=== PATIENT | female | born 1950 | race Caucasian/White ===

== ENCOUNTER 2023-12-13 14:58 | Emergency (ER) | payer OTHER, SELFPAY ==
[2023-12-13 15:18] VITALS: BP 184/83
--- NOTE | 2023-12-13 16:45 | ED.GENMED ---
History of Present Illness
General
Chief Complaint: Vascular Access Problem
Source: patient
Exam Limitations: none
Time Seen by Provider: 12/13/23 16:15
Nursing documentation reviewed up to this point in time: agreed with
Travel History
Have you had any contact with someone who has COVID-19?: No
Do you have any symptoms of coronavirus? Fever > 100 degrees, chills, cough, shortness of breath, sore throat, loss of taste or smell, muscle aches, or headache?: No
History of Present Illness
History of Present Illness:
Patient to ED with complaint of pain, pins and needles to right upper arm dialysis graft. Symptoms started this AM. Receives dialysis , , sat. States she had a headache and pins and needles in her head yesterday so she did not go to
dialysis. States head feels better today, now with pain to graft. Brought to ED by spouse for eval.
Past History
Past History
ED Past Medical History: Arrthythmia (Atrial fib), Asthma, COPD, GERD, HTN, Hypercholesterolemia, IDDM, [place], Renal failure (Dialysis - Saturday), Psychiatric (Depression) and Other (Neuropathy, sleep apnea, rheumatoid arthritis, gout, restless
leg, Diverticulitis, UTI, Cellulitis, )
ED Past Surgical History: Gynecological (Hysterectomy) and Urological (Bladder lift X3)
Social History
Tobacco: Non-smoker
Alcohol: None
Drug: None
Personal:
Living: with family
Employment: Retired
Family History
Family History: CAD
Review of Systems
Review of Systems
All Other Systems: ROS reviewed and negative except as documented in HPI and ROS
Constitutional: Reports no symptoms
EENT: Reports no symptoms
Respiratory: Reports no symptoms
Cardiac: Reports other (Pain, pins and needles at dialysis kristin site)
Musculoskeletal: Reports no symptoms
Skin: Reports other (Old bruising at dialysis graft)
Neurological: Reports no symptoms
Psychiatric: Reports no symptoms
Phy Exam
General Physical Exam
General Presentation: well appearing and no apparent distress
General age: appears stated age
General Skin: warm and dry
General Habitus: normal
Musculoskeletal Exam
Musculoskeletal Exam: full ROM and neuro vasc intact
Skin Exam
Skin Exam: normal color, warm/dry and other (Right upper arm dialysis fistula. +thrill, no redness or swelling. No tenderness to touch)
Psychiatric Exam
Psychiatric Exam: normal mood/affect
Course
Orders/Labs/Results
Orders:
Orders
12/13/23 19:59
Complete Blood Count/With Diff Urgent
Comprehensive Metabolic Panel Urgent
Abnormal Lab Results
12/13/23
19:59
MCH 31.5 H pg
(27.0-31.0)
Absolute Monos (auto) 0.8 H 10^3/uL
(0.1-0.6)
Lymphocytes % 19.8 L %
(20.5-51.1)
BUN 54 H mg/dl
(7-17)
Creatinine 2.6 H mg/dL
(0.6-1.0)
Calcium 10.3 H mg/dl
(8.4-10.2)
12/13/23 19:59
12/13/23 19:59
Vital Signs
Initial and Last Documented VS:
Initial Vital Signs
Temp Pulse Resp BP Pulse Ox
98.3 F 61 20 184/83 98
12/13/23 15:18 12/13/23 15:18 12/13/23 15:18 12/13/23 15:18 12/13/23 15:18
Last Documented Vital Signs
Temp Pulse Resp BP Pulse Ox
98.3 F 61 20 162/85 98
12/13/23 15:18 12/13/23 15:18 12/13/23 15:18 12/13/23 21:08 12/13/23 15:18
*Critical Care Note
Total Time (30-74mins, 75-104mins- exclusive of procedures): Not Applicable
Update Note
Update Note:
Discussed patient complaint with Dr. Gupta. Okay to discharge home, She will attempt dialysis as scheduled tomorrow and then will follow upw ith Alonso Stubbs. Patient is agreeable to plan.
ED Attending Note
-
Portions of this chart may have been created with voice recognition software.� Occasional wrong word or��sound alike� substitutions may have occurred due to the inherent limitations of voice recognition software.
Discharge Plan
Departure
Patient Disposition: Home (Routine Discharge)
Date of Disposition: 12/13/23
Time of Disposition: 20:46
Patient with high blood pressure during this ER visit?: No
Condition: Good
Covid-19: Not Applicable
Discharge Problem:
dialysis graft pain
Instructions: Arteriovenous Fistula for Dialysis (DC)
Prescriptions:
No Action
atorvastatin 40 MG tablet
40 mg PO DAILY
cilostazol 100 MG tablet
100 mg PO BID
gabapentin 100 MG capsule
100 mg PO TID
fluoxetine 20 MG capsule
20 mg PO DAILY
Eliquis 2.5 MG tablet
2.5 mg PO BID Qty: 60 0RF
Hold Instructions: Resume on 06/05/22. Restart blood thinner 06/05/22
cholecalciferol (vitamin D3) [Vitamin D3] 50 mcg (2,000 unit) Capsule
50 mcg PO DAILY
pantoprazole 40 mg Tablet,Delayed Release (Dr/Ec)
40 mg PO DAILY
amiodarone 200 mg tablet
200 mg PO DAILY
potassium chloride 20 mEq tablet extended release
20 meq PO DAILY
amlodipine 2.5 mg Tablet
2.5 mg PO DAILY
prednisolone acetate 1 % Drops,Suspension
1 drp LEFT EYE QID
diclofenac sodium 0.1 % Drops
1 drp LEFT EYE QID
moxifloxacin 0.5 % Drops
1 drp LEFT EYE QID
Mounjaro 2.5 mg/0.5 mL Pen Injector
2.5 mg SC TH
Referrals:
Marielle Sheppard MD [Family Provider] -
Tye Gupta MD [Active] - 12/16/23 (Call office on Saturday morning for your appointment time.)
Activity Restrictions/Additional Instructions:
Please follow up tomorrow for your dialysis appointment as scheduled.
Interventions
Interventions:
*General Assessment Last Done: 12/13/23 16:21
*Neglect/Abuse Screening Last Done: 12/13/23 16:21
ED- Fall Risk Assessment Last Done: 12/13/23 16:21
*ED COVID-19 Vaccine History Last Done: 12/13/23 16:21
*Nursing Disposition Last Done: 12/13/23 21:08
Discharge Date and Time
Discharge Date/Time: 12/13/23 21:09
[2023-12-13 20:08] LABS: % Basophils 0.4 % (0-2); % Eosinophils 3.1 % (0-6); % Immature Granulocytes 0.4 % (0-0.5); % Lymphocytes 19.8 % (20.5-51.1); % Monocytes 8.4 % (1.7-9.3); % Neutrophils 67.9 % (42.2-75.2); Absolute Eosinophils 0.3 10^3/uL (0-0.7); Absolute Lymphocytes 1.8 10^3/uL (1.2-3.4); Absolute Monocytes 0.8 10^3/uL (0.1-0.6); Absolute Neutrophils 6.1 10^3/uL (1.4-6.5); Mean Corp Hgb Conc. 35.9 g/dL (33.0-37.0); Mean Corpuscular Hgb 31.5 pg (27.0-31.0); Mean Corpuscular Volume 87.8 fL (81.0-99.0); Mean Platelet Volume 9.9 fL (7.4-10.4); Nucleated Red Blood Cells % 0 %; Platelet Count 251 10^3/uL (130-400); Red Blood Cell Count 4.44 10^6/uL (4.20-5.40); Red Cell Dist. Width 12.7 % (11.5-14.5)
[2023-12-13 20:23] LABS: ALT (SGPT) 29 U/L (0-35); AST (SGOT) 27 U/L (14-36); Albumin 4.2 g/dl (3.5-5.0); Alkaline Phosphatase 57 U/L (38-126); Blood Urea Nitrogen 54 mg/dl (7-17); Calcium 10.3 mg/dl (8.4-10.2); Carbon Dioxide 24 mmol/L (22-30); Chloride 99 mmol/L (98-107); Glucose 90 mg/dl (70-99); Potassium 3.6 mmol/L (3.5-5.1); Sodium 136 mmol/L (135-145); Total Bilirubin 0.6 mg/dl (0.2-1.3); Total Protein 7.1 g/dl (6.3-8.2); eGFR 19.26
[2023-12-13 21:08] VITALS: BP 162/85
== END 2023-12-13 21:09 | disposition home or self-care (01) ==
LOC: EMR 14:58
PROVIDERS: Nurse Practitioner; EMERGENCY PHYSICIAN Student in an Organized Health Care Education/Training Program; FAMILY PHYSICIAN Family Medicine
DX: T82.848A Pain due to vascular prosthetic devices, implants and grafts, initial encounter (principal)
CPT/HCPCS: 99283; 80053; 85025

== ENCOUNTER 2023-12-18 23:02 | Observation (INO) | payer OTHER, SELFPAY ==
[2023-12-18 15:58] VITALS: BP 171/97
[2023-12-18 16:18] LABS: % Basophils 0.5 % (0-2); % Immature Granulocytes 0.2 % (0-0.5); % Lymphocytes 17.5 % (20.5-51.1); % Monocytes 8.2 % (1.7-9.3); % Neutrophils 71.6 % (42.2-75.2); Absolute Eosinophils 0.2 10^3/uL (0-0.7); Absolute Lymphocytes 1.5 10^3/uL (1.2-3.4); Absolute Monocytes 0.7 10^3/uL (0.1-0.6); Absolute Neutrophils 6.3 10^3/uL (1.4-6.5); Mean Corp Hgb Conc. 35.1 g/dL (33.0-37.0); Mean Corpuscular Hgb 31.3 pg (27.0-31.0); Mean Corpuscular Volume 89.2 fL (81.0-99.0); Nucleated Red Blood Cells % 0 %; Platelet Count 247 10^3/uL (130-400); Red Blood Cell Count 4.15 10^6/uL (4.20-5.40); Red Cell Dist. Width 12.6 % (11.5-14.5); White Blood Cell Count 8.8 10^3/uL (4.8-10.8)
[2023-12-18 16:31] LABS: ALT (SGPT) 28 U/L (0-35); AST (SGOT) 30 U/L (14-36); Albumin 4.2 g/dl (3.5-5.0); Alkaline Phosphatase 62 U/L (38-126); Blood Urea Nitrogen 43 mg/dl (7-17); Calcium 9.6 mg/dl (8.4-10.2); Carbon Dioxide 21 mmol/L (22-30); Chloride 108 mmol/L (98-107); Glucose 100 mg/dl (70-99); INR 1.28; Lipase 236 U/L (23-300); PT 16.1 Sec (11.4-14.6); Potassium 3.3 mmol/L (3.5-5.1); Sodium 137 mmol/L (135-145); Total Bilirubin 0.7 mg/dl (0.2-1.3); Total Protein 6.8 g/dl (6.3-8.2); eGFR 20.06
[2023-12-18 16:42] LABS: Troponin I < 0.012 ng/ml
--- NOTE | 2023-12-18 18:54 | ED.GENMED ---
History of Present Illness
General
Chief Complaint: Abdominal Symptoms
Source: patient
Time Seen by Provider: 12/18/23 18:43
Travel History
Have you had any contact with someone who has COVID-19?: No
Do you have any symptoms of coronavirus? Fever > 100 degrees, chills, cough, shortness of breath, sore throat, loss of taste or smell, muscle aches, or headache?: No
History of Present Illness
History of Present Illness:
73-year-old female presents to the emergency room complaining of abdominal pain. Pain began last evening. It has been essentially constant since then. Nothing seems to make it better or worse. Pain has remained the same intensity since
yesterday. She has had diarrhea. Patient has not taken any [id number] medication for pain. Poor oral intake due to decreased appetite and nausea.
Past History
Past History
ED Past Medical History: Arrthythmia (Atrial fib), Asthma, COPD, GERD, HTN, Hypercholesterolemia, IDDM, [place], Renal failure (Dialysis T-- Saturday), Psychiatric (Depression) and Other (Neuropathy, sleep apnea, rheumatoid arthritis, gout, restless
leg, Diverticulitis, UTI, Cellulitis, )
ED Past Surgical History: Gynecological (Hysterectomy) and Urological (Bladder lift X3)
Social History
Tobacco: Non-smoker
Alcohol: None
Drug: None
Personal:
Living: with family
Employment: Retired
Family History
Family History: CAD
Phy Exam
Physical Exam
Physical Exam:
General: Awake, Alert, Oriented X3. No acute distress.
Vitals: unremarkable
Head: Atraumatic
Eyes: Pupils equal, EOMI
Throat: Airway intact, no exudates, dry mucosa
Neck: Trachea midline
Lungs: Clear and equal b/l
Heart: Regular rate, no murmurs
Abd: Soft, Nontender, No pulsatile mass
Neuro: Nonfocal
Skin: Warm, dry, no rash
Extremities: pulses equal b/l, no edema
Course
Orders/Labs/Results
Orders:
Orders
12/18/23 15:59
EKG [Electrocardiogram (*1)] Urgent
Reason for Study: Abdominal Pain
EKG- Treatment ONCE
12/18/23 16:03
Complete Blood Count/With Diff Urgent
Comprehensive Metabolic Panel Urgent
Lipase Urgent
Prothrombin Time Urgent
Troponin I Urgent
12/18/23 18:56
CT Abd/pelvis W Iv Cont Urgent
Comment:
Reason For Exam: left sided abd pain, she will get dialysis tomorro
12/18/23 22:21
HYDROmorphone [Dilaudid] 0.5 mg IV NOW STA
12/18/23 23:02
Admit/Transfer Patient As Directed
Co-Sign Provider:
Level of Care: Observation services
Assign to:: Medical/Surgical
Physician / Group: bjorn
Diagnosis: acute gastroenteritis
Code Status As Directed
Resuscitation Status: Do not resuscitate
Reached after discussion with pt or family/Healthcare POA: Yes
DNR Bracelet Application ONCE
12/18/23 23:06
CDIFF [C difficile Antigen & Toxins] Urgent
HARLAN Source: Feces/Stool
Specimen Description:
Norovirus by PCR Urgent
HARLAN Source: Feces/Stool
Specimen Description:
Stool Culture Urgent
HARLAN Source: Feces/Stool
Specimen Description:
Potassium Chloride [KCl] 40 meq 0.9% Sodium Chloride 250 ml [Nss] 250 ml IV NOW
Abnormal Lab Results
12/18/23
16:03
RBC 4.15 L 10^6/uL
(4.20-5.40)
MCH 31.3 H pg
(27.0-31.0)
Absolute Monos (auto) 0.7 H 10^3/uL
(0.1-0.6)
Lymphocytes % 17.5 L %
(20.5-51.1)
PT 16.1 H Sec
(11.4-14.6)
Potassium 3.3 L mmol/L
(3.5-5.1)
Chloride 108 H mmol/L
(98-107)
Carbon Dioxide 21 L mmol/L
(22-30)
BUN 43 H mg/dl
(7-17)
Creatinine 2.5 H mg/dL
(0.6-1.0)
Glucose 100 H mg/dl
(70-99)
12/18/23 16:03
12/18/23 16:03
Vital Signs
Initial and Last Documented VS:
Initial Vital Signs
Temp Pulse Resp BP Pulse Ox
98.5 F 66 17 171/97 99
12/18/23 15:58 12/18/23 15:58 12/18/23 15:58 12/18/23 15:58 12/18/23 15:58
Last Documented Vital Signs
Temp Pulse Resp BP Pulse Ox
98.5 F 63 18 164/83 98
12/18/23 15:58 12/18/23 22:45 12/18/23 22:45 12/18/23 22:45 12/18/23 22:45
MDM/Problems Addressed
Differential Diagnosis Includes:
Diverticulitis, gastritis, small bowel obstruction, ischemic bowel
MDM/Problems Addressed:
Patient has reassuring labs including a normal white blood cell count. Potassium mildly low but given her end-stage renal disease supplemental potassium will not be given. Renal functions abnormal but this is expected given her end-stage renal
disease. CT abdomen pelvis shows a renal mass. This was noted in June. I did notify the patient of this mass. She did not seem to recall any information about it stressed that she should follow-up with urology for this. Patient does not feel
enough to go home. She does have abdominal pain. She does not think she can make it to dialysis tomorrow. She missed dialysis on Saturday. Patient will be admitted for serial abdominal exams, further evaluation and dialysis
Chronic conditions affecting care: HTN and Kidney disease
*Radiology
Radiology exam reviewed: radiology read reviewed
*Pulse Oximetry
Patient hypoxic: no
*EKG
Interpreted by ED Provider?: Yes
Interpretation: normal
Heart Rate: 61
Rate: normal
Rhythm: sinus
[place]: normal axis
Interval: normal interval
QRS Pattern: normal QRS
Ischemia: no ischemia
*Storage Consultant Interpretation
Rate: normal
Interpretation: normal
Heart Rate: 61
Rhythm: sinus
*Critical Care Note
Total Time (30-74mins, 75-104mins- exclusive of procedures): Not Applicable
Data Reviewed
Review of Other/Old Records Reveals: Radiology Studies (CT report from June)
Patient Management
Discussion with other providers: Hospitalist
ED Attending Note
-
Portions of this chart may have been created with voice recognition software.� Occasional wrong word or��sound alike� substitutions may have occurred due to the inherent limitations of voice recognition software.
Discharge Plan
Departure
Patient Disposition: Admit
Date of Disposition: 12/18/23
Time of Disposition: 22:47
Admit to: Telemetry
Presentation/result/management discussed w/ accepting MD/DO: Hospitalist
Patient with high blood pressure during this ER visit?: Yes
Condition: Fair
Discharge Problem:
Abdominal pain, Diarrhea, ESRD (end stage renal disease) on dialysis
Prescriptions:
No Action
atorvastatin 40 MG tablet
40 mg PO DAILY
cilostazol 100 MG tablet
100 mg PO BID
gabapentin 100 MG capsule
100 mg PO TID
fluoxetine 20 MG capsule
20 mg PO DAILY
Eliquis 2.5 MG tablet
2.5 mg PO BID Qty: 60 0RF
Hold Instructions: Resume on 06/05/22. Restart blood thinner 06/05/22
cholecalciferol (vitamin D3) [Vitamin D3] 50 mcg (2,000 unit) Capsule
50 mcg PO DAILY
pantoprazole 40 mg Tablet,Delayed Release (Dr/Ec)
40 mg PO DAILY
amiodarone 200 mg tablet
200 mg PO DAILY
potassium chloride 20 mEq tablet extended release
20 meq PO DAILY
amlodipine 2.5 mg Tablet
2.5 mg PO DAILY
prednisolone acetate 1 % Drops,Suspension
1 drp LEFT EYE QID
diclofenac sodium 0.1 % Drops
1 drp LEFT EYE QID
moxifloxacin 0.5 % Drops
1 drp LEFT EYE QID
Mounjaro 2.5 mg/0.5 mL Pen Injector
2.5 mg SC TH
Referrals:
Marielle Sheppard MD [Family Provider] -
Interventions
Interventions:
*Risk Screen - Suicide Last Done: 12/18/23 22:56
*General Assessment Last Done: 12/18/23 22:56
*Neglect/Abuse Screening Last Done: 12/18/23 22:56
ED- Fall Risk Assessment Last Done: 12/18/23 20:16
*ED COVID-19 Vaccine History Last Done: 12/18/23 22:56
EM-[id number] Assessment Last Done: 12/18/23 22:56
[2023-12-18] MEDS: DILAUDID 0.5 MG IV (22:27)
[2023-12-18 22:45] VITALS: BP 164/83
--- NOTE | 2023-12-18 23:09 | HPS.HSE ---
Addendum entered and electronically signed by Temo White MD 12/18/23 23:38:
Reduced Lantus from 40 units to 20 units.
Original Note:
Family Physician
-
Family Physician: Marielle Sheppard
Chief Complaint
-
abdominal pain
History of Present Illness
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
obstructive sleep apnea, obesity, hyperlipidemia, peripheral arterial disease presenting with abdominal pain starting last evening and severe diarrhea. Abdominal pain is described as pain across her belly. Denies any abdominal distention. She
denies any nausea or vomiting. She did have some sweats and chills. She denies eating any new foods recently or restaurant food or travel. She denies any chest pain or shortness of breath.
Patient was admitted for gastroparesis suspected due to Ozempic in August. She underwent endoscopy at that time which showed findings consistent with gastroparesis. Ozempic was discontinued. Afterwards patient was started on Mounjaro because she
gained significant amount of weight off of Ozempic. She is trying to lose weight for kidney transplant.
Patient missed her dialysis session yesterday due to her symptoms. She is complaining of some pain in her right upper extremity fistula but not currently.
She denies smoking or alcohol use.
Medical History
Past Medical History
Past Medical History: Reports Other (astroparesis secondary to Ozempic, ESRD, orthostatic hypotension, diabetes, paroxysmal atrial fibrillation on Eliquis, CAD, hypertension, COPD, pulmonary hypertension, gout, rheumatoid arthritis, obstructive
sleep apnea, obesity, hyperlipidemia, peripheral arterial disease)
Past Surgical History: Reports Other (Gynecological (Hysterectomy) and Urological (Bladder lift X3))
Social History
Tobacco: Non-smoker
Alcohol: None
Drug: None
Family History
Family History: Not pertinent
Allergies / Home Medications
Allergies reflects when Allergies were last updated in [employer].
Home Medications with original date entered in [employer]
Allergy/Medication List:
Allergies
Allergy/AdvReac Type Severity Reaction Status Date / Time
adhesive Allergy Rash, Verified 12/18/23 15:59
itching
Sulfa (Sulfonamide Allergy nausea and Verified 12/18/23 15:59
Antibiotics) vomiting
Home Medications
atorvastatin 40 mg tablet 40 mg PO DAILY High cholesterol 04/25/21
cilostazol 100 mg tablet 100 mg PO BID Blood clot prevention/tx 04/25/21
fluoxetine 20 mg capsule 20 mg PO DAILY anxiety/depression 04/05/22
gabapentin 100 mg capsule 100 mg PO TID Diabetic Neuropathy 04/05/22
apixaban 2.5 mg tablet (Eliquis) 2.5 mg PO BID Blood clot prevention/tx #60 tabs 04/16/22
cholecalciferol (vitamin D3) 50 mcg (2,000 unit) capsule (Vitamin D3) 50 mcg PO DAILY Supplement 07/19/22
pantoprazole 40 mg tablet,delayed release 40 mg PO DAILY GERD 05/09/23
amiodarone 200 mg tablet 200 mg PO DAILY Arrhythmia 08/31/23
potassium chloride 20 mEq tablet,extended release 20 meq PO DAILY Electrolyte Repletion 08/31/23
amlodipine 2.5 mg tablet 2.5 mg PO DAILY 12/13/23
diclofenac sodium 0.1 % eye drops 1 drp LEFT EYE QID 12/13/23
moxifloxacin 0.5 % eye drops 1 drp LEFT EYE QID 12/13/23
prednisolone acetate 1 % eye drops,suspension 1 drp LEFT EYE QID 12/13/23
tirzepatide 2.5 mg/0.5 mL subcutaneous pen injector (Mounjaro) 2.5 mg SC TH 12/13/23
Review of Systems
-
History Source: Patient
A 12 point ROS was completed and negative except as noted: Yes
Constitutional: Reports No Symptoms
EENT: Reports No Symptoms
Respiratory: Reports No Symptoms
Cardiac: Reports No Symptoms
Abdomen/GI: Reports See HPI
: Reports No Symptoms
Musculoskeletal: Reports No Symptoms
Skin: Reports No Symptoms
Neurological: Reports No Symptoms
Endocrine: Reports No Symptoms
Hematologic/Lymphatic: Reports No Symptoms
Psych: Reports No Symptoms
Physical Exam
Vital Signs
Vital Signs
Temp Pulse Resp BP Pulse Ox
98.5 F 63 18 164/83 98
12/18/23 15:58 12/18/23 22:45 12/18/23 22:45 12/18/23 22:45 12/18/23 22:45
Physical Exam
General: Well Developed, Well Nourished and No Apparent Distress
HEENT: NormoCephalic, Moist mucous membranes and Atraumatic
Respiratory: Clear
Cardiac: S1/S2 and Regular Rhythm; No Murmur or Rub
GI: Soft, Non Distended, Normal Bowel Sounds and Tender; No Organomegaly
Rectal: Deferred by Provider
Musculoskeletal: No Clubbing, No Cyanosis and No Edema
Skin: No Rash
Neuro: Nonfocal/grossly intact
Laboratory Results
-
12/18/23 16:03
12/18/23 16:03
Laboratory Results
PT 16.1 Sec (11.4-14.6) H 12/18/23 16:03
INR 1.28 12/18/23 16:03
Total Bilirubin 0.7 mg/dl (0.2-1.3) 12/18/23 16:03
AST 30 U/L (14-36) 12/18/23 16:03
ALT 28 U/L (0-35) 12/18/23 16:03
Alkaline Phosphatase 62 U/L (38-126) 12/18/23 16:03
Troponin I < 0.012 ng/ml 12/18/23 16:03
Lipase 236 U/L (23-300) 12/18/23 16:03
Data Reviewed
-
Lab Data: Labs Reviewed by me
Old Records: Reviewed
Impression/Plan
-
IMPRESSION:
PLAN:
# Acute gastroenteritis
# History of Ozempic induced gastroparesis
-N.p.o.
-Check stool studies, C. difficile, norovirus
-Dilaudid for pain
# Hypokalemia secondary to GI losses
-Hold off on potassium repletion since dialysis patient
ESRD on hemodialysis Saturday, , Saturday
-Nephrology consulted for dialysis tomorrow since she missed dialysis yesterday
Orthostatic hypotension
Essential hypertension
-Continue amlodipine
Type 2 diabetes
-Not on diabetic medication
Diabetic neuropathy
-Continue gabapentin
Paroxysmal atrial fibrillation
-Continue amiodarone
-Continue Eliquis
Coronary artery disease
Peripheral arterial disease
-Continue cilostazol
COPD
Obstructive sleep apnea
Pulmonary hypertension
Gout
Rheumatoid arthritis
Obesity
Hyperlipidemia
-Continue statin
Anxiety/depression
-Continue fluoxetine
DNR/DNI
DVT prophylaxis�Eliquis
N.p.o.
[2023-12-19 00:20] VITALS: BMI 36.8
[2023-12-19 00:20] LABS: Glucose - Point of Care 93 mg/dl (70-99)
[2023-12-19 00:32] VITALS: BMI 36.8
--- NOTE | 2023-12-19 00:52 | W.PN.UPDATE ---
Update Note
Progress Note Update
Pharmacist recommended to change Pletal 100mg BID to 50mg BID. The patient currently on Prozac which is leading to significant reaction of increased Pletal concentrations and increases the risk of ADEs.
[2023-12-19 01:10] VITALS: BP 128/86
[2023-12-19 05:30] LABS: Glucose - Point of Care 92 mg/dl (70-99)
[2023-12-19 05:32] VITALS: BMI 36.4
--- NOTE | 2023-12-19 07:07 | CON.GI ---
Consultation
-
Date/Time Consultation Performed: 12/19/23
Performing Provider: Dev Chapman MD
Reason for Consultation: nausea, diarrhea, abdominal pain
Medical History
Chief Complaint / HPI
Chief Complaint: nausea, diarrhea, abdominal pain
History of Present Illness:
The patient is a 73-year-old female with past medical history as noted presents with abdominal pain, early satiety, nausea and diarrhea. The symptoms started over the past several days, though has been doing well after her hospitalization in
August for very similar symptoms which were secondary to Ozempic. At that point workup was negative except for endoscopy did show retained gastric contents, and her symptoms resolved after stopping Ozempic. She recently started Mounjaro about 2
weeks ago, and feels that the symptoms are very similar, though more severe. She had watery, nonbloody diarrhea, denies any fever, chills, recent antibiotics or sick contacts. She has early satiety and abdominal pain again which feels identical to
before. She denies any melena or hematochezia, chest pain or shortness of breath.
Past Medical History
Past Medical History: Other (atrial fibrillation, diabetes, asthma, COPD, ESRD on dialysis, pulmonary htn, PAD)
Past Surgical History: Other (Hysterectomy) and Urological (Bladder lift X3)
Social History
Tobacco: Non-Smoker
Alcohol: None
Family History
Family History: Reviewed & Not Pertinent
Allergies / Home Medications
Allergy/AdvReac Type Severity Reaction Status Date / Time
adhesive Allergy Rash, Verified 12/18/23 15:59
itching
Sulfa (Sulfonamide Allergy nausea and Verified 12/18/23 15:59
Antibiotics) vomiting
Medication Instructions Recorded
atorvastatin 40 mg tablet 40 mg PO DAILY High cholesterol 04/25/21
cilostazol 100 mg tablet 100 mg PO BID Blood clot 04/25/21
prevention/tx
fluoxetine 20 mg capsule 20 mg PO DAILY anxiety/depression 04/05/22
gabapentin 100 mg capsule 100 mg PO TID Diabetic Neuropathy 04/05/22
apixaban 2.5 mg tablet (Eliquis) 2.5 mg PO BID Blood clot 04/16/22
prevention/tx #60 tabs
cholecalciferol (vitamin D3) 50 50 mcg PO DAILY Supplement 07/19/22
mcg (2,000 unit) capsule (Vitamin
D3)
pantoprazole 40 mg tablet,delayed 40 mg PO DAILY GERD 05/09/23
release
amiodarone 200 mg tablet 200 mg PO DAILY Arrhythmia 08/31/23
potassium chloride 20 mEq 20 meq PO DAILY Electrolyte 08/31/23
tablet,extended release Repletion
amlodipine 2.5 mg tablet 2.5 mg PO DAILY 12/13/23
prednisolone acetate 1 % eye 1 drp LEFT EYE QID 12/13/23
drops,suspension
tirzepatide 2.5 mg/0.5 mL 2.5 mg SC TH 12/13/23
subcutaneous pen injector
(Mounjaro)
insulin glargine 100 unit/mL (3 40 unit SC HS 12/18/23
mL) subcutaneous pen (Basaglar
KwikPen U-100 Insulin)
Review of Systems
-
All other systems: A 12 pt ROS was Negative except as stated above in HPI
Vital Signs
Temp Pulse Resp BP Pulse Ox
97.6 F 67 16 128/86 97
12/19/23 05:41 12/19/23 01:10 12/19/23 01:10 12/19/23 01:10 12/19/23 01:10
Physical Exam
Exam
General: NAD
HEENT: MMM, anicteric, no lymphadenopathy
Heart: Regular, no murmurs
Lungs: CTA bilaterally
Abdomen: normal bowel sounds, soft, no tenderness, no rebound or guarding, no masses, bruits or ascites
Extremeties: no edema
Skin: no rashes
Results
WBC 8.8 10^3/uL (4.8-10.8) 12/18/23 16:03
Hgb 13.0 g/dL (12.0-16.0) 12/18/23 16:03
Hct 37.0 % (37.0-47.0) 12/18/23 16:03
MCV 89.2 fL (81.0-99.0) 12/18/23 16:03
Plt Count 247 10^3/uL (130-400) 12/18/23 16:03
Absolute Neuts (auto) 6.3 10^3/uL (1.4-6.5) 12/18/23 16:03
PT 16.1 Sec (11.4-14.6) H 12/18/23 16:03
INR 1.28 12/18/23 16:03
Sodium 137 mmol/L (135-145) 12/18/23 16:03
Potassium 3.3 mmol/L (3.5-5.1) L 12/18/23 16:03
Chloride 108 mmol/L (98-107) H 12/18/23 16:03
Carbon Dioxide 21 mmol/L (22-30) L 12/18/23 16:03
BUN 43 mg/dl (7-17) H 12/18/23 16:03
Creatinine 2.5 mg/dL (0.6-1.0) H 12/18/23 16:03
Calcium 9.6 mg/dl (8.4-10.2) 12/18/23 16:03
Total Bilirubin 0.7 mg/dl (0.2-1.3) 12/18/23 16:03
AST 30 U/L (14-36) 12/18/23 16:03
ALT 28 U/L (0-35) 12/18/23 16:03
Alkaline Phosphatase 62 U/L (38-126) 12/18/23 16:03
Lipase 236 U/L (23-300) 12/18/23 16:03
Diagnostic Image Results:
CT:
IMPRESSION: No acute pathology of the abdomen or pelvis identified.
Mildly enlarged solid left renal mass consistent with malignancy until proven otherwise.
Bilateral renal cysts. Stable.
Moderate fecal material throughout the colon. Progressed.
Mild diverticulosis. Stable.
Tiny fat-containing umbilical hernia. No evidence of incarceration or strangulation. Stable.
Small hiatal hernia. Stable
Prior GI Procedures:
EGD:
2022:
Impression:� � � � � � - Normal esophagus. Small hiatal hernia
�� � � � � � � � � � � - Normal stomach and duodenum
�� � � � � � � � � � � - A small amount of food (residue) in the stomach and
�� � � � � � � � � � � duodenum..
Colonoscopy:
Assessment / Plan
-
1. Abdominal pain/diarrhea/early satiety: With symptoms very similar to her previous symptoms with Ozempic, after starting Mounjaro about 2 weeks ago, likely secondary to GLP-[address] scan and labs otherwise unremarkable now, exam is
benign, no other new symptoms. She has no recent antibiotics or sick contacts and doubt other infectious gastroenteritis. At this point we discussed continued supportive care, will check stool studies as ordered, will restart diet and continue
observation for now. We discussed that she is intolerant of GLP-1 medications and would hold on further trials in the future. Assuming she continues to improve would hold on further workup for now.
-
-
Thank you for consultation and allowing me to participate in the patient's care. Please call the hospital monitor GI physician during the after hours with any questions or concerns.
[2023-12-19 07:16] LABS: % Basophils 0.4 % (0-2); % Eosinophils 3.2 % (0-6); % Immature Granulocytes 0.2 % (0-0.5); % Lymphocytes 18.7 % (20.5-51.1); % Monocytes 11.7 % (1.7-9.3); % Neutrophils 65.8 % (42.2-75.2); Absolute Eosinophils 0.2 10^3/uL (0-0.7); Absolute Lymphocytes 1.1 10^3/uL (1.2-3.4); Absolute Monocytes 0.7 10^3/uL (0.1-0.6); Absolute Neutrophils 3.7 10^3/uL (1.4-6.5); Hematocrit 34.2 % (37.0-47.0); Hemoglobin 11.8 g/dL (12.0-16.0); Mean Corp Hgb Conc. 34.5 g/dL (33.0-37.0); Mean Corpuscular Hgb 30.9 pg (27.0-31.0); Mean Corpuscular Volume 89.5 fL (81.0-99.0); Nucleated Red Blood Cells % 0 %; Platelet Count 220 10^3/uL (130-400); Red Blood Cell Count 3.82 10^6/uL (4.20-5.40); Red Cell Dist. Width 12.8 % (11.5-14.5); White Blood Cell Count 5.6 10^3/uL (4.8-10.8)
[2023-12-19 07:48] LABS: ALT (SGPT) 22 U/L (0-35); AST (SGOT) 25 U/L (14-36); Albumin 3.2 g/dl (3.5-5.0); Alkaline Phosphatase 50 U/L (38-126); Blood Urea Nitrogen 41 mg/dl (7-17); Calcium 9.4 mg/dl (8.4-10.2); Carbon Dioxide 24 mmol/L (22-30); Chloride 106 mmol/L (98-107); Estimated Creatinine Clearance 22 ml/min; Glucose 94 mg/dl (70-99); Potassium 3.3 mmol/L (3.5-5.1); Sodium 138 mmol/L (135-145); Total Bilirubin 0.8 mg/dl (0.2-1.3); Total Protein 5.6 g/dl (6.3-8.2); eGFR 20.06
[2023-12-19 07:59] VITALS: BP 169/79
[2023-12-19 08:38] LABS: Glucose - Point of Care 79 mg/dl (70-99)
--- NOTE | 2023-12-19 08:58 | W.PN.HOSP.TC ---
Today's Communication/Plan
-
.
Assessment / Plan
Assessment / Plan
Physical Exam
-
General: No Apparent Distress. Getting HD
HEENT: Normocephalic, Atraumatic, Moist Mucous Membranes.
Respiratory: Clear to Auscultation
Cardiac: S1 S2
GI: Soft, Nontender, Nondistended and Normal Bowel Sounds.
Rectal: No rectal bleeding noted.
Musculoskeletal: No Clubbing, No Cyanosis and No Edema. Right arm fistula.
Skin: Negative Rash
Neuro: Awake, Alert, Oriented, AO x 3 , followed commands
Psych: Calm
# Acute gastroenteritis
# History of Ozempic induced gastroparesis
No pain
No diarrhea over night
CT A/P showed no acute pathology of the abdomen or pelvis identified. Mild diverticulosis. Tiny fat-containing umbilical hernia. No evidence of incarceration or strangulation.
Can start oral diet
Likely due to intolerant of GLP-1.
Stool studies if possible
Appreciate GI input
# Hypokalemia secondary to GI losses
Order oral KCl
# ESRD on hemodialysis Saturday, , Saturday
monitor for hypotension
Appreciate nephrology input
#Essential hypertension
Uncontrolled
will add PRN hydralazine
Hx of Orthostatic hypotension
-Continue amlodipine
Type 2 diabetes
-Not on diabetic medication
# Diabetic neuropathy
-Continue gabapentin
# Coronary artery disease
No chest pain
$ Peripheral arterial disease
-Continue cilostazol
#History of depression, continue fluoxetine and gabapentin
#History of paroxysmal atrial fibrillation.� Currently in sinus rhythm.� Rate is well controlled.� Holding Eliquis for the procedure.� Continue with amiodarone.
#History of gout
#Primary hypertension.� No headache.� No chest pain.� A.m. blood pressure 136/68
#History of diabetic neuropathy.
#History of COPD, no wheezes on exam
#History of rheumatoid arthritis.
#History of hyperlipidemia.� No changes intended.
DNR/DNI
DVT prophylaxis�Eliquis
Total time spent to see the patient, examine the patient on the floor, review data and lab results, discuss treatment plan with patient and nursing staff around 55 minutes
Anticipated Discharge: 24 - 48 hours
Subjective/Interval History
-
Date of Service: December 19, 2023
No abd pain
No diarrhea over night
No nausea
Objective Data
-
Labs:
Laboratory Results
12/19/23
06:34
WBC 5.6
Hgb 11.8 L
Hct 34.2 L
Plt Count 220
Sodium 138
Potassium 3.3 L
Chloride 106
Carbon Dioxide 24
BUN 41 H
Creatinine 2.5 H
Glucose 94
Calcium 9.4
Total Bilirubin 0.8
AST 25
ALT 22
Alkaline Phosphatase 50
Vital Signs:
Vital Signs
Temp Pulse Resp BP Pulse Ox
98.7 F 62 18 169/79 99
12/19/23 07:59 12/19/23 07:59 12/19/23 07:59 12/19/23 07:59 12/19/23 07:59
I&O
12/18/23 12/19/23 12/20/23
06:59 06:59 06:59
Intake Total 100 / 100
Balance 100 / 100
[2023-12-19] MEDS: NEURONTIN PO (10:33)
[2023-12-19] MEDS: PRED FORTE 1% EYE DROPS 1 DROP LEFT EYE ×4 (10:34→21:02)
[2023-12-19 11:46] VITALS: BP 159/88
[2023-12-19 12:06] LABS: Glucose - Point of Care 84 mg/dl (70-99)
--- NOTE | 2023-12-19 12:34 | CON.MD ---
Consultation - Medical
-
Assessment:
nausea and vomitting (started with ozempic and now on Mounjaro)
ESRD on HD TThS
Missed HD treatments
HTN
DM
AFib (on Eliquis)
RUE AVF
Asthma
pHTN
RA
Sleep apnea
GERD
Anxiety/depression
DLD
Plan:
- HD today per her usual schedule
- likely needs to increase her EDW from 88.5 to 89 or more in the setting of true weight loss from nausea/vomitting, decreased appetite and lightheadedness/dizziness after HD
- intolerant of GLP1 medications per GI, holding off on further trials
--- NOTE | 2023-12-19 12:40 | W.PN.NEPH.HD ---
Assessment
-
continues to complain of abdominal pain
prolonged bleeding from fistula --> instructed to pursue fistulogram as outpatient
Progress Note - Hemodialysis
-
Date of Service: December 19, 2023
Duration: 30 minutes and 3 hours
Potassium Bath: 3
Calcium Bath: 2.5
Opti-Dialyzer: 160
Ultrafiltration: Other
Blood Flow: 400
Dialysate Flow: 600
Heparin: n/a
EPO: none
[2023-12-19] MEDS: PLETAL 50 MG PO ×2 (13:18→21:00)
[2023-12-19] MEDS: ELIQUIS 2.5 MG PO ×2 (13:19→21:01)
[2023-12-19] MEDS: PROTONIX 40 MG PO (13:20)
[2023-12-19] MEDS: LIPITOR 40 MG PO (13:20)
[2023-12-19] MEDS: VITAMIN D3 (cholecalciferol) 50 MCG PO (13:20)
[2023-12-19] MEDS: PROZAC 20 MG PO (13:21)
[2023-12-19] MEDS: PACERONE 200 MG PO (13:21)
[2023-12-19] MEDS: NORVASC 2.5 MG PO (13:29)
[2023-12-19 15:19] VITALS: BP 143/75
[2023-12-19] MEDS: NEURONTIN 100 MG PO ×2 (15:19→21:01)
--- NOTE | 2023-12-19 15:51 | CM ---
Patient see bedside.
IA completed.
Patient lives with spouse in a 2 story home with 3 steps to enter.
Patient ambulates independently without assistive devices.
Patient receives HD T-Th- Sat at [facility].
Patient has had VN in the past through [facility].
Patient denies Home care needs at this time.
PCP: Dr Sheppard
Pharmacy: [facility]
Plan: Home with return to outpatient HD at [facility].
[2023-12-19 17:12] LABS: Glucose - Point of Care 128 mg/dl (70-99)
[2023-12-19 21:34] LABS: Glucose - Point of Care 92 mg/dl (70-99)
[2023-12-19] MEDS: LANTUS 0.100000000000000006 UNITS SC (22:34)
[2023-12-19 23:41] VITALS: BP 142/62
--- NOTE | 2023-12-20 04:49 | PTCARENOTE ---
discussed with SHAKIRA Owens that patients BS was 92, did we want to give her 20 U of Lantus or should be reduce it or hold it . SHAKIRA Owens placed a new order for 10 Units of Lantus to be given. Will continue to monitor patient
[2023-12-20 05:59] VITALS: BMI 35.6
[2023-12-20 08:07] LABS: Glucose - Point of Care 91 mg/dl (70-99)
[2023-12-20 08:09] VITALS: BP 164/78
--- NOTE | 2023-12-20 09:00 | W.PN.HOSP.TC ---
Today's Communication/Plan
-
advance diet
Assessment / Plan
Assessment / Plan
Physical Exam
-
General: No Apparent Distress. Getting HD
HEENT: Normocephalic, Atraumatic, Moist Mucous Membranes.
Respiratory: Clear to Auscultation
Cardiac: S1 S2
GI: Soft, Nontender, Nondistended and Normal Bowel Sounds.
Rectal: No rectal bleeding noted.
Musculoskeletal: No Clubbing, No Cyanosis and No Edema. Right arm fistula.
Skin: Negative Rash
Neuro: Awake, Alert, Oriented, AO x 3 , followed commands
Psych: Calm
#medication induced diarrhea. Intolerant of GLP-1.
# History of Ozempic induced gastroparesis
No evidence of infectious process.
No pain this morning. No abd tenderness on exam
No diarrhea
CT A/P showed no acute pathology of the abdomen or pelvis identified. Mild diverticulosis. Tiny fat-containing umbilical hernia. No evidence of incarceration or strangulation.
She is tolerating oral diet
Stool studies if possible
Appreciate GI input
# Hypokalemia secondary to GI losses
Order oral KCl
# ESRD on hemodialysis Saturday, , Saturday
monitor for hypotension
Appreciate nephrology input
#Essential hypertension
Uncontrolled
will add PRN hydralazine
Hx of Orthostatic hypotension
-Continue amlodipine
Type 2 diabetes
-Not on diabetic medication
# Diabetic neuropathy
-Continue gabapentin
# Coronary artery disease
No chest pain
# Peripheral arterial disease
-Continue cilostazol
#History of depression, continue fluoxetine and gabapentin
#History of paroxysmal atrial fibrillation.� Currently in sinus rhythm.� Rate is well controlled.� Holding Eliquis for the procedure.� Continue with amiodarone.
#History of gout
#Primary hypertension.� No headache.� No chest pain.� A.m. blood pressure 136/68
#History of diabetic neuropathy.
#History of COPD, no wheezes on exam
#History of rheumatoid arthritis.
#History of hyperlipidemia.� No changes intended.
DNR/DNI
DVT prophylaxis�Eliquis
Total time spent to see the patient, examine the patient on the floor, review data and lab results, discuss treatment plan with patient and nursing staff around 55 minutes
Anticipated Discharge: Within 24 hours
Subjective/Interval History
-
Date of Service: December 20, 2023
No chest pain
No sob
No diarrhea, now constipated
mild abd discomfort over night but not this morning
Objective Data
-
Vital Signs:
Vital Signs
Temp Pulse Resp BP Pulse Ox
98.2 F 61 18 164/78 99
12/20/23 08:09 12/20/23 08:09 12/20/23 08:09 12/20/23 08:09 12/20/23 08:09
I&O
12/19/23 12/20/23 12/21/23
06:59 06:59 06:59
Intake Total 100 / 100 180 / 180
Output Total 250 / 250
Balance 100 / 100 -70 / -70
--- NOTE | 2023-12-20 09:42 | W.PN.GI.CBS2 ---
Addendum entered and electronically signed by Monet Mitchell MD 12/20/23 10:50:
I saw and examined the patient.
The [employer] or PA's note was reviewed and I agree with the note.
Comment: No significant nausea or vomiting today, tolerating low residue diet
-Nausea and vomiting episodes which seems to be chronic and intermittent
Thought to be related to GLP-1 inhibitors
Continue PPI
Low residue and low-fat diet recommended
Outpatient upper endoscopy/gastric emptying study as well
-Reports positive Cologuard as an outpatient
Needs colonoscopy both for positive Cologuard and chronic diarrhea as outpatient, currently on anticoagulation
Has appointment 01/06 with GI
-Reports diarrhea as well
Monitor bowel movements in the hospital and will order stool studies
Addendum entered and electronically signed by Penny Penn NP 12/20/23 10:06:
She will also need OP GES as well. OV for 01/06 @ 8:00am with our [employer] Willa Nunez.
Original Note:
Today's Communication / Plan
-
Low residue, low lactose gastroparesis diet. Continue daily PPI. Eventual OP colonoscopy. Hold further Mounjaro.
Assessment / Plan
-
The pt is a 73 yo female with a PMH significant for ESRD on HD, DM2 on Mounjaro, HLD, HTN, Afib on Eliquis, depression, CAD, peripheral neuropathy, COPD, RA, PAD, who presented to the hospital with complaints of abdominal pain and early satiety with
severe diarrhea. She had a previous hospitalization with similar symptoms thought to be secondary to Ozempic. She was subsequently switched to Mounjaro 3 weeks ago and has had recurrent symptoms. CT A/P showed a solid left renal mass (previously
seen) otherwise no acute pathology in the abdomen or pelvis to explain her symptoms. She had recent EGD in August which showed food residue in the stomach and duodenum otherwise normal. She notes about 70lbs of weight loss over the last year
intentional and unintentional. She is trying to lose weight to get a kidney transplant. She has never had a colonoscopy. Currently her symptoms are improved and she is tolerating her diet.
Problem list:
-abdominal pain, improved
-early satiety, nausea, diarrhea
-ESRD on HD
-weight loss
-hypokalemia
Other pertinent medical hx:
-COPD
-RA
-HTN
-DM2
-Afib on Eliquis
-CAD
-PAD
-peripheral neuropathy
-CAD
Recommendations:
-Etiology of current symptoms possibly medication induced with GLP-1 use with Mounjaro v gastroenteritis v gastroparesis v other.
---No acute pathology seen on CT imaging. Previously seen left kidney mass present again.
-At this time can continue diet with low residue, low lactose renal diet with smaller more frequent meals. Advised on dietary restrictions to assist with her symptoms
-Add celiac panel
-Send stool studies if recurrent diarrhea
-Continue daily PPI
-Would ideally hold further Mounjaro as she seems to have an intolerance to this and other GLP-1 drugs. She should discuss with her PCP/labor relations supervisor regarding further management for her DM2
-She will need an eventual OP colonoscopy with +cologuard and chronic intermittent diarrhea (can bx for microscopic colitis). Will get her a sooner appt.
-Potassium repletion as per hospitalisit
-Nephrology following for HD
-Monitor weight
-Will follow
Subjective
Subjective
Date of Service: December 20, 2023
The pt was seen and examined at the bedside. Currently she reports she feels well. She denies any nausea or vomiting this morning. She admits to chronic n/v/d for the last 2 years occurring 2-3 times weekly, especially on her dialysis days. She
notes a + cologuard last year but was not able to get in to see a GI doctor but has an appointment in February. She has never had a colonoscopy. She denies any abdominal pain. She does admit to 70lbs of weight loss over the last year which has been
mixed intentional/unintentional.
Objective
Data Reviewed
Laboratory Data:
Laboratory Results
12/19/23 06:34
12/19/23 06:34
Laboratory Results
PT 16.1 Sec (11.4-14.6) H 12/18/23 16:03
INR 1.28 12/18/23 16:03
Total Bilirubin 0.8 mg/dl (0.2-1.3) 12/19/23 06:34
AST 25 U/L (14-36) 12/19/23 06:34
ALT 22 U/L (0-35) 12/19/23 06:34
Alkaline Phosphatase 50 U/L (38-126) 12/19/23 06:34
Lipase 236 U/L (23-300) 12/18/23 16:03
Vital Signs and I&O:
Vital Signs
Temp Pulse Resp BP Pulse Ox
98.2 F 61 18 164/78 99
12/20/23 08:09 12/20/23 08:09 12/20/23 08:09 12/20/23 08:09 12/20/23 08:09
I&O
12/19/23 12/20/23 12/21/23
06:59 06:59 06:59
Intake Total 100 / 100 180 / 180
Output Total 250 / 250
Balance 100 / 100 -70 / -70
Physical Exam
Physical Exam
HEENT: Anicteric
Cardiology: S1 and S2 (regular rate/rhythm)
Pulmonary: Clear
GI: Soft, Non Distended, Non Tender and Normal Bowel Sounds
Extremities: No Edema
Neuro: Non Focal
[2023-12-20] MEDS: PRED FORTE 1% EYE DROPS 1 DROP LEFT EYE ×4 (10:11→21:33)
[2023-12-20] MEDS: LIPITOR 40 MG PO (10:20)
[2023-12-20] MEDS: PROTONIX 40 MG PO (10:20)
[2023-12-20] MEDS: NEURONTIN 100 MG PO ×3 (10:21→21:33)
[2023-12-20] MEDS: PLETAL 50 MG PO ×2 (10:21→19:37)
[2023-12-20] MEDS: PROZAC 20 MG PO (10:22)
[2023-12-20] MEDS: VITAMIN D3 (cholecalciferol) 50 MCG PO (10:22)
[2023-12-20] MEDS: PACERONE 200 MG PO (10:22)
[2023-12-20] MEDS: ELIQUIS 2.5 MG PO ×2 (10:22→19:37)
[2023-12-20] MEDS: NORVASC 2.5 MG PO (10:25)
[2023-12-20 11:31] LABS: Glucose - Point of Care 135 mg/dl (70-99)
--- NOTE | 2023-12-20 14:16 | W.PN.NEPH.PH ---
Today's Communication / Plan
-
Hd tomorrow
Assessment/Plan
-
Impression:
nausea and vomitting (started with ozempic and now on Mounjaro)
ESRD on HD TThS
Missed HD treatments
HTN
DM
AFib (on Eliquis)
RUE AVF
Asthma
pHTN
RA
Sleep apnea
GERD
Anxiety/depression
DLD
Plan:
- HD tomorrow
- likely needs to increase her EDW from 88.5 to 89 or more in the setting of true weight loss from nausea/vomitting, decreased appetite and lightheadedness/dizziness after HD
- intolerant of GLP1 medications per GI, holding off on further trials�
-
-
Date of Service: December 20, 2023
CC / HPI / ROS
-
Chief Complaint:
ESRD
History of Present Illness:
ESRD TTS
hemodynamically stable
Review of Systems:
no fevers
less nausea, no vomiting
eating
Labs
-
Labs:
WBC 5.6 10^3/uL (4.8-10.8) 12/19/23 06:34
RBC 3.82 10^6/uL (4.20-5.40) L 12/19/23 06:34
Hgb 11.8 g/dL (12.0-16.0) L 12/19/23 06:34
Hct 34.2 % (37.0-47.0) L 12/19/23 06:34
Plt Count 220 10^3/uL (130-400) 12/19/23 06:34
Sodium 138 mmol/L (135-145) 12/19/23 06:34
Potassium 3.3 mmol/L (3.5-5.1) L 12/19/23 06:34
Chloride 106 mmol/L (98-107) 12/19/23 06:34
Carbon Dioxide 24 mmol/L (22-30) 12/19/23 06:34
BUN 41 mg/dl (7-17) H 12/19/23 06:34
Creatinine 2.5 mg/dL (0.6-1.0) H 12/19/23 06:34
eGFR 20.06 12/19/23 06:34
Glucose 94 mg/dl (70-99) 12/19/23 06:34
Calcium 9.4 mg/dl (8.4-10.2) 12/19/23 06:34
Albumin 3.2 g/dl (3.5-5.0) L 12/19/23 06:34
Physical Exam
-
Vital Signs:
Vital Signs
Temp Pulse Resp BP Pulse Ox
98.2 F 61 18 164/78 99
12/20/23 08:09 12/20/23 08:09 12/20/23 08:09 12/20/23 08:09 12/20/23 08:09
Cardiovascular:: Regular rate and rhythm
Respiratory:: Bilateral: CTA
Lung Excursion:: Normal
Abdomen:: Nontender
Bowel Sounds:: Normal
Extremity Edema:: None: Bilateral:
[place] Catheter: No
--- NOTE | 2023-12-20 15:01 | CM ---
met with patient and her at bedside.she is tolerating a low residue diet,cont ppi,esrd on hd raf tomy sat.she will prob dc home tomorrow with no needs.patient signed medicare letter.
Plan : discharge home with no needs.
[2023-12-20 16:39] VITALS: BP 145/76
[2023-12-20 17:01] LABS: Glucose - Point of Care 111 mg/dl (70-99)
[2023-12-20 21:34] LABS: Glucose - Point of Care 130 mg/dl (70-99)
[2023-12-20] MEDS: LANTUS 0.200000000000000011 UNITS SC (22:23)
[2023-12-20 23:19] VITALS: BP 134/66
[2023-12-21 06:00] VITALS: BMI 35.7
[2023-12-21 08:32] LABS: Glucose - Point of Care 101 mg/dl (70-99)
[2023-12-21 08:57] LABS: Carbon Dioxide 28 mmol/L (22-30); Chloride 102 mmol/L (98-107); Potassium 3.1 mmol/L (3.5-5.1); Sodium 135 mmol/L (135-145)
--- NOTE | 2023-12-21 10:01 | W.PN.HOSP.TC ---
Today's Communication/Plan
-
possible dc after HD, will follow
Assessment / Plan
Assessment / Plan
Physical Exam
-
General: No Apparent Distress. Getting HD
HEENT: Normocephalic, Atraumatic, Moist Mucous Membranes.
Respiratory: Clear to Auscultation
Cardiac: S1 S2
GI: Soft, Nontender, Nondistended and Normal Bowel Sounds.
Rectal: No rectal bleeding noted.
Musculoskeletal: No Clubbing, No Cyanosis and No Edema. Right arm fistula.
Skin: Negative Rash
Neuro: Awake, Alert, Oriented, AO x 3 , followed commands
Psych: Calm
#medication induced diarrhea. Intolerant of GLP-1.
# History of Ozempic induced gastroparesis
No evidence of infectious process.
No pain this morning. No abd tenderness on exam
No diarrhea
CT A/P showed no acute pathology of the abdomen or pelvis identified. Mild diverticulosis. Tiny fat-containing umbilical hernia. No evidence of incarceration or strangulation.
She is tolerating oral diet
Stool studies if possible
Appreciate GI input
# constipation
Will give MiraLAX
# Hypokalemia secondary to GI losses
Given K through HD
# ESRD on hemodialysis Saturday, , Saturday
monitor for hypotension
Appreciate nephrology input
#Essential hypertension
Better controlled
will add PRN hydralazine
Hx of Orthostatic hypotension
-Continue amlodipine
Type 2 diabetes
-Not on diabetic medication
# Diabetic neuropathy
-Continue gabapentin
# Coronary artery disease
No chest pain
# Peripheral arterial disease
-Continue cilostazol
#History of depression, continue fluoxetine and gabapentin
#History of paroxysmal atrial fibrillation.� Currently in sinus rhythm.� Rate is well controlled.� Holding Eliquis for the procedure.� Continue with amiodarone.
#History of gout
#Primary hypertension.� No headache.� No chest pain.� A.m. blood pressure 136/68
#History of diabetic neuropathy.
#History of COPD, no wheezes on exam
#History of rheumatoid arthritis.
#History of hyperlipidemia.� No changes intended.
DNR/DNI
DVT prophylaxis�Eliquis
Total time spent to see the patient, examine the patient on the floor, review data and lab results, discuss treatment plan with patient and nursing staff around 55 minutes
Anticipated Discharge: Today
Subjective/Interval History
-
Date of Service: December 21, 2023
She has constipation, mild nausea
no chest pain
Objective Data
-
Labs:
Laboratory Results
12/21/23
08:27
Sodium 135
Potassium 3.1 L
Chloride 102
Carbon Dioxide 28
Vital Signs:
Vital Signs
Temp Pulse Resp BP Pulse Ox
97.5 F 54 18 134/66 96
12/20/23 23:19 12/20/23 23:19 12/20/23 23:19 12/20/23 23:19 12/20/23 23:19
I&O
12/20/23 12/21/23 12/22/23
06:59 06:59 06:59
Intake Total 180 / 180 700 / 700
Output Total 250 / 250
Balance -70 / -70 700 / 700
[2023-12-21 10:08] VITALS: BP 158/81
--- NOTE | 2023-12-21 10:30 | W.PN.NEPH.HD ---
Assessment
-
Patient seen on HD
sbp stagble at 170 at current u/f
discharge after Hd
Progress Note - Hemodialysis
-
Date of Service: December 21, 2023
Duration: 30 minutes and 3 hours
Potassium Bath: 4
Calcium Bath: 2.5
Opti-Dialyzer: 160
Ultrafiltration: Other (1kg)
Blood Flow: 400
Dialysate Flow: 600
Heparin: none
EPO: none
[2023-12-21 12:09] LABS: Glucose - Point of Care 89 mg/dl (70-99)
[2023-12-21] MEDS: PRED FORTE 1% EYE DROPS LEFT EYE (12:13)
[2023-12-21] MEDS: NEURONTIN 100 MG PO ×3 (12:20→21:16)
[2023-12-21] MEDS: ELIQUIS 2.5 MG PO ×2 (12:20→21:15)
[2023-12-21] MEDS: LIPITOR 40 MG PO (12:20)
[2023-12-21] MEDS: PLETAL 50 MG PO ×2 (12:21→21:16)
[2023-12-21] MEDS: PACERONE 200 MG PO (12:21)
[2023-12-21] MEDS: PROTONIX 40 MG PO (12:22)
[2023-12-21] MEDS: PROZAC 20 MG PO (12:22)
[2023-12-21] MEDS: NORVASC 2.5 MG PO (12:22)
[2023-12-21] MEDS: MIRALAX 17 GRAMS PO ×2 (12:22→21:17)
[2023-12-21] MEDS: VITAMIN D3 (cholecalciferol) 50 MCG PO (12:22)
[2023-12-21] MEDS: PRED FORTE 1% EYE DROPS 1 DROP LEFT EYE ×3 (12:23→21:16)
--- NOTE | 2023-12-21 13:09 | W.PN.GI.CBS2 ---
Today's Communication / Plan
-
Recommendations:
-Nausea and vomiting episodes which seems to be chronic and intermittent
Thought to be related to GLP-1 inhibitors
Continue PPI
Low residue and low-fat diet recommended
Outpatient upper endoscopy/gastric emptying study as well
-Reports positive Cologuard as an outpatient
Needs colonoscopy both for positive Cologuard and chronic diarrhea as outpatient, currently on anticoagulation
Has appointment 01/06 with GI
-Reports diarrhea as well
No diarrhea noted during the hospital stay
Will sign off, she already has an appointment with GI 01/06. Please call back if needed
Assessment / Plan
-
The pt is a 73 yo female with a PMH significant for ESRD on HD, DM2 on Mounjaro, HLD, HTN, Afib on Eliquis, depression, CAD, peripheral neuropathy, COPD, RA, PAD, who presented to the hospital with complaints of abdominal pain and early satiety with
severe diarrhea. She had a previous hospitalization with similar symptoms thought to be secondary to Ozempic. She was subsequently switched to Mounjaro 3 weeks ago and has had recurrent symptoms. CT A/P showed a solid left renal mass (previously
seen) otherwise no acute pathology in the abdomen or pelvis to explain her symptoms. She had recent EGD in August which showed food residue in the stomach and duodenum otherwise normal. She notes about 70lbs of weight loss over the last year
intentional and unintentional. She is trying to lose weight to get a kidney transplant. She has never had a colonoscopy. Currently her symptoms are improved and she is tolerating her diet.
Problem list:
-abdominal pain, improved
-early satiety, nausea, diarrhea
-ESRD on HD
-weight loss
-hypokalemia
Other pertinent medical hx:
-COPD
-RA
-HTN
-DM2
-Afib on Eliquis
-CAD
-PAD
-peripheral neuropathy
-CAD
Recommendations:
-Nausea and vomiting episodes which seems to be chronic and intermittent
Thought to be related to GLP-1 inhibitors
Continue PPI
Low residue and low-fat diet recommended
Outpatient upper endoscopy/gastric emptying study as well
-Reports positive Cologuard as an outpatient
Needs colonoscopy both for positive Cologuard and chronic diarrhea as outpatient, currently on anticoagulation
Has appointment 01/06 with GI
-Reports diarrhea as well
No diarrhea noted during the hospital stay
Will sign off, she already has an appointment with GI 01/06. Please call back if needed
Subjective
Subjective
Date of Service: December 21, 2023
Patient still with nausea but no vomiting on low residue diet
Objective
Data Reviewed
Laboratory Data:
Laboratory Results
12/19/23 06:34
12/21/23 08:27
Laboratory Results
PT 16.1 Sec (11.4-14.6) H 12/18/23 16:03
INR 1.28 12/18/23 16:03
Total Bilirubin 0.8 mg/dl (0.2-1.3) 12/19/23 06:34
AST 25 U/L (14-36) 12/19/23 06:34
ALT 22 U/L (0-35) 12/19/23 06:34
Alkaline Phosphatase 50 U/L (38-126) 12/19/23 06:34
Lipase 236 U/L (23-300) 12/18/23 16:03
Vital Signs and I&O:
Vital Signs
Temp Pulse Resp BP Pulse Ox
97.9 F 66 18 139/78 99
12/21/23 10:08 12/21/23 12:21 12/21/23 10:08 12/21/23 12:21 12/21/23 10:08
I&O
12/20/23 12/21/23 12/22/23
06:59 06:59 06:59
Intake Total 180 / 180 700 / 700
Output Total 250 / 250
Balance -70 / -70 /
Physical Exam
Physical Exam
GI: Soft, Non Distended, Non Tender and Normal Bowel Sounds
[2023-12-21 15:00] VITALS: BP 118/68
--- NOTE | 2023-12-21 16:09 | W.DCSUMMARY ---
Discharge Summary
Discharge Data
Date of Admission: 12/18/23
Date of Discharge: 12/22/23
-
Pending Results: No
Hospital Course
73 years old female presented to the emergency room with abdominal pain, early satiety, nausea and diarrhea. Her symptoms lasted over several days. She had similar symptoms back in August 2023 which were secondary to Ozempic. She had endoscopy
that showed retained gastric contents and her symptoms resolved after stopping Ozempic. The she was recently started on Tirzepatide (Mounjaro). She felt that her symptoms were similar to her reaction to Ozempic though more severe. Diarrhea was
watery, nonbloody with no fever or chills. She reported intermittent nausea. Patient did not have leukocytosis. She was evaluated by animal pathologist. Etiology was suspected to be intolerance to glucagon-like peptide-1 class of medications.
Scan of the abdomen and pelvis was unremarkable. Patient had no recent antibiotics use or sick contact. Patient did not have recurrent diarrhea in the hospital. She complained of constipation and was given MiraLAX. She started to improve and
tolerated diet. Patient was evaluated by land appraiser. She underwent hemodialysis with no complications. Patient remained hemodynamically stable. Patient was discharged in a stable condition.
Physical Exam
-
General: No Apparent Distress. Getting HD
HEENT: Normocephalic, Atraumatic, Moist Mucous Membranes.
Respiratory: Clear to Auscultation
Cardiac: S1 S2
GI: Soft, Nontender, Nondistended and Normal Bowel Sounds.
Rectal: No rectal bleeding noted.
Musculoskeletal: No Clubbing, No Cyanosis and No Edema. Right arm fistula.
Skin: Negative Rash
Neuro: Awake, Alert, Oriented, AO x 3 , followed commands
Psych: Calm
Total discharge time spent to see the patient, examine the patient on the floor, review data and lab results, discuss discharge plan with patient and nursing staff around 65 minutes
Discharge Plan
-
Patient Disposition: Home (Routine Discharge)
Discharge Diagnosis/Procedures: Gastrointestinal symptoms secondary to intolerance to glucagon-like peptide-1 class of medications
Diet: Low Fat and Low Residue
Referrals:
Marielle Sheppard MD [Family Provider] - in one to two weeks
Willa Nunez PA-C [Specified Professional Personl] - 01/06/24 8:00 am
Prescriptions:
Continued
atorvastatin 40 MG tablet
40 mg PO DAILY
cilostazol 100 MG tablet
100 mg PO BID
gabapentin 100 MG capsule
100 mg PO TID
fluoxetine 20 MG capsule
20 mg PO DAILY
Eliquis 2.5 MG tablet
2.5 mg PO BID Qty: 60 0RF
Hold Instructions: Resume on 06/05/22. Restart blood thinner 06/05/22
cholecalciferol (vitamin D3) [Vitamin D3] 50 mcg (2,000 unit) Capsule
50 mcg PO DAILY
pantoprazole 40 mg Tablet,Delayed Release (Dr/Ec)
40 mg PO DAILY
amiodarone 200 mg tablet
200 mg PO DAILY
potassium chloride 20 mEq tablet extended release
20 meq PO DAILY
amlodipine 2.5 mg Tablet
2.5 mg PO DAILY
prednisolone acetate 1 % Drops,Suspension
1 drp LEFT EYE QID
insulin glargine [Basaglar KwikPen U-100 Insulin] 100 unit/mL (3 mL) Insulin Pen
40 unit SC HS
Discontinued
Mounjaro 2.5 mg/0.5 mL Pen Injector
2.5 mg SC TH
Discharge Orders:
Discharge Patient (As Directed); Ordered 12/22/23
Ordered By: Jen Bryant
[2023-12-21 16:18] LABS: Glucose - Point of Care 77 mg/dl (70-99)
[2023-12-21 21:30] LABS: Glucose - Point of Care 98 mg/dl (70-99)
[2023-12-21] MEDS: LANTUS 0.200000000000000011 UNITS SC (22:32)
[2023-12-21 23:25] VITALS: BP 111/55
[2023-12-22 06:00] VITALS: BMI 35.2
[2023-12-22 07:54] LABS: Glucose - Point of Care 111 mg/dl (70-99)
[2023-12-22 09:09] VITALS: BP 143/81
[2023-12-22] MEDS: MIRALAX 17 GRAMS PO (09:13)
[2023-12-22] MEDS: VITAMIN D3 (cholecalciferol) 50 MCG PO (09:13)
[2023-12-22] MEDS: PACERONE 200 MG PO (09:13)
[2023-12-22] MEDS: ELIQUIS 2.5 MG PO (09:14)
[2023-12-22] MEDS: LIPITOR 40 MG PO (09:14)
[2023-12-22] MEDS: PLETAL 50 MG PO (09:14)
[2023-12-22] MEDS: NEURONTIN 100 MG PO (09:15)
[2023-12-22] MEDS: PROTONIX 40 MG PO (09:15)
[2023-12-22] MEDS: PROZAC 20 MG PO (09:15)
[2023-12-22] MEDS: PRED FORTE 1% EYE DROPS 1 DROP LEFT EYE (09:15)
[2023-12-22] MEDS: NORVASC 2.5 MG PO (09:21)
--- NOTE | 2023-12-22 12:37 | W.PN.NEPH.PH ---
Today's Communication / Plan
-
Stable for discharge from renal standpoint
Next dialysis Saturday
Assessment/Plan
-
Impression:
nausea and vomitting (started with ozempic and now on Mounjaro)
ESRD on HD TThS
Missed HD treatments
HTN
DM
AFib (on Eliquis)
RUE AVF
Asthma
pHTN
RA
Sleep apnea
GERD
Anxiety/depression
DLD
Plan:
- HD saturday
- likely needs to increase her EDW from 88.5 to 89 or more in the setting of true weight loss from nausea/vomitting, decreased appetite and lightheadedness/dizziness after HD
- intolerant of GLP1 medications per GI, holding off on further trials�
-Stable for discharge from renal stand
-
-
Date of Service: December 22, 2023
CC / HPI / ROS
-
Chief Complaint:
ESRD
History of Present Illness:
ESRD TTS
hemodynamically stable
Review of Systems:
no fevers
less nausea, no vomiting
eating
Labs
-
Labs:
WBC 5.6 10^3/uL (4.8-10.8) 12/19/23 06:34
RBC 3.82 10^6/uL (4.20-5.40) L 12/19/23 06:34
Hgb 11.8 g/dL (12.0-16.0) L 12/19/23 06:34
Hct 34.2 % (37.0-47.0) L 12/19/23 06:34
Plt Count 220 10^3/uL (130-400) 12/19/23 06:34
Sodium 135 mmol/L (135-145) 12/21/23 08:27
Potassium 3.1 mmol/L (3.5-5.1) L 12/21/23 08:27
Chloride 102 mmol/L (98-107) 12/21/23 08:27
Carbon Dioxide 28 mmol/L (22-30) 12/21/23 08:27
BUN 41 mg/dl (7-17) H 12/19/23 06:34
Creatinine 2.5 mg/dL (0.6-1.0) H 12/19/23 06:34
eGFR 20.06 12/19/23 06:34
Glucose 94 mg/dl (70-99) 12/19/23 06:34
Calcium 9.4 mg/dl (8.4-10.2) 12/19/23 06:34
Albumin 3.2 g/dl (3.5-5.0) L 12/19/23 06:34
Physical Exam
-
Vital Signs:
Vital Signs
Temp Pulse Resp BP Pulse Ox
98.2 F 63 16 143/81 98
12/22/23 09:09 12/22/23 09:09 12/22/23 09:09 12/22/23 09:09 12/22/23 09:09
Cardiovascular:: Regular rate and rhythm
Respiratory:: Bilateral: CTA
Lung Excursion:: Normal
Abdomen:: Nontender
Bowel Sounds:: Normal
Extremity Edema:: +1: Bilateral:
Almonte Catheter: No
--- NOTE | 2023-12-22 13:54 | CM ---
CM following re: d/c planning.
CM confirmed with pt and spouse, no d/c needs are expected.
Spouse transporting pt home today.
[2023-12-22 16:23] LABS: Urine Albumin 1+ (Neg - Trace); Urine Bilirubin 1+ (Negative); Urine Character Slightly Cloudy (Clear); Urine Color Yellow; Urine Glucose Negative (Negative); Urine Ketone Trace (Negative); Urine Leukocyte Trace (Negative); Urine Nitrite Negative (Negative); Urine Occult Blood Negative (Negative); Urine Specific Gravity 1.025 (<1.030); Urine Urobilinogen 1+ (Neg - 1+)
[2023-12-22 16:31] LABS: Urine Bacteria Many (Negative); Urine Red Blood Cell None Seen /HPF (0-2); Urine Squamous Cell >30 /LPF (Few)
[2023-12-23 01:45] LABS: IgA 181 mg/dl (70-400)
[2023-12-23 14:58] LABS: Endomysial IgA Antibody Titer <1:10 (<1:10)
[2023-12-24 13:41] LABS: tTG IgG Antibody 10.4 EU/ml (0-19)
== END 2023-12-22 16:24 | disposition home or self-care (01) ==
LOC: 4 WEST ACU 23:02
PROVIDERS: Specialist; ADMITTING PHYSICIAN Hospitalist; ATTENDING PHYSICIAN Internal Medicine; CONSULT PHYSICIAN Internal Medicine Gastroenterology; EMERGENCY PHYSICIAN Emergency Medicine; FAMILY PHYSICIAN Family Medicine; OTHER PHYSICIAN Student in an Organized Health Care Education/Training Program
DX: R11.2 Nausea with vomiting, unspecified (principal); R10.9 Unspecified abdominal pain; R19.7 Diarrhea, unspecified; K21.9 Gastro-esophageal reflux disease without esophagitis; E78.00 Pure hypercholesterolemia, unspecified; I12.0 Hypertensive chronic kidney disease with stage 5 chronic kidney disease or end stage renal disease; I25.2 Old myocardial infarction; F32.A Depression, unspecified; G25.81 Restless legs syndrome; M06.9 Rheumatoid arthritis, unspecified; G47.33 Obstructive sleep apnea (adult) (pediatric); E11.22 Type 2 diabetes mellitus with diabetic chronic kidney disease; E11.43 Type 2 diabetes mellitus with diabetic autonomic (poly)neuropathy; M10.9 Gout, unspecified; J44.9 Chronic obstructive pulmonary disease, unspecified; K31.84 Gastroparesis; N18.6 End stage renal disease; E11.51 Type 2 diabetes mellitus with diabetic peripheral angiopathy without gangrene; I95.1 Orthostatic hypotension; I27.20 Pulmonary hypertension, unspecified; E66.9 Obesity, unspecified; I48.0 Paroxysmal atrial fibrillation; I25.10 Atherosclerotic heart disease of native coronary artery without angina pectoris; E87.6 Hypokalemia; F41.9 Anxiety disorder, unspecified; K42.9 Umbilical hernia without obstruction or gangrene; K44.9 Diaphragmatic hernia without obstruction or gangrene; N28.89 Other specified disorders of kidney and ureter; K59.00 Constipation, unspecified; N28.1 Cyst of kidney, acquired; Z87.440 Personal history of urinary (tract) infections; Z82.49 Family history of ischemic heart disease and other diseases of the circulatory system; Z88.2 Allergy status to sulfonamides; Z99.2 Dependence on renal dialysis; Z66 Do not resuscitate; Z79.01 Long term (current) use of anticoagulants; Z91.158 Patient's noncompliance with renal dialysis for other reason; Z91.048 Other nonmedicinal substance allergy status
CPT/HCPCS: 90935 ×2; 74177; 80051; 80053; 81003; 81015; 82784; 82962; 83036; 83516; 83690; 84484; 85025; 85610; 86231; 87077; 87086; 87186; 93005; 96374; 99285; G0257; G0378; P9047; Q9967

== ENCOUNTER → 2024-01-30 13:06 | Outpatient (REF) | payer OTHER, SELFPAY | LOC: RADI 13:06 | PROVIDERS: ATTENDING PHYSICIAN Specialist; FAMILY PHYSICIAN Family Medicine | DX: N28.89 Other specified disorders of kidney and ureter (principal) ==

== ENCOUNTER 2024-02-24 11:12 | Emergency (ER) | payer OTHER, SELFPAY ==
[2024-02-24 11:15] VITALS: BP 170/78
[2024-02-24 13:07] LABS: Urine Albumin Trace (Neg - Trace); Urine Bilirubin Negative (Negative); Urine Character Clear (Clear); Urine Color Yellow; Urine Glucose Negative (Negative); Urine Ketone Negative (Negative); Urine Leukocyte 2+ (Negative); Urine Nitrite Negative (Negative); Urine Occult Blood Negative (Negative); Urine Specific Gravity 1.015 (<1.030); Urine Urobilinogen Negative (Neg - 1+)
[2024-02-24 13:16] VITALS: BP 162/75
[2024-02-24 13:29] LABS: % Basophils 0.5 % (0-2); % Eosinophils 1.9 % (0-6); % Immature Granulocytes 0.5 % (0-0.5); % Lymphocytes 19.2 % (20.5-51.1); % Monocytes 10.1 % (1.7-9.3); % Neutrophils 67.8 % (42.2-75.2); Absolute Eosinophils 0.2 10^3/uL (0-0.7); Absolute Lymphocytes 1.6 10^3/uL (1.2-3.4); Absolute Monocytes 0.8 10^3/uL (0.1-0.6); Absolute Neutrophils 5.6 10^3/uL (1.4-6.5); Hematocrit 36.8 % (37.0-47.0); Hemoglobin 13.2 g/dL (12.0-16.0); Mean Corp Hgb Conc. 35.9 g/dL (33.0-37.0); Mean Corpuscular Hgb 31.6 pg (27.0-31.0); Mean Platelet Volume 9.8 fL (7.4-10.4); Nucleated Red Blood Cells % 0 %; Platelet Count 224 10^3/uL (130-400); Red Blood Cell Count 4.18 10^6/uL (4.20-5.40); Red Cell Dist. Width 13.2 % (11.5-14.5); White Blood Cell Count 8.3 10^3/uL (4.8-10.8)
[2024-02-24 13:32] LABS: INR 1.17; PT 14.7 Sec (11.4-14.6)
[2024-02-24 13:33] LABS: APTT 31.7 Sec (23.4-35.0)
[2024-02-24] MEDS: PEPCID 40 MG PO (13:40)
[2024-02-24] MEDS: SINGULAIR 10 MG PO (13:40)
[2024-02-24 13:46] LABS: ALT (SGPT) 53 U/L (0-35); AST (SGOT) 37 U/L (14-36); Albumin 4.3 g/dl (3.5-5.0); Alkaline Phosphatase 51 U/L (38-126); Blood Urea Nitrogen 56 mg/dl (7-17); Carbon Dioxide 28 mmol/L (22-30); Chloride 98 mmol/L (98-107); Glucose 116 mg/dl (70-99); Potassium 3.9 mmol/L (3.5-5.1); Sodium 136 mmol/L (135-145); Total Bilirubin 0.5 mg/dl (0.2-1.3); eGFR 16.12
[2024-02-24 14:00] VITALS: BP 143/76
[2024-02-24 14:10] LABS: Urine Mucus Few; Urine Squamous Cell 26-30 /LPF (Few)
[2024-02-24 14:13] LABS: Urine Bacteria Many (Negative); Urine White Cell 70-80 /HPF (0-5)
--- NOTE | 2024-02-24 15:18 | ED.GENMED ---
Addendum entered and electronically signed by Elio Berkowitz PA-C 02/27/24 08:02:
On nitrofurantoin, appropriate per C&S
Original Note:
History of Present Illness
General
Chief Complaint: Catheter/Tube Problem
Source: patient, records and spouse
Exam Limitations: none
Time Seen by Provider: 02/24/24 12:58
Nursing documentation reviewed up to this point in time: agreed with
Travel History
Have you had any contact with someone who has COVID-19?: No
Do you have any symptoms of coronavirus? Fever > 100 degrees, chills, cough, shortness of breath, sore throat, loss of taste or smell, muscle aches, or headache?: No
History of Present Illness
History of Present Illness:
Patient is 73-year-old hemodialysis patient with a AV fistula in her right inner upper arm who presents to the emergency department complaining of bruising about the fistula after having dialysis 2 days ago as well as 2 months of having red spots on
her extremities and now on her face that are pruritic and swollen. These come and go but are always present. Patient denies any new soaps or any other medications. Patient denies fever or chills. Patient denies any shortness of breath or
difficulty swallowing. Patient denies any GI symptoms. Patient still is making urine. Patient is dialyzed on Saturday, and Saturdays.
Past History
Past History
ED Past Medical History: Arrthythmia (Atrial fib), Asthma, COPD, GERD, HTN, Hypercholesterolemia, IDDM, MD, Renal failure (Dialysis - Saturday), Psychiatric (Depression) and Other (Neuropathy, sleep apnea, rheumatoid arthritis, gout, restless
leg, Diverticulitis, UTI, Cellulitis, )
ED Past Surgical History: Gynecological (Hysterectomy) and Urological (Bladder lift X3)
Social History
Tobacco: Non-smoker
Alcohol: None
Drug: None
Personal:
Living: with family
Employment: Retired
Family History
Family History: CAD
Review of Systems
Review of Systems
All Other Systems: ROS reviewed and negative except as documented in HPI and ROS
Constitutional: Reports no symptoms
EENT: Reports no symptoms
Respiratory: Reports no symptoms
Cardiac: Reports no symptoms
ABD/GI: Reports no symptoms
: Reports no symptoms
Musculoskeletal: Reports no symptoms
Skin: Reports itching and rash
Neurological: Reports no symptoms
Hematologic/Lymphatic: Reports bruising; Denies bleeding
Phy Exam
Physical Exam
Physical Exam:
Physical Exam
General: No apparent distress, alert and appropriate, well nourished, well hydrated
HENT: Normocephalic, supple with no lymphadenopathy, no thyromegaly
Eyes: Clear sclera, conjuctiva without injection
Heart: Regular rhythm and rate. No S3, S4. No murmur.
Lungs: No respiratory distress, no stridor, lung sounds clear and equal bilaterally
Abdomen: Soft, nontender
Neuro: Alert and oriented x 3, CN II - XII intact, no motor focality, no cerebellar dysfunction
Skin: no rash. Rash as well as raised and erythematous consistent with urticaria on as well as dry and scaly consistent with eczema.
Psychiatric: well kept. interactive and cooperative
Extremities: No edema, cyanosis, tenderness. Right upper arm fistula has good bruit and ecchymosis about it.
Scores
Heart Failure Risk
Heart Failure Risk Score: Not Applicable
Heart Score for Chest Pain Patients
STEMI patient?: Not applicable
Withdrawal Assessment of Alcohol
Withdrawal Assessment Completed?: Not applicable
Course
Orders/Labs/Results
Orders:
Orders
02/24/24 12:59
Urinalysis Reflex To Culture Urgent
Date Specimen was Collected: 02/24/24
Time Specimen was Collected: 12:58
Urine Microscopic Reflex Cult Urgent
Urine Culture Urgent
HARLAN Source: U
Specimen Description:
Date Specimen was Collected: 02/24/24
Time Specimen was Collected: 12:58
02/24/24 13:15
Complete Blood Count/With Diff Urgent
Comprehensive Metabolic Panel Urgent
PTT Urgent
Prothrombin Time Urgent
02/24/24 13:22
Famotidine [Pepcid] 40 mg PO NOW STA
Montelukast Sodium [Singulair] 10 mg PO NOW STA
Abnormal Lab Results
02/24/24 02/24/24
12:59 13:15
RBC 4.18 L 10^6/uL
(4.20-5.40)
Hct 36.8 L %
(37.0-47.0)
MCH 31.6 H pg
(27.0-31.0)
Absolute Monos (auto) 0.8 H 10^3/uL
(0.1-0.6)
Lymphocytes % 19.2 L %
(20.5-51.1)
Monocytes % 10.1 H %
(1.7-9.3)
PT 14.7 H Sec
(11.4-14.6)
BUN 56 H mg/dl
(7-17)
Creatinine 3.0 H mg/dL
(0.6-1.0)
Glucose 116 H mg/dl
(70-99)
AST 37 H U/L
(14-36)
ALT 53 H U/L
(0-35)
Leukocyte Esterase Rfl 2+ A
(Negative)
Urine RBC 3-6 A /HPF
(0-2)
Urine WBC (Reflex) 70-80 A /HPF
(0-5)
Urine Bacteria (Reflex) Many A
(Negative)
02/24/24 13:15
02/24/24 13:15
Vital Signs
Initial and Last Documented VS:
Initial Vital Signs
Temp Pulse Resp BP Pulse Ox
98.0 F 72 16 170/78 98
02/24/24 11:15 02/24/24 11:15 02/24/24 11:15 02/24/24 11:15 02/24/24 11:15
Last Documented Vital Signs
Temp Pulse Resp BP Pulse Ox
98.0 F 64 18 156/90 98
02/24/24 11:15 02/24/24 13:16 02/24/24 13:16 02/24/24 16:00 02/24/24 16:31
*Pulse Oximetry
Patient hypoxic: no
*EKG
Interpreted by ED Provider?: NA
*Aircraft Motor Mechanic Interpretation
Rate: Aircraft Motor Mechanic- N/A
*Critical Care Note
Total Time (30-74mins, 75-104mins- exclusive of procedures): Not Applicable
Update Note
Update Note:
Patient's urine is questionable for infection versus contamination. However given the fact the patient is due for surgery in 1 week we will start her on antibiotics. In addition we will start the patient on Pepcid and Singulair as well as a
hydrocortisone cream. Given the fact that the patient is diabetic and also headed to surgery do not want to start oral steroids.
ED Attending Note
-
Portions of this chart may have been created with voice recognition software.� Occasional wrong word or��sound alike� substitutions may have occurred due to the inherent limitations of voice recognition software.
Discharge Plan
Departure
Patient Disposition: Home (Routine Discharge)
Date of Disposition: 02/24/24
Time of Disposition: 17:16
Patient with high blood pressure during this ER visit?: Yes
Condition: Good
Covid-19: Not Applicable
Discharge Problem:
Allergic dermatitis, UTI (urinary tract infection)
Instructions: Urinary Tract Infection, Adult (DC), Skin Rash (DC), BLOOD PRESSURE
Prescriptions:
New
nitrofurantoin monohyd/m-cryst [Macrobid] 100 mg capsule
100 mg PO BID 5 Days Qty: 10 0RF
famotidine [Pepcid] 40 mg tablet
40 mg PO BID Qty: 14 0RF
montelukast [Singulair] 10 mg tablet
10 mg PO DAILY Qty: 7 0RF
betamethasone valerate 0.1 % cream
1 applic topical BID Qty: 45 0RF
No Action
atorvastatin 40 MG tablet
40 mg PO DAILY
cilostazol 100 MG tablet
100 mg PO BID
gabapentin 100 MG capsule
100 mg PO TID
fluoxetine 20 MG capsule
20 mg PO DAILY
Eliquis 2.5 MG tablet
2.5 mg PO BID Qty: 60 0RF
Hold Instructions: Resume on 06/05/22. Restart blood thinner 06/05/22
cholecalciferol (vitamin D3) [Vitamin D3] 50 mcg (2,000 unit) Capsule
50 mcg PO DAILY
pantoprazole 40 mg Tablet,Delayed Release (Dr/Ec)
40 mg PO DAILY
amiodarone 200 mg tablet
200 mg PO DAILY
potassium chloride 20 mEq tablet extended release
20 meq PO DAILY
amlodipine 2.5 mg Tablet
2.5 mg PO DAILY
prednisolone acetate 1 % Drops,Suspension
1 drp LEFT EYE QID
insulin glargine [Basaglar KwikPen U-100 Insulin] 100 unit/mL (3 mL) Insulin Pen
40 unit SC HS
Referrals:
Marielle Sheppard MD [Family Provider] - Follow up in 2-3 days
Interventions
Interventions:
*Risk Screen - Suicide Last Done: 02/24/24 15:23
*General Assessment Last Done: 02/24/24 13:03
*Neglect/Abuse Screening Last Done: 02/24/24 13:03
ED- Fall Risk Assessment Last Done: 02/24/24 13:04
*ED COVID-19 Vaccine History Last Done: 02/24/24 11:15
VA-Zclipw-Ealgczcpzl Assessment Last Done: 02/24/24 13:03
ED-Female Genitourinary Assessment Last Done: 02/24/24 13:03
Discharge Date and Time
Print Language: MONGOLIAN
[2024-02-24 15:21] VITALS: BMI 38.3
[2024-02-24 15:23] VITALS: BP 157/88
[2024-02-24 16:00] VITALS: BP 156/90
[2024-02-24 17:00] VITALS: BP 160/88
== END 2024-02-24 17:29 | disposition home or self-care (01) ==
LOC: EMR 11:12
PROVIDERS: Emergency Medicine; EMERGENCY PHYSICIAN Emergency Medicine; FAMILY PHYSICIAN Family Medicine
DX: L23.9 Allergic contact dermatitis, unspecified cause (principal); N39.0 Urinary tract infection, site not specified; E11.9 Type 2 diabetes mellitus without complications; I10 Essential (primary) hypertension
CPT/HCPCS: 99283; 80053; 81003; 81015; 85025; 85610; 85730; 87077; 87086; 87186

== ENCOUNTER 2024-03-02 11:54 | Day surgery (SDC) | payer OTHER, SELFPAY ==
[2024-02-28 13:58] VITALS: BMI 36.5
[2024-03-02] VITALS (19 sets, daily range): BP systolic 64–148; BP diastolic 49–75; BMI 36.5
[2024-03-02 07:10] LABS: % Basophils 0.3 % (0-2); % Eosinophils 1.7 % (0-6); % Immature Granulocytes 0.4 % (0-0.5); % Lymphocytes 14.5 % (20.5-51.1); % Monocytes 6.9 % (1.7-9.3); % Neutrophils 76.2 % (42.2-75.2); Absolute Eosinophils 0.2 10^3/uL (0-0.7); Absolute Lymphocytes 1.3 10^3/uL (1.2-3.4); Absolute Monocytes 0.6 10^3/uL (0.1-0.6); Absolute Neutrophils 6.8 10^3/uL (1.4-6.5); Hematocrit 38.2 % (37.0-47.0); Hemoglobin 13.4 g/dL (12.0-16.0); Mean Corp Hgb Conc. 35.1 g/dL (33.0-37.0); Mean Corpuscular Hgb 31.5 pg (27.0-31.0); Mean Corpuscular Volume 89.9 fL (81.0-99.0); Mean Platelet Volume 9.9 fL (7.4-10.4); Nucleated Red Blood Cells % 0 %; Platelet Count 236 10^3/uL (130-400); Red Blood Cell Count 4.25 10^6/uL (4.20-5.40); Red Cell Dist. Width 13.2 % (11.5-14.5)
[2024-03-02 07:18] LABS: INR 1.12; PT 14.3 Sec (11.4-14.6)
[2024-03-02 07:19] LABS: ALT (SGPT) 55 U/L (0-35); APTT 31.1 Sec (23.4-35.0); AST (SGOT) 45 U/L (14-36); Albumin 4.5 g/dl (3.5-5.0); Alkaline Phosphatase 65 U/L (38-126); Blood Urea Nitrogen 58 mg/dl (7-17); Carbon Dioxide 30 mmol/L (22-30); Chloride 99 mmol/L (98-107); Direct Bilirubin 0.4 mg/dl (0.0-0.4); Estimated Creatinine Clearance 14 ml/min; Glucose 138 mg/dl (70-99); Phosphorus 4.1 mg/dl (2.5-4.5); Potassium 3.4 mmol/L (3.5-5.1); Sodium 137 mmol/L (135-145); Total Bilirubin 0.7 mg/dl (0.2-1.3); Total Protein 7.2 g/dl (6.3-8.2); eGFR 11.76
[2024-03-02] MEDS: NSS 1000 IV ×2 (07:44→12:32)
[2024-03-02 09:08] LABS: Glucose - Point of Care 103 mg/dl (70-99)
[2024-03-02 11:00] LABS: Glucose - Point of Care 92 mg/dl (70-99)
[2024-03-02 11:32] LABS: Glucose - Point of Care 100 mg/dl (70-99)
[2024-03-02] MEDS: DILAUDID 0.25 MG IV (12:31)
--- NOTE | 2024-03-02 13:53 | PTCARENOTE ---
Pt arrived to [facility] from PACU s/p renal microwave ablation. Pt AAOx3, AV with +thrill and bruit, IVF infusing, left lower back dressing with scant amount of drainage, Almonte catheter in place draining yellow urine. Pt to remain bedrest until 1500.
Pt states no pain at this time. Pt oriented to call myles and room, bed locked and in lowest position, call myles within reach.
[2024-03-02] MEDS: ROXICODONE 5 MG PO ×2 (14:51→20:05)
--- NOTE | 2024-03-02 15:11 | CM ---
Reviewed the chart notes and spoke with the patient and her spouse at the bedside. The patient is being admitted under observational status. The [facility] letter was provided and explained. The patient had no questions with regards to the letter.
The patient resides with her spouse in a two story home with three steps to enter. The patient has a cane and rolling walker if needed. The patient receives HD at [facility]. The patient has had DH VN in the past, but no
SNF. The patient confirmed her pharmacy of choice is the [facility] [address] [place]. CM continues to be available to patient/family and is monitoring medical plan for needs at discharge.
Plan: Discharge to home when medically stable. No anticipated needs.
[2024-03-02] MEDS: NEURONTIN 100 MG PO ×2 (15:43→22:15)
[2024-03-02 16:06] LABS: Glucose - Point of Care 161 mg/dl (70-99)
--- NOTE | 2024-03-02 17:51 | W.PN.UPDATE ---
Update Note
Progress Note Update
Pt doing well post percutaneous CT guided microwave ablation L renal mass. Mild pain, controlled with rx. Taking PO. Almonte w/ clear urine. Expect d/c 03/03/24.
[2024-03-02 21:33] LABS: Glucose - Point of Care 216 mg/dl (70-99)
[2024-03-02] MEDS: LANTUS 0.400000000000000022 UNITS SC (22:16)
[2024-03-02] MEDS: DILAUDID 0.5 MG IV (22:24)
[2024-03-02] MEDS: NSS IV (23:46)
[2024-03-03 03:15] VITALS: BP 133/58
[2024-03-03] MEDS: ROXICODONE 5 MG PO (03:40)
[2024-03-03] MEDS: NSS IV (05:19)
[2024-03-03 06:27] LABS: Hematocrit 31.9 % (37.0-47.0); Hemoglobin 11.2 g/dL (12.0-16.0); Mean Corp Hgb Conc. 35.1 g/dL (33.0-37.0); Mean Corpuscular Hgb 31.8 pg (27.0-31.0); Mean Corpuscular Volume 90.6 fL (81.0-99.0); Mean Platelet Volume 10.3 fL (7.4-10.4); Platelet Count 200 10^3/uL (130-400); Red Blood Cell Count 3.52 10^6/uL (4.20-5.40); White Blood Cell Count 9.4 10^3/uL (4.8-10.8)
[2024-03-03 06:59] LABS: ALT (SGPT) 37 U/L (0-35); AST (SGOT) 67 U/L (14-36); Albumin 3.8 g/dl (3.5-5.0); Alkaline Phosphatase 54 U/L (38-126); Blood Urea Nitrogen 62 mg/dl (7-17); Calcium 9.8 mg/dl (8.4-10.2); Carbon Dioxide 25 mmol/L (22-30); Chloride 98 mmol/L (98-107); Estimated Creatinine Clearance 15 ml/min; Glucose 105 mg/dl (70-99); Sodium 133 mmol/L (135-145); Total Bilirubin 0.6 mg/dl (0.2-1.3); Total Protein 6.1 g/dl (6.3-8.2); eGFR 12.53
[2024-03-03 07:06] VITALS: BP 112/60
--- NOTE | 2024-03-03 07:43 | W.PN.GENERIC ---
Assessment / Plan
-
73 yo female with known left renal mass underwent renal ablation in IR yesterday. She is tolerating POs. She has recovered well
Plan to discharge this morning after she voids.
She will arrange for dialysis later today at her D[facility].
Physician Progress Note
Subjective
73 year old female with history significant for hypertension, type 2 diabetes, ESRD, A. fib, COPD, and sleep apnea. She was found to have a suspicious left renal mass that was first
seen on CT scan on July 07, 2023. She had repeat imaging December 18, 2023 which showed that the lesion had grown from 1.7 cm to 2 cm. The patient reports that she occasionally gets left-sided flank pain. She denies hematuria, unexplained weight
loss, nausea, vomiting or change in appetite. She underwent left renal ablation in IR yesterday. She is feeling well this morning. She is tolerating POs.
Objective
Vital Signs
Temp Pulse Resp BP Pulse Ox
97.8 F 68 16 133/58 97
03/03/24 03:15 03/03/24 03:15 03/03/24 03:15 03/03/24 03:15 03/03/24 03:15
Lab Results
03/03/24 05:10
03/03/24 05:10
WN WD 73 yo female in NAD lying in bed. Color is good. Heart regular. Lungs CTA. Abdomen soft round nontender with bowel sounds. Left flank nontender. No hematoma. Dsg CDI.
[2024-03-03 07:48] LABS: Glucose - Point of Care 183 mg/dl (70-99)
[2024-03-03] MEDS: LIPITOR 40 MG PO (08:15)
[2024-03-03] MEDS: KCL 20 MEQ PO (08:15)
[2024-03-03] MEDS: LASIX 80 MG PO (08:15)
[2024-03-03] MEDS: PROZAC 20 MG PO (08:15)
[2024-03-03] MEDS: PACERONE 200 MG PO (08:15)
[2024-03-03] MEDS: NORVASC 2.5 MG PO (08:16)
[2024-03-03] MEDS: NEURONTIN 100 MG PO (08:16)
[2024-03-03] MEDS: VITAMIN D3 (cholecalciferol) 50 MCG PO (08:16)
[2024-03-03] MEDS: TYLENOL 650 MG PO (08:19)
--- NOTE | 2024-03-03 10:08 | CM ---
CM reviewed chart and noted dc order
Bedside meeting with pt and spouse
No dc needs noted
No HD during admission- no clinicals to [facility]
Pt has contacted [facility] for resumption of outpt HD
Discharge Disposition- home no needs
== END 2024-03-03 10:28 | disposition home or self-care (01) ==
LOC: SDS 11:54
PROVIDERS: ATTENDING PHYSICIAN Radiology Vascular & Interventional Radiology; FAMILY PHYSICIAN Family Medicine; REFERRING PHYSICIAN Specialist
DX: D41.02 Neoplasm of uncertain behavior of left kidney (principal); D68.8 Other specified coagulation defects; D68.9 Coagulation defect, unspecified
CPT/HCPCS: 50592; 88305; 36415; 77013; 80053; 82248; 82962; 84100; 85025; 85027; 85610; 85730; 87070

== ENCOUNTER 2024-03-23 10:45 | Emergency (ER) | payer OTHER, SELFPAY ==
[2024-03-23 11:05] VITALS: BP 174/84
[2024-03-23 11:30] LABS: % Basophils 0.5 % (0-2); % Immature Granulocytes 0.5 % (0-0.5); % Lymphocytes 16.3 % (20.5-51.1); % Monocytes 8.2 % (1.7-9.3); % Neutrophils 72.5 % (42.2-75.2); Absolute Eosinophils 0.1 10^3/uL (0-0.7); Absolute Monocytes 0.5 10^3/uL (0.1-0.6); Absolute Neutrophils 4.4 10^3/uL (1.4-6.5); Hematocrit 33.8 % (37.0-47.0); Hemoglobin 11.8 g/dL (12.0-16.0); Mean Corp Hgb Conc. 34.9 g/dL (33.0-37.0); Mean Corpuscular Hgb 31.9 pg (27.0-31.0); Mean Corpuscular Volume 91.4 fL (81.0-99.0); Mean Platelet Volume 9.8 fL (7.4-10.4); Nucleated Red Blood Cells % 0 %; Platelet Count 237 10^3/uL (130-400); Red Cell Dist. Width 13.5 % (11.5-14.5); White Blood Cell Count 6.1 10^3/uL (4.8-10.8)
[2024-03-23 12:01] LABS: ALT (SGPT) 33 U/L (0-35); AST (SGOT) 36 U/L (14-36); Albumin 4.1 g/dl (3.5-5.0); Alkaline Phosphatase 56 U/L (38-126); Blood Urea Nitrogen 37 mg/dl (7-17); Calcium 9.6 mg/dl (8.4-10.2); Carbon Dioxide 27 mmol/L (22-30); Chloride 104 mmol/L (98-107); Glucose 132 mg/dl (70-99); Potassium 3.2 mmol/L (3.5-5.1); Sodium 140 mmol/L (135-145); Total Bilirubin 0.5 mg/dl (0.2-1.3); Total Protein 6.5 g/dl (6.3-8.2); eGFR 22.17
--- NOTE | 2024-03-23 12:15 | ED.GENMED ---
History of Present Illness
General
Chief Complaint: Abnormal Lab Value
Time Seen by Provider: 03/23/24 12:02
Travel History
Have you had any contact with someone who has COVID-19?: No
Do you have any symptoms of coronavirus? Fever > 100 degrees, chills, cough, shortness of breath, sore throat, loss of taste or smell, muscle aches, or headache?: No
History of Present Illness
History of Present Illness:
73-year-old female presents to the emergency department for 'lab work'. She states due to diarrhea she missed all of her dialysis appointments last week, plans to go for routine appointment tomorrow but was told she needs lab work to determine if
she can truly wait till tomorrow. She denies any acute complaints that her diarrhea has resolved
Past History
Past History
ED Past Medical History: Arrthythmia (Atrial fib), Asthma, COPD, GERD, HTN, Hypercholesterolemia, IDDM, [place], Renal failure (Dialysis -- Saturday), Psychiatric (Depression) and Other (Neuropathy, sleep apnea, rheumatoid arthritis, gout, restless
leg, Diverticulitis, UTI, Cellulitis, )
ED Past Surgical History: Gynecological (Hysterectomy) and Urological (Bladder lift X3)
Social History
Tobacco: Non-smoker
Alcohol: None
Drug: None
Personal:
Living: with family
Employment: Retired
Family History
Family History: CAD
Review of Systems
Review of Systems
Allergies reviewed?: Yes
All Other Systems: ROS reviewed and negative except as documented in HPI and ROS
Phy Exam
Physical Exam
Physical Exam:
GEN: Well appearing, NAD, WDWN
HEENT: Oral mucosa moist, no scleral icterus
Cardiac: Regular rate
Lung: No respiratory distress, no tachypnea
MSK: No gross deformity or injuries
Skin: Good color, no pallor or jaundice, no rashes
Neuro: AO x3, moves all extremities freely
Psych: Calm, cooperative
Course
Orders/Labs/Results
Orders:
Orders
03/23/24 11:12
Complete Blood Count/With Diff Urgent
Comprehensive Metabolic Panel Urgent
Abnormal Lab Results
03/23/24
11:12
RBC 3.70 L 10^6/uL
(4.20-5.40)
Hgb 11.8 L g/dL
(12.0-16.0)
Hct 33.8 L %
(37.0-47.0)
MCH 31.9 H pg
(27.0-31.0)
Absolute Lymphs (auto) 1.0 L 10^3/uL
(1.2-3.4)
Lymphocytes % 16.3 L %
(20.5-51.1)
Potassium 3.2 L mmol/L
(3.5-5.1)
BUN 37 H mg/dl
(7-17)
Creatinine 2.3 H mg/dL
(0.6-1.0)
Glucose 132 H mg/dl
(70-99)
03/23/24 11:12
03/23/24 11:12
Vital Signs
Initial and Last Documented VS:
Initial Vital Signs
Temp Pulse Resp BP Pulse Ox
98.3 F 65 16 174/84 98
03/23/24 11:05 03/23/24 11:05 03/23/24 11:05 03/23/24 11:05 03/23/24 11:05
Last Documented Vital Signs
Temp Pulse Resp BP Pulse Ox
98.3 F 61 18 171/76 98
03/23/24 11:05 03/23/24 12:42 03/23/24 12:42 03/23/24 12:42 03/23/24 12:42
MDM/Problems Addressed
MDM/Problems Addressed:
Patient is not uremic nor hyperkalemic, she does have chronic hypokalemia for which she takes potassium supplements. She is suitable for outpatient dialysis tomorrow
*Critical Care Note
Total Time (30-74mins, 75-104mins- exclusive of procedures): Not Applicable
ED Attending Note
-
Portions of this chart may have been created with voice recognition software.� Occasional wrong word or��sound alike� substitutions may have occurred due to the inherent limitations of voice recognition software.
Discharge Plan
Departure
Patient Disposition: Home (Routine Discharge)
Date of Disposition: 03/23/24
Time of Disposition: 12:15
Patient with high blood pressure during this ER visit?: No
Discharge Problem:
Acute hypokalemia, Hypokalemia
Prescriptions:
No Action
atorvastatin 40 MG tablet
40 mg PO DAILY
cilostazol 100 MG tablet
100 mg PO BID
gabapentin 100 MG capsule
100 mg PO TID
fluoxetine 20 MG capsule
20 mg PO DAILY
Eliquis 2.5 MG tablet
2.5 mg PO BID Qty: 60 0RF
Hold Instructions: Resume on 06/05/22. Restart blood thinner 06/05/22
cholecalciferol (vitamin D3) [Vitamin D3] 50 mcg (2,000 unit) Capsule
50 mcg PO DAILY
amiodarone 200 mg tablet
200 mg PO DAILY
potassium chloride 20 mEq tablet extended release
20 meq PO DAILY
amlodipine 2.5 mg Tablet
2.5 mg PO DAILY
insulin glargine [Basaglar KwikPen U-100 Insulin] 100 unit/mL (3 mL) Insulin Pen
40 unit SC HS
furosemide 80 mg Tablet
80 mg PO DAILY
Activity Restrictions/Additional Instructions:
Your labs are not concerning, and you can receive your normal dialysis treatment tomorrow
Interventions
Interventions:
*Risk Screen - Suicide Last Done: 03/23/24 12:01
*General Assessment Last Done: 03/23/24 12:01
*Neglect/Abuse Screening Last Done: 03/23/24 12:01
ED- Fall Risk Assessment Last Done: 03/23/24 12:01
*ED COVID-19 Vaccine History Last Done: 03/23/24 11:05
*Nursing Disposition Last Done: 03/23/24 12:43
Discharge Date and Time
Discharge Date/Time: 03/23/24 13:03
Print Language: TURKISH
[2024-03-23 12:42] VITALS: BP 171/76
== END 2024-03-23 13:03 | disposition home or self-care (01) ==
LOC: EMR 10:45
PROVIDERS: EMERGENCY PHYSICIAN Emergency Medicine; FAMILY PHYSICIAN Family Medicine
DX: E87.6 Hypokalemia (principal); I10 Essential (primary) hypertension; Z99.2 Dependence on renal dialysis
CPT/HCPCS: 99283; 80053; 85025

== ENCOUNTER 2024-05-06 00:31 | Inpatient (IN) | payer OTHER, SELFPAY ==
[2024-05-05 20:12] VITALS: BMI 36.8
[2024-05-05 20:14] VITALS: BP 142/92
[2024-05-05 20:29] LABS: % Basophils 0.3 % (0-2); % Eosinophils 1.9 % (0-6); % Immature Granulocytes 0.3 % (0-0.5); % Lymphocytes 20.4 % (20.5-51.1); % Monocytes 9.6 % (1.7-9.3); % Neutrophils 67.5 % (42.2-75.2); Absolute Eosinophils 0.1 10^3/uL (0-0.7); Absolute Lymphocytes 1.3 10^3/uL (1.2-3.4); Absolute Monocytes 0.6 10^3/uL (0.1-0.6); Absolute Neutrophils 4.2 10^3/uL (1.4-6.5); Hemoglobin 14.1 g/dL (12.0-16.0); Mean Corp Hgb Conc. 36.2 g/dL (33.0-37.0); Mean Corpuscular Hgb 31.6 pg (27.0-31.0); Mean Corpuscular Volume 87.4 fL (81.0-99.0); Mean Platelet Volume 9.9 fL (7.4-10.4); Nucleated Red Blood Cells % 0 %; Platelet Count 218 10^3/uL (130-400); Red Blood Cell Count 4.46 10^6/uL (4.20-5.40); Red Cell Dist. Width 11.9 % (11.5-14.5); White Blood Cell Count 6.2 10^3/uL (4.8-10.8)
[2024-05-05 20:54] LABS: ALT (SGPT) 517 U/L (0-35); AST (SGOT) 406 U/L (14-36); Albumin 4.6 g/dl (3.5-5.0); Alkaline Phosphatase 65 U/L (38-126); Blood Urea Nitrogen 27 mg/dl (7-17); Calcium 10.3 mg/dl (8.4-10.2); Carbon Dioxide 29 mmol/L (22-30); Chloride 100 mmol/L (98-107); Glucose 117 mg/dl (70-99); Potassium 3.5 mmol/L (3.5-5.1); Sodium 139 mmol/L (135-145); Total Bilirubin 0.9 mg/dl (0.2-1.3); Total Protein 7.3 g/dl (6.3-8.2); eGFR 19.14
[2024-05-05 21:30] VITALS: BP 133/88
[2024-05-05 21:42] LABS: Urine Albumin 2+ (Neg - Trace); Urine Bilirubin 2+ (Negative); Urine Character Slightly Cloudy (Clear); Urine Color Yellow; Urine Glucose Negative (Negative); Urine Ketone Trace (Negative); Urine Leukocyte Trace (Negative); Urine Nitrite Negative (Negative); Urine Occult Blood Trace (Negative); Urine Urobilinogen 1+ (Neg - 1+)
[2024-05-05 21:51] LABS: Urine Squamous Cell >30 /LPF (Few)
[2024-05-05 21:52] LABS: Urine Red Blood Cell 0-2 /HPF (0-2)
[2024-05-05 21:53] LABS: Urine Bacteria Moderate (Negative)
[2024-05-05 22:00] VITALS: BP 134/75
--- NOTE | 2024-05-05 22:14 | ED.GENMED ---
History of Present Illness
General
Chief Complaint: Urinary Symptoms
Source: patient
Exam Limitations: none
Time Seen by Provider: 05/05/24 21:14
History of Present Illness
History of Present Illness:
This is a 73 year old female that comes in with c/o abd pain. States that 2 weeks ago she started with a UTI. States that she was given Ampicillin and has been taking this for the past 1.5 weeks. States that she feels she is not getting any better.
States that she has abd pain and nausea. States that she was vomiting on Saturday. States that she had diarrhea on . States that that she also had a fever on Saturday and has been SOB. Denies any chills, chest pain, headache, dizziness,
urinary burning. States that she urinates 4 times daily.
Past History
Past History
ED Past Medical History: Arrthythmia (Atrial fib), Asthma, CHF, COPD, GERD, HTN, Hypercholesterolemia, IDDM, [place], Renal failure (Dialysis - Saturday), Psychiatric (Depression) and Other (Neuropathy, sleep apnea, rheumatoid arthritis, gout,
restless leg, Diverticulitis, UTI, Cellulitis, Hernia, Eczema, )
ED Past Surgical History: Gynecological (Hysterectomy), Orthopedic (Carpal tunnel, Left shoulder, Left wrist, ), Urological (Bladder lift X3, Cyst removed left kidney) and Other (Deviated septum)
Social History
Tobacco: Non-smoker
Alcohol: None
Drug: None
Personal:
Living: with family
Employment: Retired
Family History
Family History: CAD
Review of Systems
Review of Systems
All Other Systems: ROS reviewed and negative except as documented in HPI and ROS
Constitutional: Reports fever (On saturday)
EENT: Reports no symptoms
Respiratory: Reports trouble breathing; Denies cough
Cardiac: Reports no symptoms; Denies chest pain
ABD/GI: Reports abdominal pain, nausea, vomiting (Saturday) and diarrhea (On )
: Reports no symptoms; Denies dysuria, frequency or urgency
Musculoskeletal: Reports no symptoms
Skin: Reports no symptoms
Neurological: Reports no symptoms; Denies dizzy or headache
Psychiatric: Reports no symptoms
Phy Exam
General Physical Exam
General Presentation: no apparent distress
General age: appears stated age
General Skin: warm and dry
General Habitus: elderly
General Mental: alert
General Hydration: appears well hydrated
ENT Exam
ENT Exam: TM's normal, pharynx normal and neck supple
Eye Exam
Eye Exam: EOMI
Cardiovascular Exam
Cardiovascular Exam: regular rate/rhythm, no edema and normal peripheral pulses
Pulmonary Exam
Pulmonary Exam: lungs clear, no respiratory distress, no rales, chest non tender, no crackles, no rhonchi, no wheezing and no cough
Gastrointestinal Exam
Gastrointestinal Exam: normal bowel sounds, non tender, soft, no organomegaly, no pulsatile mass and non distended
Musculoskeletal Exam
Musculoskeletal Exam: full ROM and no edema
Skin Exam
Skin Exam: normal color, warm/dry, no rash, no petechia and other (right upper arm fistula with good bruits and thrill)
Psychiatric Exam
Psychiatric Exam: normal mood/affect
Course
Orders/Labs/Results
Orders:
Orders
05/05/24 20:22
CMP [Comprehensive Metabolic Panel] Urgent
Complete Blood Count/With Diff Urgent
Lipase Urgent
Comment: ADD ON
Urinalysis Reflex To Culture Urgent
Date Specimen was Collected: 05/05/24
Time Specimen was Collected: 20:17
Urine Microscopic Reflex Cult Urgent
Urine Culture Urgent
HARLAN Source: U
Specimen Description:
Date Specimen was Collected: 05/05/24
Time Specimen was Collected: 20:17
05/05/24 22:13
US Abdomen Complete/Upper Urgent
Comment:
Reason For Exam: elevated liver enzymes
05/05/24 22:15
Add On- LAB Urgent
Tests Added?: Lipase
Abnormal Lab Results
05/05/24
20:22
MCH 31.6 H pg
(27.0-31.0)
Lymphocytes % 20.4 L %
(20.5-51.1)
Monocytes % 9.6 H %
(1.7-9.3)
BUN 27 H mg/dl
(7-17)
Creatinine 2.6 H mg/dL
(0.6-1.0)
Glucose 117 H mg/dl
(70-99)
Calcium 10.3 H mg/dl
(8.4-10.2)
AST 406 H U/L
(14-36)
ALT 517 H* U/L
(0-35)
Lipase 320 H U/L
(23-300)
Urine Ketones Trace A
(Negative)
Ur Occult Blood Reflex Trace A
(Negative)
Urine Bilirubin 2+ A
(Negative)
Leukocyte Esterase Rfl Trace A
(Negative)
Urine Bacteria (Reflex) Moderate A
(Negative)
Urine Albumin (Reflex) 2+ A
(Neg - Trace)
05/05/24 20:22
05/05/24 20:22
Chronic renal failure, AST/RUDY elevation. Urine negative for infection. Lipase slightly elevated at 320
Vital Signs
Initial and Last Documented VS:
Initial Vital Signs
Temp Pulse Resp BP Pulse Ox
98.4 F 68 22 142/92 97
05/05/24 20:14 05/05/24 20:14 05/05/24 20:14 05/05/24 20:14 05/05/24 20:14
Last Documented Vital Signs
Temp Pulse Resp BP Pulse Ox
98.4 F 56 21 134/75 96
05/05/24 21:32 05/05/24 22:30 05/05/24 22:30 05/05/24 22:00 05/05/24 22:30
MDM/Problems Addressed
Differential Diagnosis Includes:
UTi, Gallbladder disease
MDM/Problems Addressed:
This is a 73 year old female that comes in with c/o abd pain. States that she has been on Ampicillin for the pat 1.5 weeks for a UTI and feels that she is not getting any better. States that she had vomiting and diarrhea.
Will get labs and US
Back into see patient. Explained that her blood work shows that her Liver enzymes are extremely elevated. Patient US shows a possible fatty liver. Discussed with Dr. Jerome. Will admit patient. Hospitalist notified.
Chronic conditions affecting care: Kidney disease
Acute Exacerbation and/or Progression of Chronic Illness: Kidney disease
*Radiology
Radiology exam reviewed: radiology read reviewed (US-Increased echogenicity in the liver, compatible with underlying hepatocellular disease, which most commonly related to fatty infiltration of the liver. )
*Pulse Oximetry
Patient hypoxic: no
*EKG
Interpreted by ED Provider?: NA
Rate: EKG- N/A
*Driver Salesman Interpretation
Rate: bradycardiac
Heart Rate: 54
Rhythm: sinus
*Critical Care Note
Total Time (30-74mins, 75-104mins- exclusive of procedures): Not Applicable
ED Attending Note
-
Portions of this chart may have been created with voice recognition software.� Occasional wrong word or��sound alike� substitutions may have occurred due to the inherent limitations of voice recognition software.
Discharge Plan
Departure
Patient Disposition: Admit
Date of Disposition: 05/05/24
Time of Disposition: 23:28
Admit to: Med/Surg
Presentation/result/management discussed w/ accepting MD/DO: Hospitalist
Patient with high blood pressure during this ER visit?: Yes
Condition: Good
Covid-19: Not Applicable
Discharge Problem:
Abdominal pain, Elevated liver enzymes
Prescriptions:
No Action
atorvastatin 40 MG tablet
40 mg PO DAILY
cilostazol 100 MG tablet
100 mg PO BID
gabapentin 100 MG capsule
100 mg PO TID
fluoxetine 20 MG capsule
20 mg PO DAILY
Eliquis 2.5 MG tablet
2.5 mg PO BID Qty: 60 0RF
Hold Instructions: Resume on 06/05/22. Restart blood thinner 06/05/22
cholecalciferol (vitamin D3) [Vitamin D3] 50 mcg (2,000 unit) Capsule
50 mcg PO DAILY
amiodarone 200 mg tablet
200 mg PO DAILY
potassium chloride 20 mEq tablet extended release
20 meq PO DAILY
amlodipine 2.5 mg Tablet
2.5 mg PO DAILY
insulin glargine [Basaglar KwikPen U-100 Insulin] 100 unit/mL (3 mL) Insulin Pen
40 unit SC HS
furosemide 80 mg Tablet
80 mg PO DAILY
Referrals:
NONE,* [Active] -
Interventions
Interventions:
*Risk Screen - Suicide Last Done: 05/05/24 20:14
*General Assessment Last Done: 05/05/24 21:32
*Neglect/Abuse Screening Last Done: 05/05/24 20:14
*ED COVID-19 Vaccine History Last Done: 05/05/24 21:32
[facility] Assessment Last Done: 05/05/24 21:50
ED-Female Genitourinary Assessment Last Done: 05/05/24 21:50
Discharge Date and Time
Print Language: MAORI
[2024-05-05 22:49] LABS: Lipase 320 U/L (23-300)
[2024-05-05 23:13] VITALS: BP 130/61
[2024-05-06] VITALS (7 sets, daily range): BP systolic 116–158; BP diastolic 53–86; BMI 36.8
--- NOTE | 2024-05-06 00:17 | HPS.HSE ---
Family Physician
-
Family Physician: Marielle Sheppard
Chief Complaint
-
abdominal pain. N/V/D
History of Present Illness
73F HX ESRD on HD ( TTS) , HD yesterday , on Amiodarone for Prx AF, HLD on Atorvastatin, IDDM seen at ER for evalaution of abdominal pain with N/V.
Current onset of abdominal pain with N/V stared since last 04/30/24
- Nausea and start vomiting plus watery non bloody diarrhea
- recently treated UTI with Ampicillin since 04/25/24
- Denies any fever and chills and denied urinary burning
- Sent to ER by PCP ? persistent UTI
At ER noted significant abn LFTs
Medical History
Past Medical History
Past Medical History: Reports Other (astroparesis secondary to Ozempic, ESRD, orthostatic hypotension, diabetes, paroxysmal atrial fibrillation on Eliquis, CAD, hypertension, COPD, pulmonary hypertension, gout, rheumatoid arthritis, obstructive
sleep apnea, obesity, hyperlipidemia, peripheral arterial disease)
Past Surgical History: Reports Other (Gynecological (Hysterectomy) and Urological (Bladder lift X3))
Social History
Tobacco: Non-smoker
Alcohol: None
Drug: None
Family History
Family History: Not pertinent
Allergies / Home Medications
Allergies reflects when Allergies were last updated in [facility].
Home Medications with original date entered in [facility]
Allergy/Medication List:
Allergies
Allergy/AdvReac Type Severity Reaction Status Date / Time
adhesive Allergy Rash, Verified 12/18/23 15:59
itching
Sulfa (Sulfonamide Allergy nausea and Verified 12/18/23 15:59
Antibiotics) vomiting
Home Medications
atorvastatin 40 mg tablet 40 mg PO DAILY High cholesterol 04/25/21
cilostazol 100 mg tablet 100 mg PO BID Blood clot prevention/tx 04/25/21
fluoxetine 20 mg capsule 20 mg PO DAILY anxiety/depression 04/05/22
gabapentin 100 mg capsule 100 mg PO TID Diabetic Neuropathy 04/05/22
apixaban 2.5 mg tablet (Eliquis) 2.5 mg PO BID Blood clot prevention/tx #60 tabs 04/16/22
cholecalciferol (vitamin D3) 50 mcg (2,000 unit) capsule (Vitamin D3) 50 mcg PO DAILY Supplement 07/19/22
pantoprazole 40 mg tablet,delayed release 40 mg PO DAILY GERD 05/09/23
amiodarone 200 mg tablet 200 mg PO DAILY Arrhythmia 08/31/23
potassium chloride 20 mEq tablet,extended release 20 meq PO DAILY Electrolyte Repletion 08/31/23
amlodipine 2.5 mg tablet 2.5 mg PO DAILY 12/13/23
diclofenac sodium 0.1 % eye drops 1 drp LEFT EYE QID 12/13/23
moxifloxacin 0.5 % eye drops 1 drp LEFT EYE QID 12/13/23
prednisolone acetate 1 % eye drops,suspension 1 drp LEFT EYE QID 12/13/23
tirzepatide 2.5 mg/0.5 mL subcutaneous pen injector (Mounjaro) 2.5 mg SC TH 12/13/23
Review of Systems
-
History Source: Patient
A 12 point ROS was completed and negative except as noted: Yes
Constitutional: Reports No Symptoms
EENT: Reports No Symptoms
Respiratory: Reports No Symptoms
Cardiac: Reports No Symptoms
Abdomen/GI: Reports See HPI, Abdominal Pain, Nausea, Vomiting and Diarrhea
: Denies Dysuria
Musculoskeletal: Reports No Symptoms
Skin: Reports No Symptoms
Neurological: Reports No Symptoms
Endocrine: Reports No Symptoms
Hematologic/Lymphatic: Reports No Symptoms
Psych: Reports No Symptoms
Physical Exam
Vital Signs
Vital Signs
Temp Pulse Resp BP Pulse Ox
98.4 F 56 21 134/75 96
05/05/24 21:32 05/05/24 22:30 05/05/24 22:30 05/05/24 22:00 05/05/24 22:30
Physical Exam
General: Well Developed, Well Nourished and No Apparent Distress
HEENT: NormoCephalic, Moist mucous membranes and Atraumatic
Respiratory: Clear
Cardiac: S1/S2 and Regular Rhythm; No Murmur or Rub
GI: Soft, Non Distended, Normal Bowel Sounds and Tender; No Organomegaly
Rectal: Deferred by Provider
Musculoskeletal: No Clubbing, No Cyanosis and No Edema
Skin: No Rash
Neuro: Nonfocal/grossly intact
Laboratory Results
-
05/05/24 20:22
05/05/24 20:22
Laboratory Results
Total Bilirubin 0.9 mg/dl (0.2-1.3) 05/05/24 20:22
AST 406 U/L (14-36) H 05/05/24 20:22
ALT 517 U/L (0-35) H* 05/05/24 20:22
Alkaline Phosphatase 65 U/L (38-126) 05/05/24 20:22
Lipase 320 U/L (23-300) H 05/05/24 20:22
Data Reviewed
-
Ultrasound: Report Reviewed by me
Lab Data: Labs Reviewed by me
Old Records: Reviewed
Impression/Plan
-
Reviewed VS: Afebrile HR 55 BP 135/75
Data
Unremarkable CBC
K 3.5
BUN 27
Cr 2.6
eGFR 19
Normal TB 0.9
AST 406 - was 36 on 03/23/24
ALT 517 - was 33 on 03/23/24
nl AKP
Lipase 320
Abn UA but NOT suggestive of UTI
US Abdomen Complete/Upper
- Increased echogenicity in the liver, compatible with underlying hepatocellular disease, which most commonly relates to fatty infiltration of the liver.
Last hospitalist admission: 12/18/23 - 12/22/23
DX; Gastrointestinal symptoms secondary to intolerance to glucagon-like peptide-1 class of medications
ASSESSMENT & PLAN
Acute GE like picture DDx: Antibiotic associated diarrhea, C Diff colitis, viral , gastroparesis
Acute abdominal pain with N/V/D
At risk for CDAD due to recent Ampicillin
Hemodynamically stable
- Stool for C Diff
- stool Cx
- Hold off further ABx
Acute hepatocellular pattern abd LFTs - DDX: infective vs acute ischemic liver injury, Drug induced liver injury
- Viral hep sero
- Held Amiodarone, Atorvastatin
- Trend LFTs
- GI consult
ESRD on hemodialysis Saturday, , Saturday
had HD on Saturday
- Nephrology consult
Essential hypertension
-Continue amlodipine
Type 2 diabetes
-Not on diabetic medication
Diabetic neuropathy
-Continue gabapentin
Paroxysmal atrial fibrillation
Held amiodarone
-Continue Eliquis
Coronary artery disease
Peripheral arterial disease
-Continue cilostazol
Hyperlipidemia
- Held statin due o abn LFTs
Anxiety/depression
-Continue fluoxetine
Know HX : stable
COPD
Obstructive sleep apnea
Pulmonary hypertension
Gout
Rheumatoid arthritis
Obesity
DVT Px: Eliquis
Code: Full
IP MS
[2024-05-06 05:47] LABS: Hematocrit 35.4 % (37.0-47.0); Hemoglobin 12.7 g/dL (12.0-16.0); Mean Corp Hgb Conc. 35.9 g/dL (33.0-37.0); Mean Corpuscular Hgb 31.8 pg (27.0-31.0); Mean Corpuscular Volume 88.7 fL (81.0-99.0); Platelet Count 198 10^3/uL (130-400); Red Blood Cell Count 3.99 10^6/uL (4.20-5.40); White Blood Cell Count 4.8 10^3/uL (4.8-10.8)
[2024-05-06 06:08] LABS: ALT (SGPT) 394 U/L (0-35); AST (SGOT) 260 U/L (14-36); Albumin 3.9 g/dl (3.5-5.0); Alkaline Phosphatase 54 U/L (38-126); Blood Urea Nitrogen 34 mg/dl (7-17); Calcium 9.5 mg/dl (8.4-10.2); Carbon Dioxide 31 mmol/L (22-30); Chloride 99 mmol/L (98-107); Estimated Creatinine Clearance 19 ml/min; Glucose 106 mg/dl (70-99); Sodium 136 mmol/L (135-145); Total Bilirubin 0.7 mg/dl (0.2-1.3); Total Protein 6.3 g/dl (6.3-8.2); eGFR 16.79
--- NOTE | 2024-05-06 07:10 | CON.GI ---
Addendum entered and electronically signed by Jagdeep Chapman MD 05/06/24 09:38:
Patient seen and examined, agree with nurse practitioner note. The patient is a 73-year-old female who presents with nausea and diarrhea. She has chronic abdominal pain which she describes as more diffuse, and in the past had had problems with
nausea related to Ozempic and Mounjaro. Upon presentation this time she is found to have significantly elevated LFTs, with ALT 517 on admission and ALT 406, improved today with normal bilirubin and minimally elevated lipase. Ultrasound showed
underlying hepatocellular disease though no duct dilation, gallstones or gallbladder wall thickening. She has been on antibiotics recently for UTI though denies any other new medications or Tylenol containing compounds. She denies any fevers or
chills, chest pain or shortness of breath. On exam she has no abdominal tenderness. At this point given her elevated LFTs and lipase we will check MRI of the abdomen with MRCP, though elevated LFTs could be from drug-induced liver injury given
recent antibiotics as well. Hepatitis panel currently pending, will continue to trend LFTs.
Addendum entered and electronically signed by VICKI Bradley 05/06/24 08:37:
I verified with pharmacy pt took Augmentin January of 2024, cefuroxime 04/25 then recent Ampicillin 05/03 .
can be delayed from Augmentin in January but would see some bili and alk phos elevation
ampicillin - rare liver injury
Addendum entered and electronically signed by VICKI Bradley 05/06/24 08:24:
t/c MRI if any worsening abdominal pain. Currently pain free and abdominal pain has been a chronic issue. Fatty liver noted on US without duct dilation
Original Note:
Consultation
-
Date/Time Consultation Requested: 05/06/24 0100
Date/Time Consultation Performed: 05/06/24 0700
Requesting Provider: Luther Powell MD
Performing Provider: VICKI Cardenas, Brendna Chapman MD
Reason for Consultation: nausea/vomiting/abd pain
Medical History
Chief Complaint / HPI
Chief Complaint: nausea, diarrhea, abdominal pain
History of Present Illness:
The patient is a 73-year-old female with past medical history with hx afib on Eliquis, COPD, asthma ESRD on HD, IDDM, PAD with onset of presents with ongoing , nausea and diarrhea. She has similar symptoms within last year due to Ozempic and
Mounjaro and feels likely some improvement but never went away. She states she started with some side pain 2 weeks ago. She was seen by PCP with concern for UTI symptoms and pt was given Ampicillin. On Saturday she has small amount of nausea and
vomiting and also diarrhea. She was sent to ER with concern for dehydration and possible untreated UTI. On admission noted with bili 0.9, AST 406, ALT 517 alk phos 65 and lipase of 320. US with fatty liver, no duct dilation, CBD 4.4 mm. No stones,
GBWT, pericholecystitic fluid or wagner sign.
In reviewing with patient she admit to ongoing abdominal pain that is not worse. It has wrap about pain sometime daily but chronic. She had small amount of vomiting but no hematemesis. Occasional constipation but now worsening diarrhea. Pt
has had some weight loss since 2021 but weight has gone up since prior trials of Ozempic and Mounjaro a few months ago. She denies odynophagia, dysphagia, GERD or rectal bleeding. She has hx anemia and + colonguard. She is overdue for EGD/colon.
She was schedule in March but did not proceed.
Past Medical History
Past Medical History: Arrhythmias (afib ), Asthma, COPD, HTN, Hypercholesterolemia, IDDM, Renal Failure (ESRD on HD) and Other ( pulmonary htn, PAD, gastroparesis from Ozempic and Mounjaro, neuropathy, sleep apnea, RA, gout, restless legs,
diverticulitis, UTI, hernia, Eczema)
Past Surgical History: Gynecological (hysterectomy), Orthopedic (carpel tunnel surgery, shoulder surgery, left wrist), Urological (bladder lift, renal cyst removal) and Other (deviated septum)
Social History
Tobacco: Non-Smoker
Alcohol: None
Drug: None
Living: With Family
Employment: Retired
Family History
Family History: Other (no family hx colon CA or polyps )
Allergies / Home Medications
Allergy/AdvReac Type Severity Reaction Status Date / Time
adhesive Allergy Rash, Verified 05/05/24 20:16
itching
Sulfa (Sulfonamide Allergy nausea and Verified 05/05/24 20:16
Antibiotics) vomiting
�Medication �Instructions �Recorded
atorvastatin 40 mg tablet 40 mg PO DAILY High cholesterol 04/25/21
cilostazol 100 mg tablet 100 mg PO BID Blood clot 04/25/21
prevention/tx
fluoxetine 20 mg capsule 20 mg PO DAILY anxiety/depression 04/05/22
gabapentin 100 mg capsule 100 mg PO TID Diabetic Neuropathy 04/05/22
apixaban 2.5 mg tablet (Eliquis) 2.5 mg PO BID Blood clot 04/16/22
prevention/tx #60 tabs
cholecalciferol (vitamin D3) 50 50 mcg PO DAILY Supplement 07/19/22
mcg (2,000 unit) capsule (Vitamin
D3)
amiodarone 200 mg tablet 200 mg PO DAILY Arrhythmia 08/31/23
potassium chloride 20 mEq 20 meq PO DAILY Electrolyte 08/31/23
tablet,extended release Repletion
amlodipine 2.5 mg tablet 2.5 mg PO DAILY Blood Pressure 12/13/23
insulin glargine 100 unit/mL (3 40 unit SC HS Diabetes 12/18/23
mL) subcutaneous pen (Basaglar
KwikPen U-100 Insulin)
furosemide 80 mg tablet 80 mg PO DAILY Fluid 02/27/24
Retention/Swelling
Multi For Her 1 tab PO 05/05/24
Review of Systems
-
History Source: Patient
Constitutional: Reports Weight Gain (wt loss with ozempic and mounjaro then slight gain)
EENT: Reports No Symptoms
Respiratory: Reports Trouble Breathing (at time chronic )
Cardiac: Reports No Symptoms
Abdomen/GI: Reports Abdominal Pain, Nausea, Vomiting, Diarrhea (currently worse ) and Constipated (occasional )
: Reports Flank Pain
Musculoskeletal: Reports No Symptoms
Skin: Reports No Symptoms
Neurological: Reports Weakness
Endocrine: Reports No Symptoms
Hematologic/Lymphatic: Reports No Symptoms
Vital Signs
Temp Pulse Resp BP Pulse Ox
98.4 F 51 15 116/53 92
05/05/24 21:32 05/06/24 04:00 05/06/24 04:00 05/06/24 04:00 05/06/24 04:00
Physical Exam
Exam
General: Well Developed, Well Nourished and No Apparent Distress
HEENT: Normocephalic and Anicteric
Respiratory: Clear
Cardiac: Regular Rhythm
GI: Soft, Non Tender and Non Distended
Musculoskeletal: No Clubbing and No Cyanosis
Skin: Warm and Dry
Neuro: Awake, Alert and AO x 3
Psych: Calm
Results
WBC 4.8 10^3/uL (4.8-10.8) 05/06/24 05:39
Hgb 12.7 g/dL (12.0-16.0) 05/06/24 05:39
Hct 35.4 % (37.0-47.0) L 05/06/24 05:39
MCV 88.7 fL (81.0-99.0) 05/06/24 05:39
Plt Count 198 10^3/uL (130-400) 05/06/24 05:39
Absolute Neuts (auto) 4.2 10^3/uL (1.4-6.5) 05/05/24 20:22
Sodium 136 mmol/L (135-145) 05/06/24 05:39
Potassium 3.0 mmol/L (3.5-5.1) L 05/06/24 05:39
Chloride 99 mmol/L (98-107) 05/06/24 05:39
Carbon Dioxide 31 mmol/L (22-30) H 05/06/24 05:39
BUN 34 mg/dl (7-17) H 05/06/24 05:39
Creatinine 2.9 mg/dL (0.6-1.0) H 05/06/24 05:39
Calcium 9.5 mg/dl (8.4-10.2) 05/06/24 05:39
Total Bilirubin 0.7 mg/dl (0.2-1.3) 05/06/24 05:39
AST 260 U/L (14-36) H 05/06/24 05:39
ALT 394 U/L (0-35) H 05/06/24 05:39
Alkaline Phosphatase 54 U/L (38-126) 05/06/24 05:39
Lipase 320 U/L (23-300) H 05/05/24 20:22
Diagnostic Image Results:
05/05/24 US Abdomen Complete/Upper
1. Increased echogenicity in the liver, compatible with underlying hepatocellular disease, which most commonly relates to fatty infiltration of the liver.
07/07/2023 CT Abd/pel (oral only)-[facility] Only
Mild biliary sludge.
No renal or ureteral calculus. No hydronephrosis or obstructive uropathy.
Small right renal cysts.
On the left, in the posterior mid to lower pole of the left kidney, there is a slightly exophytic 1.7 cm mass of increased attenuation. This has increased in size compared to prior examination. Possible complex cyst. Cannot exclude small solid mass.
Consider follow-up nonemergent pre- and post-IV contrast MRI for additional characterization.
Mild diverticulosis without acute diverticulitis. No evidence of bowel obstruction.
There is a tiny amount of gas within the lateral lumen. Nonspecific. Possible considerations include iatrogenic cause, infection, or enterovesical fistula.
Small iliac sclerotic foci, as described. Probable bone islands. Osteoblastic metastatic lesions are felt to be less likely, though not entirely excluded. Consider follow-up nonemergent bone scan.
Prior GI Procedures:
EGD: 08/2023 [facility] - Normal esophagus. Small hiatal hernia
- Normal stomach and duodenum
- A small amount of food (residue) in the stomach and
duodenum..
Colonoscopy: none
Assessment / Plan
-
The patient is a 73-year-old female with past medical history with hx afib on Eliquis, COPD, asthma ESRD on HD, IDDM, PAD with onset of presents with ongoing , nausea and diarrhea. She has similar symptoms within last year due to Ozempic and
Mounjaro and feels likely some improvement but never went away. She states she started with some side pain 2 weeks ago. She was seen by PCP with concern for UTI symptoms and pt was given Ampicillin. On Saturday she has small amount of nausea and
vomiting and also diarrhea. She was sent to ER with concern for dehydration and possible untreated UTI. On admission noted with bili 0.9, AST 406, ALT 517 alk phos 65 and lipase of 320. US with fatty liver, no duct dilation, CBD 4.4 mm. No stones,
GBWT, pericholecystitis fluid or wagner sign.
Problem list:
-nausea/vomiting worse with UTI treatment
-diarrhea
-elevated LFT's
-recent treatment with Amoxicillin for UTI
-abdominal pain- chronic
-+ Cologuard overdue for colonoscopy
-hx gastroparesis with Ozempic and Mounjaro use
-hypokalemia
Other pertinent medical hx:
-ESRD on HD
-COPD
-RA
-HTN
-DM2
-Afib on Eliquis
-CAD
-PAD
-peripheral neuropathy
-CAD
PLAN:
Etiology of symptoms related to persistent UTI, side effects of recent Amoxicillin therapy with DILI, vs other
check stool studies with complaints of diarrhea
pt unsure if she has Amoxicillin vs Augmentin
cont to hold Antibiotic therapy
per liver tox -- Augmentin one of most common causes of DILI
hepatitis pending
repeat LFT's with improvement cont to trend with Eliquis use INR not accurate to follow
await repeat Urine cx
some improved nausea today -- cont cholesterol lowering diet
Pt aware she is overdue for repeat EGD and colonoscopy will need to reschedule outpatient-- per office notes some insurance issues with inability to proceed may need new provider in Network
replete K per hospitalist
-
-
Thank you for consultation and allowing me to participate in the patient's care. Please call the cotton weigher operator GI physician during the after hours with any questions or concerns.
[2024-05-06 09:24] LABS: Glucose - Point of Care 119 mg/dl (70-99)
[2024-05-06] MEDS: NEURONTIN 100 MG PO ×3 (09:24→23:32)
[2024-05-06] MEDS: LASIX 80 MG PO (09:24)
[2024-05-06] MEDS: KCL 20 MEQ PO (09:24)
[2024-05-06] MEDS: NORVASC 2.5 MG PO (09:24)
[2024-05-06] MEDS: ELIQUIS 2.5 MG PO ×2 (09:24→20:07)
[2024-05-06] MEDS: NOVOLOG FLEXPEN-LOW RESISTANCE SC ×3 (09:24→16:43)
[2024-05-06] MEDS: PLETAL 100 MG PO ×2 (09:25→20:07)
[2024-05-06 09:57] LABS: Glycohemoglobin (HgbA1c) 6.1 % (4.0-5.6)
--- NOTE | 2024-05-06 10:59 | W.PN.HOSP.TC ---
Today's Communication/Plan
-
See plan
Assessment / Plan
Assessment / Plan
Impression:
Presentation with nausea, vomiting, diffuse abdominal pain and diarrhea
Abnormal LFTs with elevated transaminases.
Mild elevated lipase in the settings of emesis
Recently treated for UTI as outpatient.
Conditions prior to admission:
End-stage renal disease on hemodialysis T//.
Left renal mass with nondiagnostic biopsy following iRad ablation on 03/04.
Essential hypertension baseline IDDM.
Paroxysmal atrial fibrillation
Anticoagulation with Eliquis.
Right upper extremity AV fistula.
Asthma without exacerbation
Pulmonary hypertension
RAD.
Sleep apnea.
GERD.
Anxiety/depression
Plan:
Presentation with nausea, vomiting, diarrhea.
She has intermittent mild abdominal pain, she is not nauseous with no episodes of emesis since admission.
She reports diarrhea improved.
Abdominal examination benign.
Clinically no evidence of intestinal obstruction
Abnormal LFTs with normal bilirubin and elevated transaminases
Ultrasound findings consistent with increased echogenicity of the liver, compatible with underlying hepatocellular disease, which most commonly relates to fatty infiltration of the liver.
Lipase only mildly elevated and not consistent with pancreatitis level.
She is currently not on GLP-1 inhibitor, last injection over 6 months ago
GI consultation appreciated.
Agree with MRI of the abdomen for further evaluation.
Viral hepatitis serology pending
Observe off antibiotics pending urine cultures. To avoid additional and possible liver injury.
Monitor LFT trend.
Reported recent UTI with multiple courses of antibiotics as outpatient.
No dysuria.
Afebrile.
Normal white count
Urinalysis not consistent with UTI.
Urine cultures pending
Observe off antibiotics
End-stage renal disease
Nephrology consultation
HD as per schedule
Continue preadmission dose of furosemide. Patient reports significant urinary output off dialysis days.
Paroxysmal atrial fibrillation based on presentation ECG with normal sinus rhythm
Echocardiogram 06/02 with preserved biventricular function LVEF 60-65%, mild pulmonary hypertension with PA pressure 36-41 mmHg
Continue amiodarone
Continue Eliquis
Essential hypertension
Continue amlodipine
Monitor BP trend with HD management
IDDM.
Hemoglobin A1c 6.1
Continue Lantus
Continue basal bolus protocol with serial Accu-Cheks
Carbohydrate diet
DVT prophylaxis Eliquis
Full code
Anticipated Discharge: 24 - 48 hours
Subjective/Interval History
-
Date of Service: May 06, 2024
Objective Data
-
Labs:
Laboratory Results
05/06/24
05:39
WBC 4.8
Hgb 12.7
Hct 35.4 L
Plt Count 198
Sodium 136
Potassium 3.0 L
Chloride 99
Carbon Dioxide 31 H
BUN 34 H
Creatinine 2.9 H
Glucose 106 H
Calcium 9.5
Total Bilirubin 0.7
AST 260 H
ALT 394 H
Alkaline Phosphatase 54
Vital Signs:
Vital Signs
Temp Pulse Resp BP Pulse Ox
98.3 F 52 16 132/71 96
05/06/24 07:30 05/06/24 07:30 05/06/24 07:30 05/06/24 07:30 05/06/24 07:30
Physical Exam
-
General: Well Developed and No Apparent Distress
HEENT: Normocephalic, Atraumatic and Moist Mucous Membranes
Respiratory: Clear to Auscultation
Cardiac: Regular Rhythm and S1/S2; Negative Murmur, Rub or Gallop
GI: Soft, Nontender, Nondistended and Normal Bowel Sounds; Negative Organomegaly
Rectal: Deferred by Provider
Musculoskeletal: No Clubbing, No Cyanosis and No Edema
Skin: Negative Rash
Neuro: Nonfocal/Grossly Intact
--- NOTE | 2024-05-06 11:23 | W.CON.NEPH ---
Consultation
-
Date/Time Consultation Requested: 05/06/24 Luther Powell 1:04AM
Date/Time Consultation Performed: 05/06/24 Avelina Palomo 12;14PM
Reason for Consultation: ESRD on HD
Medical History
-
Chief Complaint: ESRD on HD
History of Present Illness:
Ms. Syed is a 73YOF with PMH of ESRD on HD TThS, paroxismal Afib (on eliquis), CAD, DLD (on atorvastatin), DM, HTN, COPD, pHTN, gout, RA, JOS, obesity, PAD who presents to the hospital with abdominal pain, nausea and vomiting. She had had similar
presentations in the past, thought to be 2/2 to GLP1 medications, sh has been off of these. States that her most recent episode started on 04/30. Endorses non bloody diarrhea as well. Recently did take ampicillin for UTI. Labs notable for elevated
LFTs, whcih are downtrending today. Planning for MRI of abdomen with MRCP per GI.
Regarding dialysis, states that things are going well. Recieved her complete treatment yesterday without issue.
Past Medical History
Past Medical History: Other (gastroparesis secondary to Ozempic, ESRD on HD TTHS, orthostatic hypotension, diabetes, paroxysmal atrial fibrillation on Eliquis, CAD, hypertension, COPD, pulmonary hypertension, gout, rheumatoid arthritis, obstructive
sleep apnea, obesity, hyperlipidemia, peripheral arterial disease)
Past Surgical History: Gynecological (hysterectomy) and Urological (bladder lift)
Social History
Tobacco: Non-Smoker
Alcohol: None
Drug: None
Family History
Family History: Not Pertinent
Allergies / Home Medications
Allergy/AdvReac Type Severity Reaction Status Date / Time
adhesive Allergy Rash, Verified 05/05/24 20:16
itching
Sulfa (Sulfonamide Allergy nausea and Verified 05/05/24 20:16
Antibiotics) vomiting
�Medication �Instructions �Recorded �Confirmed �Type
atorvastatin 40 mg tablet 40 mg PO DAILY High cholesterol 04/25/21 05/06/24 History
cilostazol 100 mg tablet 100 mg PO BID Blood clot 04/25/21 05/06/24 History
prevention/tx
fluoxetine 20 mg capsule 20 mg PO DAILY anxiety/depression 04/05/22 05/06/24 History
gabapentin 100 mg capsule 100 mg PO TID Diabetic Neuropathy 04/05/22 05/06/24 History
apixaban 2.5 mg tablet (Eliquis) 2.5 mg PO BID Blood clot 04/16/22 05/06/24 Rx
prevention/tx #60 tabs
cholecalciferol (vitamin D3) 50 50 mcg PO DAILY Supplement 07/19/22 05/06/24 History
mcg (2,000 unit) capsule (Vitamin
D3)
amiodarone 200 mg tablet 200 mg PO DAILY Arrhythmia 08/31/23 05/05/24 History
amlodipine 2.5 mg tablet 2.5 mg PO DAILY Blood Pressure 12/13/23 05/06/24 History
insulin glargine 100 unit/mL (3 40 unit SC HS Diabetes 12/18/23 05/06/24 History
mL) subcutaneous pen (Basaglar
KwikPen U-100 Insulin)
furosemide 80 mg tablet 80 mg PO DAILY Fluid 02/27/24 05/06/24 History
Retention/Swelling
therapeutic multivitamin 1 tab PO DAILY 05/05/24 05/06/24 History
ampicillin 500 mg capsule 500 mg PO BID 05/06/24 05/06/24 History
potassium chloride 10 mEq 10 meq PO DAILY 05/06/24 05/06/24 History
tablet,extended release
Review of Systems
-
History Source: Patient
All other systems: Negative unless noted
Constitutional: Fatigue
Abdomen/GI: Abdominal Pain, Nausea, Vomiting and Diarrhea
Physical Exam
Vital Signs
Vital Signs
Temp Pulse Resp BP Pulse Ox
98.3 F 52 16 132/71 96
05/06/24 07:30 05/06/24 07:30 05/06/24 07:30 05/06/24 07:30 05/06/24 07:30
Lab Results
WBC 4.8 10^3/uL (4.8-10.8) 05/06/24 05:39
RBC 3.99 10^6/uL (4.20-5.40) L 05/06/24 05:39
Hgb 12.7 g/dL (12.0-16.0) 05/06/24 05:39
Hct 35.4 % (37.0-47.0) L 05/06/24 05:39
Plt Count 198 10^3/uL (130-400) 05/06/24 05:39
Sodium 136 mmol/L (135-145) 05/06/24 05:39
Potassium 3.0 mmol/L (3.5-5.1) L 05/06/24 05:39
Chloride 99 mmol/L (98-107) 05/06/24 05:39
Carbon Dioxide 31 mmol/L (22-30) H 05/06/24 05:39
BUN 34 mg/dl (7-17) H 05/06/24 05:39
Creatinine 2.9 mg/dL (0.6-1.0) H 05/06/24 05:39
eGFR 16.79 05/06/24 05:39
Glucose 106 mg/dl (70-99) H 05/06/24 05:39
Calcium 9.5 mg/dl (8.4-10.2) 05/06/24 05:39
Albumin 3.9 g/dl (3.5-5.0) 05/06/24 05:39
Physical Exam
General: AOx3, No Distress and Nontoxic
HEENT: PERRL, EOMI, Anicteric, Conjunctivae Clear, Ear/Nose Intact, Hearing Normal, Oropharynx Clear/Moist, Dentition Intact, Facial Symmetry and Neck Supple
Respiratory: Clear
Cardiac: S1/S2 and Regular Rate/Rhythm
Breast: Deferred by me
Abdomen: Soft, Nontender, Nondistended and Normal Bowel Sounds
Rectal: Deferred by Provider
Genito-urinary: No Costovertebral Tender
Musculoskeletal: No Clubbing, No Cyanosis and No Edema
Skin: No Rash, Warm, Dry, No Clubbing, No Cyanosis, Normal Turgor and No Bruising
Neuro: Nonfocal/Grossly Intact
Hematologic/Lymphatic: No Cervical Lymphadenopathy
Psych: Mood/afflect pleasant, Insight/judgement good and Appropriate
Data Reviewed
-
Ultrasound: Report Reviewed by me (increased echogenicity of the liver)
Labs: Labs Reviewed by me, Discussed with Physician, Discussed with Nurse and Discussed with Patient
Old Records: Reviewed
Assessment/Plan
-
Assessment:
nausea and vomitting and abdominal pain
ESRD on HD TThS
HTN
DM
AFib (on Eliquis)
RUE AVF
Asthma
pHTN
RA
Sleep apnea
GERD
Anxiety/depression
DLD
Plan:
- plan for HD tomorrow per her usualy schedule
- minimal UF in the setting of diarrhea
- continue lasix as patient still makes urine
- c/f UTI --> ESRD patient's UA often unreliable as UOP drops. patient no longer having sxs
[2024-05-06 13:04] LABS: Glucose - Point of Care 136 mg/dl (70-99)
[2024-05-06 16:42] LABS: Glucose - Point of Care 145 mg/dl (70-99)
[2024-05-06 21:08] LABS: Glucose - Point of Care 128 mg/dl (70-99)
[2024-05-06] MEDS: LANTUS 0.400000000000000022 UNITS SC (23:31)
[2024-05-07 06:00] VITALS: BMI 36.0
[2024-05-07 06:53] LABS: ALT (SGPT) 304 U/L (0-35); AST (SGOT) 160 U/L (14-36); Albumin 3.9 g/dl (3.5-5.0); Alkaline Phosphatase 51 U/L (38-126); Blood Urea Nitrogen 43 mg/dl (7-17); Calcium 9.9 mg/dl (8.4-10.2); Carbon Dioxide 24 mmol/L (22-30); Chloride 101 mmol/L (98-107); Direct Bilirubin 0.3 mg/dl (0.0-0.4); Estimated Creatinine Clearance 19 ml/min; Glucose 100 mg/dl (70-99); Potassium 3.1 mmol/L (3.5-5.1); Sodium 136 mmol/L (135-145); Total Bilirubin 0.8 mg/dl (0.2-1.3); Total Protein 6.4 g/dl (6.3-8.2); eGFR 16.79
[2024-05-07 07:00] VITALS: BP 157/71
--- NOTE | 2024-05-07 07:47 | W.PN.GI.CBS2 ---
Today's Communication / Plan
-
Please see assessment and plan for details.
Assessment / Plan
-
1. Abdominal pain/nausea/diarrhea: With chronic symptoms, though worse recently, with significantly elevated LFTs, though symptoms and labs all much improved. Possibly related to recent UTI or other viral syndrome, possibly some medication effect.
At this point we will continue supportive care, if has further diarrhea then check stool studies.
2. Elevated LFTs: In a significant necroinflammatory pattern, now improving, with MRI negative, possibly drug-induced liver injury from recent antibiotics, less likely viral hepatitis, passed CBD stone etc. At this point we will continue to trend,
await final hepatitis panel.
Subjective
Subjective
Date of Service: May 07, 2024
Patient feeling better overall, tolerating diet without difficulty, no new abdominal pain or vomiting. No fevers or chills overnight.
Objective
Data Reviewed
Laboratory Data:
Laboratory Results
05/06/24 05:39
05/07/24 05:59
Laboratory Results
Total Bilirubin 0.8 mg/dl (0.2-1.3) 05/07/24 05:59
AST 160 U/L (14-36) H 05/07/24 05:59
ALT 304 U/L (0-35) H 05/07/24 05:59
Alkaline Phosphatase 51 U/L (38-126) 05/07/24 05:59
Lipase 320 U/L (23-300) H 05/05/24 20:22
Vital Signs and I&O:
Vital Signs
Temp Pulse Resp BP Pulse Ox
97.6 F 53 20 146/73 98
05/06/24 23:41 05/06/24 23:41 05/06/24 23:41 05/06/24 23:41 05/06/24 23:41
I&O
05/06/24 05/07/24 05/08/24
06:59 06:59 06:59
Intake Total 1320 / 1320
Balance 1320 / 1320
Physical Exam
Physical Exam
General: NAD
Abdomen: normal bowel sounds, soft, no tenderness, no masses or bruits, no ascites
[2024-05-07 07:54] LABS: Glucose - Point of Care 114 mg/dl (70-99)
[2024-05-07] MEDS: NOVOLOG FLEXPEN-LOW RESISTANCE SC ×2 (08:37→16:58)
[2024-05-07] MEDS: NEURONTIN 100 MG PO ×3 (08:38→22:51)
[2024-05-07] MEDS: ELIQUIS 2.5 MG PO ×2 (08:38→19:48)
[2024-05-07] MEDS: NORVASC 2.5 MG PO (08:38)
[2024-05-07] MEDS: LASIX 80 MG PO (08:38)
[2024-05-07] MEDS: KCL 20 MEQ PO (08:38)
[2024-05-07] MEDS: PLETAL 100 MG PO ×2 (08:38→19:48)
[2024-05-07 12:05] LABS: Glucose - Point of Care 182 mg/dl (70-99)
[2024-05-07] MEDS: NOVOLOG FLEXPEN-LOW RESISTANCE 1 UNITS SC (12:16)
--- NOTE | 2024-05-07 14:39 | W.PN.HOSP.TC ---
Today's Communication/Plan
-
Trend LFTs.
Start ceftriaxone pending final urine cultures
HD.
Assessment / Plan
Assessment / Plan
Impression:
Presentation with nausea, vomiting, diffuse abdominal pain and diarrhea
Abnormal LFTs with elevated transaminases.
Mild elevated lipase in the settings of emesis
Recently treated for UTI as outpatient.
Conditions prior to admission:
End-stage renal disease on hemodialysis T//S.
Left renal mass with nondiagnostic biopsy following iRad ablation on 03/04.
Essential hypertension baseline IDDM.
Paroxysmal atrial fibrillation
Anticoagulation with Eliquis.
Right upper extremity AV fistula.
Asthma without exacerbation
Pulmonary hypertension
RAD.
Sleep apnea.
GERD.
Anxiety/depression
Plan:
Presentation with nausea, vomiting, diarrhea.
She has intermittent mild abdominal pain, she is not nauseous with no episodes of emesis since admission.
She reports diarrhea improved.
Abdominal examination benign.
Clinically no evidence of intestinal obstruction
Abnormal LFTs with normal bilirubin and elevated transaminases
Ultrasound findings consistent with increased echogenicity of the liver, compatible with underlying hepatocellular disease, which most commonly relates to fatty infiltration of the liver.
Lipase only mildly elevated and not consistent with pancreatitis level.
She is currently not on GLP-1 inhibitor, last injection over 6 months ago
GI consultation appreciated.
MRI of the abdomen with no acute findings including no focal biliary system abnormalities.
Viral hepatitis serology pending
Observe off antibiotics pending urine cultures. To avoid additional and possible liver injury.
LFTs trending down
Reported recent UTI with multiple courses of antibiotics as outpatient.
No dysuria.
Afebrile.
Normal white count
Urinalysis not consistent with UTI.
Urine cultures with E. coli pending sensitivities
Start ceftriaxone. Follow final sensitivities
End-stage renal disease
Nephrology consultation
HD as per schedule
Continue preadmission dose of furosemide. Patient reports significant urinary output off dialysis days.
Paroxysmal atrial fibrillation based on presentation ECG with normal sinus rhythm
Echocardiogram 06/02 with preserved biventricular function LVEF 60-65%, mild pulmonary hypertension with PA pressure 36-41 mmHg
Continue amiodarone
Continue Eliquis
Essential hypertension
Continue amlodipine
Monitor BP trend with HD management
IDDM.
Hemoglobin A1c 6.1
Continue Lantus
Continue basal bolus protocol with serial Accu-Cheks
Carbohydrate diet
DVT prophylaxis Eliquis
Full code
Anticipated Discharge: 24 - 48 hours
Subjective/Interval History
-
Date of Service: May 07, 2024
Objective Data
-
Labs:
Laboratory Results
05/07/24
05:59
Sodium 136
Potassium 3.1 L
Chloride 101
Carbon Dioxide 24
BUN 43 H
Creatinine 2.9 H
Glucose 100 H
Calcium 9.9
Total Bilirubin 0.8
AST 160 H
ALT 304 H
Alkaline Phosphatase 51
Vital Signs:
Vital Signs
Temp Pulse Resp BP Pulse Ox
98.0 F 56 16 157/71 98
05/07/24 07:00 05/07/24 08:38 05/07/24 07:00 05/07/24 08:38 05/07/24 10:10
I&O
05/06/24 05/07/24 05/08/24
06:59 06:59 06:59
Intake Total 1320 / 1320
Balance 1320 / 1320
Physical Exam
-
General: Well Developed and No Apparent Distress
HEENT: Normocephalic, Atraumatic and Moist Mucous Membranes
Respiratory: Clear to Auscultation
Cardiac: Regular Rhythm and S1/S2; Negative Murmur, Rub or Gallop
GI: Soft, Nontender, Nondistended and Normal Bowel Sounds; Negative Organomegaly
Rectal: Deferred by Provider
Musculoskeletal: No Clubbing, No Cyanosis and No Edema
Skin: Negative Rash
Neuro: Nonfocal/Grossly Intact
[2024-05-07 15:00] VITALS: BP 156/89
--- NOTE | 2024-05-07 16:00 | CM ---
Met with pt at bedside
Pt lives with her and 2 grandchildren - 12yo and 24yo in a 2 story home
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
DME - rolling walker, wheel chair, cane, commode
SNF - denies past hx
HH - [facility] in past
Has ride at d/c
PCP - Dr Marielle Sheppard
Pharm - [facility]
Pt has HD at [facility] - /Sat schedule
CM will follow for d/c needs
Plan - Anticipate home no needs
[2024-05-07] MEDS: STERILE WATER FOR INJECTION 10 ML IV (16:25)
[2024-05-07] MEDS: ROCEPHIN 1000 MG IV (16:26)
--- NOTE | 2024-05-07 16:37 | W.PN.NEPH.HD ---
Assessment
-
- patient feeling well
- for discharge after HD
Progress Note - Hemodialysis
-
Date of Service: May 07, 2024
Duration: 30 minutes and 3 hours
Potassium Bath: 4
Calcium Bath: 2.5
Opti-Dialyzer: 160
Ultrafiltration: Other
Blood Flow: 400
Dialysate Flow: 600
[2024-05-07 16:50] LABS: Glucose - Point of Care 70 mg/dl (70-99)
[2024-05-07 19:00] LABS: Hepatitis A IgM Antibody Negative (Negative); Hepatitis B Core Ab, IgM Negative (Negative)
[2024-05-07 19:17] LABS: Hepatitis B Core Ab, Total Negative (Negative); Hepatitis B Surface Antibody Positive; Hepatitis C Antibody Negative (Negative)
[2024-05-07 19:21] LABS: Hepatitis A Antibody, Total Negative (Negative)
[2024-05-07 19:22] LABS: Glucose - Point of Care 278 mg/dl (70-99)
[2024-05-07] MEDS: DESENEX/MITRAZOL/ZEASORB 1 APPLIC TOPICAL (19:50)
[2024-05-07 20:12] LABS: Hepatitis B Surface Antigen Negative (Negative)
[2024-05-07] MEDS: LANTUS 0.400000000000000022 UNITS SC (22:51)
[2024-05-07 23:08] VITALS: BP 133/73
[2024-05-08 06:08] VITALS: BMI 35.5
[2024-05-08 06:35] LABS: % Basophils 0.3 % (0-2); % Eosinophils 1.4 % (0-6); % Immature Granulocytes 0.6 % (0-0.5); % Lymphocytes 21.3 % (20.5-51.1); % Monocytes 10.3 % (1.7-9.3); % Neutrophils 66.1 % (42.2-75.2); Absolute Eosinophils 0.1 10^3/uL (0-0.7); Absolute Lymphocytes 1.4 10^3/uL (1.2-3.4); Absolute Monocytes 0.7 10^3/uL (0.1-0.6); Absolute Neutrophils 4.2 10^3/uL (1.4-6.5); Hematocrit 39.1 % (37.0-47.0); Hemoglobin 14.1 g/dL (12.0-16.0); Mean Corp Hgb Conc. 36.1 g/dL (33.0-37.0); Mean Corpuscular Hgb 31.6 pg (27.0-31.0); Mean Corpuscular Volume 87.7 fL (81.0-99.0); Mean Platelet Volume 10.1 fL (7.4-10.4); Nucleated Red Blood Cells % 0 %; Platelet Count 226 10^3/uL (130-400); Red Blood Cell Count 4.46 10^6/uL (4.20-5.40); Red Cell Dist. Width 11.9 % (11.5-14.5); White Blood Cell Count 6.4 10^3/uL (4.8-10.8)
[2024-05-08 06:51] LABS: ALT (SGPT) 251 U/L (0-35); AST (SGOT) 115 U/L (14-36); Albumin 4.2 g/dl (3.5-5.0); Alkaline Phosphatase 61 U/L (38-126); Blood Urea Nitrogen 27 mg/dl (7-17); Carbon Dioxide 27 mmol/L (22-30); Chloride 98 mmol/L (98-107); Direct Bilirubin 0.2 mg/dl (0.0-0.4); Estimated Creatinine Clearance 20 ml/min; Glucose 73 mg/dl (70-99); Potassium 3.2 mmol/L (3.5-5.1); Sodium 137 mmol/L (135-145); Total Bilirubin 0.5 mg/dl (0.2-1.3); Total Protein 6.9 g/dl (6.3-8.2); eGFR 18.29
[2024-05-08 07:00] VITALS: BP 129/79
[2024-05-08 08:01] LABS: Glucose - Point of Care 90 mg/dl (70-99)
[2024-05-08] MEDS: NOVOLOG FLEXPEN-LOW RESISTANCE SC ×2 (09:28→12:09)
[2024-05-08] MEDS: KCL 20 MEQ PO (09:28)
[2024-05-08] MEDS: LASIX 80 MG PO (09:28)
[2024-05-08] MEDS: NEURONTIN 100 MG PO (09:29)
[2024-05-08] MEDS: NORVASC 2.5 MG PO (09:29)
[2024-05-08] MEDS: ELIQUIS 2.5 MG PO (09:29)
[2024-05-08] MEDS: PLETAL 100 MG PO (09:29)
[2024-05-08] MEDS: DESENEX/MITRAZOL/ZEASORB 1 APPLIC TOPICAL (09:30)
--- NOTE | 2024-05-08 10:55 | W.PN.NEPH.PH ---
Today's Communication / Plan
-
HD tomorrow
Assessment/Plan
-
Assessment:
nausea and vomitting and abdominal pain
ESRD on HD TThS
HTN
DM
AFib (on Eliquis)
RUE AVF
Asthma
pHTN
RA
Sleep apnea
GERD
Anxiety/depression
DLD
Plan:
HD tomorrow
follow LFTs
-
-
Date of Service: May 08, 2024
CC / HPI / ROS
-
Chief Complaint:
ESRD
History of Present Illness:
tolerated HD yesterday
BP stable
LFTs improving
Review of Systems:
No CP/SOB
Labs
-
Labs:
WBC 6.4 10^3/uL (4.8-10.8) 05/08/24 06:05
RBC 4.46 10^6/uL (4.20-5.40) 05/08/24 06:05
Hgb 14.1 g/dL (12.0-16.0) 05/08/24 06:05
Hct 39.1 % (37.0-47.0) 05/08/24 06:05
Plt Count 226 10^3/uL (130-400) 05/08/24 06:05
Sodium 137 mmol/L (135-145) 05/08/24 06:05
Potassium 3.2 mmol/L (3.5-5.1) L 05/08/24 06:05
Chloride 98 mmol/L (98-107) 05/08/24 06:05
Carbon Dioxide 27 mmol/L (22-30) 05/08/24 06:05
BUN 27 mg/dl (7-17) H 05/08/24 06:05
Creatinine 2.7 mg/dL (0.6-1.0) H 05/08/24 06:05
eGFR 18.29 05/08/24 06:05
Glucose 73 mg/dl (70-99) 05/08/24 06:05
Calcium 10.0 mg/dl (8.4-10.2) 05/08/24 06:05
Albumin 4.2 g/dl (3.5-5.0) 05/08/24 06:05
Physical Exam
-
Vital Signs:
Vital Signs
Temp Pulse Resp BP Pulse Ox
97.9 F 73 16 129/79 97
05/08/24 07:00 05/08/24 07:00 05/08/24 07:00 05/08/24 07:00 05/08/24 07:00
Cardiovascular:: Regular rate and rhythm
Respiratory:: Bilateral: CTA
Lung Excursion:: Normal
Abdomen:: Nontender and Soft
Bowel Sounds:: Normal
Extremity Edema:: None: Bilateral:
[2024-05-08 11:41] LABS: Glucose - Point of Care 72 mg/dl (70-99)
--- NOTE | 2024-05-08 11:50 | W.PN.GI.CBS2 ---
Today's Communication / Plan
-
Patient recommended to follow up with GI who participates with her insurance as an outpatient.
Had hx positive cologuard
Assessment / Plan
-
1. Abdominal pain/nausea/diarrhea: With chronic symptoms, though worse recently, with significantly elevated LFTs, though symptoms and labs all much improved. Possibly related to recent UTI or other viral syndrome, possibly some medication effect.
-Tolerating solid diet
-No BM since Saturday
2. Elevated LFTs: In a significant necroinflammatory pattern, now improving, with MRI negative, possibly drug-induced liver injury from recent antibiotics, less likely viral hepatitis, passed CBD stone etc.
-Continue to trend down
-Hepatitis panel negative
Plan:
-Overall patient improving from GI perspective, tolerating diet.
-LFT's improving
-Patient is overdue for repeat EGD/Colonoscopy, has hx of positive cologuard, I saw her as an outpatient in February for this and scheduled her for EGD/COLO. Her insurance is out of network with and on 03/12/2024 the patient was notified to call her
insurance and find a GI who is in network with her insurance. We also contacted her PCP. She states that she already notified her PCP. Patient counselled that she needs to follow up with GI as outpatient that participated with her insurance to
proceed with recommended procedures.
Subjective
Subjective
Date of Service: May 08, 2024
Patient tolerating solid diet. Had scrambled eggs, bel[place]ian toast and tea this am. No further BM since Saturday. No nausea/vomiting. Had some back pain last evening. LFTs improvng.
Objective
Data Reviewed
Laboratory Data:
Laboratory Results
05/08/24 06:05
05/08/24 06:05
Laboratory Results
Total Bilirubin 0.5 mg/dl (0.2-1.3) 05/08/24 06:05
AST 115 U/L (14-36) H 05/08/24 06:05
ALT 251 U/L (0-35) H 05/08/24 06:05
Alkaline Phosphatase 61 U/L (38-126) 05/08/24 06:05
Lipase 320 U/L (23-300) H 05/05/24 20:22
Vital Signs and I&O:
Vital Signs
Temp Pulse Resp BP Pulse Ox
97.9 F 73 16 129/79 97
05/08/24 07:00 05/08/24 07:00 05/08/24 07:00 05/08/24 07:00 05/08/24 07:00
I&O
05/07/24 05/08/24 05/09/24
06:59 06:59 06:59
Intake Total 1320 / 1320 480 / 480
Balance 1320 / 1320 480 / 480
Physical Exam
Physical Exam
HEENT: Anicteric
Cardiology: Normal Sinus Rhythm
Pulmonary: Clear
GI: Soft, Non Distended, Non Tender and Normal Bowel Sounds
Neuro: Non Focal
--- NOTE | 2024-05-08 13:20 | PTCARENOTE ---
Took this patient from covering nurse at 11:35. Patient written for discharge. Removed IV. Went over discharge instructions with patient. Patient being discharged to home.
--- NOTE | 2024-05-08 13:20 | W.DS.TRANS ---
DC Summary - Division Human Resources Manager
-
Discharge Instructions:
Discharge Diagnosis/Procedures Drug-induced liver injury
Diet Diabetic, Carb Controlled
Instructions:
Stand-Alone Forms:
Changes to Home Medications: No
Discharge Medications:
DC Medications w/original date entered in [facility]
atorvastatin 40 mg tablet 40 mg PO DAILY High cholesterol 04/25/21
cilostazol 100 mg tablet 100 mg PO BID Blood clot prevention/tx 04/25/21
fluoxetine 20 mg capsule 20 mg PO DAILY anxiety/depression 04/05/22
gabapentin 100 mg capsule 100 mg PO TID Diabetic Neuropathy 04/05/22
apixaban 2.5 mg tablet (Eliquis) 2.5 mg PO BID Blood clot prevention/tx #60 tabs 04/16/22
cholecalciferol (vitamin D3) 50 mcg (2,000 unit) capsule (Vitamin D3) 50 mcg PO DAILY Supplement 07/19/22
amiodarone 200 mg tablet 200 mg PO DAILY Arrhythmia 08/31/23
amlodipine 2.5 mg tablet 2.5 mg PO DAILY Blood Pressure 12/13/23
insulin glargine 100 unit/mL (3 mL) subcutaneous pen (Basaglar KwikPen U-100 Insulin) 40 unit SC HS Diabetes 12/18/23
furosemide 80 mg tablet 80 mg PO DAILY Fluid Retention/Swelling 02/27/24
therapeutic multivitamin 1 tab PO DAILY Supplement 05/05/24
potassium chloride 10 mEq tablet,extended release 10 meq PO DAILY Electrolyte Repletion 05/06/24
Home Medication Changes
Pending Results: No
[2024-05-08 13:38] VITALS: BP 139/70
== END 2024-05-08 13:50 | disposition home or self-care (01) | DRG 441 ==
LOC: 3 WEST ACU 00:31
PROVIDERS: Student in an Organized Health Care Education/Training Program; ADMITTING PHYSICIAN Internal Medicine; ATTENDING PHYSICIAN Internal Medicine; CONSULT PHYSICIAN Internal Medicine Gastroenterology; EMERGENCY PHYSICIAN Emergency Medicine; FAMILY PHYSICIAN Family Medicine; OTHER PHYSICIAN Student in an Organized Health Care Education/Training Program
DX: K71.9 Toxic liver disease, unspecified (principal); N18.6 End stage renal disease; I12.0 Hypertensive chronic kidney disease with stage 5 chronic kidney disease or end stage renal disease; N39.0 Urinary tract infection, site not specified; Z99.2 Dependence on renal dialysis; I48.0 Paroxysmal atrial fibrillation; Z79.01 Long term (current) use of anticoagulants; E87.6 Hypokalemia
CPT/HCPCS: 74183; 76700; 80053; 81003; 81015; 82248; 82962; 83036; 83690; 85025; 85027; 86704; 86705; 86706; 86708; 86709; 86803; 87077; 87086; 87186; 87340; A9575; G0257; P9047

== ENCOUNTER 2024-05-19 13:47 | Emergency (ER) | payer OTHER, SELFPAY ==
[2024-05-19 13:48] VITALS: BP 153/79
[2024-05-19 14:11] VITALS: BMI 37.2
[2024-05-19 14:23] VITALS: BP 128/61
--- NOTE | 2024-05-19 14:35 | ED.GENMED ---
History of Present Illness
General
Chief Complaint: Fatigue
Time Seen by Provider: 05/19/24 14:14
History of Present Illness
History of Present Illness:
73-year-old female history of CHF, atrial fibrillation, hypertension, end-stage renal disease on dialysis Saturday presenting with shortness of breath and cough worsening over the past few days. Patient states that she had dialysis
session today was down to her dry weight, 93 kg. Patient states that afterwards she followed up with her PCP because she was in the hospital 2 weeks ago as routine follow-up, and was sent patient to the ER for concern for 'fluid on my lungs.'
Patient denies fever, chills, chest pain, abdominal pain, or lower extremity swelling.
Past History
Past History
ED Past Medical History: Arrthythmia (Atrial fib), Asthma, CHF, COPD, GERD, HTN, Hypercholesterolemia, IDDM, ID, Renal failure (Dialysis Saturday), Psychiatric (Depression) and Other (Neuropathy, sleep apnea, rheumatoid arthritis, gout,
restless leg, Diverticulitis, UTI, Cellulitis, Hernia, Eczema, )
ED Past Surgical History: Gynecological (Hysterectomy), Orthopedic (Carpal tunnel, Left shoulder, Left wrist, ), Urological (Bladder lift X3, Cyst removed left kidney) and Other (Deviated septum)
Social History
Tobacco: Non-smoker
Alcohol: None
Drug: None
Personal:
Living: with family
Employment: Retired
Family History
Family History: CAD
Phy Exam
Physical Exam
Physical Exam:
General: Alert, no acute distress
Head: NCAT
Eyes: clear conjunctiva
Neck: supple
Cardiac: regular rate and rhythm, no murmur
Lungs: clear to auscultation bilaterally. No wheezes, rales, or rhonchi. Speaking full unlabored sentences. No respiratory distress.
Abdomen: soft, nondistended nontender. No rebound or guarding.
MSK: no lower extremity edema bilaterally. No deformity. Fistula right upper extremity with palpable
Skin: warm, dry
Neuro: Alert and oriented x3. no focal deficits
Course
Orders/Labs/Results
Orders:
Orders
05/19/24 14:23
CXR2 [CR Chest - 2 Views ] Urgent
Comment:
Reason For Exam: sob, cough
05/19/24 14:24
EKG [Electrocardiogram (*1)] Urgent
Reason for Study: Shortness of Breath
EKG- Treatment ONCE
05/19/24 14:27
CBC/With Diff [Complete Blood Count/With Diff] Urgent
CMP [Comprehensive Metabolic Panel] Urgent
NT-proBNP Urgent
Troponin I Urgent
Abnormal Lab Results
05/19/24
14:27
RBC 3.95 L 10^6/uL
(4.20-5.40)
Hct 34.8 L %
(37.0-47.0)
MCH 31.6 H pg
(27.0-31.0)
Absolute Lymphs (auto) 0.9 L 10^3/uL
(1.2-3.4)
Absolute Monos (auto) 0.8 H 10^3/uL
(0.1-0.6)
Lymphocytes % 12.9 L %
(20.5-51.1)
Monocytes % 11.1 H %
(1.7-9.3)
BUN 21 H mg/dl
(7-17)
Creatinine 2.2 H mg/dL
(0.6-1.0)
Glucose 169 H mg/dl
(70-99)
AST 56 H U/L
(14-36)
ALT 57 H U/L
(0-35)
05/19/24 14:27
05/19/24 14:27
Vital Signs
Initial and Last Documented VS:
Initial Vital Signs
Temp Pulse Resp BP Pulse Ox
98.2 F 80 18 153/79 95
05/19/24 13:48 05/19/24 13:48 05/19/24 13:48 05/19/24 13:48 05/19/24 13:48
Last Documented Vital Signs
Temp Pulse Resp BP Pulse Ox
98.2 F 62 16 110/96 95
05/19/24 13:48 05/19/24 16:15 05/19/24 16:15 05/19/24 16:00 05/19/24 16:15
MDM/Problems Addressed
Differential Diagnosis Includes:
Patient presents to the Emergency Department with shortness of breath and cough
Number and Complexity of Problems Addressed at the Encounter
� Chronic conditions affecting care:
� Acute Exacerbation and/or Progression of Chronic Illness:
� Differential Diagnosis includes: Pneumonia, viral syndrome, CHF, fluid overload, NSTEMI, anemia
Amount and/or Complexity of Data to be Reviewed and Analyzed
� I performed an independent evaluation of and my interpretation is:
EKG: Sinus rhythm 74 bpm with QRS 106 QTc 447 no acute ischemic changes
CT:
Xrays: Chest x-ray clear with no focal infiltrate or consolidation, no CHF
Laboratory Studies: Hemoglobin 12.5, white count 7.1 with no left shift or bandemia. Troponin within normal limits. pro BNP slightly elevated at 1290
Other:
� Review of other/old records reveals:
� Clinical information was obtained by an independent historian:
� Prescriptions/Medications Considered but not given:
� Further testing considered but not performed:
Risk of Complications and/or Morbidity or Mortality of Patient Management
� Social Determinants of health affecting care:
� Discussion with other providers (PCP, Hospitalists, Consultants, etc):
� Escalation of care including admission/observation vs risk of discharge considered: 73-year-old female history of ESRD on dialysis Saturday, COPD, hypertension, CHF, atrial fibrillation on Eliquis presenting with cough and
shortness of breath worse over the past few days. Patient states that she was seen by her PCP who was concerned for 'fluid on my lungs' and was sent to the ER for further evaluation. On my exam, lungs clear with no crackles or wheezing. No lower
extremity swelling bilaterally. Heart regular rate rhythm. Results reviewed, chest x-ray clear, hemoglobin 12.5. White count within normal limits. Troponin within normal limits. Low suspicion for PE given patient is on Eliquis and has not
missed any doses recently. Ambulated patient around the room, SpO2 greater than 96% on room air in no respiratory distress. Discussed results with patient at bedside, stable for discharge home with PCP follow-up
*Critical Care Note
Total Time (30-74mins, 75-104mins- exclusive of procedures): Not Applicable
ED Attending Note
-
Portions of this chart may have been created with voice recognition software.� Occasional wrong word or��sound alike� substitutions may have occurred due to the inherent limitations of voice recognition software.
Discharge Plan
Departure
Patient Disposition: Home (Routine Discharge)
Date of Disposition: 05/19/24
Time of Disposition: 16:25
Patient with high blood pressure during this ER visit?: Yes
Discharge Problem:
Shortness of breath
Instructions: Shortness of Breath, Adult ED, BLOOD PRESSURE
Prescriptions:
No Action
atorvastatin 40 MG tablet
40 mg PO HS
cilostazol 100 MG tablet
100 mg PO BID
gabapentin 100 MG capsule
100 mg PO TID
fluoxetine 20 MG capsule
20 mg PO DAILY
Eliquis 2.5 MG tablet
2.5 mg PO BID Qty: 60 0RF
Hold Instructions: Resume on 06/05/22. Restart blood thinner 06/05/22
cholecalciferol (vitamin D3) [Vitamin D3] 50 mcg (2,000 unit) Capsule
50 mcg PO DAILY
amiodarone 200 mg tablet
200 mg PO DAILY
amlodipine 2.5 mg Tablet
2.5 mg PO DAILY
furosemide 80 mg Tablet
80 mg PO SUMOWEFR
Nephro Vitamins 0.8 mg Tablet
1 tab PO DAILY
potassium chloride 20 mEq Tablet Extended Release
20 meq PO DAILY
insulin glargine [Lantus Solostar U-100 Insulin] 100 unit/mL (3 mL) Insulin Pen
40 unit SC HS
Referrals:
Marielle Sheppard MD [Family Provider] -
Activity Restrictions/Additional Instructions:
Follow-up with primary care doctor in 1 to 2 days
Return to the emergency department for fever, lower extremity swelling, chest pain or new/worsening symptoms
Interventions
Interventions:
*Risk Screen - Suicide Last Done: 05/19/24 14:11
*General Assessment Last Done: 05/19/24 14:11
*Neglect/Abuse Screening Last Done: 05/19/24 14:11
ED- Fall Risk Assessment Last Done: 05/19/24 14:21
*ED COVID-19 Vaccine History Last Done: 05/19/24 14:11
*Nursing Disposition Last Done: 05/19/24 16:33
Discharge Date and Time
Discharge Date/Time: 05/19/24 16:34
Print Language: MALTESE
[2024-05-19 14:36] LABS: % Basophils 0.4 % (0-2); % Eosinophils 0.7 % (0-6); % Immature Granulocytes 0.3 % (0-0.5); % Lymphocytes 12.9 % (20.5-51.1); % Monocytes 11.1 % (1.7-9.3); % Neutrophils 74.6 % (42.2-75.2); Absolute Eosinophils 0.1 10^3/uL (0-0.7); Absolute Lymphocytes 0.9 10^3/uL (1.2-3.4); Absolute Monocytes 0.8 10^3/uL (0.1-0.6); Absolute Neutrophils 5.3 10^3/uL (1.4-6.5); Hematocrit 34.8 % (37.0-47.0); Hemoglobin 12.5 g/dL (12.0-16.0); Mean Corp Hgb Conc. 35.9 g/dL (33.0-37.0); Mean Corpuscular Hgb 31.6 pg (27.0-31.0); Mean Corpuscular Volume 88.1 fL (81.0-99.0); Mean Platelet Volume 10.2 fL (7.4-10.4); Nucleated Red Blood Cells % 0 %; Platelet Count 210 10^3/uL (130-400); Red Blood Cell Count 3.95 10^6/uL (4.20-5.40); Red Cell Dist. Width 12.1 % (11.5-14.5); White Blood Cell Count 7.1 10^3/uL (4.8-10.8)
[2024-05-19 14:54] LABS: ALT (SGPT) 57 U/L (0-35); AST (SGOT) 56 U/L (14-36); Albumin 4.4 g/dl (3.5-5.0); Alkaline Phosphatase 66 U/L (38-126); Blood Urea Nitrogen 21 mg/dl (7-17); Calcium 9.8 mg/dl (8.4-10.2); Carbon Dioxide 29 mmol/L (22-30); Chloride 100 mmol/L (98-107); Estimated Creatinine Clearance 26 ml/min; Glucose 169 mg/dl (70-99); Potassium 3.6 mmol/L (3.5-5.1); Sodium 140 mmol/L (135-145); Total Bilirubin 0.7 mg/dl (0.2-1.3); Total Protein 6.8 g/dl (6.3-8.2); eGFR 23.38
[2024-05-19 15:22] LABS: NT-proBNP 1290 pg/ml; Troponin I < 0.012 ng/ml
[2024-05-19 15:28] VITALS: BP 142/60
[2024-05-19 16:00] VITALS: BP 110/96
== END 2024-05-19 16:34 | disposition home or self-care (01) ==
LOC: EMR 13:47
PROVIDERS: EMERGENCY PHYSICIAN Emergency Medicine; FAMILY PHYSICIAN Family Medicine
DX: R06.02 Shortness of breath (principal); I13.2 Hypertensive heart and chronic kidney disease with heart failure and with stage 5 chronic kidney disease, or end stage renal disease; I50.9 Heart failure, unspecified; E11.22 Type 2 diabetes mellitus with diabetic chronic kidney disease; N18.6 End stage renal disease; I48.91 Unspecified atrial fibrillation; J45.909 Unspecified asthma, uncomplicated; E78.00 Pure hypercholesterolemia, unspecified; F32.A Depression, unspecified; G25.81 Restless legs syndrome; G47.30 Sleep apnea, unspecified; K21.9 Gastro-esophageal reflux disease without esophagitis; M06.9 Rheumatoid arthritis, unspecified; Z79.01 Long term (current) use of anticoagulants; Z82.49 Family history of ischemic heart disease and other diseases of the circulatory system; Z87.440 Personal history of urinary (tract) infections; Z90.710 Acquired absence of both cervix and uterus; Z99.2 Dependence on renal dialysis
CPT/HCPCS: 99283; 71046; 80053; 83880; 84484; 85025; 93005

== ENCOUNTER 2024-06-05 12:31 | Emergency (ER) | payer OTHER, SELFPAY ==
[2024-06-05 12:37] VITALS: BP 142/88; BMI 38.2
--- NOTE | 2024-06-05 13:28 | ED.GENMED ---
History of Present Illness
General
Chief Complaint: Cardiac Symptoms
Source: patient, records and spouse
Time Seen by Provider: 06/05/24 13:13
History of Present Illness
History of Present Illness:
73 yr old female who presents to the ED with c/o short lived ('about 5 min') episodes of palpitations, elevated hr, lighteadedness and occas also sob. These has been more frequent in last 4 days. Today,she contacted her toddler lead teacher and was told
that her loop recorder did NOT show afib, but did show an accelerated heart rate and she was referred to the ED. she is currently asymptomatic. She denies episodes of chest pain or pressure, back pain, neck pain, headache, dizziness, or other
complaints
Past History
Past History
ED Past Medical History: Arrthythmia (Atrial fib), Asthma, CHF, COPD, GERD, HTN, Hypercholesterolemia, IDDM, [place], Renal failure (Dialysis - Saturday), Psychiatric (Depression) and Other (Neuropathy, sleep apnea, rheumatoid arthritis, gout,
restless leg, Diverticulitis, UTI, Cellulitis, Hernia, Eczema, )
ED Past Surgical History: Gynecological (Hysterectomy), Orthopedic (Carpal tunnel, Left shoulder, Left wrist, ), Urological (Bladder lift X3, Cyst removed left kidney) and Other (Deviated septum)
Social History
Tobacco: Non-smoker
Alcohol: None
Drug: None
Personal:
Living: with family
Employment: Retired
Family History
Family History: CAD
Phy Exam
Physical Exam
Physical Exam:
GENERAL: Alert , in no apparent distress
EYE: pupils equal and reactive
NECK: Supple, no significant adenopathy.
ENT: o/p clr, mmm.
CARDIAC: Regular rate and rhythm , sl tachycardic.
LUNGS: Clear breath sounds bilaterally, no acute respiratory distress, no wheezes/rales/rhonchi
ABDOMEN: Soft, without focal tenderness, no r/g, no cvat
NEUROLOGICAL: Alert and oriented, no focal neuro deficits
SKIN: Warm and dry, skin intact.
MUSCULOSKELETAL: No edema, well perfused.
PSYCH: Normal and appropriate interaction.
Course
Orders/Labs/Results
Orders:
Orders
06/05/24 12:34
ECG [Electrocardiogram (*1)] Urgent
Reason for Study: Chest Pain
EKG- Treatment ONCE
06/05/24 13:32
Complete Blood Count/No Diff Urgent
Comprehensive Metabolic Panel Urgent
TSH Urgent
Troponin I Urgent
Vital Signs
Initial and Last Documented VS:
Initial Vital Signs
Temp Pulse Resp BP Pulse Ox
98.5 F 107 16 142/88 99
06/05/24 12:37 06/05/24 12:37 06/05/24 12:37 06/05/24 12:37 06/05/24 12:37
Last Documented Vital Signs
Temp Pulse Resp BP Pulse Ox
98.5 F 107 16 142/88 99
06/05/24 12:37 06/05/24 12:37 06/05/24 12:37 06/05/24 12:37 06/05/24 12:37
*Critical Care Note
Total Time (30-74mins, 75-104mins- exclusive of procedures): Not Applicable
Update Note
Update Note:
Patient presents to the Emergency Department with elevated hr, lighteaded, palpitations____
Number and Complexity of Problems Addressed at the Encounter
� Chronic conditions affecting care:
� Acute Exacerbation and/or Progression of Chronic Illness:
� Differential Diagnosis includes:but not limited to electryolyte abnl, intermittent afib, hyperthyroidism, etc.
Amount and/or Complexity of Data to be Reviewed and Analyzed
� I performed an independent evaluation of and my interpretation is:
EKG: Read by me, sinus rhythm, mild tachycardia, no acute ischemia
CT:
Xrays:
Laboratory Studies:
Other:
� Review of other/old records reveals: pt seen in past here (05/19) for eval of 'fluid on my lungs', w/u unremkarable.
� Clinical information was obtained by an independent historian: , Dr Ricardo Garcia
� Prescriptions/Medications Considered but not given:
� Further testing considered but not performed:
Risk of Complications and/or Morbidity or Mortality of Patient Management
� Social determinants of health affecting care:
� Discussion with other providers (PCP, Hospitalists, Consultants, etc):
� Escalation of care including admission/observation vs risk of discharge considered:case d/w dr Garcia in detail...she reviewed loop recorder, current meds, etc. Does not see episodes of afib, just atach or sinus tach.
Recommend we d/c amlodipine and add diltiazem xr 120 mg qhs, and office will reach out about f/u next week. Does not recommend further testing which I had originally ordered such as blood work. Case discussed with patient and and they are
agreeable to this plan and feel very comfortable. Patient remains asymptomatic.
ED Attending Note
-
Portions of this chart may have been created with voice recognition software.� Occasional wrong word or��sound alike� substitutions may have occurred due to the inherent limitations of voice recognition software.
Discharge Plan
Departure
Patient Disposition: Home (Routine Discharge)
Date of Disposition: 06/05/24
Time of Disposition: 13:45
Patient with high blood pressure during this ER visit?: Yes
Condition: Good
Discharge Problem:
Tachycardia
Instructions: Palpitations, BLOOD PRESSURE
Prescriptions:
New
diltiazem HCl 120 mg capsule,ext.rel 24h degradable
120 mg PO QHS Qty: 30 0RF
No Action
atorvastatin 40 MG tablet
40 mg PO HS
cilostazol 100 MG tablet
100 mg PO BID
gabapentin 100 MG capsule
100 mg PO TID
fluoxetine 20 MG capsule
20 mg PO DAILY
Eliquis 2.5 MG tablet
2.5 mg PO BID Qty: 60 0RF
cholecalciferol (vitamin D3) [Vitamin D3] 50 mcg (2,000 unit) Capsule
50 mcg PO DAILY
amiodarone 200 mg tablet
200 mg PO DAILY
amlodipine 2.5 mg Tablet
2.5 mg PO DAILY
furosemide 80 mg Tablet
80 mg PO SUMOWEFR
Nephro Vitamins 0.8 mg Tablet
1 tab PO DAILY
potassium chloride 20 mEq Tablet Extended Release
20 meq PO DAILY
insulin glargine [Lantus Solostar U-100 Insulin] 100 unit/mL (3 mL) Insulin Pen
40 unit SC HS
Activity Restrictions/Additional Instructions:
PLEASE SEE YOUR BEATER WORKER HELPER EARLY NEXT WEEK. IT IS ADVISED THAT YOU DISCONTINUE YOUR MEDICATION AMLODIPINE 2.5 MG. YOU WILL NOW START A NEW MEDICATION CALLED DILTIAZEM XR, 120 MG, ONCE EACH NIGHT. IF YOU DEVELOP PALPITATIONS, CHEST PAIN,
SHORTNESS OF BREATH, DIZZINESS, ABDOMINAL PAIN, OR OTHER WORRISOME SIGNS, PLEASE RETURN TO THE ER IMMEDIATELY.
Interventions
Interventions:
*Risk Screen - Suicide Last Done: 06/05/24 12:37
*General Assessment Last Done: 06/05/24 13:41
*Neglect/Abuse Screening Last Done: 06/05/24 12:37
ED- Fall Risk Assessment Last Done: 06/05/24 12:37
*ED COVID-19 Vaccine History Last Done: 06/05/24 13:41
ED- Cardiac Assessment Last Done: 06/05/24 13:42
Discharge Date and Time
Print Language: ITALIAN
[2024-06-05 13:45] VITALS: BP 133/76
[2024-06-05 14:06] VITALS: BP 133/76
== END 2024-06-05 14:08 | disposition home or self-care (01) ==
LOC: EMR 12:31
PROVIDERS: EMERGENCY PHYSICIAN Emergency Medicine; FAMILY PHYSICIAN Family Medicine
DX: R00.0 Tachycardia, unspecified (principal); I11.0 Hypertensive heart disease with heart failure; I50.9 Heart failure, unspecified
CPT/HCPCS: 99283; 93005

== ENCOUNTER 2024-06-10 18:08 | Emergency (ER) | payer OTHER, SELFPAY ==
[2024-06-10 18:13] VITALS: BP 153/92
[2024-06-10 18:37] LABS: % Basophils 0.6 % (0-2); % Eosinophils 1.7 % (0-6); % Immature Granulocytes 0.1 % (0-0.5); % Lymphocytes 18.5 % (20.5-51.1); % Monocytes 8.4 % (1.7-9.3); % Neutrophils 70.7 % (42.2-75.2); Absolute Eosinophils 0.1 10^3/uL (0-0.7); Absolute Lymphocytes 1.3 10^3/uL (1.2-3.4); Absolute Monocytes 0.6 10^3/uL (0.1-0.6); Absolute Neutrophils 5.1 10^3/uL (1.4-6.5); Hematocrit 38.3 % (37.0-47.0); Hemoglobin 13.5 g/dL (12.0-16.0); Mean Corp Hgb Conc. 35.2 g/dL (33.0-37.0); Mean Corpuscular Hgb 31.7 pg (27.0-31.0); Mean Corpuscular Volume 89.9 fL (81.0-99.0); Mean Platelet Volume 9.7 fL (7.4-10.4); Nucleated Red Blood Cells % 0 %; Platelet Count 232 10^3/uL (130-400); Red Blood Cell Count 4.26 10^6/uL (4.20-5.40); Red Cell Dist. Width 12.7 % (11.5-14.5); White Blood Cell Count 7.2 10^3/uL (4.8-10.8)
[2024-06-10 18:50] LABS: AST (SGOT) 46 U/L (14-36); Albumin 4.3 g/dl (3.5-5.0); Blood Urea Nitrogen 43 mg/dl (7-17); Calcium 10.3 mg/dl (8.4-10.2); Carbon Dioxide 24 mmol/L (22-30); Glucose 138 mg/dl (70-99); Potassium 3.2 mmol/L (3.5-5.1); Total Bilirubin 0.4 mg/dl (0.2-1.3); Total Protein 6.8 g/dl (6.3-8.2); eGFR 17.51
[2024-06-10 18:56] LABS: Troponin I < 0.012 ng/ml
[2024-06-10 19:12] LABS: ALT (SGPT) 45 U/L (0-35); Alkaline Phosphatase 63 U/L (38-126); Chloride 103 mmol/L (98-107); Sodium 137 mmol/L (135-145)
[2024-06-10 20:24] VITALS: BP 142/82
[2024-06-10 21:37] VITALS: BP 151/95
--- NOTE | 2024-06-10 21:42 | ED.GENMED ---
History of Present Illness
General
Chief Complaint: Breathing Problem
Source: patient
Exam Limitations: none
Time Seen by Provider: 06/10/24 21:08
Nursing documentation reviewed up to this point in time: agreed with
History of Present Illness
History of Present Illness:
Patient is a 73-year-old female with history of end-stage renal disease on dialysis Saturday CHF hypertension hyperlipidemia HI valve disorder presents to the ER for evaluation of chest pain. Patient reports she did miss dialysis
yesterday because she had an appointment with her mold car pusher Dr. Adwoa Luo, she had a stress test today because she has been having chest pain and this was ordered by her mold car pusher. Patient brought stress test results which show mildly
abnormal myocardial perfusion cannot exclude small area of mild ischemia at the apex normal LV wall motion normal EKG response to Persantine A-fib present throughout the study.
Patient is on Eliquis.
Patient presented to the ER today because she had noticed initial rib tightness around 4 PM and then pain to the left chest. That has since resolved. She denies any associated shortness of breath and is asymptomatic now.
Past History
Past History
ED Past Medical History: Arrthythmia (Atrial fib), Asthma, CHF, COPD, GERD, HTN, Hypercholesterolemia, IDDM, [place], Renal failure (Dialysis - Saturday), Psychiatric (Depression) and Other (Neuropathy, sleep apnea, rheumatoid arthritis, gout,
restless leg, Diverticulitis, UTI, Cellulitis, Hernia, Eczema, )
ED Past Surgical History: Gynecological (Hysterectomy), Orthopedic (Carpal tunnel, Left shoulder, Left wrist, ), Urological (Bladder lift X3, Cyst removed left kidney) and Other (Deviated septum)
Social History
Tobacco: Non-smoker
Alcohol: None
Drug: None
Personal:
Living: with family
Employment: Retired
Family History
Family History: CAD
Review of Systems
Review of Systems
Allergies reviewed?: Yes
All Other Systems: ROS reviewed and negative except as documented in HPI and ROS
Constitutional: Reports no symptoms; Denies fever, fatigue or chills
EENT: Reports no symptoms
Respiratory: Reports no symptoms; Denies trouble breathing
Cardiac: Reports chest pain and other (Chest pain around 4 PM resolved now)
ABD/GI: Reports no symptoms
: Reports no symptoms
Musculoskeletal: Reports no symptoms
Skin: Reports no symptoms
Psychiatric: Reports no symptoms
Phy Exam
General Physical Exam
General Presentation: no apparent distress
General age: appears stated age
General Skin: warm and dry
General Habitus: normal
General Mental: alert
General Hydration: appears well hydrated
Cardiovascular Exam
Cardiovascular Exam: regular rate/rhythm, no murmur and normal peripheral pulses
Pulmonary Exam
Pulmonary Exam: lungs clear and no respiratory distress
Neurological Exam
Neurological Exam: alert and oriented x3
Musculoskeletal Exam
Musculoskeletal Exam: full ROM
Skin Exam
Skin Exam: normal color and warm/dry
Psychiatric Exam
Psychiatric Exam: normal mood/affect
Scores
Heart Failure Risk
Heart Failure Risk Score: Not Applicable
Course
Orders/Labs/Results
Orders:
Orders
06/10/24 18:15
ECG [Electrocardiogram (*1)] Urgent
Reason for Study: Shortness of Breath
EKG- Treatment ONCE
06/10/24 18:21
Complete Blood Count/With Diff Urgent
Comprehensive Metabolic Panel Urgent
Troponin I Urgent
06/10/24 21:48
Chest [CR Chest - 2 Views ] Urgent
Comment:
Reason For Exam: sob
06/10/24 22:32
Urinalysis Reflex To Culture Urgent
Date Specimen was Collected: 06/10/24
Time Specimen was Collected: 22:16
Urine Microscopic Reflex Cult Urgent
06/10/24 22:47
Electrocardiogram (*1) Stat
Reason for Study: Other
Other Reason for Exam: chest pain
EKG- Treatment ONCE
06/10/24 23:01
Troponin I Urgent
Abnormal Lab Results
06/10/24 06/10/24
18:21 22:32
MCH 31.7 H pg
(27.0-31.0)
Lymphocytes % 18.5 L %
(20.5-51.1)
Potassium 3.2 L mmol/L
(3.5-5.1)
BUN 43 H mg/dl
(7-17)
Creatinine 2.8 H mg/dL
(0.6-1.0)
Glucose 138 H mg/dl
(70-99)
Calcium 10.3 H mg/dl
(8.4-10.2)
AST 46 H U/L
(14-36)
ALT 45 H U/L
(0-35)
Urine Bacteria (Reflex) Few A
(Negative)
Urine Albumin (Reflex) 1+ A
(Neg - Trace)
06/10/24 18:21
06/10/24 18:21
Vital Signs
Initial and Last Documented VS:
Initial Vital Signs
Temp Pulse Resp BP Pulse Ox
98.0 F 98 20 153/92 97
06/10/24 18:13 06/10/24 18:13 06/10/24 18:13 06/10/24 18:13 06/10/24 18:13
Last Documented Vital Signs
Temp Pulse Resp BP Pulse Ox
98.0 F 105 20 150/93 97
06/10/24 18:13 06/10/24 22:14 06/10/24 22:14 06/10/24 22:14 06/10/24 22:14
MDM/Problems Addressed
MDM/Problems Addressed:
Patient is a 73-year-old female with past medical history of A-fib on Eliquis hypertension hyperlipidemia HI renal failure on dialysis Saturday. She had an appointment with her mold car pusher, Dr. Adwoa Luo yesterday for
complaints of chest pain and had a stress test today. I did review stress test which as documented she has mildly abnormal myocardial perfusion cannot exclude small area of mild ischemia at the apex normal LV wall motion normal EKG response to
Persantine. Patient presented here today with complaints of chest pain at 4 PM. She has been chest pain-free here. Her first cardiac troponin from 620 is negative. No acute findings on EKG. She denies any shortness of breath to me despite the
triage note. Her lungs are clear her potassium is mildly low at 3.2 with a normal sodium of 137 BUN/creatinine mildly elevated she does make urine. She is no acute distress. Case with Dr. Wilson will repeat cardiac troponin and if negative DC
*Critical Care Note
Total Time (30-74mins, 75-104mins- exclusive of procedures): Not Applicable
ED Attending Note
-
Portions of this chart may have been created with voice recognition software.� Occasional wrong word or��sound alike� substitutions may have occurred due to the inherent limitations of voice recognition software.
Discharge Plan
Departure
Patient Disposition: Home (Routine Discharge)
Date of Disposition: 06/10/24
Time of Disposition: 23:39
Patient with high blood pressure during this ER visit?: Yes
Condition: Fair
Covid-19: Not Applicable
Discharge Problem:
Chest pain
Instructions: Chest Pain NON-DHP [employer] Follow Up
Prescriptions:
No Action
atorvastatin 40 MG tablet
40 mg PO HS
cilostazol 100 MG tablet
100 mg PO BID
gabapentin 100 MG capsule
100 mg PO TID
fluoxetine 20 MG capsule
20 mg PO DAILY
Eliquis 2.5 MG tablet
2.5 mg PO BID Qty: 60 0RF
cholecalciferol (vitamin D3) [Vitamin D3] 50 mcg (2,000 unit) Capsule
50 mcg PO DAILY
amiodarone 200 mg tablet
200 mg PO DAILY
amlodipine 2.5 mg Tablet
2.5 mg PO DAILY
furosemide 80 mg Tablet
80 mg PO SUMOWEFR
Nephro Vitamins 0.8 mg Tablet
1 tab PO DAILY
potassium chloride 20 mEq Tablet Extended Release
20 meq PO DAILY
insulin glargine [Lantus Solostar U-100 Insulin] 100 unit/mL (3 mL) Insulin Pen
40 unit SC HS
diltiazem HCl 120 mg capsule,ext.rel 24h degradable
120 mg PO QHS Qty: 30 0RF
Referrals:
Marielle Sheppard MD [Family Provider] -
Adwoa Luo MD [Non-Admitting Privileges] -
Activity Restrictions/Additional Instructions:
As discussed follow-up with your mold car pusher for further evaluation of your symptoms.
Go to dialysis as scheduled tomorrow return if any worsening of symptoms
Interventions
Interventions:
*General Assessment Last Done: 06/10/24 20:34
ED- Fall Risk Assessment Last Done: 06/10/24 20:24
*ED COVID-19 Vaccine History Last Done: 06/10/24 20:34
ED- Cardiac Assessment Last Done: 06/10/24 20:24
ED- Pulmonary Assessment Last Done: 06/10/24 20:24
Discharge Date and Time
Print Language: MALDIVIAN
[2024-06-10 22:14] VITALS: BP 150/93
[2024-06-10 22:40] LABS: Urine Albumin 1+ (Neg - Trace); Urine Bilirubin Negative (Negative); Urine Character Clear (Clear); Urine Color Yellow; Urine Glucose Negative (Negative); Urine Ketone Negative (Negative); Urine Leukocyte Negative (Negative); Urine Nitrite Negative (Negative); Urine Occult Blood Negative (Negative); Urine Specific Gravity 1.015 (<1.030); Urine Urobilinogen Negative (Neg - 1+)
[2024-06-10 22:43] LABS: Urine Bacteria Few (Negative); Urine Red Blood Cell 0-2 /HPF (0-2); Urine White Cell 0-2 /HPF (0-5)
[2024-06-10 23:36] LABS: Troponin I < 0.012 ng/ml
== END 2024-06-11 00:12 | disposition home or self-care (01) ==
LOC: EMR 18:08
PROVIDERS: Emergency Medicine; Nurse Practitioner; EMERGENCY PHYSICIAN Emergency Medicine; FAMILY PHYSICIAN Family Medicine
DX: R07.89 Other chest pain (principal); I13.2 Hypertensive heart and chronic kidney disease with heart failure and with stage 5 chronic kidney disease, or end stage renal disease; N18.6 End stage renal disease; E78.00 Pure hypercholesterolemia, unspecified
CPT/HCPCS: 99285; 71046; 80053; 81003; 81015; 84484; 85025; 93005

== ENCOUNTER 2024-07-01 13:42 | Inpatient (IN) | payer OTHER, SELFPAY ==
[2024-06-30] VITALS (32 sets, daily range): BP systolic 103–160; BP diastolic 44–124; BMI 37.9; BMI 37.2; BMI 36.9
[2024-06-30 11:24] LABS: % Basophils 0.6 % (0-2); % Eosinophils 1.4 % (0-6); % Immature Granulocytes 0.5 % (0-0.5); % Lymphocytes 17.2 % (20.5-51.1); % Monocytes 11.8 % (1.7-9.3); % Neutrophils 68.5 % (42.2-75.2); Absolute Eosinophils 0.1 10^3/uL (0-0.7); Absolute Lymphocytes 1.1 10^3/uL (1.2-3.4); Absolute Monocytes 0.8 10^3/uL (0.1-0.6); Absolute Neutrophils 4.5 10^3/uL (1.4-6.5); Hematocrit 38.6 % (37.0-47.0); Mean Corp Hgb Conc. 36.3 g/dL (33.0-37.0); Mean Corpuscular Hgb 32.2 pg (27.0-31.0); Mean Corpuscular Volume 88.7 fL (81.0-99.0); Mean Platelet Volume 9.9 fL (7.4-10.4); Nucleated Red Blood Cells % 0 %; Platelet Count 223 10^3/uL (130-400); Red Blood Cell Count 4.35 10^6/uL (4.20-5.40); Red Cell Dist. Width 12.9 % (11.5-14.5); White Blood Cell Count 6.6 10^3/uL (4.8-10.8)
[2024-06-30] MEDS: CARDIZEM 10 MG IV (11:43)
[2024-06-30 11:50] LABS: Troponin I < 0.012 ng/ml
[2024-06-30 12:01] LABS: Blood Urea Nitrogen 17 mg/dl (7-17); Calcium 9.7 mg/dl (8.4-10.2); Carbon Dioxide 28 mmol/L (22-30); Chloride 97 mmol/L (98-107); Estimated Creatinine Clearance 38 ml/min; Glucose 121 mg/dl (70-99); Sodium 134 mmol/L (135-145); eGFR 37.03
[2024-06-30] MEDS: NITRO-BID 0.5 INCH TOPICAL (12:23)
--- NOTE | 2024-06-30 12:27 | ED.GENMED ---
History of Present Illness
General
Chief Complaint: Chest Pain
Source: patient
Exam Limitations: none
Time Seen by Provider: 06/30/24 11:08
Nursing documentation reviewed up to this point in time: agreed with
History of Present Illness
History of Present Illness:
Patient with history of CAD and end-stage with disease on hemodialysis, presents to ED secondary to sudden onset of chest pain while receiving dialysis this morning. Patient received approximately 3 hours and 50 minutes of scheduled 4-hour session.
Chest pain described as tightness, nonradiating, associated with shortness of breath and diaphoresis, as well as nausea. Denies fever or chills. Denies chest palpitations. Denies shortness of breath. Of note, patient states that she has had
intermittent similar chest tightness for quite some time now. Patient has spoken with her primary starchmaker at [facility] regarding her chest pain. Prior to arrival, patient received aspirin as well as nitroglycerin sublingual, with
complete resolution of symptoms.
Past History
Past History
ED Past Medical History: Arrthythmia (Atrial fib), Asthma, CHF, COPD, GERD, HTN, Hypercholesterolemia, IDDM, LA, Renal failure (Dialysis - Saturday), Psychiatric (Depression) and Other (Neuropathy, sleep apnea, rheumatoid arthritis, gout,
restless leg, Diverticulitis, UTI, Cellulitis, Hernia, Eczema, )
ED Past Surgical History: Gynecological (Hysterectomy), Orthopedic (Carpal tunnel, Left shoulder, Left wrist, ), Urological (Bladder lift X3, Cyst removed left kidney) and Other (Deviated septum)
Social History
Tobacco: Non-smoker
Alcohol: None
Drug: None
Personal:
Living: with family
Employment: Retired
Family History
Family History: CAD
Review of Systems
Review of Systems
Allergies reviewed?: Yes
All Other Systems: ROS reviewed and negative except as documented in HPI and ROS
Constitutional: Reports no symptoms
EENT: Reports no symptoms
Respiratory: Reports no symptoms
Cardiac: Reports chest pain and diaphoresis
ABD/GI: Reports nausea; Denies abdominal pain or vomiting
Musculoskeletal: Reports no symptoms
Skin: Reports no symptoms
Neurological: Reports no symptoms
Phy Exam
Physical Exam
Physical Exam:
Physical Exam
General: no apparent distress, not acutely ill. afebrile
Head: nc/at. eomi
Neck: supple. no meningeal signs.
Heart: s1/s2 regular rate and rhythm, no murmur. equal radial pulses.
Lungs: no acute respiratory distress. clear bilaterally
Abdomen: normal bowel sounds. not tender.
Neuro: alert and oriented. no focal neurological deficits
Skin: no rash
Psychiatric: well kept. interactive and cooperative
Extremities: no edema. no calf tenderness.
Scores
Heart Score for Chest Pain Patients
STEMI patient?: No
History: Moderately Suspicious
ECG: Normal
Age: >/= 65 years
Risk Factors: >/= 3 Risk Factors or History of CAD
Troponin: </= Normal Limit
Heart Score for Chest Pain Patients: 5
Heart Score Risk: 20.3% MACE over next 6 weeks
Course
Orders/Labs/Results
Orders:
Orders
06/30/24 10:59
EKG [Electrocardiogram (*1)] Urgent
Reason for Study: Chest Pain
EKG- Treatment ONCE
06/30/24 11:11
Basic Metabolic Panel Urgent
Complete Blood Count/With Diff Urgent
TSH Reflex To Free T4 Urgent
Troponin I Urgent
06/30/24 11:18
Add On- LAB Urgent
Tests Added?: magnesium
Diltiazem HCl [Cardizem] 10 mg IV NOW STA
Nitroglycerin Ointment [Nitro-Bid] 0.5 inch TOPICAL NOW STA
06/30/24 12:11
Magnesium Urgent
Potassium Urgent
Comment: ADD ON
06/30/24 12:12
Add On- LAB Urgent
Tests Added?: potassium
06/30/24 12:13
Electrocardiogram (*1) Urgent
Reason for Study: QTc Monitoring
EKG- Treatment ONCE
06/30/24 12:17
EKG- Treatment ONCE
06/30/24 12:27
Nitroglycerin Sublingual [Nitrostat (Sublingual)] 0.4 mg SL NOW STA
06/30/24 12:59
CARDIOLOGY CONSULT Urgent
Consulting Provider: Grady Hernandez
Was physician already notified: Yes
Reason for consult: CP
06/30/24 13:24
Records Request [Obtain Records] As Directed
Dates of Information to be Released: Most recent
Type of Information Requested: ECG/Cardiology Results
Last Office Visit H&P
If Other, list type of info requested: Stress test and last office note
Obtain Records from: Dr. Keating
06/30/24 14:10
Troponin I Urgent
06/30/24 14:15
Echo 2D MMode Color/Doppler Urgent
Reason for Study: Chest pain
06/30/24 Dinner
1800 calorie (15 carb) Diabetic
At Your Request: Limited Participation
Diabetic Diet: Potassium, 2 Gram
06/30/24 16:28
Add On- LAB Stat
Tests Added?: TSH with reflex FT4, magnesium
06/30/24 16:51
Admit/Transfer Patient As Directed
Co-Sign Provider:
Level of Care: Observation services
Assign to:: Telemetry
Physician / Group: Hospitalist
Diagnosis: chest pain
Reason for Telemetry: Arrhythmia
Date to Stop Telemetry: 07/03/24
Time to Stop Telemetry: 11:00
06/30/24 16:52
PRN Pain Medication Management As Directed
May give lesser potent ordered pain med per pt: Yes
preference::
Protocol:: Medication orders for pain may be administered in a
manner that supports deferring to patient preference
when the pt is:
- Requesting an ordered lesser potent pain medication.
Least to most potent pain medications are defined
as: acetaminophen < NSAID < tramadol < opioids
(morphine, oxycodone, hydromorphone).
- Requesting a lesser dose of the same medication IF
ORDERED.
- Requesting a less intrusive route of administration
if both routes are prescribed by the provider (PO <
IV).
06/30/24 16:53
Code Status As Directed
Resuscitation Status: Full Code
06/30/24 19:31
Acetaminophen [Tylenol] 650 mg PO Q4HPRN PRN
Bisacodyl [Dulcolax] 10 mg RECTAL [id number] PRN
Dextrose 50%-Water [Dextrose 50% Syringe] 12.5 grams IV [id number] PRN
Docusate W/Senna [Senokot-S] 1 tablet PO BIDPRN PRN
Glucagon [GlucaGen] 1 mg IM PRN PRN
Ondansetron Injectable [Zofran] 4 mg IV Q8HPRN PRN
Polyethylene Glycol Powder [Miralax] 17 grams PO DAILYPRN PRN
06/30/24 19:31
CARDIOLOGY CONSULT Routine
Consulting Provider: Grady Hernandez
Was physician already notified: Yes
Reason for consult: chest pain
NEPHROLOGY CONSULT Routine
Consulting Provider: Avelina Palomo
Was physician already notified: Yes
Reason for consult: ESRD
Activity As Directed
Activity Level: Out of Bed-Early Mobility
Bedside Glucose Monitoring As Directed
Frequency: AC&HS
Additional Instructions:: Change to q6h if pt on TPN, tube feeding or not eating
Vital Signs As Directed
Frequency: Per unit guidelines
06/30/24 20:00
Cilostazol [Pletal] 100 mg PO BID
06/30/24 20:02
Troponin I Q8H
06/30/24 22:00
Gabapentin [Neurontin] 100 mg PO TID
insulin glargine [Lantus Solostar U-100 Insulin] 40 unit SC HS
07/01/24 04:09
Basic Metabolic Panel IN AM
Complete Blood Count/No Diff IN AM
Glycohemoglobin (HgbA1c) IN AM
Magnesium IN AM
Troponin I Q8H
07/01/24 07:30
Insulin Aspart Corrective Mod [Novolog Flexpen-Moderate Resistance] See Protocol SC AC
07/01/24 08:00
Amiodarone [Pacerone] 200 mg PO DAILY
Cholecalciferol (Vitamin D3) [VITAMIN D3 (cholecalciferol)] 50 mcg PO DAILY
Fluoxetine HCl [Prozac] 20 mg PO DAILY
Furosemide [Lasix] 80 mg PO SuMoWeFr@0800
Vitamin B Complex with C [B COMPLEX w/VITAMIN C] 1 caplet PO DAILY
07/03/24 11:00
DC Protocol for Telemetry ONCE
Abnormal Lab Results
06/30/24
11:11
MCH 32.2 H pg
(27.0-31.0)
Absolute Lymphs (auto) 1.1 L 10^3/uL
(1.2-3.4)
Absolute Monos (auto) 0.8 H 10^3/uL
(0.1-0.6)
Lymphocytes % 17.2 L %
(20.5-51.1)
Monocytes % 11.8 H %
(1.7-9.3)
Sodium 134 L mmol/L
(135-145)
Chloride 97 L mmol/L
(98-107)
Creatinine 1.5 H mg/dL
(0.6-1.0)
Glucose 121 H mg/dl
(70-99)
06/30/24 11:11
06/30/24 12:11
Vital Signs
Initial and Last Documented VS:
Initial Vital Signs
Pulse Resp BP Pulse Ox
117 25 130/118 95
06/30/24 11:00 06/30/24 11:00 06/30/24 11:00 06/30/24 11:00
Last Documented Vital Signs
Temp Pulse Resp BP Pulse Ox
97.9 F 114 18 123/90 96
07/01/24 07:31 07/01/24 07:31 07/01/24 07:31 07/01/24 07:31 07/01/24 07:31
MDM/Problems Addressed
MDM/Problems Addressed:
CP returned during observation in ED, once again relieved with administration of nitroglycerin sublingual. Subsequently, patient placed on Nitropaste. Initial workup negative, including troponin.
Patient awaiting evaluation by cardiology, .
After evaluation, decision made to admit patient for further evaluation and treatment.
*Critical Care Note
Total Time (30-74mins, 75-104mins- exclusive of procedures): Not Applicable
ED Attending Note
-
Portions of this chart may have been created with voice recognition software.� Occasional wrong word or��sound alike� substitutions may have occurred due to the inherent limitations of voice recognition software.
Discharge Plan
Departure
Patient Disposition: Admit
Date of Disposition: 06/30/24
Time of Disposition: 16:21
Admit to: IVU
Presentation/result/management discussed w/ accepting MD/DO: Hospitalist
Patient with high blood pressure during this ER visit?: Yes
Condition: Fair
Discharge Problem:
Atrial tachycardia
Interventions
Interventions:
*Risk Screen - Suicide Last Done: 06/30/24 11:17
*General Assessment Last Done: 06/30/24 11:03
*Neglect/Abuse Screening Last Done: 06/30/24 11:03
ED- Fall Risk Assessment Last Done: 06/30/24 19:32
*ED COVID-19 Vaccine History Last Done: 06/30/24 11:16
*Nursing Disposition Last Done: 06/30/24 19:32
ED- Cardiac Assessment Last Done: 06/30/24 13:26
Discharge Date and Time
Discharge Date/Time: 06/30/24 19:33
[2024-06-30] MEDS: NITROSTAT (SUBLINGUAL) 0.4 MG SL (12:30)
--- NOTE | 2024-06-30 13:55 | CON.CAR ---
Addendum entered and electronically signed by Grady Hernandez MD 06/30/24 18:08:
73 yo female with PMH of paroxysmal A fib, HTN, DM, ESRD on HD presented to ED with chest pain. Has been occurring intermittently for several weeks. She had a prolonged episode today, so presented to ED. Exam with RRR, no murmurs, no edema. Cath in
2020: normal coronary arteries. Echo today: EF 60-65%, no significant valve disease. EKG: no acute ischemic changes. TnI <0.012 x2.
#Chest pain
-doubt ACS
-she has h/o A fib, and rhythm currently looks like atrial tachycardia, with RVR at times, perhaps contributing to her symptoms
-will start by increasing her diltiazem to 240mg qHS
Original Note:
Consultation
Consultation Request
Date/Time Consultation Requested: 06/30/2024 13:00
Date/Time Consultation Performed: 06/30/2024 13:15
Requesting Provider: Dr. Willima
Performing Provider: VICKI Whiting for Dr. Hernandez
Reason for Consultation: Chest pain
Medical History
-
Chief Complaint: Chest pain
History of Present Illness:
Natalia Syed is a 73-year-old female (known to her primary sushi chef, Dr. Luo at [facility]), with paroxysmal atrial fibrillation, COPD, hypertension, dyslipidemia, type 2 diabetes mellitus requiring insulin, and ESRD on HD who presented to the
emergency department from hemodialysis with a chief complaint of chest pain. Her chest pain started several weeks ago. It is normally associated with dialysis. She will occasionally get this discomfort while sitting at the computer, watching TV,
and laying in bed. She describes this discomfort as a tightness in her midsternal anterior chest. She endorses associated shortness of breath, diaphoresis, and nausea. She reports this discomfort does not last long but happens frequently
throughout the day. Prior to arrival, she was given aspirin and sublingual nitroglycerin which improved her pain. Prior to my arrival for this consultation, she reports having chest tightness. Initial troponin <0.012. Cardiac catheterization in
[address] Browning and did not demonstrate any coronary artery disease. The patient reports having recent noninvasive ischemic evaluation. I called [facility] and they report she had a PET myocardial perfusion study 06/10/2024. This has been requested.
Past Medical History
Past Medical History: Arrhythmias (Paroxysmal atrial fibrillation [on apixaban]), COPD, HTN, Hypercholesterolemia, IDDM and Renal Failure (ESRD on HD)
Past Surgical History: Gynecological, Orthopedic and Urological
Social History
Tobacco: Non-Smoker
Alcohol: None
Drug: None
Personal:
Living: With Family
Employment: Retired
Family History
Family History: Reviewed & Not Pertinent
Allergies / Home Medications
Allergy/AdvReac Type Severity Reaction Status Date / Time
adhesive Allergy Rash, Verified 06/10/24 18:13
itching
Sulfa (Sulfonamide Allergy nausea and Verified 06/10/24 18:13
Antibiotics) vomiting
�Medication �Instructions �Recorded �Confirmed �Type
atorvastatin 40 mg tablet 40 mg PO HS High cholesterol 04/25/21 06/30/24 History
cilostazol 100 mg tablet 100 mg PO BID Blood clot 04/25/21 06/30/24 History
prevention/tx
fluoxetine 20 mg capsule 20 mg PO DAILY anxiety/depression 04/05/22 06/30/24 History
gabapentin 100 mg capsule 100 mg PO TID Diabetic Neuropathy 04/05/22 06/30/24 History
apixaban 2.5 mg tablet (Eliquis) 2.5 mg PO BID Blood clot 04/16/22 06/30/24 Rx
prevention/tx #60 tabs
cholecalciferol (vitamin D3) 50 50 mcg PO DAILY Supplement 07/19/22 06/30/24 History
mcg (2,000 unit) capsule (Vitamin
D3)
amiodarone 200 mg tablet 200 mg PO DAILY Arrhythmia 08/31/23 06/30/24 History
furosemide 80 mg tablet 80 mg PO SUMOWEFR Fluid 02/27/24 06/30/24 History
Retention/Swelling
insulin glargine 100 unit/mL (3 40 unit SC HS 05/19/24 06/30/24 History
mL) subcutaneous pen (Lantus
Solostar U-100 Insulin)
potassium chloride 20 mEq 20 meq PO DAILY 05/19/24 06/30/24 History
tablet,extended release
vitamin B complex-vitamin C-folic 1 tab PO DAILY 05/19/24 06/30/24 History
acid 0.8 mg tablet (Nephro
Vitamins)
diltiazem HCl 120 mg 120 mg PO QHS #30 caps 06/05/24 06/30/24 Rx
capsule,extended release 24 hr,
controlled
Review of Systems
-
All other systems: Negative unless noted
Constitutional: Fatigue
EENT: No Symptoms
Respiratory: Trouble Breathing
Cardiac: Chest Pain and Diaphoresis
Abdomen/GI: Nausea
: No Symptoms
Musculoskeletal: No Symptoms
Neurological: No Symptoms
Endocrine: No Symptoms
Hematologic/Lymphatic: No Symptoms
Physical Exam
Vital Signs
Pulse Resp BP Pulse Ox
82 8 106/74 94
06/30/24 13:00 06/30/24 13:00 06/30/24 13:00 06/30/24 13:00
Lab Results
06/30/24 11:11
Troponin I < 0.012 ng/ml 06/30/24 11:11
Physical Exam
General: Well Developed, Well Nourished, No Apparent Distress and Comfortable
HEENT: Normocephalic and Moist Mucous Membranes
Respiratory: Clear and Non Labored Respirations
Cardiac: S1/S2 and Irregular Rhythm
Breast: Deferred by me
GI: Soft, Non Tender, Non Distended and Normal Bowel Sounds
Rectal: Deferred by Provider
Genito-urinary: No Costovertebral Tender
Musculoskeletal: No Clubbing, No Cyanosis and No Edema
Skin: Warm
Neuro: AO x 3
Hematologic/Lymphatic: No Lymphadenopathy
Psych: Calm
Impression / Plan
-
Chest pain
-[facility] 2014 in 2020 without obstructive coronary artery disease
-PET myocardial perfusion requested by [facility] (awaiting fax)
-Had more chest tightness while wearing transdermal nitroglycerin, currently comfortable
-Initial troponin <0.012, repeat ordered
Atrial tachycardia
-Denies palpitations
-Increase diltiazem to 240mg daily
Paroxysmal atrial fibrillation, perhaps persistent
-On amiodarone & diltiazem
-Oral anticoagulation: Apixaban 2.5 mg twice daily, this is the inappropriate dose for her age, weight, and renal function it should be 5 mg twice daily
-[id number]: Score at least 4 (HTN, Diabetes Mellitus, age 65-74, female gender)
Hypertension, BP stable on transdermal nitroglycerin
Type 2 diabetes mellitus on insulin
ESRD, on HD, hemodialysis [facility], she still makes urine
Dyslipidemia, on atorvastatin
JOS
Data Reviewed
-
EKG: Report Reviewed by me (Atrial fibrillation)
Medical Tests (Nuc Med, Echo etc): Report Reviewed by me (Prior cardiac catheterization as above)
Labs: Labs Reviewed by me
Old Records: Requested (Cardiac PET from primary sushi chef) and Reviewed
[2024-06-30 13:56] LABS: Potassium 3.8 mmol/L (3.5-5.1)
[2024-06-30 14:48] LABS: Troponin I < 0.012 ng/ml
--- NOTE | 2024-06-30 16:58 | HPS.HSE ---
Family Physician
-
Family Physician: Marielle Sheppard
Chief Complaint
-
chest pain
History of Present Illness
73yo F with PMHx of RA, ESRD on HD, Afib on ELiquis, HTN, DM, HLD came with chest pain during her HD session. Had similar pain before. Found in poorly controlled Afib. As per cardiology - admission for medication adjustment and Echo
Serial trop WNL on admission, no ST elevation on EKG
Medical History
Past Medical History
Past Medical History: Reports Other
Additional Past Medical History:
see above
Past Surgical History: Reports None
Social History
Tobacco: Non-smoker
Alcohol: None
Family History
Family History: Not pertinent
Allergies / Home Medications
Allergies reflects when Allergies were last updated in [employer].
Home Medications with original date entered in [employer]
Allergy/Medication List:
Allergies
Allergy/AdvReac Type Severity Reaction Status Date / Time
adhesive Allergy Rash, Verified 06/10/24 18:13
itching
Sulfa (Sulfonamide Allergy nausea and Verified 06/10/24 18:13
Antibiotics) vomiting
Home Medications
atorvastatin 40 mg tablet 40 mg PO HS High cholesterol 04/25/21
cilostazol 100 mg tablet 100 mg PO BID Blood clot prevention/tx 04/25/21
fluoxetine 20 mg capsule 20 mg PO DAILY anxiety/depression 04/05/22
gabapentin 100 mg capsule 100 mg PO TID Diabetic Neuropathy 04/05/22
apixaban 2.5 mg tablet (Eliquis) 2.5 mg PO BID Blood clot prevention/tx #60 tabs 04/16/22
cholecalciferol (vitamin D3) 50 mcg (2,000 unit) capsule (Vitamin D3) 50 mcg PO DAILY Supplement 07/19/22
amiodarone 200 mg tablet 200 mg PO DAILY Arrhythmia 08/31/23
furosemide 80 mg tablet 80 mg PO SUMOWEFR Fluid Retention/Swelling 02/27/24
insulin glargine 100 unit/mL (3 mL) subcutaneous pen (Lantus Solostar U-100 Insulin) 40 unit SC HS 05/19/24
potassium chloride 20 mEq tablet,extended release 20 meq PO DAILY 05/19/24
vitamin B complex-vitamin C-folic acid 0.8 mg tablet (Nephro Vitamins) 1 tab PO DAILY 05/19/24
diltiazem HCl 120 mg capsule,extended release 24 hr, controlled 120 mg PO QHS #30 caps 06/05/24
Review of Systems
-
A 12 point ROS was completed and negative except as noted: Yes
Physical Exam
Vital Signs
Vital Signs
Pulse Resp BP Pulse Ox
104 12 118/87 93
06/30/24 14:45 06/30/24 14:15 06/30/24 14:45 06/30/24 14:45
Physical Exam
General: Well Developed, Well Nourished and No Apparent Distress
HEENT: NormoCephalic
Respiratory: Clear; No Wheezes, Rales or Rhonchi
Cardiac: S1/S2 and Irregular Rhythm
GI: Soft, Non Tender and Non Distended
Musculoskeletal: No Clubbing, No Cyanosis and No Edema
Skin: Warm
Neuro: Awake, Alert, Oriented and AO x 3
Psych: Calm
Laboratory Results
-
06/30/24 11:11
06/30/24 12:11
Laboratory Results
Total Bilirubin Cancelled 06/30/24 11:11
AST Cancelled 06/30/24 11:11
ALT Cancelled 06/30/24 11:11
Alkaline Phosphatase Cancelled 06/30/24 11:11
Troponin I < 0.012 ng/ml 06/30/24 14:10
Data Reviewed
-
Lab Data: Labs Reviewed by me
Impression/Plan
-
A/P:
#Chest pain
#Afib, unspecified with poor control
Telemetry
cont home meds
Cardio to follow
Echo
Check TSH, Mg
COnt eliquis
Hold potassium tabs (2/2 ESRD)
#ESRD on HD
NEphro for HD
#DM type 2 with nephropathy
cont home insulin, accuchecks, insulin SS, DM diet and check HgbA1c
#HLD
#Essential HTN
#Fluid overload
#Fatty liver
#Anxiety d/o
#RA
COnt home meds
#Hx of L kidney mass
seen on CT in 2022
#Obesity
with BMI 37.9
Advise to decrrease calorie intake
DVT ppx eliquis
Full code
I have spent at least 56min admitting the patient, reviewing chart, test results, communicating with consultants and direct patient care
[2024-06-30 18:10] LABS: TSH Reflex To Free T4 0.93 uIU/ml (0.47-4.68)
[2024-06-30 20:53] LABS: Troponin I 0.018 ng/ml
[2024-06-30] MEDS: PLETAL 100 MG PO (20:56)
[2024-06-30] MEDS: ELIQUIS 5 MG PO (20:56)
[2024-06-30 21:14] LABS: Glucose - Point of Care 194 mg/dl (70-99)
[2024-06-30] MEDS: LANTUS 0.4 UNITS SC (22:10)
[2024-06-30] MEDS: LIPITOR 40 MG PO (22:10)
[2024-06-30] MEDS: NEURONTIN 100 MG PO (22:10)
[2024-06-30] MEDS: CARDIZEM CD 240 MG PO (22:11)
--- NOTE | 2024-07-01 03:20 | DOWNTIME ---
There was a [employer] Client Board [employer]ner Downtime on 07/01/2024 from 0100 to 07/01/2024 at 0252. Downtime documentation of patient's care, including medication administrations, has been reconciled in the electronic record per guidelines. Refer to the
patient's paper chart under the miscellaneous tab to see printed paper medication records and downtime forms.
[2024-07-01 04:14] VITALS: BP 147/78
[2024-07-01 04:31] LABS: Hematocrit 40.6 % (37.0-47.0); Hemoglobin 14.4 g/dL (12.0-16.0); Mean Corp Hgb Conc. 35.5 g/dL (33.0-37.0); Mean Corpuscular Hgb 31.9 pg (27.0-31.0); Mean Platelet Volume 9.7 fL (7.4-10.4); Platelet Count 227 10^3/uL (130-400); Red Blood Cell Count 4.51 10^6/uL (4.20-5.40); Red Cell Dist. Width 12.8 % (11.5-14.5); White Blood Cell Count 8.1 10^3/uL (4.8-10.8)
[2024-07-01 04:55] LABS: Troponin I < 0.012 ng/ml
[2024-07-01 04:56] LABS: Blood Urea Nitrogen 33 mg/dl (7-17); Calcium 10.5 mg/dl (8.4-10.2); Carbon Dioxide 30 mmol/L (22-30); Chloride 99 mmol/L (98-107); Estimated Creatinine Clearance 21 ml/min; Glucose 61 mg/dl (70-99); Magnesium 2.2 mg/dl (1.6-2.3); Potassium 3.1 mmol/L (3.5-5.1); Sodium 137 mmol/L (135-145); eGFR 18.29
[2024-07-01 05:44] VITALS: BMI 36.9
[2024-07-01 07:31] VITALS: BP 123/90
[2024-07-01 07:41] LABS: Glucose - Point of Care 153 mg/dl (70-99)
[2024-07-01] MEDS: KCL 40 MEQ PO (09:06)
[2024-07-01] MEDS: PROZAC 20 MG PO (09:06)
[2024-07-01] MEDS: NEURONTIN 100 MG PO ×3 (09:06→21:30)
[2024-07-01] MEDS: PLETAL 100 MG PO ×2 (09:06→19:56)
[2024-07-01] MEDS: B COMPLEX w/VITAMIN C 1 CAPLET PO (09:06)
[2024-07-01] MEDS: PACERONE 200 MG PO (09:07)
[2024-07-01] MEDS: KCL 20 MEQ PO (09:07)
[2024-07-01] MEDS: ELIQUIS 5 MG PO ×2 (09:07→19:56)
[2024-07-01] MEDS: NOVOLOG FLEXPEN-MODERATE RESISTANCE 1 UNITS SC ×2 (09:08→17:56)
[2024-07-01] MEDS: VITAMIN D3 (cholecalciferol) 50 MCG PO (09:08)
[2024-07-01] MEDS: LASIX 80 MG PO (09:13)
[2024-07-01 10:07] LABS: Glycohemoglobin (HgbA1c) 6.3 % (4.0-5.6)
--- NOTE | 2024-07-01 10:27 | W.PN.CD ---
Today's Communication / Plan
-
stop amiodarone
increase diltiazem to 180mg bid
continue eliquis 5mg bid
Impression / Plan
-
Chest pain
-[facility] in 2020 with normal coronaries
-PET myocardial perfusion in May 2024 at [facility]: cannot r/o apical ischemia
-EKG: no acute ischemic changes; trop normal; echo with EF 65%, normal regional wall motion
-doubt ACS; perhaps she feels the atrial arrhythmia (see below) with RVR, as she does fell better with diltiazem titration
Atrial arrhythmias with RVR
-based on records, A fib seems persistent; also with periods of atrial tachycardia, and possible atypical flutter
-stop amiodarone
-increase diltiazem to 180mg bid
-continue eliquis 5mg bid
Hypertension, BP stable on above regimen
Type 2 diabetes mellitus on insulin
ESRD, on HD, hemodialysis [facility], she still makes urine
Dyslipidemia, on atorvastatin
JOS
Physical Exam
Vital Signs/Labs
Vital Signs
Temp Pulse Resp BP Pulse Ox
97.9 F 114 18 123/90 96
07/01/24 07:31 07/01/24 07:31 07/01/24 07:31 07/01/24 07:31 07/01/24 07:31
06/30/24 07/01/24 07/02/24
06:59 06:59 06:59
Actual Weight 94.546 kg
07/01/24 04:09
07/01/24 04:09
Magnesium 2.2 mg/dl (1.6-2.3) 07/01/24 04:09
LAB Results
06/30/24 06/30/24 06/30/24
11:11 14:10 20:02
Troponin I < 0.012 < 0.012 0.018 D
07/01/24 07/01/24
04:09 11:31
Troponin I < 0.012 Cancelled
Physical Exam
Constitutional: No acute distress and Comfortable
EENT: Moist mucous membranes
Cardiovascular: Pedal edema is absent, JVD pressure is normal, Systolic murmur absent and Rhythm/rate is irregular
Respiratory: Respiratory effort normal and Lungs clear to auscul.
GI: Soft and Distention absent
Neuro/Psych: AO x 3
Data Reviewed
-
Date of Service: July 01, 2024
EKG: Other (Tele: A fib 80s-->110s)
Echo: Report Reviewed by me
Labs: Labs Reviewed by me
[2024-07-01 11:06] VITALS: BP 135/79
[2024-07-01 11:28] LABS: Glucose - Point of Care 110 mg/dl (70-99)
--- NOTE | 2024-07-01 11:34 | W.CON.NEPH ---
Consultation
-
Date/Time Consultation Requested: 06/30/24 193
Date/Time Consultation Performed: 07/01/24 1000
Requesting Provider: Rufus Alberts
Performing Provider: Yocasta Ward
Reason for Consultation: ESRD
Medical History
-
Chief Complaint: CP
History of Present Illness:
Ms. Syed is a 73YOF with PMH of ESRD on HD TThS at [facility] through right UE AVF on lasix, paroxismal Afib (on eliquis, Amio), CAD, DLD (on atorvastatin), DM on Insulin, HTN on Diltiazem, COPD, pHTN, gout, RA, JOS, obesity, PAD who
presents to the hospital with Chest tightness and tachycardia during HD. She notes to have CP mainly during HDs. She is not compliant with FR hence gets large UFs with HD. Last HD was yesterday. Cards saw her and felt to have uncontrolled Afib. She
offers no active n/v. She has BOURGEOIS baseline.
Past Medical History
Gastroparesis secondary to Ozempic,
ESRD on HD TTHS,
orthostatic hypotension,
diabetes,
paroxysmal atrial fibrillation on Eliquis,
CAD,
hypertension,
COPD, pulmonary hypertension,
gout,
rheumatoid arthritis,
obstructive sleep apnea,
obesity,
hyperlipidemia,
peripheral arterial disease
Past Medical History: Other
Past Surgical History: Gynecological (hysterectomy), Urological (bladder lift) and Other (right UE AVF)
Social History
Tobacco: Non-Smoker
Alcohol: None
Drug: None
Family History
No kidney disease. Mother at 75, complications of hypertension and CAD with CABG. Father had hypertension.
Family History: Not Pertinent
Allergies / Home Medications
Allergy/AdvReac Type Severity Reaction Status Date / Time
adhesive Allergy Rash, Verified 06/10/24 18:13
itching
Sulfa (Sulfonamide Allergy nausea and Verified 06/10/24 18:13
Antibiotics) vomiting
�Medication �Instructions �Recorded �Confirmed �Type
atorvastatin 40 mg tablet 40 mg PO HS High cholesterol 04/25/21 06/30/24 History
cilostazol 100 mg tablet 100 mg PO BID Blood clot 04/25/21 06/30/24 History
prevention/tx
fluoxetine 20 mg capsule 20 mg PO DAILY anxiety/depression 04/05/22 06/30/24 History
gabapentin 100 mg capsule 100 mg PO TID Diabetic Neuropathy 04/05/22 06/30/24 History
apixaban 2.5 mg tablet (Eliquis) 2.5 mg PO BID Blood clot 04/16/22 06/30/24 Rx
prevention/tx #60 tabs
cholecalciferol (vitamin D3) 50 50 mcg PO DAILY Supplement 07/19/22 06/30/24 History
mcg (2,000 unit) capsule (Vitamin
D3)
amiodarone 200 mg tablet 200 mg PO DAILY Arrhythmia 08/31/23 06/30/24 History
furosemide 80 mg tablet 80 mg PO SUMOWEFR Fluid 02/27/24 06/30/24 History
Retention/Swelling
insulin glargine 100 unit/mL (3 40 unit SC HS Diabetes 05/19/24 06/30/24 History
mL) subcutaneous pen (Lantus
Solostar U-100 Insulin)
potassium chloride 20 mEq 20 meq PO DAILY Electrolyte 05/19/24 06/30/24 History
tablet,extended release Repletion
vitamin B complex-vitamin C-folic 1 tab PO DAILY Supplement 05/19/24 06/30/24 History
acid 0.8 mg tablet (Nephro
Vitamins)
diltiazem HCl 120 mg 120 mg PO QHS #30 caps 06/05/24 06/30/24 Rx
capsule,extended release 24 hr,
controlled
Review of Systems
-
All complete 12 point ROS have been inquired and found negative other than stated in HPI
Physical Exam
Vital Signs
Vital Signs
Temp Pulse Resp BP Pulse Ox
97.9 F 112 16 135/79 98
07/01/24 11:06 07/01/24 11:06 07/01/24 11:06 07/01/24 11:06 07/01/24 11:06
Lab Results
WBC 8.1 10^3/uL (4.8-10.8) 07/01/24 04:09
RBC 4.51 10^6/uL (4.20-5.40) 07/01/24 04:09
Hgb 14.4 g/dL (12.0-16.0) 07/01/24 04:09
Hct 40.6 % (37.0-47.0) 07/01/24 04:09
Plt Count 227 10^3/uL (130-400) 07/01/24 04:09
Sodium 137 mmol/L (135-145) 07/01/24 04:09
Potassium 3.1 mmol/L (3.5-5.1) L 07/01/24 04:09
Chloride 99 mmol/L (98-107) 07/01/24 04:09
Carbon Dioxide 30 mmol/L (22-30) 07/01/24 04:09
BUN 33 mg/dl (7-17) H 07/01/24 04:09
Creatinine 2.7 mg/dL (0.6-1.0) H 07/01/24 04:09
eGFR 18.29 07/01/24 04:09
Glucose 61 mg/dl (70-99) L 07/01/24 04:09
Calcium 10.5 mg/dl (8.4-10.2) H 07/01/24 04:09
Albumin Cancelled 06/30/24 11:11
Echo:
CONCLUSIONS
LV ejection fraction is 60-65%. No regional wall motion abnormalities are seen.
Normal right ventricular size and function.
No significant valvular disease.
No significant change since the prior study of 06/10/23.
Physical Exam
General: Awake, Alert, Oriented, AOx3, No Distress and Nontoxic
HEENT: EOMI, Anicteric, Conjunctivae Clear and Facial Symmetry
Respiratory: Clear, Normal Excursion and Nonlabored Respirations
Cardiac: S1/S2
Breast: Deferred by me
Abdomen: Soft, Nontender and Nondistended
Musculoskeletal: No Cyanosis and No Edema
Skin: No Rash
Neuro: Nonfocal/Grossly Intact
Psych: Mood/afflect pleasant, Insight/judgement good and Appropriate
Vascular Access: AVF (right UE AVF)
Data Reviewed
-
Radiology: Report Reviewed by me
Labs: Labs Reviewed by me and Discussed with Patient
Assessment/Plan
-
Assessment:
Chest pain
Afib,
ESRD on HD TTS
right UE AVF
IDDM type 2 with nephropathy, neuropathy
HLD
Essential HTN
Fatty liver
RA
Hx of L kidney mass seen on CT in 2022
Obesity
pHTN
RA
Sleep apnea
GERD
Anxiety/depression
DLD
Plan:
A/w CP, neg troponin
felt to have Atrial tachycardia , cards follows
HD tomorrow, reviewed imp of FR
renal diet
cont home kcl for chr hypokalemia
cont lasix
d/w pt
--- NOTE | 2024-07-01 11:48 | W.PN.HOSP.TC ---
Today's Communication/Plan
-
Increased Cardizem by cardio
cont monitoring HR
Assessment / Plan
Assessment / Plan
73yo F with PMHx of RA, ESRD on HD, Afib on ELiquis, HTN, DM, HLD came with chest pain during her HD session. Had similar pain before. Found in poorly controlled Afib. Serial trop WNL on admission, no ST elevation on EKG
A/P:
#Chest pain
#Afib, unspecified with poor control, symptomatic
Telemetry
cont home meds
Cardio to follow: adjusting rate
Echo: no wall motion abnormality, preserved EF
TSH, Mg WNL
COnt eliquis - as per cardio dose increased
#chronic hypokalemia
Potassium PRN
#ESRD on HD
Nephro for HD
#DM type 2 with nephropathy
cont home insulin, accuchecks, insulin SS, DM diet
#HLD
#Essential HTN
#Fluid overload
#Fatty liver
#Anxiety d/o
#RA
COnt home meds
#Hx of L kidney mass
seen on CT in 2022
#Obesity
with BMI 37.9
Advise to decrrease calorie intake
DVT ppx eliquis
Full code
I have spent at least 38min reviewing chart, test results, communication with consultants and direct patient care
Anticipated Discharge: 24 - 48 hours
Subjective/Interval History
-
Date of Service: July 01, 2024
Objective Data
-
Labs:
Laboratory Results
07/01/24
04:09
WBC 8.1
Hgb 14.4
Hct 40.6
Plt Count 227
Sodium 137
Potassium 3.1 L
Chloride 99
Carbon Dioxide 30
BUN 33 H
Creatinine 2.7 H
Glucose 61 L
Calcium 10.5 H
Vital Signs:
Vital Signs
Temp Pulse Resp BP Pulse Ox
97.9 F 112 16 135/79 98
07/01/24 11:06 07/01/24 11:06 07/01/24 11:06 07/01/24 11:06 07/01/24 11:06
I&O
06/30/24 07/01/24 07/02/24
06:59 06:59 06:59
Intake Total 720 / 720
Balance 720 / 720
Review of Systems
-
History Source: Patient
All other systems: Reviewed and negative
Cardiac: Reports Palpitations
Physical Exam
-
General: No Apparent Distress
HEENT: Normocephalic
Respiratory: Clear to Auscultation
Cardiac: Irregular Rhythm and Tachycardic
GI: Soft, Nontender and Nondistended
Psych: Calm
[2024-07-01] MEDS: NOVOLOG FLEXPEN-MODERATE RESISTANCE SC (13:03)
[2024-07-01] MEDS: CARDIZEM CD 180 MG PO ×2 (13:23→19:55)
--- NOTE | 2024-07-01 14:59 | CM ---
Addendum entered by Tanna Mendoza 07/01/24 15:16:
Resources on utilities given to patient from [email or web address]
Original Note:
Patient seen at bedside.
IA completed. SERGIO explained & signed.
DX: chest pain
PMH: ESRD, HD, afib, RA, DM2, neuropathy
Lives at home in a 2 story home with & 2 grandchildren.
3 steps to enter home and 12 steps to 2nd floor to bed/bath.
PLOF: Independent. Does not drive ( drives)
DME in home: walker, cane, wheelchair, commode, shower chair.
States HD tomorrow - she goes to [facility] in [place] for HD T-Thurs-Sat.
PCP: Marielle Sheppard
pharmacy: [facility]
PLAN: Discharge to home when stable. No needs anticipated
[2024-07-01 15:00] VITALS: BP 135/101
[2024-07-01 16:43] LABS: Glucose - Point of Care 156 mg/dl (70-99)
[2024-07-01 19:33] VITALS: BP 131/85
[2024-07-01 21:24] LABS: Glucose - Point of Care 129 mg/dl (70-99)
[2024-07-01] MEDS: LIPITOR 40 MG PO (21:31)
[2024-07-01] MEDS: LANTUS 0.4 UNITS SC (21:31)
[2024-07-01 23:31] VITALS: BP 135/82
[2024-07-02 03:10] VITALS: BP 130/69
[2024-07-02 06:00] VITALS: BMI 37.3
[2024-07-02 07:08] VITALS: BP 160/68
[2024-07-02] MEDS: NOVOLOG FLEXPEN-MODERATE RESISTANCE SC ×3 (08:28→18:14)
[2024-07-02 08:53] LABS: Glucose - Point of Care 114 mg/dl (70-99)
[2024-07-02 09:06] LABS: Blood Urea Nitrogen 42 mg/dl (7-17); Calcium 10.5 mg/dl (8.4-10.2); Carbon Dioxide 27 mmol/L (22-30); Chloride 99 mmol/L (98-107); Estimated Creatinine Clearance 18 ml/min; Glucose 123 mg/dl (70-99); Potassium 3.7 mmol/L (3.5-5.1); Sodium 139 mmol/L (135-145); eGFR 14.92
[2024-07-02] MEDS: MANNITOL 25% 12.5 GRAMS IV ×2 (09:11→10:29)
--- NOTE | 2024-07-02 09:20 | PTCARENOTE ---
Patient c/o 07/21 chest tightness, patient currently getting HD. ECG done-Afib, HR 77-99. Hospitalist and cardiology made aware. Patient states, 'This has been happening for weeks now when I am getting dialysis. Cardiology in to see patient.
--- NOTE | 2024-07-02 09:22 | W.PN.NEPH.HD ---
Assessment
-
pt seen during HD
vitals stable SBP 140
has chest tightness, EKG done-cards notified
UF as tolerates
meds adjustment per cards for Afib
AVF functions well
Progress Note - Hemodialysis
-
Date of Service: July 02, 2024
Duration: 30 minutes and 3 hours
Potassium Bath: 3
Calcium Bath: 2.5
Opti-Dialyzer: 160
Ultrafiltration: Other (2.5-3kg)
Blood Flow: 400
Dialysate Flow: 600
Heparin: no
EPO: no
--- NOTE | 2024-07-02 09:43 | W.PN.CD ---
Addendum entered and electronically signed by Grady Hernandez MD 07/02/24 11:25:
73 yo female with PMH of atrial arrhythmias (A fib, AT), on eliquis, HTN, DM is admitted with chest pain. She seems to constant chest pain, sometimes worse with HD, including today. There were no EKG changes on EKG done today during CP. TnI has
been within normal limits. Echo also normal. Normal coronaries on cath 2020. Exam with RRR, no murmurs, no edema. Tele: atrial tach with variable conduction, avg HR 80s, but still with RVR at times.
She seems to be symptomatic with higher HR. Continue diltiazem 180mg bid. Add Toprol XL 25mg daily.
Original Note:
Today's Communication / Plan
-
-Continue increased dose of diltiazem and follow telemetry
-chest discomfort with HD continues, but does not appear to be cardiac at this time
Impression / Plan
-
Chest pain:
-she has been noting chest tightness for weeks during her dialysis treatments. She is having it again today with dialysis. I asked what usually makes it better and she said sleeping or HD ending. EKG this AM with baseline artifact, but no acute
changes to my review. Trops have been unremarkable. BP (SBP 111) and HR (90's) stable overall. She is in no distress at the time of my assessment.
-LHC in 2020 with normal coronaries
-PET myocardial perfusion in May 2024 at [facility]: cannot r/o apical ischemia
-EKG: no acute ischemic changes; trop normal; echo with EF 65%, normal regional wall motion
-doubt ACS; perhaps she feels the atrial arrhythmia (see below) with RVR, as she does fell better with diltiazem titration
-echo 06/30/24: LV ejection fraction is 60-65%. No regional wall motion abnormalities are seen. Normal right ventricular size and function. No significant valvular disease.
Atrial arrhythmias with RVR
-based on records, A fib seems persistent; also with periods of atrial tachycardia, and possible atypical flutter
-amiodarone stopped, diltiazem dosing increased
-continue Eliquis 5mg bid
Hypertension, BP stable on above regimen
Type 2 diabetes mellitus on insulin
ESRD, on HD, hemodialysis TuThSa, she still makes urine
Dyslipidemia, on atorvastatin
JOS
Physical Exam
Vital Signs/Labs
Vital Signs
Temp Pulse Resp BP Pulse Ox
97.9 F 42 16 160/68 99
07/02/24 07:08 07/02/24 07:08 07/02/24 07:08 07/02/24 07:08 07/02/24 07:08
07/01/24 07/02/24 07/03/24
06:59 06:59 06:59
Actual Weight 94.546 kg 95.396 kg
07/01/24 04:09
07/02/24 07:06
Magnesium 2.2 mg/dl (1.6-2.3) 07/01/24 04:09
LAB Results
06/30/24 06/30/24 06/30/24
11:11 14:10 20:02
Troponin I < 0.012 < 0.012 0.018 D
07/01/24 07/01/24
04:09 11:31
Troponin I < 0.012 Cancelled
Physical Exam
Constitutional: No acute distress
EENT: Anicteric
Cardiovascular: Rhythm/rate is irregular
Respiratory: Respiratory effort normal and Lungs clear to auscul.
Neuro/Psych: AO x 3
Other: Skin (warm and dry)
Data Reviewed
-
Date of Service: July 02, 2024
EKG: Tracing Personally Visualized and interpreted (as noted AFIB, baseline artifact, non specific ST/T- no acute change)
Echo: Report Reviewed by me (as noted)
Labs: Labs Reviewed by me
--- NOTE | 2024-07-02 10:15 | PTCARENOTE ---
Patient sleeping at present, no s/s of discomfort, still receiving HD.
[2024-07-02 11:04] VITALS: BP 126/66
--- NOTE | 2024-07-02 11:38 | W.PN.HOSP.TC ---
Today's Communication/Plan
-
Monitor on BB
Assessment / Plan
Assessment / Plan
73yo F with PMHx of RA, ESRD on HD, Afib on ELiquis, HTN, DM, HLD came with chest pain during her HD session. Had similar pain before. Found in poorly controlled Afib. Serial trop WNL on admission, no ST elevation on EKG
Normal coronary cath in 2020
A/P:
#Chest pain
#Afib, unspecified with poor control, symptomatic
Telemetry
cont home meds
Cardio to follow: adjusting Cardizem dose and added BB as patient symptomatic with tachycardia
Echo: no wall motion abnormality, preserved EF
TSH, Mg WNL
COnt eliquis - as per cardio dose increased
#chronic hypokalemia
Potassium PRN
#ESRD on HD
Nephro for HD
#DM type 2 with nephropathy
cont home insulin, accuchecks, insulin SS, DM diet
#HLD
#Essential HTN
#Fluid overload
#Fatty liver
#Anxiety d/o
#RA
COnt home meds
#Hx of L kidney mass
seen on CT in 2022
#Obesity
with BMI 37.9
Advise to decrrease calorie intake
DVT ppx eliquis
Full code
I have spent at least 38min reviewing chart, test results, communication with consultants and direct patient care
Anticipated Discharge: Within 24 hours
Subjective/Interval History
-
Date of Service: July 02, 2024
Objective Data
-
Labs:
Laboratory Results
07/02/24
07:06
Sodium 139
Potassium 3.7
Chloride 99
Carbon Dioxide 27
BUN 42 H
Creatinine 3.2 H
Glucose 123 H
Calcium 10.5 H
Vital Signs:
Vital Signs
Temp Pulse Resp BP Pulse Ox
97.7 F 64 20 126/66 96
07/02/24 11:04 07/02/24 11:04 07/02/24 11:04 07/02/24 11:04 07/02/24 11:04
I&O
07/01/24 07/02/24 07/03/24
06:59 06:59 06:59
Intake Total 720 / 720 1140 / 1140
Balance 720 / 720 1140 / 1140
Review of Systems
-
History Source: Patient
All other systems: Reviewed and negative
Cardiac: Reports Palpitations
Physical Exam
-
General: Comfortable
HEENT: Normocephalic
Respiratory: Clear to Auscultation; Negative Wheezes
Cardiac: Irregular Rhythm and Tachycardic
GI: Soft, Nontender and Nondistended
Musculoskeletal: No Clubbing, No Cyanosis and No Edema
Neuro: Awake, Alert, Oriented and AO x 3
Psych: Calm
[2024-07-02] MEDS: CARDIZEM CD 180 MG PO ×2 (12:25→19:58)
[2024-07-02] MEDS: PLETAL 100 MG PO ×2 (12:25→19:58)
[2024-07-02] MEDS: NEURONTIN 100 MG PO ×3 (12:25→22:08)
[2024-07-02] MEDS: VITAMIN D3 (cholecalciferol) 50 MCG PO (12:25)
[2024-07-02] MEDS: ELIQUIS 5 MG PO ×2 (12:25→19:58)
[2024-07-02] MEDS: PROZAC 20 MG PO (12:26)
[2024-07-02] MEDS: KCL 20 MEQ PO (12:26)
[2024-07-02] MEDS: B COMPLEX w/VITAMIN C 1 CAPLET PO (12:26)
[2024-07-02] MEDS: TOPROL XL 25 MG PO (12:29)
[2024-07-02 12:56] LABS: Glucose - Point of Care 98 mg/dl (70-99)
[2024-07-02 16:45] VITALS: BP 112/79
[2024-07-02 16:47] LABS: Glucose - Point of Care 145 mg/dl (70-99)
--- NOTE | 2024-07-02 17:20 | CM ---
Patient seen at bedside with .
Patient now inpatient - IMM explained and signed.
ESRD - receives dialysis T-Thurs-Sat
PLAN: Discharge to home when stable. No current needs.
[2024-07-02 19:40] VITALS: BP 135/60
[2024-07-02 21:50] LABS: Glucose - Point of Care 135 mg/dl (70-99)
[2024-07-02] MEDS: LANTUS 0.4 UNITS SC (22:08)
[2024-07-02] MEDS: LIPITOR 40 MG PO (22:08)
[2024-07-02 23:32] VITALS: BP 101/56
[2024-07-03 03:15] VITALS: BP 122/61
[2024-07-03 06:00] VITALS: BMI 36.7
[2024-07-03 07:10] VITALS: BP 153/68
[2024-07-03 07:32] LABS: Glucose - Point of Care 125 mg/dl (70-99)
[2024-07-03] MEDS: NOVOLOG FLEXPEN-MODERATE RESISTANCE SC (08:27)
[2024-07-03] MEDS: PROZAC 20 MG PO (09:28)
[2024-07-03] MEDS: B COMPLEX w/VITAMIN C 1 CAPLET PO (09:28)
[2024-07-03] MEDS: NEURONTIN 100 MG PO (09:28)
[2024-07-03] MEDS: ELIQUIS 5 MG PO (09:29)
[2024-07-03] MEDS: KCL 20 MEQ PO (09:29)
[2024-07-03] MEDS: CARDIZEM CD 180 MG PO (09:29)
[2024-07-03] MEDS: TOPROL XL 25 MG PO (09:31)
[2024-07-03] MEDS: PLETAL 100 MG PO (09:31)
[2024-07-03] MEDS: VITAMIN D3 (cholecalciferol) 50 MCG PO (09:31)
[2024-07-03] MEDS: LASIX 80 MG PO (09:42)
--- NOTE | 2024-07-03 09:57 | W.PN.HOSP.TC ---
Today's Communication/Plan
-
dc
Assessment / Plan
Assessment / Plan
73yo F with PMHx of RA, ESRD on HD, Afib on ELiquis, HTN, DM, HLD came with chest pain during her HD session. Had similar pain before. Found in poorly controlled Afib. Serial trop WNL on admission, no ST elevation on EKG
Normal coronary cath in 2020. HR control improved on increased dose of Cardizem and new Toprol. Chest pain most likely musculoskeletal. Medically stable for d/c
A/P:
#Chest pain
#Afib, unspecified with poor control, symptomatic
Telemetry
cont home meds
Cardio to follow: adjusting Cardizem dose and added BB as patient symptomatic with tachycardia
Echo: no wall motion abnormality, preserved EF
TSH, Mg WNL
COnt eliquis - as per cardio dose increased
#chronic hypokalemia
Potassium PRN
#ESRD on HD
Nephro for HD
#DM type 2 with nephropathy
cont home insulin, accuchecks, insulin SS, DM diet
#HLD
#Essential HTN
#Fluid overload
#Fatty liver
#Anxiety d/o
#RA
COnt home meds
#Hx of L kidney mass
seen on CT in 2022
#Obesity
with BMI 37.9
Advise to decrease calorie intake
DVT ppx eliquis
Full code
I have spent at least 38min reviewing chart, test results, communication with consultants and direct patient care
Anticipated Discharge: Today
Subjective/Interval History
-
Date of Service: July 03, 2024
Objective Data
-
Vital Signs:
Vital Signs
Temp Pulse Resp BP Pulse Ox
98.3 F 55 18 153/68 98
07/03/24 07:10 07/03/24 07:10 07/03/24 07:10 07/03/24 07:10 07/03/24 07:10
I&O
07/02/24 07/03/24 07/04/24
06:59 06:59 06:59
Intake Total 1140 / 1140 1440 / 1440
Balance 1140 / 1140 1440 / 1440
Review of Systems
-
History Source: Patient
All other systems: Reviewed and negative
Physical Exam
-
General: No Apparent Distress
HEENT: Normocephalic
Respiratory: Clear to Auscultation
Cardiac: Irregular Rhythm
GI: Soft, Nontender and Nondistended
Musculoskeletal: No Clubbing, No Cyanosis and No Edema
Neuro: Awake, Alert, Oriented and AO x 3
Psych: Calm
--- NOTE | 2024-07-03 09:59 | W.PN.CD ---
Today's Communication / Plan
-
amiodarone stopped, diltiazem dosing increased to 180mg bid; added Toprol XL 25mg daily
continue Eliquis 5mg bid
seems stable on this regimen. please call us back with additional questions
Impression / Plan
-
Chest pain:
-she has been noting chest tightness for weeks during her dialysis treatments. She is having it again today with dialysis. I asked what usually makes it better and she said sleeping or HD ending. doubt this is angina.
-LHC in 2020 with normal coronaries
-PET myocardial perfusion in May 2024 at [facility]: cannot r/o apical ischemia
-EKG: no acute ischemic changes; trop normal; echo with EF 65%, normal regional wall motion
-doubt angina; perhaps she feels the atrial arrhythmia (see below) with RVR, as she does fell better with better HR control
-echo 06/30/24: LV ejection fraction is 60-65%. No regional wall motion abnormalities are seen. Normal right ventricular size and function. No significant valvular disease.
Atrial arrhythmias with RVR
-based on records, A fib seems persistent; also with periods of atrial tachycardia, and possible atypical flutter
-amiodarone stopped, diltiazem dosing increased to 180mg bid; added Toprol XL 25mg daily
-continue Eliquis 5mg bid
Hypertension, BP stable on above regimen
Type 2 diabetes mellitus on insulin
ESRD, on HD, hemodialysis TuThSa, she still makes urine
Dyslipidemia, on atorvastatin
JOS
Physical Exam
Vital Signs/Labs
Vital Signs
Temp Pulse Resp BP Pulse Ox
98.3 F 55 18 153/68 98
07/03/24 07:10 07/03/24 07:10 07/03/24 07:10 07/03/24 07:10 07/03/24 07:10
07/02/24 07/03/24 07/04/24
06:59 06:59 06:59
Actual Weight 95.396 kg 93.848 kg
07/01/24 04:09
07/02/24 07:06
Magnesium 2.2 mg/dl (1.6-2.3) 07/01/24 04:09
LAB Results
06/30/24 06/30/24 06/30/24
11:11 14:10 20:02
Troponin I < 0.012 < 0.012 0.018 D
07/01/24 07/01/24
04:09 11:31
Troponin I < 0.012 Cancelled
Physical Exam
Constitutional: No acute distress and Comfortable
EENT: Moist mucous membranes
Cardiovascular: Pedal edema is absent, JVD pressure is normal, Systolic murmur absent and Rhythm/rate is irregular
Respiratory: Respiratory effort normal and Lungs clear to auscul.
GI: Soft and Distention absent
Neuro/Psych: AO x 3
Data Reviewed
-
Date of Service: July 03, 2024
EKG: Other (Tele: AT vs atrial flutter, rate 50s-60s)
Echo: Report Reviewed by me
Labs: Labs Reviewed by me
--- NOTE | 2024-07-03 10:08 | W.DCSUMMARY ---
Discharge Summary
Discharge Data
Date of Admission: 07/01/24
Date of Discharge: 07/03/24
-
Pending Results: No
Hospital Course
73yo F with PMHx of RA, ESRD on HD, Afib on ELiquis, HTN, DM, HLD came with chest pain during her HD session. Had similar pain before. Found in poorly controlled Afib. Serial trop WNL on admission, no ST elevation on EKG
Normal coronary cath in 2020. HR control improved on increased dose of Cardizem and new Toprol. Eliquis dose was increased as per supervisor industrial garment as patient did not meet criteria for reduced dose. Chest pain most likely musculoskeletal. Medically
stable for d/c, has HD seat already established in the outpatient facility
I valentino spent at least 37min discharging the patient
A/P:
#Chest pain
#Afib, unspecified with poor control, symptomatic
#chronic hypokalemia
#ESRD on HD
#DM type 2 with nephropathy
#HLD
#Essential HTN
#Fluid overload
#Fatty liver
#Anxiety d/o
#RA
#Hx of L kidney mass s/p resection
#Obesity
Discharge Plan
-
Patient Disposition: Home (Routine Discharge)
Discharge Diagnosis/Procedures: Chest pain
Diet: 2 Gram Sodium
Activity: As tolerated
Driving Restrictions: As prior to admission
Referrals:
Grady Hernandez MD [Active] - in three to four weeks
Marielle Sheppard MD [Family Provider] -
Prescriptions:
New
diltiazem HCl 180 mg Capsule,Extended Release 24hr
180 mg PO BID Qty: 60 0RF
metoprolol succinate 25 mg Tablet Extended Release 24 Hr
25 mg PO DAILY Qty: 30 0RF
Eliquis 5 mg Tablet
5 mg PO BID Qty: 60 0RF
Continued
atorvastatin 40 MG tablet
40 mg PO HS
cilostazol 100 MG tablet
100 mg PO BID
gabapentin 100 MG capsule
100 mg PO TID
fluoxetine 20 MG capsule
20 mg PO DAILY
cholecalciferol (vitamin D3) [Vitamin D3] 50 mcg (2,000 unit) Capsule
50 mcg PO DAILY
amiodarone 200 mg tablet
200 mg PO DAILY
furosemide 80 mg Tablet
80 mg PO SUMOWEFR
Nephro Vitamins 0.8 mg Tablet
1 tab PO DAILY
potassium chloride 20 mEq Tablet Extended Release
20 meq PO DAILY
insulin glargine [Lantus Solostar U-100 Insulin] 100 unit/mL (3 mL) Insulin Pen
40 unit SC HS
Discontinued
Eliquis 2.5 MG tablet
2.5 mg PO BID Qty: 60 0RF
diltiazem HCl 120 mg capsule,ext.rel 24h degradable
120 mg PO QHS Qty: 30 0RF
Discharge Orders:
Discharge Patient (As Directed); Ordered 07/03/24
Ordered By: Rufus Hook
Discharge Date and Time
Print Language: [id number]
[2024-07-03 11:30] VITALS: BP 138/62
--- NOTE | 2024-07-03 12:56 | CM ---
Spoke with Kaitlyn at [facility] in [place] regarding fax #.
[facility] [place] [place]
FAX #: [phone]
--- NOTE | 2024-07-03 14:22 | W.PN.NEPH.PH ---
Today's Communication / Plan
-
- HD tomorrow
- for d/c
Assessment/Plan
-
Assessment:
Chest pain
Afib,
ESRD on HD TTS
right UE AVF
IDDM type 2 with nephropathy, neuropathy
HLD
Essential HTN
Fatty liver
RA
Hx of L kidney mass seen on CT in 2022
Obesity
pHTN
RA
Sleep apnea
GERD
Anxiety/depression
DLD
Plan:
A/w CP, neg troponin
felt to have Atrial tachycardia , cards follows
HD tomorrow at home HD unit, reviewed imp of FR
renal diet
cont home kcl for chr hypokalemia
cont lasix
d/w pt
-
-
Date of Service: July 03, 2024
CC / HPI / ROS
-
Chief Complaint:
ESRD on HD
History of Present Illness:
HD TThS
chest tightness with HD persists
Review of Systems:
for discharge today
Labs
-
Labs:
WBC 8.1 10^3/uL (4.8-10.8) 07/01/24 04:09
RBC 4.51 10^6/uL (4.20-5.40) 07/01/24 04:09
Hgb 14.4 g/dL (12.0-16.0) 07/01/24 04:09
Hct 40.6 % (37.0-47.0) 07/01/24 04:09
Plt Count 227 10^3/uL (130-400) 07/01/24 04:09
Sodium 139 mmol/L (135-145) 07/02/24 07:06
Potassium 3.7 mmol/L (3.5-5.1) 07/02/24 07:06
Chloride 99 mmol/L (98-107) 07/02/24 07:06
Carbon Dioxide 27 mmol/L (22-30) 07/02/24 07:06
BUN 42 mg/dl (7-17) H 07/02/24 07:06
Creatinine 3.2 mg/dL (0.6-1.0) H 07/02/24 07:06
eGFR 14.92 07/02/24 07:06
Glucose 123 mg/dl (70-99) H 07/02/24 07:06
Calcium 10.5 mg/dl (8.4-10.2) H 07/02/24 07:06
Albumin Cancelled 06/30/24 11:11
Physical Exam
-
Vital Signs:
Vital Signs
Temp Pulse Resp BP Pulse Ox
97.8 F 84 17 138/62 98
07/03/24 11:30 07/03/24 11:30 07/03/24 11:30 07/03/24 11:30 07/03/24 09:00
Cardiovascular:: Regular rate and rhythm
Respiratory:: Bilateral: CTA
Lung Excursion:: Normal
Abdomen:: Nontender and Soft
Bowel Sounds:: Normal
Extremity Edema:: None: Bilateral:
== END 2024-07-03 12:03 | disposition home or self-care (01) | DRG 308 ==
LOC: 4 WEST ACU 13:42
PROVIDERS: Nurse Practitioner Gerontology; ADMITTING PHYSICIAN Internal Medicine; CONSULT PHYSICIAN Internal Medicine; EMERGENCY PHYSICIAN Emergency Medicine; FAMILY PHYSICIAN Family Medicine; OTHER PHYSICIAN Internal Medicine
PROC: 5A1D70Z Performance of Urinary Filtration, Intermittent, Less than 6 Hours Per Day (ICD-10-PCS; 2024-07-02)
DX: I47.19 Other supraventricular tachycardia (principal); N18.6 End stage renal disease; I12.0 Hypertensive chronic kidney disease with stage 5 chronic kidney disease or end stage renal disease; E11.22 Type 2 diabetes mellitus with diabetic chronic kidney disease; E11.51 Type 2 diabetes mellitus with diabetic peripheral angiopathy without gangrene; E11.40 Type 2 diabetes mellitus with diabetic neuropathy, unspecified; E78.00 Pure hypercholesterolemia, unspecified; E87.6 Hypokalemia; I25.10 Atherosclerotic heart disease of native coronary artery without angina pectoris; K21.9 Gastro-esophageal reflux disease without esophagitis; K76.0 Fatty (change of) liver, not elsewhere classified; G47.33 Obstructive sleep apnea (adult) (pediatric); G25.81 Restless legs syndrome; J44.89 Other specified chronic obstructive pulmonary disease; I95.1 Orthostatic hypotension; I48.0 Paroxysmal atrial fibrillation; M06.9 Rheumatoid arthritis, unspecified; M10.9 Gout, unspecified; F32.A Depression, unspecified; F41.9 Anxiety disorder, unspecified; E87.70 Fluid overload, unspecified; E66.9 Obesity, unspecified; Z68.37 Body mass index [BMI] 37.0-37.9, adult; Z82.49 Family history of ischemic heart disease and other diseases of the circulatory system; Z79.899 Other long term (current) drug therapy; Z79.4 Long term (current) use of insulin; Z79.01 Long term (current) use of anticoagulants; Z99.2 Dependence on renal dialysis; Z88.2 Allergy status to sulfonamides
CPT/HCPCS: 80048; 82962; 83036; 83735; 84132; 84443; 84484; 85025; 85027; 87070; 93005; 93306; 96374; 99285; G0257

== ENCOUNTER 2025-03-01 16:31 | Emergency (ER) | payer SELFPAY ==
[2025-03-01 16:33] VITALS: BP 151/74
== END 2025-03-01 18:55 | disposition left against medical advice (07) ==
LOC: EMR 16:31
PROVIDERS: EMERGENCY PHYSICIAN Emergency Medicine
DX: S09.90XA Unspecified injury of head, initial encounter (principal); Z53.21 Procedure and treatment not carried out due to patient leaving prior to being seen by health care provider
CPT/HCPCS: 70450

== ENCOUNTER 2025-05-20 07:25 | Emergency (ER) | payer OTHER, SELFPAY ==
[2025-05-20] VITALS (7 sets, daily range): BP systolic 131–156; BP diastolic 73–81; BMI 37.3
--- NOTE | 2025-05-20 08:16 | ED.GENMED ---
History of Present Illness
General
Chief Complaint: Breathing Problem
Source: patient and spouse
Time Seen by Provider: 05/20/25 08:01
History of Present Illness
History of Present Illness:
74-year-old female presents emergency room complaining of shortness of breath chest pain. Patient has been feeling increasing shortness of breath over the past weeks but was worse today. Patient also has intermittent discomfort in the center of
her chest. This comes and goes without any regard to activity. She has been having chest pain like this for some time. Her states that it has been evaluated and they do not find anything. Patient states she does not make urine. She is
fluid restricted and maintains her fluid restriction parameters. No fever or chills. Patient was due for dialysis today but did not feel well enough to go.
Past History
Past History
ED Past Medical History: Arrthythmia (Atrial fib), Asthma, CHF, COPD, GERD, HTN, Hypercholesterolemia, IDDM, [place], Renal failure (Dialysis -- Saturday), Psychiatric (Depression) and Other (Neuropathy, sleep apnea, rheumatoid arthritis, gout,
restless leg, Diverticulitis, UTI, Cellulitis, Hernia, Eczema, )
ED Past Surgical History: Gynecological (Hysterectomy), Orthopedic (Carpal tunnel, Left shoulder, Left wrist, ), Urological (Bladder lift X3, Cyst removed left kidney) and Other (Deviated septum)
Social History
Tobacco: Non-smoker
Alcohol: None
Drug: None
Personal:
Living: with family
Employment: Retired
Family History
Family History: CAD
Phy Exam
Physical Exam
Physical Exam:
General: Awake, Alert, Oriented X3. No acute distress. Appears stated age
Vitals: unremarkable
Head: Atraumatic
Eyes: Pupils equal, EOMI
Throat: Airway intact, no exudates
Neck: Trachea midline
Lungs: Clear and equal b/l
Heart: Regular rate, no murmurs
Abd: Soft, Nontender, No pulsatile mass
Neuro: Nonfocal
Skin: Warm, dry, no rash
Extremities: pulses equal b/l, no edema. AV fistula right upper arm with thrill
Scores
Heart Failure Risk
Heart Failure Risk Score: Not Applicable
Course
Orders/Labs/Results
Orders:
Orders
05/20/25 07:26
EKG [Electrocardiogram (*1)] Urgent
Reason for Study: Shortness of Breath
EKG- Treatment ONCE
05/20/25 08:14
Cardiac Monitoring- Treatment ONCE
CR Chest - 2 Views Urgent
Comment:
Reason For Exam: sob
05/20/25 08:29
Basic Metabolic Panel Urgent
Complete Blood Count/With Diff Urgent
Magnesium Urgent
Troponin I Urgent
05/20/25 09:31
Potassium Urgent
05/20/25 10:58
Potassium Chloride Powder [Klor-Con] 40 meq PO NOW STA
05/20/25 11:09
Troponin I Urgent
Abnormal Lab Results
05/20/25 05/20/25
08:29 09:31
Lymphocytes % 17.8 L %
(20.5-51.1)
Monocytes % 9.7 H %
(1.7-9.3)
Sodium 134 L mmol/L
(135-145)
Potassium 3.0 L mmol/L
(3.5-5.1)
BUN 38 H mg/dl
(7-17)
Creatinine 2.8 H mg/dL
(0.6-1.0)
Glucose 180 H mg/dl
(70-99)
05/20/25 08:29
05/20/25 09:31
Vital Signs
Initial and Last Documented VS:
Initial Vital Signs
Temp Pulse Resp BP Pulse Ox
98.1 F 75 20 131/81 98
05/20/25 07:28 05/20/25 07:28 05/20/25 07:28 05/20/25 07:28 05/20/25 07:28
Last Documented Vital Signs
Temp Pulse Resp BP Pulse Ox
98.7 F 67 14 156/78 97
05/20/25 12:42 05/20/25 12:42 05/20/25 12:42 05/20/25 12:42 05/20/25 12:42
MDM/Problems Addressed
Differential Diagnosis Includes:
Anemia, pulmonary edema, pneumonia
MDM/Problems Addressed:
Patient presents with the sense of dyspnea. Not hypoxic. Vital signs acceptable given her end-stage renal disease. Labs are also as expected except for a low potassium of 3.0 which was repleted. Have instructed the patient to take double her
potassium dose for the next 3 days. She will try to schedule dialysis for later today or tomorrow at her normal facility.
*Radiology
Radiology exam reviewed: preliminary read by ED provider (No acute abnormality on my review of the patient's chest x-ray) and radiology read reviewed
*Pulse Oximetry
SaO2: 96
Oxygen Mode of Delivery: Room air
Patient hypoxic: no
*EKG
Interpreted by ED Provider?: Yes
Heart Rate: 71
Rate: normal
Rhythm: sinus
Park: normal axis
Interval: first degree heart block
QRS Pattern: normal QRS
Ischemia: non-specific ST changes
*Survey Party Chief Interpretation
Rate: normal
Interpretation: normal
Heart Rate: 71
Rhythm: sinus
*Critical Care Note
Total Time (30-74mins, 75-104mins- exclusive of procedures): Not Applicable
ED Attending Note
-
Portions of this chart may have been created with voice recognition software.� Occasional wrong word or��sound alike� substitutions may have occurred due to the inherent limitations of voice recognition software.
Discharge Plan
Departure
Patient Disposition: Home (Routine Discharge)
Date of Disposition: 05/20/25
Time of Disposition: 12:27
Patient with high blood pressure during this ER visit?: Yes
Condition: Good
Discharge Problem:
Chest pain, Hypokalemia
Instructions: Hypokalemia, Chest Pain CBC Follow Up
Prescriptions:
No Action
atorvastatin 40 MG tablet
40 mg PO HS
cilostazol 100 MG tablet
100 mg PO BID
gabapentin 100 MG capsule
100 mg PO TID
fluoxetine 20 MG capsule
20 mg PO DAILY
cholecalciferol (vitamin D3) [Vitamin D3] 50 mcg (2,000 unit) Capsule
50 mcg PO DAILY
amiodarone 200 mg tablet
200 mg PO DAILY
furosemide 80 mg Tablet
80 mg PO SUMOWEFR
Nephro Vitamins 0.8 mg Tablet
1 tab PO DAILY
potassium chloride 20 mEq Tablet Extended Release
20 meq PO DAILY
insulin glargine [Lantus Solostar U-100 Insulin] 100 unit/mL (3 mL) Insulin Pen
40 unit SC HS
diltiazem HCl 180 mg Capsule,Extended Release 24hr
180 mg PO BID Qty: 60 0RF
metoprolol succinate 25 mg Tablet Extended Release 24 Hr
25 mg PO DAILY Qty: 30 0RF
Eliquis 5 mg Tablet
5 mg PO BID Qty: 60 0RF
Referrals:
Marielle Sheppard MD [Family Provider, Family Practice]
Interventions
Interventions:
*Risk Screen - Suicide Last Done: 05/20/25 07:28
*General Assessment Last Done: 05/20/25 08:14
*Neglect/Abuse Screening Last Done: 05/20/25 08:16
*ED- Fall Risk Assessment Last Done: 05/20/25 08:14
*ED COVID-19 Vaccine History Last Done: 05/20/25 08:14
*Nursing Disposition Last Done: 05/20/25 12:42
ED- Cardiac Assessment Last Done: 05/20/25 08:33
ED- Pulmonary Assessment Last Done: 05/20/25 08:33
Discharge Date and Time
Discharge Date/Time: 05/20/25 12:45
Print Language: FRENCH
[2025-05-20 08:41] LABS: Hematocrit 37.0 % (37.0-47.0); Hemoglobin 13.2 g/dL (12.0-16.0); Mean Corp Hgb Conc. 35.7 g/dL (33.0-37.0); Mean Corpuscular Volume 86.4 fL (81.0-99.0); Nucleated Red Blood Cells % 0 %; Platelet Count 217 10^3/uL (130-400); Red Cell Dist. Width 12.8 % (11.5-14.5)
[2025-05-20 09:12] LABS: Blood Urea Nitrogen 38 mg/dl (7-17); Calcium 9.7 mg/dl (8.4-10.2); Carbon Dioxide 23 mmol/L (22-30); Chloride 103 mmol/L (98-107); Estimated Creatinine Clearance 20 ml/min; Glucose 180 mg/dl (70-99); Magnesium 1.8 mg/dl (1.6-2.3); Sodium 134 mmol/L (135-145); eGFR 17.40
[2025-05-20 09:25] LABS: Troponin I < 0.012 ng/ml
[2025-05-20 10:02] LABS: Potassium 3.0 mmol/L (3.5-5.1)
[2025-05-20] MEDS: KLOR-CON 40 MEQ PO (11:14)
[2025-05-20 11:49] LABS: Troponin I < 0.012 ng/ml
== END 2025-05-20 12:45 | disposition home or self-care (01) ==
LOC: EMR 07:25
PROVIDERS: EMERGENCY PHYSICIAN Emergency Medicine; FAMILY PHYSICIAN Family Medicine
DX: R07.89 Other chest pain (principal); E87.6 Hypokalemia; R06.02 Shortness of breath; I48.91 Unspecified atrial fibrillation; J45.909 Unspecified asthma, uncomplicated; I13.2 Hypertensive heart and chronic kidney disease with heart failure and with stage 5 chronic kidney disease, or end stage renal disease; I50.9 Heart failure, unspecified; N18.6 End stage renal disease; E78.00 Pure hypercholesterolemia, unspecified; F32.A Depression, unspecified; G25.81 Restless legs syndrome; G47.30 Sleep apnea, unspecified; M06.9 Rheumatoid arthritis, unspecified; Z82.49 Family history of ischemic heart disease and other diseases of the circulatory system; Z87.440 Personal history of urinary (tract) infections; Z90.710 Acquired absence of both cervix and uterus; Z99.2 Dependence on renal dialysis
CPT/HCPCS: 99283; 71046; 80048; 83735; 84132; 84484; 85025; 93005

== ENCOUNTER 2025-09-29 17:01 | Emergency (ER) | payer OTHER, SELFPAY ==
[2025-09-29] VITALS (8 sets, daily range): BP systolic 111–157; BP diastolic 62–83; PULSE 55–65; BMI 30.4
[2025-09-29 17:20] LABS: Hematocrit 41.0 % (37.0-47.0); Hemoglobin 14.5 g/dL (12.0-16.0); Mean Corp Hgb Conc. 35.4 g/dL (33.0-37.0); Mean Corpuscular Volume 88.9 fL (81.0-99.0); Nucleated Red Blood Cells % 0 %; Platelet Count 170 10^3/uL (130-400); Red Cell Dist. Width 13.2 % (11.5-14.5)
[2025-09-29 18:01] LABS: ALT (SGPT) 138 U/L (0-35); AST (SGOT) 132 U/L (14-36); Albumin 4.2 g/dl (3.5-5.0); Alkaline Phosphatase 60 U/L (38-126); Blood Urea Nitrogen 14 mg/dl (7-17); Calcium 10.1 mg/dl (8.4-10.2); Carbon Dioxide 29 mmol/L (22-30); Chloride 95 mmol/L (98-107); Glucose 94 mg/dl (70-99); Lipase 479 U/L (23-300); Potassium 3.1 mmol/L (3.5-5.1); Sodium 131 mmol/L (135-145); Total Protein 6.9 g/dl (6.3-8.2); eGFR 13.78
[2025-09-29] MEDS: OMNIPAQUE 50 ML PO (20:34)
--- NOTE | 2025-09-29 22:12 | ED.GENMED ---
History of Present Illness
General
Chief Complaint: Abdominal Pain
Source: patient, previous radiology exam and previous hospital records (Previous hospitalization April 2024. Presented with abdominal pain, nausea, diarrhea. Noted to have markedly elevated LFTs. Unremarkable imaging. Thought to be related to
viral versus medication related LFT elevation. MRI of the abdomen was unremarkable.)
Exam Limitations: none
Time Seen by Provider: 09/29/25 19:34
Nursing documentation reviewed up to this point in time: agreed with
History of Present Illness
History of Present Illness:
Patient is a 74-year-old woman who resides at home with her . She has history of asthma, COPD, insulin requiring diabetes, end-stage renal disease�dialysis dependent on Saturday//Saturday. History of diabetic neuropathy,
hyperlipidemia. History of A-fib chronically maintained on Eliquis as well as history of restless leg syndrome. She does have history of chronic ambulatory dysfunction uses either a walker or a cane.
She presents with complaints of at least 2-month history of upper abdominal pain associated with nausea that is worse with eating solids, she is able to tolerate clear liquids. She does admit to nausea, intermittent dry heaves but has had no
vomiting. No change in weight.
No fever, no chest pain no cough no shortness of breath.
She does still urinate sporadically perhaps 2 times a day. She notes her urine is somewhat cloudy but denies dysuria no urgency, no flank pain.
She was evaluated by her PCP last week for the symptoms and underwent unremarkable abdominal ultrasound on September 23. Last week her PCP started omeprazole 20 mg daily, ondansetron 4 mg for as needed use and started bupropion XL 150 mg daily.
She had been maintained on gabapentin. Patient states gabapentin was discontinued perhaps 3 months ago.
Patient also notes some ongoing bilateral leg weakness, bilateral leg shaking with standing that has been worsening over the past several weeks. She does admit to frequent falls, the last occurring perhaps 2 weeks ago.
She does admit to occasional lightheadedness but no dizziness nor sense of movement. She denies head injury nor loss of consciousness. No palpitations nor chest pain.
Upon review of records, patient admitted to this hospital in April 2024 with complaints of upper abdominal pain, nausea but at that time was also associated with diarrhea and had recently been treated for a UTI. Noted to have significantly elevated
LFTs in the 400s to 500s. Unremarkable abdominal imaging including MRI of the abdomen. Elevated LFTs thought to be viral versus medication related.
She was recommended to follow-up with GI for outpatient endoscopy and colonoscopy as she has a history of positive Cologuard. Patient admits to neglecting follow-up with GI and has been purposely avoiding colonoscopy. Has never undergone
colonoscopy previously.
She does admit that her lightheadedness and leg shaking/weakness is worse after dialysis. Most recent dialysis was yesterday, Saturday.
Due to ongoing symptoms patient states her primary care physician sent her to the ED to 'figure things out'
She arrives via private car�her who has since returned home as they continue to care for 2 teenage grandchildren.
Past History
Past History
ED Past Medical History: Arrthythmia (Atrial fib), Asthma, CHF, COPD, GERD, HTN, Hypercholesterolemia, IDDM, [place], Renal failure (Dialysis - Saturday), Psychiatric (Depression) and Other (Neuropathy, sleep apnea, rheumatoid arthritis, gout,
restless leg, Diverticulitis, UTI, Cellulitis, Hernia, Eczema, )
ED Past Surgical History: Gynecological (Hysterectomy), Orthopedic (Carpal tunnel, Left shoulder, Left wrist, ), Urological (Bladder lift X3, Cyst removed left kidney) and Other (Deviated septum)
Social History
Tobacco: Non-smoker
Alcohol: None
Drug: None
Personal:
Living: with family
Employment: Retired
Family History
Family History: CAD
Phy Exam
Physical Exam
Physical Exam:
GENERAL: 74-year-old woman appears her stated age, bright and alert, pleasant, easily communicative and in no acute distress.
EYE: pupils equal and reactive. anicteric
NECK: Supple, nontender, no meningismus, no significant adenopathy.
ENT: posterior pharynx is clear, oral mucosa is minimally dry. A dentulous. TM clear b/l, nares patent.
CARDIAC: Regular rate and rhythm. 2/6 holosystolic murmur left sternal border.
LUNGS: Clear breath sounds bilaterally, no acute respiratory distress, no wheezes/rales/rhonchi
ABDOMEN: Soft, nondistended, abdomen is soft without appreciable tenderness. No palpable masses. no cvat. normoactive BS.
NEUROLOGICAL: Alert and oriented x3, no focal neuro deficits. Motor strength is 5/5 bilaterally. Gross sensation is intact.
SKIN: Warm and dry, normal color, skin intact. No rash.
MUSCULOSKELETAL: No C/C/E. peripheral pulses are full and equal b/l. No palpable tenderness.
PSYCH: Normal and appropriate interaction.
Course
Orders/Labs/Results
Orders:
Orders
09/29/25 17:12
Complete Blood Count/With Diff Urgent
Comprehensive Metabolic Panel Urgent
Lipase Urgent
09/29/25 20:13
CT Head W/o Iv Contrast Urgent
Comment:
Reason For Exam: unsteady gait, falling, leg weakness
Ambulate Patient-Treatment ONCE
Orthostatic VS- Treatment ONCE
09/29/25 20:21
CT Abd/pel W Iv And Oral Contr Urgent
Comment:
Reason For Exam: 2 m hx upper abd pain, N, dry heaves, elevated LFT
Iohexol [Omnipaque] See Protocol PO NOW STA
09/29/25 22:29
Urinalysis Reflex To Culture Urgent
Date Specimen was Collected: 09/29/25
Time Specimen was Collected: 21:55
Urine Microscopic Reflex Cult Urgent
Urine Culture Urgent
HARLAN Source: U
Specimen Description:
Date Specimen was Collected: 09/29/25
Time Specimen was Collected: 21:55
09/30/25 01:10
Midodrine [ProAmatine] 2.5 mg PO NOW STA
09/30/25 02:00
Fosfomycin [Monurol] 3 gm PO ONCE ONE
Abnormal Lab Results
09/29/25 09/29/25
17:12 22:29
MCH 31.5 H pg
(27.0-31.0)
MPV 10.8 H fL
(7.4-10.4)
Monocytes % 10.7 H %
(1.7-9.3)
Sodium 131 L mmol/L
(135-145)
Potassium 3.1 L mmol/L
(3.5-5.1)
Chloride 95 L mmol/L
(98-107)
Creatinine 3.4 H mg/dL
(0.6-1.0)
AST 132 H U/L
(14-36)
ALT 138 H U/L
(0-35)
Lipase 479 H U/L
(23-300)
Ur Occult Blood Reflex 2+ A
(Negative)
Leukocyte Esterase Rfl 3+ A
(Negative)
Urine RBC 3-6 A /HPF
(0-2)
Urine WBC (Reflex) >100 A /HPF
(0-5)
Urine Bacteria (Reflex) Many A
(Negative)
Urine Albumin (Reflex) 2+ A
(Neg - Trace)
09/29/25 17:12
09/29/25 17:12
Vital Signs
Initial and Last Documented VS:
Initial Vital Signs
Temp Pulse Resp BP Pulse Ox
98.2 F 63 20 157/67 100
09/29/25 17:05 09/29/25 17:05 09/29/25 17:05 09/29/25 17:05 09/29/25 17:05
Last Documented Vital Signs
Temp Pulse Resp BP Pulse Ox
98.2 F 52 15 122/59 97
09/29/25 17:05 09/30/25 00:00 09/30/25 00:00 09/30/25 00:00 09/30/25 00:00
MDM/Problems Addressed
Differential Diagnosis Includes:
The Differential Diagnosis includes, in no particular order and is not limited to:
1. Gastritis or gastric ulcer
2. Cholecystitis
3. Pancreatitis
4. Electrolyte imbalance post-dialysis
5. Hepatitis
6. Neuropathy (possibly linked to restless leg syndrome)
7. Vestibular dysfunction
8. Gastroesophageal reflux disease (GERD)
9. Gallbladder disease
10. Viral gastroenteritis
MDM/Problems Addressed:
Acute Problems:
1. Abdominal pain with nausea and difficulty eating solid foods
2. Elevated liver enzymes
3. Dizziness post-dialysis
4. Leg weakness and shaking
Chronic Problems:
1. Restless Leg Syndrome
2. Chronic Kidney Disease (on dialysis)
Patient presents with several issues, all appear to be ongoing for at least the past 2 months.
Thus far labs reveal unremarkable CBC.
Chemistries reveal moderately elevated LFTs with AST of 132, ALT 138. Overall improved from April 2024 however up trended from May 2024 where LFTs had near normalized.
Lipase is mildly elevated 479.
Creatinine 3.4. At patient's baseline. Chronically maintained on dialysis.
Potassium is mildly low at 3.1. Dialysis was yesterday.
Patient reports chronic hypokalemia. Maintained on oral potassium tablets.
There is some concern for hypokalemia as cause for bilateral leg weakness, shakiness.
Other consideration is an element of dehydration after dialysis with resultant orthostasis.
LFTs and lipase mildly elevated. However, abdomen is soft without appreciable tenderness and thus acute pancreatitis, acute cholecystitis is unlikely. Also noted to have unremarkable abdominal ultrasound last week.
Upper abdominal pain worsened with oral intake especially when consuming solids. Concern for gastritis, peptic ulcer disease, gastroduodenitis.
Will check CT abdomen pelvis with oral and IV contrast.
Due to complaints of difficulty ambulating, frequent falls, multiple risk factors for cerebrovascular disease as well as chronically maintained on Eliquis, must consider intracranial injury, CVA thus will check CT of the head.
Will check orthostatic vital signs.
Somewhat similar episode April 2024 during which patient had been suffering with a UTI. Therefore we will check urinalysis.
If workup unremarkable will attempt to ambulate the patient with walker.
Chronic conditions affecting care: DM (Insulin requiring diabetes. Diabetic neuropathy), Arrhythmia (Atrial fibrillation, chronically maintained on Eliquis), COPD, Asthma and Neurological disorder (Diabetic neuropathy, restless leg syndrome)
*Radiology
Radiology exam reviewed: radiology read reviewed
*Pulse Oximetry
SaO2: 100
Oxygen Mode of Delivery: Room air
Patient hypoxic: no
*Mounter Smoking Pipe Interpretation
Rate: normal
Interpretation: normal
Rhythm: sinus
*Critical Care Note
Total Time (30-74mins, 75-104mins- exclusive of procedures): Not Applicable
Update Note
Update Note:
00:45
CT of the head is unremarkable.
CT abdomen pelvis shows gallbladder sludge versus small stones but no evidence of cholecystitis.
Abdomen remains soft without appreciable tenderness. Orthostatic vital signs
Are positive with systolic blood pressure dropping from 140-120 with standing.
She has however successfully ambulated to and from the bathroom with walker without difficulty.
Urinalysis shows many bacteria, greater than 100 WBCs but also appears to be a contaminated specimen with greater than 30 squamous epithelial cells. She remains afebrile. Normal white blood cell count.
I suspect contaminated specimen. Urine culture is pending but will treat for potential UTI with a one-time dose of Monurol.
With for orthostasis upon standing, will initiate low-dose midodrine at 2.5 mg daily and plan to continue this twice daily.
Patient does have history of atrial tachycardia, A-fib with previous hospitalization 2021, medications adjusted. She apparently has a loop recorder in place and states her loop recorder bedside monitor tends to 'alarm all the time' at nighttime.
She has had no phone calls from operations research analyst. Will attempt to interrogate her loop recorder.
Monitor continues to show normal sinus rhythm/sinus bradycardia without arrhythmia.
ED Attending Note
-
Portions of this chart may have been created with voice recognition software.� Occasional wrong word or��sound alike� substitutions may have occurred due to the inherent limitations of voice recognition software.
Discharge Plan
Departure
Patient Disposition: Home (Routine Discharge)
Date of Disposition: 09/30/25
Time of Disposition: 01:23
Patient with high blood pressure during this ER visit?: No
Condition: Good
Discharge Problem:
Gastritis, Orthostatic hypotension, Bacteriuria, Chronic upper abdominal pain, Elevated LFTs, Sludge in gallbladder
Instructions: Gastritis, Orthostatic hypotension, [place] diet
Prescriptions:
New
midodrine 2.5 mg tablet
2.5 mg PO BID Qty: 60 0RF
No Action
atorvastatin 40 MG tablet
40 mg PO HS
cilostazol 100 MG tablet
100 mg PO BID
gabapentin 100 MG capsule
100 mg PO TID
fluoxetine 20 MG capsule
20 mg PO DAILY
cholecalciferol (vitamin D3) [Vitamin D3] 50 mcg (2,000 unit) Capsule
50 mcg PO DAILY
amiodarone 200 mg tablet
200 mg PO DAILY
furosemide 80 mg Tablet
80 mg PO SUMOWEFR
Nephro Vitamins 0.8 mg Tablet
1 tab PO DAILY
potassium chloride 20 mEq Tablet Extended Release
20 meq PO DAILY
insulin glargine [Lantus Solostar U-100 Insulin] 100 unit/mL (3 mL) Insulin Pen
40 unit SC HS
diltiazem HCl 180 mg Capsule,Extended Release 24hr
180 mg PO BID Qty: 60 0RF
metoprolol succinate 25 mg Tablet Extended Release 24 Hr
25 mg PO DAILY Qty: 30 0RF
Eliquis 5 mg Tablet
5 mg PO BID Qty: 60 0RF
Referrals:
Marielle Sheppard MD [Family Provider, Family Practice] - Call in 1-3 days for appt
Activity Restrictions/Additional Instructions:
Maintain a bland diet. Continue medications
Prescribed by your PCP including omeprazole, bupropion and ondansetron for as needed nausea.
You have been started on midodrine to take twice daily to help support your blood pressure as your blood pressure tends to be drop when you stand up which I suspect is causing your weakness, feeling of shaking legs.
Your urinalysis shows bacteria and white blood cells but appears to be a contaminated specimen and not definitively consistent with a urinary tract infection. You have been given a one-time dose of Monurol which should cover a potential urinary
tract infection. Urine culture is pending.
CT of the head is unremarkable.
CT of the abdomen pelvis shows incidental sludge versus small stones in her gallbladder but no evidence of infected or blocked gallbladder.
Ultimately, I want you to follow-up with your primary care physician as well as follow-up with your operations research analyst and guest services attendant.
Interventions
Interventions:
*Risk Screen - Suicide Last Done: 09/29/25 17:05
*General Assessment Last Done: 09/29/25 19:17
*Neglect/Abuse Screening Last Done: 09/29/25 17:05
*ED- Fall Risk Assessment Last Done: 09/29/25 19:17
*ED COVID-19 Vaccine History Last Done: 09/29/25 19:17
*ED Influenza Vaccine History Last Done: 09/29/25 19:17
QT-Iesgth-Voechaoeez Assessment Last Done: 09/29/25 19:17
Discharge Date and Time
Print Language: PORTUGUESE
[2025-09-29 22:40] LABS: Urine Character Cloudy (Clear)
[2025-09-29 22:52] LABS: Urine Squamous Cell >30 /LPF (Few)
[2025-09-29 22:57] LABS: Urine White Cell >100 /HPF (0-5)
[2025-09-30] VITALS: BP 122/59
[2025-09-30 01:00] VITALS: BP 107/57
[2025-09-30] MEDS: MONUROL 3 GM PO (01:26)
== END 2025-09-30 01:44 | disposition home or self-care (01) ==
LOC: EMR 17:01
PROVIDERS: Student in an Organized Health Care Education/Training Program; EMERGENCY PHYSICIAN Emergency Medicine; FAMILY PHYSICIAN Family Medicine
DX: K29.70 Gastritis, unspecified, without bleeding (principal); I95.1 Orthostatic hypotension; R82.71 Bacteriuria; G89.29 Other chronic pain; R10.10 Upper abdominal pain, unspecified; R74.01 Elevation of levels of liver transaminase levels; K82.8 Other specified diseases of gallbladder; E10.22 Type 1 diabetes mellitus with diabetic chronic kidney disease; I13.2 Hypertensive heart and chronic kidney disease with heart failure and with stage 5 chronic kidney disease, or end stage renal disease; E10.40 Type 1 diabetes mellitus with diabetic neuropathy, unspecified; N18.6 End stage renal disease; I50.9 Heart failure, unspecified; Z99.2 Dependence on renal dialysis; I48.91 Unspecified atrial fibrillation; E78.00 Pure hypercholesterolemia, unspecified; I25.2 Old myocardial infarction; G47.30 Sleep apnea, unspecified; J44.89 Other specified chronic obstructive pulmonary disease; K21.9 Gastro-esophageal reflux disease without esophagitis; G25.81 Restless legs syndrome; R29.6 Repeated falls; Z91.81 History of falling; F32.A Depression, unspecified; M06.9 Rheumatoid arthritis, unspecified; M10.9 Gout, unspecified; Z79.01 Long term (current) use of anticoagulants; Z79.4 Long term (current) use of insulin; Z91.199 Patient's noncompliance with other medical treatment and regimen due to unspecified reason; Z87.440 Personal history of urinary (tract) infections; Z82.49 Family history of ischemic heart disease and other diseases of the circulatory system
CPT/HCPCS: 99284; 70450; 74177; 80053; 81003; 81015; 83690; 85025; 87086; Q9967

== ENCOUNTER 2025-10-04 11:00 | Inpatient (IN) | payer OTHER, SELFPAY ==
[2025-10-03 17:25] VITALS: BP 134/67
[2025-10-03 18:42] VITALS: BMI 28.8
[2025-10-03 18:50] LABS: Hematocrit 39.8 % (37.0-47.0); Hemoglobin 13.5 g/dL (12.0-16.0); Mean Corp Hgb Conc. 33.9 g/dL (33.0-37.0); Mean Corpuscular Volume 89.6 fL (81.0-99.0); Nucleated Red Blood Cells % 0 %; Platelet Count 161 10^3/uL (130-400); Red Cell Dist. Width 13.5 % (11.5-14.5)
[2025-10-03 19:07] LABS: ALT (SGPT) 131 U/L (0-35); AST (SGOT) 148 U/L (14-36); Albumin 3.7 g/dl (3.5-5.0); Alkaline Phosphatase 57 U/L (38-126); Blood Urea Nitrogen 19 mg/dl (7-17); Calcium 9.8 mg/dl (8.4-10.2); Carbon Dioxide 31 mmol/L (22-30); Chloride 96 mmol/L (98-107); Estimated Creatinine Clearance 13 ml/min; Glucose 110 mg/dl (70-99); Lipase 214 U/L (23-300); Potassium 3.3 mmol/L (3.5-5.1); Sodium 135 mmol/L (135-145); Total Protein 6.3 g/dl (6.3-8.2); eGFR 12.06
[2025-10-03 19:10] VITALS: BP 119/87
--- NOTE | 2025-10-03 19:14 | ED.GENMED ---
History of Present Illness
<Elio Berkowitz PA-C - Last Filed: 10/03/25 23:36>
General
Chief Complaint: Abdominal Symptoms
Time Seen by Provider: 10/03/25 18:13
History of Present Illness
History of Present Illness:
74-year-old female with history of paroxysmal A-fib on Eliquis, CHF, hypertension, hyperlipidemia, coronary artery disease, COPD, and end-stage renal disease on dialysis (Saturday, compliant) presents to the emergency department for
evaluation of intractable upper abdominal pain ongoing for the past 2 months or more. She was seen in the emergency department 3 days ago for similar symptoms at which time she had a CT scan that suggested biliary sludge/stones but otherwise was
unremarkable. She did have a urinalysis that was suggestive of UTI and was given a dose of fosfomycin. Subsequent urine culture grew out Klebsiella aerogenes. She states her symptoms have not been improved whatsoever. She is unable to eat due to
severe pain after eating and occasional vomiting. She denies any lower urinary tract voiding symptoms. Of note she did have an outpatient ultrasound on 1112 at [facility] that showed no biliary disease. She was referred to the ED today for
suggestion of further biliary workup according to her primary care physician
Past History
<Elio Berkowitz PA-C - Last Filed: 10/03/25 23:36>
Past History
ED Past Medical History: Arrthythmia (Atrial fib), Asthma, CHF, COPD, GERD, HTN, Hypercholesterolemia, IDDM, MT, Renal failure (Dialysis Saturday), Psychiatric (Depression) and Other (Neuropathy, sleep apnea, rheumatoid arthritis, gout,
restless leg, Diverticulitis, UTI, Cellulitis, Hernia, Eczema, )
ED Past Surgical History: Gynecological (Hysterectomy), Orthopedic (Carpal tunnel, Left shoulder, Left wrist, ), Urological (Bladder lift X3, Cyst removed left kidney) and Other (Deviated septum)
Social History
Tobacco: Non-smoker
Alcohol: None
Drug: None
Personal:
Living: with family
Employment: Retired
Family History
Family History: CAD
Review of Systems
<Elio Berkowitz PA-C - Last Filed: 10/03/25 23:36>
Review of Systems
Allergies reviewed?: Yes
All Other Systems: ROS reviewed and negative except as documented in HPI and ROS
Phy Exam
<Elio Berkowitz PA-C - Last Filed: 10/03/25 23:36>
Physical Exam
Physical Exam:
GEN: Well appearing, NAD, WDWN
HEENT: Oral mucosa moist, no scleral icterus
Cardiac: Regular rate
Lung: No respiratory distress, no tachypnea
Abdomen: Soft, diffuse tenderness to the upper abdomen, no rigidity or peritoneal signs
MSK: No gross deformity or injuries
Skin: Good color, no pallor or jaundice, no rashes
Neuro: AO x3, moves all extremities freely
Psych: Calm, cooperative
Course
<Elio Berkowitz PA-C - Last Filed: 10/03/25 23:36>
Orders/Labs/Results
Orders:
Orders
10/03/25 18:35
US Abdomen Limited Urgent
Comment:
Reason For Exam: RUQ/epigastric pain post prandial
10/03/25 18:42
Complete Blood Count/With Diff Urgent
Comprehensive Metabolic Panel Urgent
Lipase Urgent
10/03/25 20:06
Urine Culture Urgent
HARLAN Source: Urine
Specimen Description:
Obtained by: [facility]
Date Specimen was Collected: 10/03/25
Time Specimen was Collected: 20:49
CefTRIAXone [Rocephin] 1,000 mg IV NOW STA
10/03/25 22:53
Admit/Transfer Patient As Directed
Co-Sign Provider:
Level of Care: Observation services
Assign to:: Medical/Surgical
Physician / Group: htay
Diagnosis: Post prandial epigastric pain
PRN Pain Medication Management As Directed
May give lesser potent ordered pain med per pt: Yes
preference::
Protocol:: Medication orders for pain may be administered in a
manner that supports deferring to patient preference
when the pt is:
- Requesting an ordered lesser potent pain medication.
Least to most potent pain medications are defined
as: acetaminophen < NSAID < tramadol < opioids
(morphine, oxycodone, hydromorphone).
- Requesting a lesser dose of the same medication IF
ORDERED.
- Requesting a less intrusive route of administration
if both routes are prescribed by the provider (PO <
IV).
10/03/25 22:56
Code Status As Directed
Resuscitation Status: Full Code
Consult Surgery [SURGICAL CONSULT] Routine
Consulting Provider: Jewel Petersen
Was physician already notified: Yes
Reason for consult: post prandial pain - GB sludge
GASTROINTESTINAL CONSULT Routine
Consulting Provider: Lisa Carter
Was physician already notified: No
Reason for consult: Post prndial pain
NEPHROLOGY CONSULT Routine
Consulting Provider: Melchor Walker V.
Was physician already notified: Yes
Reason for consult: ESRD on HD ( TTS)
10/03/25 22:57
Consult Notification Routine
Specialty to Notify: Gastroenterology
Date consulting provider notified: 10/04/25
Time consulting provider notified: 08:41
Notified:: Other
Comment: tiger text Dr Carter
Activity As Directed
Activity Level: As Tolerated
Anti-embolism (FRAN) Hose As Directed
Type: Thigh high
Intake/ Output As Directed
Frequency: Per unit guidelines
Vital Signs As Directed
Frequency: Per unit guidelines
10/04/25
DIETARY IP CONSULT Routine
Reason for Consult: per protocol
10/04/25 00:25
Bisacodyl [Dulcolax] 10 mg RECTAL [id number] PRN
Dextrose 50%-Water [Dextrose 50% Syringe] 12.5 grams IV [id number] PRN
Docusate W/Senna [Senokot-S] 1 tablet PO BIDPRN PRN
Glucagon [GlucaGen] 1 mg IM PRN PRN
Polyethylene Glycol Powder [Miralax] 17 grams PO DAILYPRN PRN
10/04/25 00:25
Admit Patient As Directed
Co-Sign Provider:
Level of Care: Observation services
Assign to:: Medical/Surgical
Physician / Group: htay
Diagnosis: Post prandial pain
Activity As Directed
Activity Level: With Assistance
Bedside Glucose Monitoring As Directed
Frequency: AC&HS
Additional Instructions:: Change to q6h if pt on TPN, tube feeding or not eating
Intake/ Output As Directed
Frequency: Per unit guidelines
Vital Signs As Directed
Frequency: Per unit guidelines
Weight As Directed
Frequency: Daily
PRN Pain Medication Management As Directed
May give lesser potent ordered pain med per pt: Yes
preference::
Protocol:: Medication orders for pain may be administered in a
manner that supports deferring to patient preference
when the pt is:
- Requesting an ordered lesser potent pain medication.
Least to most potent pain medications are defined
as: acetaminophen < NSAID < tramadol < opioids
(morphine, oxycodone, hydromorphone).
- Requesting a lesser dose of the same medication IF
ORDERED.
- Requesting a less intrusive route of administration
if both routes are prescribed by the provider (PO <
IV).
10/04/25 01:14
Pt Screening Request from [facility] Routine
10/04/25 01:16
MRSA Screen Routine
HARLAN Source: Nose
Specimen Description:
10/04/25 05:25
Complete Blood Count/No Diff IN AM
Comprehensive Metabolic Panel IN AM
Ferritin Routine
Comment: ADD ON
Glycohemoglobin (HgbA1c) IN AM
Phosphorus Routine
10/04/25 Breakfast
Full Liquids
At Your Request: Non-Participating
NPO
Allow oral meds: Yes
Allow clear liquids: No
10/04/25 07:30
Insulin Aspart Corrective Low [Novolog Flexpen-Low Resistance] See Protocol SC AC
10/04/25 08:00
Apixaban [Eliquis] 5 mg PO BID
Cholecalciferol (Vitamin D3) [VITAMIN D3 (cholecalciferol)] 50 mcg PO DAILY
Gabapentin [Neurontin] 100 mg PO TID
Midodrine [ProAmatine] 2.5 mg PO BID
Pantoprazole [Protonix] 40 mg PO DAILY
Potassium Chloride [KCl] 20 meq PO DAILY
Renal Cap [Nephrocap] 1 capsule PO DAILY
10/04/25 08:53
Request for Physical Therapy [NOTICE] Routine
10/04/25 08:55
Add On- LAB Routine
Tests Added?: ferritin
10/04/25 09:02
CARDIOLOGY CONSULT Routine
Consulting Provider: Laron Mcdaniels
Was physician already notified: Yes
10/04/25 09:16
Type+Screen Routine
10/04/25 09:27
Add On- LAB Routine
Tests Added?: hbg A1C
10/04/25 09:48
EKG [Electrocardiogram (*1)] Routine
Reason for Study: PreOp
10/04/25 10:00
Diltiazem Extended Release [Cardizem Cd] 180 mg PO BID
Furosemide [Lasix] 80 mg PO SUMOWEFR
Metoprolol Xl [Toprol Xl] 25 mg PO DAILY
10/04/25 10:39
Transfer Patient As Directed
Transfer to: Telemetry
Reason for Telemetry: Arrhythmia
Date to Stop Telemetry: 10/07/25
Time to Stop Telemetry: 11:00
10/04/25 22:00
Insulin Glargine Lantus [Lantus] 20 units Subcutaneous Insulin Syringe [Syringe-Insulin] 0 unit SC HS
insulin glargine [Lantus Solostar U-100 Insulin] 20 unit SC HS
10/07/25 11:00
DC Protocol for Telemetry ONCE
Abnormal Lab Results
10/03/25 10/04/25 10/04/25
18:42 01:00 05:25
RBC 4.17 L 10^6/uL
(4.20-5.40)
MPV 11.0 H fL 11.4 H fL
(7.4-10.4) (7.4-10.4)
Absolute Lymphs (auto) 0.9 L 10^3/uL
(1.2-3.4)
Absolute Monos (auto) 0.7 H 10^3/uL
(0.1-0.6)
Lymphocytes % 13.7 L %
(20.5-51.1)
Monocytes % 10.1 H %
(1.7-9.3)
Potassium 3.3 L mmol/L 2.9 L mmol/L
(3.5-5.1) (3.5-5.1)
Chloride 96 L mmol/L 97 L mmol/L
(98-107) (98-107)
Carbon Dioxide 31 H mmol/L 33 H mmol/L
(22-30) (22-30)
BUN 19 H mg/dl 23 H mg/dl
(7-17) (7-17)
Creatinine 3.8 H mg/dL 4.5 H* mg/dL
(0.6-1.0) (0.6-1.0)
Glucose 110 H mg/dl
(70-99)
Ferritin 747.0 H ng/ml
(11.1-264.0)
AST 148 H U/L 126 H U/L
(14-36) (14-36)
ALT 131 H U/L 131 H U/L
(0-35) (0-35)
Total Protein 5.9 L g/dl
(6.3-8.2)
Albumin 3.4 L g/dl
(3.5-5.0)
POC Glucose 107 H mg/dl
(70-99)
10/04/25 05:25
10/04/25 05:25
Vital Signs
Initial and Last Documented VS:
Initial Vital Signs
Temp Pulse Resp BP Pulse Ox
98.3 F 61 16 134/67 99
10/03/25 17:25 10/03/25 17:25 10/03/25 17:25 10/03/25 17:25 10/03/25 17:25
Last Documented Vital Signs
Temp Pulse Resp BP Pulse Ox
98.6 F 50 18 127/57 99
10/04/25 11:18 10/04/25 11:18 10/04/25 11:18 10/04/25 11:18 10/04/25 11:18
<Yamileth Almonte MD - Last Filed: 10/04/25 12:23>
Orders/Labs/Results
Orders:
Orders
10/03/25 18:35
US Abdomen Limited Urgent
Comment:
Reason For Exam: RUQ/epigastric pain post prandial
10/03/25 18:42
Complete Blood Count/With Diff Urgent
Comprehensive Metabolic Panel Urgent
Lipase Urgent
10/03/25 20:06
Urine Culture Urgent
HARLAN Source: Urine
Specimen Description:
Obtained by: [facility]
Date Specimen was Collected: 10/03/25
Time Specimen was Collected: 20:49
CefTRIAXone [Rocephin] 1,000 mg IV NOW STA
10/03/25 22:53
Admit/Transfer Patient As Directed
Co-Sign Provider:
Level of Care: Observation services
Assign to:: Medical/Surgical
Physician / Group: [email or web address]
Diagnosis: Post prandial epigastric pain
PRN Pain Medication Management As Directed
May give lesser potent ordered pain med per pt: Yes
preference::
Protocol:: Medication orders for pain may be administered in a
manner that supports deferring to patient preference
when the pt is:
- Requesting an ordered lesser potent pain medication.
Least to most potent pain medications are defined
as: acetaminophen < NSAID < tramadol < opioids
(morphine, oxycodone, hydromorphone).
- Requesting a lesser dose of the same medication IF
ORDERED.
- Requesting a less intrusive route of administration
if both routes are prescribed by the provider (PO <
IV).
10/03/25 22:56
Code Status As Directed
Resuscitation Status: Full Code
Consult Surgery [SURGICAL CONSULT] Routine
Consulting Provider: Jewel Petersen
Was physician already notified: Yes
Reason for consult: post prandial pain - GB sludge
GASTROINTESTINAL CONSULT Routine
Consulting Provider: Lisa Carter
Was physician already notified: No
Reason for consult: Post prndial pain
NEPHROLOGY CONSULT Routine
Consulting Provider: Melchor Walker V.
Was physician already notified: Yes
Reason for consult: ESRD on HD ( TTS)
10/03/25 22:57
Consult Notification Routine
Specialty to Notify: Gastroenterology
Date consulting provider notified: 10/04/25
Time consulting provider notified: 08:41
Notified:: Other
Comment: tiger text Dr Carter
Activity As Directed
Activity Level: As Tolerated
Anti-embolism (FRAN) Hose As Directed
Type: Thigh high
Intake/ Output As Directed
Frequency: Per unit guidelines
Vital Signs As Directed
Frequency: Per unit guidelines
10/04/25
DIETARY IP CONSULT Routine
Reason for Consult: per protocol
10/04/25 00:25
Bisacodyl [Dulcolax] 10 mg RECTAL [id number] PRN
Dextrose 50%-Water [Dextrose 50% Syringe] 12.5 grams IV [id number] PRN
Docusate W/Senna [Senokot-S] 1 tablet PO BIDPRN PRN
Glucagon [GlucaGen] 1 mg IM PRN PRN
Polyethylene Glycol Powder [Miralax] 17 grams PO DAILYPRN PRN
10/04/25 00:25
Admit Patient As Directed
Co-Sign Provider:
Level of Care: Observation services
Assign to:: Medical/Surgical
Physician / Group: htay
Diagnosis: Post prandial pain
Activity As Directed
Activity Level: With Assistance
Bedside Glucose Monitoring As Directed
Frequency: AC&HS
Additional Instructions:: Change to q6h if pt on TPN, tube feeding or not eating
Intake/ Output As Directed
Frequency: Per unit guidelines
Vital Signs As Directed
Frequency: Per unit guidelines
Weight As Directed
Frequency: Daily
PRN Pain Medication Management As Directed
May give lesser potent ordered pain med per pt: Yes
preference::
Protocol:: Medication orders for pain may be administered in a
manner that supports deferring to patient preference
when the pt is:
- Requesting an ordered lesser potent pain medication.
Least to most potent pain medications are defined
as: acetaminophen < NSAID < tramadol < opioids
(morphine, oxycodone, hydromorphone).
- Requesting a lesser dose of the same medication IF
ORDERED.
- Requesting a less intrusive route of administration
if both routes are prescribed by the provider (PO <
IV).
10/04/25 01:14
Pt Screening Request from [facility] Routine
10/04/25 01:16
MRSA Screen Routine
HARLAN Source: Nose
Specimen Description:
10/04/25 05:25
Complete Blood Count/No Diff IN AM
Comprehensive Metabolic Panel IN AM
Ferritin Routine
Comment: ADD ON
Glycohemoglobin (HgbA1c) IN AM
Phosphorus Routine
10/04/25 Breakfast
Full Liquids
At Your Request: Non-Participating
NPO
Allow oral meds: Yes
Allow clear liquids: No
10/04/25 07:30
Insulin Aspart Corrective Low [Novolog Flexpen-Low Resistance] See Protocol SC AC
10/04/25 08:00
Apixaban [Eliquis] 5 mg PO BID
Cholecalciferol (Vitamin D3) [VITAMIN D3 (cholecalciferol)] 50 mcg PO DAILY
Gabapentin [Neurontin] 100 mg PO TID
Midodrine [ProAmatine] 2.5 mg PO BID
Pantoprazole [Protonix] 40 mg PO DAILY
Potassium Chloride [KCl] 20 meq PO DAILY
Renal Cap [Nephrocap] 1 capsule PO DAILY
10/04/25 08:53
Request for Physical Therapy [NOTICE] Routine
10/04/25 08:55
Add On- LAB Routine
Tests Added?: ferritin
10/04/25 09:02
CARDIOLOGY CONSULT Routine
Consulting Provider: Laron Mcdaniels
Was physician already notified: Yes
10/04/25 09:16
Type+Screen Routine
10/04/25 09:27
Add On- LAB Routine
Tests Added?: hbg A1C
10/04/25 09:48
EKG [Electrocardiogram (*1)] Routine
Reason for Study: PreOp
10/04/25 10:00
Diltiazem Extended Release [Cardizem Cd] 180 mg PO BID
Furosemide [Lasix] 80 mg PO SUMOWEFR
Metoprolol Xl [Toprol Xl] 25 mg PO DAILY
10/04/25 10:39
Transfer Patient As Directed
Transfer to: Telemetry
Reason for Telemetry: Arrhythmia
Date to Stop Telemetry: 10/07/25
Time to Stop Telemetry: 11:00
10/04/25 22:00
Insulin Glargine Lantus [Lantus] 20 units Subcutaneous Insulin Syringe [Syringe-Insulin] 0 unit SC HS
insulin glargine [Lantus Solostar U-100 Insulin] 20 unit SC HS
10/07/25 11:00
DC Protocol for Telemetry ONCE
Abnormal Lab Results
10/03/25 10/04/25 10/04/25
18:42 01:00 05:25
RBC 4.17 L 10^6/uL
(4.20-5.40)
MPV 11.0 H fL 11.4 H fL
(7.4-10.4) (7.4-10.4)
Absolute Lymphs (auto) 0.9 L 10^3/uL
(1.2-3.4)
Absolute Monos (auto) 0.7 H 10^3/uL
(0.1-0.6)
Lymphocytes % 13.7 L %
(20.5-51.1)
Monocytes % 10.1 H %
(1.7-9.3)
Potassium 3.3 L mmol/L 2.9 L mmol/L
(3.5-5.1) (3.5-5.1)
Chloride 96 L mmol/L 97 L mmol/L
(98-107) (98-107)
Carbon Dioxide 31 H mmol/L 33 H mmol/L
(22-30) (22-30)
BUN 19 H mg/dl 23 H mg/dl
(7-17) (7-17)
Creatinine 3.8 H mg/dL 4.5 H* mg/dL
(0.6-1.0) (0.6-1.0)
Glucose 110 H mg/dl
(70-99)
Ferritin 747.0 H ng/ml
(11.1-264.0)
AST 148 H U/L 126 H U/L
(14-36) (14-36)
ALT 131 H U/L 131 H U/L
(0-35) (0-35)
Total Protein 5.9 L g/dl
(6.3-8.2)
Albumin 3.4 L g/dl
(3.5-5.0)
POC Glucose 107 H mg/dl
(70-99)
10/04/25 05:25
10/04/25 05:25
Vital Signs
Initial and Last Documented VS:
Initial Vital Signs
Temp Pulse Resp BP Pulse Ox
98.3 F 61 16 134/67 99
10/03/25 17:25 10/03/25 17:25 10/03/25 17:25 10/03/25 17:25 10/03/25 17:25
Last Documented Vital Signs
Temp Pulse Resp BP Pulse Ox
98.6 F 50 18 127/57 99
10/04/25 11:18 10/04/25 11:18 10/04/25 11:18 10/04/25 11:18 10/04/25 11:18
<Elio Berkowitz PA-C - Last Filed: 10/03/25 23:36>
MDM/Problems Addressed
MDM/Problems Addressed:
Patient's persistent postprandial pain could certainly be reflective of biliary colic given the sludge on ultrasound however history is somewhat challenging obtained from the patient regarding the exact pattern of her pain. Considered SMA syndrome
however here she does not appear to be unwell enough to suggest this. Ultimately given the worsening symptoms and lack of discernible cause I feel it is appropriate to admit this patient for further inpatient workup. In regards to her positive
urine culture, she was treated with Monurol however this medication is dialyzable and she received dialysis several hours later that day during her routine session thus making it likely that she was not able to clear the infection adequately and as
such we will treat with IV antibiotics while hospitalized although I do not feel that the UTI adequately explains the majority of the patient's symptomology
<Elio Berkowitz PA-C - Last Filed: 10/03/25 23:36>
*Pulse Oximetry
SaO2: 97
Oxygen Mode of Delivery: Room air
Patient hypoxic: no
*Critical Care Note
Total Time (30-74mins, 75-104mins- exclusive of procedures): Not Applicable
ED Attending Note
<Elio Berkowitz PA-C - Last Filed: 10/03/25 23:36>
-
Portions of this chart may have been created with voice recognition software.� Occasional wrong word or��sound alike� substitutions may have occurred due to the inherent limitations of voice recognition software.
<Yamileth Almonte MD - Last Filed: 10/04/25 12:23>
ED Attending Note
Patient seen and examined by attending physician: Yes
I performed the substantive portion of visit, reviewed & personally made and approve the management plan that is documented in note by myself or MARIZA.: Yes
ED Attending Note:
74 yr old female with c/o difficulty eating/n/v and upper abd pain for weeks. No f/c/cp/sob. She has lost weight as a result of these sxs. Was recently seen in ED for same. On exam, abd soft, no r/g, mild upper abd ttp.
US with abnl gb findings, may need HIDA for further eval.
Discharge Plan
Departure
Patient Disposition: Admit
Date of Disposition: 10/03/25
Time of Disposition: 21:28
Admit to: Med/Surg
Presentation/result/management discussed w/ accepting MD/DO: Hospitalist
Discharge Problem:
Biliary colic
Interventions
Interventions:
*Risk Screen - Suicide Last Done: 10/03/25 17:25
*General Assessment Last Done: 10/03/25 18:43
*Neglect/Abuse Screening Last Done: 10/03/25 17:25
*ED COVID-19 Vaccine History Last Done: 10/03/25 18:43
*ED Influenza Vaccine History Last Done: 10/03/25 18:43
*Nursing Disposition Last Done: 10/04/25 00:15
XB-Vdmeos-Hcjaizxxvi Assessment Last Done: 10/03/25 19:11
Discharge Date and Time
Discharge Date/Time: 10/04/25 00:15
[2025-10-03] MEDS: ROCEPHIN 1000 MG IV (20:09)
[2025-10-03 20:26] VITALS: BP 126/82
[2025-10-03 22:01] VITALS: BP 110/45
--- NOTE | 2025-10-03 22:21 | HPS.HSE ---
Family Physician
-
Family Physician: Marielle Sheppard
Chief Complaint
-
persistent post prandial pain
History of Present Illness
HPI
73F PMHX RA, ESRD on HD( TTS) , Afib on Eliquis, HTN, DM, HLD, CAD, COPD seen at ER:
- for subacute intermittent epigastric for the past 2 months or more.
- unable to eat due to severe pain after eating and occasional vomiting.
- She was referred to the ED today for suggestion of further biliary workup by PCP
At ER 3 days ago for similar symptoms
- had CT scan that suggested biliary sludge/stones but otherwise was unremarkable.
- UA was suggestive of UTI -subsequent POS UCX Klebsiella aerogenes, and was given a dose of fosfomycin at that ER visit
-denies any lower urinary tract voiding symptoms.
Medical History
Past Medical History
Past Medical History: Reports Arrhythmia (A Fib on Eliquis ), COPD, GERD, HTN, Hypercholesterolemia, IDDM, Renal Failure (ESRD on HD ( TTS) ), Psychiatric (Anxiety/depression ) and Other
Additional Past Medical History:
Fatty liver
RA
Hx of L kidney mass seen on CT in 2022
Obesity
pHTN
RA
Sleep apnea
DLD
Past Surgical History: Reports None
Social History
Tobacco: Non-smoker
Alcohol: None
Family History
Family History: Not pertinent
Allergies / Home Medications
Allergies reflects when Allergies were last updated in [facility].
Home Medications with original date entered in [facility]
Allergy/Medication List:
Allergies
Allergy/AdvReac Type Severity Reaction Status Date / Time
adhesive Allergy Rash, Verified 06/10/24 18:13
itching
Sulfa (Sulfonamide Allergy nausea and Verified 06/10/24 18:13
Antibiotics) vomiting
Home Medications
atorvastatin 40 mg tablet 40 mg PO HS High cholesterol 04/25/21
cilostazol 100 mg tablet 100 mg PO BID Blood clot prevention/tx 04/25/21
fluoxetine 20 mg capsule 20 mg PO DAILY anxiety/depression 04/05/22
gabapentin 100 mg capsule 100 mg PO TID Diabetic Neuropathy 04/05/22
apixaban 2.5 mg tablet (Eliquis) 2.5 mg PO BID Blood clot prevention/tx #60 tabs 04/16/22
cholecalciferol (vitamin D3) 50 mcg (2,000 unit) capsule (Vitamin D3) 50 mcg PO DAILY Supplement 07/19/22
amiodarone 200 mg tablet 200 mg PO DAILY Arrhythmia 08/31/23
furosemide 80 mg tablet 80 mg PO SUMOWEFR Fluid Retention/Swelling 02/27/24
insulin glargine 100 unit/mL (3 mL) subcutaneous pen (Lantus Solostar U-100 Insulin) 40 unit SC HS 05/19/24
potassium chloride 20 mEq tablet,extended release 20 meq PO DAILY 05/19/24
vitamin B complex-vitamin C-folic acid 0.8 mg tablet (Nephro Vitamins) 1 tab PO DAILY 05/19/24
diltiazem HCl 120 mg capsule,extended release 24 hr, controlled 120 mg PO QHS #30 caps 06/05/24
Review of Systems
-
Constitutional: Reports No Symptoms
EENT: Reports No Symptoms
Respiratory: Reports No Symptoms
Cardiac: Reports No Symptoms
Abdomen/GI: Reports See HPI and Abdominal Pain (post prandial epigastric pain )
: Reports No Symptoms
Musculoskeletal: Reports No Symptoms
Skin: Reports No Symptoms
Neurological: Reports No Symptoms
Endocrine: Reports No Symptoms
Hematologic/Lymphatic: Reports No Symptoms
Psych: Reports No Symptoms
Physical Exam
Vital Signs
Vital Signs
Temp Pulse Resp BP Pulse Ox
98.3 F 61 16 110/45 94
10/03/25 17:25 10/03/25 17:25 10/03/25 17:25 10/03/25 22:01 10/03/25 22:15
Physical Exam
General: No Apparent Distress and Other (Frequently smacking lips )
HEENT: Anicteric and Moist mucous membranes
Respiratory: Clear; No Wheezes, Rales or Rhonchi
Cardiac: S1/S2 and Irregular Rhythm
GI: Soft, Non Tender and Non Distended
Musculoskeletal: No Edema and Other (R arm AVF )
Skin: Warm
Neuro: Awake, Alert, Oriented and AO x 3
Psych: Calm
Laboratory Results
-
10/03/25 18:42
10/03/25 18:42
Laboratory Results
Total Bilirubin 1.1 mg/dl (0.2-1.3) 10/03/25 18:42
AST 148 U/L (14-36) H 10/03/25 18:42
ALT 131 U/L (0-35) H 10/03/25 18:42
Alkaline Phosphatase 57 U/L (38-126) 10/03/25 18:42
Lipase 214 U/L (23-300) 10/03/25 18:42
Data Reviewed
-
CT Scan: Report Reviewed by me
Ultrasound: Report Reviewed by me
Lab Data: Labs Reviewed by me
Old Records: Reviewed
Impression/Plan
-
Vital Signs
Temp Pulse Resp BP Pulse Ox
98.3 F 61 16 110/45 94
10/03/25 17:25 10/03/25 17:25 10/03/25 17:25 10/03/25 22:01 10/03/25 22:15
09/29/25 10/03/25
17:12 18:42
WBC 6.6
Hgb 13.5
Plt Count 161
Sodium 135
Potassium 3.3 L
Chloride 96 L
Carbon Dioxide 29 31 H
BUN 14 19 H
Creatinine 3.4 H 3.8 H
AST 132 H 148 H
ALT 138 H 131 H
Lipase 214
10/03/25 US Abdomen Limited
Common bile duct measures 4 mm, within normal limits.
Unremarkable sonographic appearance of the visualized pancreas.
No right upper quadrant ascites.
No right renal hydronephrosis. 2 renal cysts are noted measuring 3.3 cm and 3.1 cm.
No gallstones or bile duct dilatation. Mild biliary sludge noted. Sonographic features suggesting mild fatty infiltration of liver.
Subtle coarse increased echotexture of the liver, in keeping with prior MRI findings of elevated liver iron concentration.
09/27/25 CT AP w IV and PO contrast
Mild air in the bladder. This can be seen with recent instrumentation. If there is no such history, infection should be considered. New
Mild gallbladder sludge versus numerous tiny gallstones. More pronounced on the current study.
Bilateral too small to characterize hypodense renal lesions likely benign cysts. Stable. Simple right renal cysts. Enlarged.
Diverticulosis. Stable
Small fat-containing umbilical hernia. No evidence of incarceration nor strangulation. Stable
Last hospitalist admission: 07/01/24 - 07/03/24
PDX: CP
ASSESSMENT & PLAN
Subacute post prandial epigastric pain: /PUD vs Esophagitis vs Biliary vs Gastroparesis due to autonomic neuroapthy
Sono evidence of mild biliary sludge but low suspicion for begin symptomatic
Current mild transaminitis likely due to fatty liver
- Empiric PO PPO daily
- GS consulted by ER
- GI consult
HX chest tightness with HD
- LHC in 2020 with normal coronaries
- PET myocardial perfusion in May 2024 at [facility]: cannot r/o apical ischemia
06/30/24 TTE : LVEF 60-65%. No regional WMAL. Normal RV size and function. No significant valvular disease.
HX Atrial arrhythmias / Persistent AF with periods of AT
- pending Rx reconciliation
- Prior list include amiodarone , diltiazem and Toprol XL
- on [employer] COORDINATOR Eliquis 5mg bid
Essential Hypertension
- acceptable BP on above regimen
HX ESRD on HD TuThSa
has Rt UE AVF
- Renal diet
- still makes urine
- Renal consult
Chronic hypokalemia
- Potassium PRN
IR T2DM nephropathy
- cont home insulin
- insulin SS, DM diet
Dyslipidemia
- on atorvastatin
- Trend LFts
Known HX
RA
HX L kidney mass seen on CT in 2022
Obesity
Sleep apnea
Anxiety/depression
DLD
DVT Px: chr Eliquis
Full code
OBS MS
[2025-10-03 23:00] VITALS: BP 109/52
[2025-10-04] VITALS (12 sets, daily range): BP systolic 94–133; BP diastolic 43–72; BMI 28.0
[2025-10-04 01:05] LABS: Glucose - Point of Care 107 mg/dl (70-99)
[2025-10-04 06:07] LABS: Hematocrit 37.2 % (37.0-47.0); Hemoglobin 12.9 g/dL (12.0-16.0); Mean Corp Hgb Conc. 34.7 g/dL (33.0-37.0); Mean Corpuscular Volume 89.2 fL (81.0-99.0); Platelet Count 150 10^3/uL (130-400); Red Cell Dist. Width 13.3 % (11.5-14.5)
[2025-10-04 06:40] LABS: ALT (SGPT) 131 U/L (0-35); AST (SGOT) 126 U/L (14-36); Albumin 3.4 g/dl (3.5-5.0); Alkaline Phosphatase 55 U/L (38-126); Blood Urea Nitrogen 23 mg/dl (7-17); Calcium 10.0 mg/dl (8.4-10.2); Carbon Dioxide 33 mmol/L (22-30); Chloride 97 mmol/L (98-107); Estimated Creatinine Clearance 11 ml/min; Glucose 83 mg/dl (70-99); Potassium 2.9 mmol/L (3.5-5.1); Sodium 135 mmol/L (135-145); Total Protein 5.9 g/dl (6.3-8.2); eGFR 9.85
--- NOTE | 2025-10-04 06:48 | CON.GI ---
Addendum entered and electronically signed by Lisa Carter MD 10/04/25 13:07:
Over 75 minutes was spent reviewing the chart extensively reviewing her imaging studies, labs and prior endoscopic procedures and discussion with the patient and coordinating care and discussion with consultants.
Addendum entered and electronically signed by Lisa Carter MD 10/04/25 13:05:
I saw and examined the patient.
The PRODUCT DESIGNER's note was reviewed and I agree with the note.
Comment: This is a 74-year-old female with past medical history as listed below including A-fib on Eliquis last dose 10/03 AM, PAD on Pletal, diabetes, hypertension, hyperlipidemia, CAD, COPD, ESRD on HD, anxiety, depression, RA, fatty liver, known
left renal mass, pulmonary hypertension, JOS who presented to the ER with persistent symptoms of right upper quadrant pain for the past 2 months. She was in the emergency room recently on 09/29 with similar pain and at that time was thought to have
UTI and was given a dose of antibiotics in the emergency room and CT then revealed gallbladder sludge versus numerous tiny gallstones/ kidney cysts, diverticulosis, fat-containing umbilical hernia but no strangulation, air in the bladder. She says
that her pain persisted and she presented again to the ER she then had an ultrasound 10/03 which showed mild biliary sludge and fatty infiltration of the liver, possible increased echotexture of the liver probably from elevated iron concentration.
She did have an MRI on 05/06/2024 for abnormal LFTs and was noted to have probable elevated liver iron concentration, no bile duct dilation. This admission her WBC count, hemoglobin and platelets are normal. Her ferritin is elevated at 747 and her
LFTs with elevated AST and ALT, normal bilirubin and alkaline phosphatase level. Her lipase on 09/29/2025 was 479. She also has symptoms of nausea with early satiety. She had weight loss last year when she was on Ozempic and Mounjaro but she is
been off of it for 1 year but has continued to lose weight despite that. She also was seen at our GI office for a positive Cologuard and was scheduled for an endoscopy and a colonoscopy but apparently we were out of network for her and she was
recommended to schedule an endoscopy and colonoscopy with a provider within network as soon as possible but unfortunately she has not followed up yet. She did have an endoscopy with Dr. Stewart in 2022 which showed a small hiatal hernia and small
amount of residual food in the stomach and duodenum and was otherwise unremarkable.
Assessment and plan 1. Persistent right upper quadrant pain post prandial could be related to possible biliary etiology with gallstones and sludge noted on recent imaging noted input from Dr. Ambrocio she is scheduled for cholecystectomy today.
Doubt that it is related to mesenteric angina. But if pain and weight loss persist after cholecystectomy will need a MRA or CTA if okay with renal
2. History of early satiety with nausea and she did have weight loss while she was on GLP-1 agonist last year but continued to have weight loss despite being off of them for past year, may need to rule out diabetic gastroparesis and will need a
gastric emptying scan as outpatient.
3. had a positive Cologuard she needs a colonoscopy as soon as possible after DC she was recommended to in the past and was actually scheduled with us but she canceled it and has not rescheduled.
4. She does have abnormal transaminases most likely related to fatty liver and also was noted to have increased iron concentrations on prior MRI, Dr. Sanford was going to also perform a liver biopsy at the time of cholecystectomy today and will also
need hemochromatosis genetic testing and further workup as outpatient.
Original Note:
Consultation
-
Date/Time Consultation Requested: 10/03/25 7416
Date/Time Consultation Performed: 10/04/25 0830
Requesting Provider: Luther Powell MD
Performing Provider: VICKI Cardenas, Lisa Carter MD
Reason for Consultation: abdominal pain
Medical History
Chief Complaint / HPI
Chief Complaint: abdominal pain
History of Present Illness:
Pt is a 74yo with multiple medical problems including Afib on Eliquis, PAD on Pletal, neuropathy, CAD, COPD, GERD, HTN, hyperlipidemia, NIDDM, ESRD on HD, anxiety/depression,RA, fatty liver, left renal mass, obesity, pulm HTN, sleep apnea presents
with upper abdominal pain x [address] with biliary sludge and US with no stone or duct dilation and noted with coursing echo texture with similar finding on prior MRI with elevated iron concentration and Urine with Klebsiella UTI with
Fosfomycin use. On admission noted with K 3.3, BUN 19 creat 3.8, bili 1.1, AST 148, ALT 131, Alk phos 57 lipase 214. hepatitis panel 2023 neg with hep B immunity. Pt also with hx anemia with prior Cologuard +. She was sent up for EGD/colon but
[facility] was out of network and Pt did not proceed to otherwise complete.
In review with patient She had RUQ pain. It is associated with dry heaves and nausea. She describes as dull. Pain in intermittent and worse during meal where she has difficulty taking solids. Pain in improved with fasting. She also admits
to wt loss. Her weight was 275 over 1 year ago. She took Mounjaro and Ozempic but has been off for over 1 year. She also started HD but continued to loose wt now down to 160 range. She otherwise denies odynophagia, dysphagia, GERD, diarrhea,
constipation, blood or black in stools.
recent imaging
10/03/25- US abdomen limited
No gallstones or bile duct dilatation. Mild biliary sludge noted. Sonographic features suggesting mild fatty infiltration of liver.
Subtle coarse increased echotexture of the liver, in keeping with prior MRI findings of elevated liver iron concentration.
09/29/25- CT a/p with IV and oral
IMPRESSION: Mild air in the bladder. This can be seen with recent instrumentation. If there is no such history, infection should be considered. New
Mild gallbladder sludge versus numerous tiny gallstones. More pronounced on the current study.
Bilateral too small to characterize hypodense renal lesions likely benign cysts. Stable. Simple right renal cysts. Enlarged.
Diverticulosis. Stable
Small fat-containing umbilical hernia. No evidence of incarceration nor strangulation. Stable
09/29/25 CT Head W/o Iv Contrast
No acute intracranial abnormality noted.
Mild periventricular small vessel ischemic disease.
04/16/24 MR Abdomen W/o & W Contrast
Paradoxical signal again of the hepatic parenchyma on opposed phase sequence, seen with elevated liver iron concentration.
No bile duct dilatation.
09/02/23- EGD [facility] - Normal esophagus. Small hiatal hernia
- Normal stomach and duodenum
- A small amount of food (residue) in the stomach and
duodenum.
Past Medical History
Past Medical History: Arrhythmias (Afib), CAD, COPD, GERD, HTN, Hypercholesterolemia, NIDDM, Renal Failure (ESRD on HD), Psychiatric (anxiety/depression) and Other (RA, fatty liver, left renal mass, obesity, pulm HTN, sleep apnea, neuropathy)
Past Surgical History: Gynecological (hysterectomy), Orthopedic (carpel tunnel, left shoulder, left wrist ), Urological (bladder lift, renal cyst removal) and Other (deviated septum surgery )
Social History
Tobacco: Non-Smoker
Alcohol: None
Drug: None
Personal:
Living: With Family
Employment: Retired
Family History
Family History: Other (mother with hx hep C, bypass, lupus, father throat CA, HTN)
Allergies / Home Medications
Allergy/AdvReac Type Severity Reaction Status Date / Time
adhesive Allergy Rash, Verified 09/29/25 17:07
itching
Sulfa (Sulfonamide Allergy nausea and Verified 09/29/25 17:07
Antibiotics) vomiting
�Medication �Instructions �Recorded
atorvastatin 40 mg tablet 40 mg PO HS High cholesterol 04/25/21
cilostazol 100 mg tablet 100 mg PO BID Blood clot 04/25/21
prevention/tx
fluoxetine 20 mg capsule 20 mg PO DAILY anxiety/depression 04/05/22
gabapentin 100 mg capsule 100 mg PO TID Diabetic Neuropathy 04/05/22
cholecalciferol (vitamin D3) 50 50 mcg PO DAILY Supplement 07/19/22
mcg (2,000 unit) capsule (Vitamin
D3)
amiodarone 200 mg tablet 200 mg PO DAILY Arrhythmia 08/31/23
furosemide 80 mg tablet 80 mg PO SUMOWEFR Fluid 02/27/24
Retention/Swelling
insulin glargine 100 unit/mL (3 40 unit SC HS Diabetes 05/19/24
mL) subcutaneous pen (Lantus
Solostar U-100 Insulin)
potassium chloride 20 mEq 20 meq PO DAILY Electrolyte 05/19/24
tablet,extended release Repletion
vitamin B complex-vitamin C-folic 1 tab PO DAILY Supplement 05/19/24
acid 0.8 mg tablet (Nephro
Vitamins)
apixaban 5 mg tablet (Eliquis) 5 mg PO BID #60 tabs 07/03/24
diltiazem HCl 180 mg 180 mg PO BID #60 caps 07/03/24
capsule,extended release 24 hr
metoprolol succinate 25 mg 25 mg PO DAILY #30 tabs 07/03/24
tablet,extended release 24 hr
midodrine 2.5 mg tablet 2.5 mg PO BID #60 tabs 09/30/25
Review of Systems
-
History Source: Patient
Constitutional: Reports Weight Loss and Fatigue
EENT: Reports No Symptoms
Respiratory: Reports No Symptoms
Cardiac: Reports No Symptoms
Abdomen/GI: Reports Abdominal Pain, Nausea, Vomiting (small volume non bloody mostly dry heaves ) and Anorexia
: Reports Other (chronic HD)
Musculoskeletal: Reports No Symptoms
Skin: Reports No Symptoms
Neurological: Reports Weakness
Endocrine: Reports No Symptoms
Hematologic/Lymphatic: Reports No Symptoms
Vital Signs
Temp Pulse Resp BP Pulse Ox
99.5 F 63 21 94/68 99
10/04/25 00:35 10/04/25 00:35 10/04/25 00:35 10/04/25 00:35 10/04/25 00:35
Physical Exam
Exam
General: Well Developed, Well Nourished and No Apparent Distress
HEENT: Normocephalic and Anicteric
Respiratory: Clear
Cardiac: Regular Rhythm
GI: Soft, Non Distended and Tender (RUQ)
Musculoskeletal: No Clubbing and No Cyanosis
Skin: Warm and Dry
Neuro: Awake, Alert and AO x 3
Psych: Calm
Results
WBC 4.9 10^3/uL (4.8-10.8) 10/04/25 05:25
Hgb 12.9 g/dL (12.0-16.0) 10/04/25 05:25
Hct 37.2 % (37.0-47.0) 10/04/25 05:25
MCV 89.2 fL (81.0-99.0) 10/04/25 05:25
Plt Count 150 10^3/uL (130-400) 10/04/25 05:25
Absolute Neuts (auto) 5.0 10^3/uL (1.4-6.5) 10/03/25 18:42
Sodium 135 mmol/L (135-145) 10/04/25 05:25
Potassium 2.9 mmol/L (3.5-5.1) L 10/04/25 05:25
Chloride 97 mmol/L (98-107) L 10/04/25 05:25
Carbon Dioxide 33 mmol/L (22-30) H 10/04/25 05:25
BUN 23 mg/dl (7-17) H 10/04/25 05:25
Creatinine 4.5 mg/dL (0.6-1.0) H* 10/04/25 05:25
Calcium 10.0 mg/dl (8.4-10.2) 10/04/25 05:25
Total Bilirubin 0.8 mg/dl (0.2-1.3) 10/04/25 05:25
AST 126 U/L (14-36) H 10/04/25 05:25
ALT 131 U/L (0-35) H 10/04/25 05:25
Alkaline Phosphatase 55 U/L (38-126) 10/04/25 05:25
Lipase 214 U/L (23-300) 10/03/25 18:42
Diagnostic Image Results:
10/03/25- US abdomen limited
No gallstones or bile duct dilatation. Mild biliary sludge noted. Sonographic features suggesting mild fatty infiltration of liver.
Subtle coarse increased echotexture of the liver, in keeping with prior MRI findings of elevated liver iron concentration.
09/29/25- CT a/p with IV and oral
IMPRESSION: Mild air in the bladder. This can be seen with recent instrumentation. If there is no such history, infection should be considered. New
Mild gallbladder sludge versus numerous tiny gallstones. More pronounced on the current study.
Bilateral too small to characterize hypodense renal lesions likely benign cysts. Stable. Simple right renal cysts. Enlarged.
Diverticulosis. Stable
Small fat-containing umbilical hernia. No evidence of incarceration nor strangulation. Stable
09/29/25 CT Head W/o Iv Contrast
No acute intracranial abnormality noted.
Mild periventricular small vessel ischemic disease.
04/16/24 MR Abdomen W/o & W Contrast
Paradoxical signal again of the hepatic parenchyma on opposed phase sequence, seen with elevated liver iron concentration.
No bile duct dilatation.
09/02/23- EGD [facility] - Normal esophagus. Small hiatal hernia
- Normal stomach and duodenum
- A small amount of food (residue) in the stomach and
duodenum.
Assessment / Plan
-
Pt is a 74yo with multiple medical problems including Afib on Eliquis, PAD on Pletal, neuropathy, CAD, COPD, GERD, HTN, hyperlipidemia, NIDDM, ESRD on HD, anxiety/depression,RA, fatty liver, left renal mass, obesity, pulm HTN, sleep apnea presents
with upper abdominal pain x [address] with biliary sludge and US with no stone or duct dilation and noted with coursing echo texture with similar finding on prior MRI with elevated iron concentration and Urine with Klebsiella UTI with
Fosfomycin use. On admission noted with K 3.3, BUN 19 creat 3.8, bili 1.1, AST 148, ALT 131, Alk phos 57 lipase 214. hepatitis panel 2023 neg with hep B immunity. Pt also with hx anemia with prior Cologuard +. She was sent up for EGD/colon but
[facility] was out of network and Pt did not proceed to otherwise complete.
In review with patient She had RUQ pain. It is associated with dry heaves and nausea. She describes as dull. Pain in intermittent and worse during meal where she has difficulty taking solids. Pain in improved with fasting. She also admits
to wt loss. Her weight was 275 over 1 year ago. She took Mounjaro and Ozempic but has been off for over 1 year. She also started HD but continued to loose wt now down to 160 range. She otherwise denies odynophagia, dysphagia, GERD, diarrhea,
constipation, blood or black in stools.
recent imaging
10/03/25- US abdomen limited No gallstones or bile duct dilatation. Mild biliary sludge noted. Sonographic features suggesting mild fatty infiltration of liver.Subtle coarse increased echotexture of the liver, in keeping with prior MRI findings of
elevated liver iron concentration.
09/29/25- CT a/p with IV and oral Mild air in the bladder. This can be seen with recent instrumentation. If there is no such history, infection should be considered. New
Mild gallbladder sludge versus numerous tiny gallstones. More pronounced on the current study.Bilateral too small to characterize hypodense renal lesions likely benign cysts. Stable. Simple right renal cysts. Enlarged.
Diverticulosis. Stable Small fat-containing umbilical hernia. No evidence of incarceration nor strangulation. Stable
04/16/24 MR Abdomen W/o & W Contrast Paradoxical signal again of the hepatic parenchyma on opposed phase sequence, seen with elevated liver iron concentration.No bile duct dilatation.
09/02/23- EGD [facility] - Normal esophagus. Small hiatal hernia - Normal stomach and duodenum - A small amount of food (residue) in the stomach and duodenum.
-RUQ pain - worse post prandial
-biliary sludge per imaging
-increased transaminase -- prior hepatitis panel with hep B immunity otherwise neg
-prior MRI with concern for increased iron concentration
-Hx + Cologuard without follow up colonoscopy in 2023
-recent UTI with treatment
-wt loss
-Afib on Eliquis
- PAD on Pletal
-hypokalemia
-hx anemia with current stable hbg
other med problems:
neuropathy, CAD, COPD, GERD, HTN, hyperlipidemia, NIDDM, ESRD on HD, anxiety/depression,RA, fatty liver, left renal mass, obesity, pulm HTN, sleep apnea
PLAN:
etiology of RUQ pain related to biliary etiology, gastroparesis with hx NIDDM, ischemic process vs other-- pt also with UTI + 09/29
considering MRI with [facility]-- await renal eval for contrast- I sent message to review
if neg consider GE scan with hx DM -- will add hbgA1C
Pt will need eventual EGD/colon (overdue with hx + Cologuard)
can also consider CTA if able with renal issues to look for SMA, celiac, TREVIN patency
I sent message to office as colonoscopy in 2023 was not completed as insurance out of network-- will review with office if we can proceed OP here after Pletal (5-7 days) and Eliquis (2 day) wash out
trend LFT's
will add ferritin level with hx iron overload in liver -- will need OP hemochromatosis testing
repeat K per medial team
-
-
Thank you for consultation and allowing me to participate in the patient's care. Please call the validation consultant GI physician during the after hours with any questions or concerns.
[2025-10-04 08:25] LABS: Glucose - Point of Care 94 mg/dl (70-99)
[2025-10-04] MEDS: NOVOLOG FLEXPEN-LOW RESISTANCE SC ×3 (08:54→16:52)
[2025-10-04] MEDS: TOPROL XL 25 MG PO (08:57)
[2025-10-04] MEDS: CARDIZEM CD 180 MG PO (08:57)
[2025-10-04] MEDS: NEURONTIN 100 MG PO ×2 (08:57→21:59)
[2025-10-04] MEDS: PROTONIX 40 MG PO (08:57)
[2025-10-04] MEDS: NEPHROCAP 1 CAPSULE PO (08:57)
[2025-10-04] MEDS: VITAMIN D3 (cholecalciferol) 50 MCG PO (08:57)
[2025-10-04] MEDS: KCL 20 MEQ PO (08:57)
[2025-10-04] MEDS: LASIX 80 MG PO (08:59)
--- NOTE | 2025-10-04 09:44 | CON.GS ---
Consultation
-
Date/Time Consultation Requested: 10/03/2025 9 PM
Date/Time Consultation Performed: 10/04/2025 8 AM
Requesting Provider: Dr. robbins
Performing Provider: Dr. Sanford
Reason for Consultation: Right upper quadrant pain
Medical History
-
Chief Complaint: Right upper quadrant pain
History of Present Illness:
This is a 74-year-old female with history of A-fib on Eliquis (last dose was 1120 3:25 AM), PAD, neuropathy, CAD status post TN, COPD, GERD, diabetes (A1c is 5.9), ESRD on HD (TTS), who presents with 2 months of worsening postprandial right upper
quadrant pain to the point that she is now on a tea and toast diet with associated weight loss. She was in the hospital a few days ago and noted to have elevated LFTs, and a positive UA for which she was treated. CT at that time demonstrated
layering gallstones/sludge which was reconfirmed on ultrasound imaging when she re-presented yesterday. The patient denies Fever, Chest Pain, Shortness Of Breath, Nausea, Vomiting, changes in urinary and bowel habits, jaundice, icterus, acolic
stools. She also has some degree of gastroparesis which may be related to her diabetes and previous use of Ozempic which she has stopped.
Endoscopy: She had a upper endoscopy with Dr. Stewart for nausea and vomiting in 2022, other than a small hiatal hernia and residual food in the stomach, her endoscopy was normal.
colonoscopy: Due for colonoscopy
Past Medical History
Past Medical History: Other (See HPI)
Past Surgical History: Other (Hysterectomy, bladder surgery.)
Social History
Tobacco: Non-Smoker
Alcohol: None
Drug: None
Personal:
Living: With Family
Employment: Retired
Family History
Family History: Reviewed & Not Pertinent
Allergies / Home Medications
Allergy/AdvReac Type Severity Reaction Status Date / Time
adhesive Allergy Rash, Verified 09/29/25 17:07
itching
Sulfa (Sulfonamide Allergy nausea and Verified 09/29/25 17:07
Antibiotics) vomiting
�Medication �Instructions �Recorded �Confirmed �Type
atorvastatin 40 mg tablet 40 mg PO HS High cholesterol 04/25/21 06/30/24 History
cilostazol 100 mg tablet 100 mg PO BID Blood clot 04/25/21 06/30/24 History
prevention/tx
fluoxetine 20 mg capsule 20 mg PO DAILY anxiety/depression 04/05/22 06/30/24 History
gabapentin 100 mg capsule 100 mg PO TID Diabetic Neuropathy 04/05/22 06/30/24 History
cholecalciferol (vitamin D3) 50 50 mcg PO DAILY Supplement 07/19/22 06/30/24 History
mcg (2,000 unit) capsule (Vitamin
D3)
amiodarone 200 mg tablet 200 mg PO DAILY Arrhythmia 08/31/23 06/30/24 History
furosemide 80 mg tablet 80 mg PO SUMOWEFR Fluid 02/27/24 06/30/24 History
Retention/Swelling
insulin glargine 100 unit/mL (3 40 unit SC HS Diabetes 05/19/24 06/30/24 History
mL) subcutaneous pen (Lantus
Solostar U-100 Insulin)
potassium chloride 20 mEq 20 meq PO DAILY Electrolyte 05/19/24 06/30/24 History
tablet,extended release Repletion
vitamin B complex-vitamin C-folic 1 tab PO DAILY Supplement 05/19/24 06/30/24 History
acid 0.8 mg tablet (Nephro
Vitamins)
apixaban 5 mg tablet (Eliquis) 5 mg PO BID #60 tabs 07/03/24 Rx
diltiazem HCl 180 mg 180 mg PO BID #60 caps 07/03/24 Rx
capsule,extended release 24 hr
metoprolol succinate 25 mg 25 mg PO DAILY #30 tabs 07/03/24 Rx
tablet,extended release 24 hr
midodrine 2.5 mg tablet 2.5 mg PO BID #60 tabs 09/30/25 Rx
Review of Systems
-
All other systems: Negative unless noted
A 10 point review of systems was completed, and was negative except as per HPI.
Physical Exam
Vital Signs
Temp Pulse Resp BP Pulse Ox
98.0 F 53 18 121/60 97
10/04/25 07:47 10/04/25 07:47 10/04/25 07:47 10/04/25 07:47 10/04/25 07:47
10/03/25 10/04/25 10/05/25
06:59 06:59 06:59
Actual Weight 73.936 kg
Body Mass Index (BMI) 28.0
Lab Results
10/04/25 05:25
10/04/25 05:25
WBC 4.9 10^3/uL (4.8-10.8) 10/04/25 05:25
Hgb 12.9 g/dL (12.0-16.0) 10/04/25 05:25
Hct 37.2 % (37.0-47.0) 10/04/25 05:25
Plt Count 150 10^3/uL (130-400) 10/04/25 05:25
Abs Immat Gran (auto) 0.0 10^3/uL (0-0.05) 10/03/25 18:42
Neutrophils % 74.9 % (42.2-75.2) 10/03/25 18:42
Physical Exam
General: Well Developed
HEENT: Normocephalic
Respiratory: Non Labored Respirations
GI: Soft, Non Distended and Tender
Data Reviewed
-
CT Scan: Image Personally Visualized and interpreted, Report Reviewed by me and Discussed with Patient
Ultrasound: Image Personally Visualized and interpreted, Report Reviewed by me and Discussed with Patient
Labs: Labs Reviewed by me and Discussed with Patient
Total Time Spent with Patient (in minutes): 35
Assessment / Plan
-
This is a 74-year-old female with a history of atrial fibrillation (on Eliquis, last dose yesterday morning), PAD (on Pletal, last dose yesterday morning) who presents with persistent postprandial right upper quadrant pain, tenderness on exam in the
setting of diabetes (appears well-controlled) and renal failure (HD TTS).
Will plan for a laparoscopic cholecystectomy in the OR today.
She understands that she is at high risk for bleeding complications due to her Eliquis and Pletal but would nevertheless like to move forward with surgery and is okay with a blood transfusion if needed.
N.p.o., IV fluids, IV antibiotics, type and screen. Starting hemoglobin is 13
Discussed with hospitalist, would appreciate preop risk stratification. ECG from May shows sinus rhythm with first-degree AV block. Most recent echo is from 2023 which shows an EF of 60 to 65% with no other significant abnormalities.
Risks/Benefits/Alternatives, expected postoperative course and possible complications (bleeding, infection, injury to surrounding structures, acute/chronic pain) discussed at length. Patient wishes to proceed with surgery. All questions answered.
Consent obtained.
I spent 75 minutes in total for the care of this patient today including direct patient care and counseling, reviewing labs, imaging, coordination of care, as well as documentation.
--- NOTE | 2025-10-04 09:44 | CON.CAR ---
Addendum entered and electronically signed by Laron Mcdaniels MD 10/04/25 12:15:
I saw and evaluated the patient, and I provided the substantive portion of the medical decision making.
I reviewed and agree with the note by Ms Fairbanks and it accurately reflects our care.
I personally performed the medical decision making of the this encounter and my assessment and plan is below:
Natalia has no new symptoms concerning for ischemia, heart failure, or arrhythmia. She is limited in mobility, however, tells me she could walk a flight of stairs but would take some time.
She is likely elevated risk given her end-stage renal disease and limited mobility. However, she is not prohibitive risk. Eliquis is being held in anticipation for surgery. This should be resumed at surgeon's discretion. Otherwise, outpatient
records have been ordered and med list should be updated to reflect what she is currently taking.
We will sign off please call with questions/concerns.
Original Note:
Consultation
Consultation Request
Date/Time Consultation Requested: 10/04/25901
Date/Time Consultation Performed: 10/04/25929
Requesting Provider: Dr. Alvarado
Performing Provider: Kalpana COHEN for Dr. Mcdaniels
Reason for Consultation: AFIB, pre-op cardiac risk assessment
Medical History
-
Chief Complaint: abdominal pain
History of Present Illness:
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 Gann- I requested and received records and placed in chart) with paroxysmal AFIB on amiodarone and on low dose Eliquis (2.5 mg PO BID due to HD associated bleeding per
OP chart), HTN, DM2 on insulin, ESRD on HD, dyslipidemia, PAD on cilostazol, JOS, RA, and COPD who is here for evaluation of 2 months of right-sided abdominal pain, trouble with eating, nausea, and vomiting. Imaging revealed evidence for
gallstones/sludge. There are plans for gall bladder surgery today and we are consulted for pre-op cardiovascular risk assessment. Of note, she was recently treated for a UTI and has been seen to have elevated LFT's. She has no CP, SOB, or
palpitations. She is in no distress at the time of my assessment. She is having her med list brought in today.
Past Medical History
Past Medical History: Arrhythmias, COPD, HTN, Hypercholesterolemia, NIDDM and Renal Failure
Social History
Tobacco: Non-Smoker
Family History
Family History: Reviewed & Not Pertinent
Allergies / Home Medications
Allergy/AdvReac Type Severity Reaction Status Date / Time
adhesive Allergy Rash, Verified 09/29/25 17:07
itching
Sulfa (Sulfonamide Allergy nausea and Verified 09/29/25 17:07
Antibiotics) vomiting
�Medication �Instructions �Recorded �Confirmed �Type
atorvastatin 40 mg tablet 40 mg PO HS High cholesterol 04/25/21 06/30/24 History
cilostazol 100 mg tablet 100 mg PO BID Blood clot 04/25/21 06/30/24 History
prevention/tx
fluoxetine 20 mg capsule 20 mg PO DAILY anxiety/depression 04/05/22 06/30/24 History
gabapentin 100 mg capsule 100 mg PO TID Diabetic Neuropathy 04/05/22 06/30/24 History
amlodipine 5 mg PO daily
amiodarone 200 mg tablet 200 mg PO DAILY Arrhythmia 08/31/23 06/30/24 History
insulin glargine 100 unit/mL (3 40 unit SC HS Diabetes 05/19/24 06/30/24 History
mL) subcutaneous pen (Lantus
Solostar U-100 Insulin)
potassium chloride 20 mEq 20 meq PO DAILY Electrolyte 05/19/24 06/30/24 History
tablet,extended release Repletion
apixaban 5 mg tablet (Eliquis) 2.5 mg PO BID #60 tabs 07/03/24 Rx
midodrine 2.5 mg tablet 2.5 mg PO BID #60 tabs 09/30/25 Rx
Review of Systems
-
History Source: Patient
All other systems: Negative unless noted
Abdomen/GI: Abdominal Pain, Nausea and Vomiting
Physical Exam
Vital Signs
Temp Pulse Resp BP Pulse Ox
98.0 F 53 18 121/60 97
10/04/25 07:47 10/04/25 07:47 10/04/25 07:47 10/04/25 07:47 10/04/25 07:47
Lab Results
10/04/25 05:25
10/04/25 05:25
Physical Exam
General: Well Developed, Well Nourished and No Apparent Distress
HEENT: Normocephalic and Anicteric
Respiratory: Clear and Non Labored Respirations
Cardiac: Regular Rhythm
Musculoskeletal: No Edema
Skin: Warm and Dry
Neuro: AO x 3
Psych: Calm
Impression / Plan
-
Abdominal pain:
-GI and surgery on the case
-plan is for lap kamar today. Pre-op cardiovascular risk assessment: She denies any CP, SOB, or palpitations. Cath 2020 no CAD. Echo 2023 normal. History of AFIB, but in SR on EKG. SB is noted (see notes below). By NSQIP risk score, she is at
elevated risk for procedure (3.5% risk cardiac complication). Monitor telemetry. Suggest replacement of potassium by nephro or primary team prior to surgery. Follow telemetry. Also, important to update OP med list and make sure she is on appropriate
medications- she is bringing in her list today. Resume Eliquis when safe post-op per surgery team.
Hypokalemia:
-management per primary/nephrology
-recommend appropriate replacement prior to surgery
-QTC prolonged (in patient on amio); repeat EKG in AM when K+ improved
ESRD on HD:
-nephro on the case
PAF:
-stable in SR. On amiodarone as OP. Held here for now- suspect due to abnormal liver tests.
-Patient tells me she no longer takes diltiazem or metoprolol, which is confirmed by her cardiology OP medication list. She had junctional rhythm at her last cardiology OV 05/28/25. I stopped BB/CCB. Follow telemetry.
-per OP cardiology note, she is on low dose Eliquis 2.5 mg PO BID (due to bleeding issues with HD)- currently on hold for surgery
HTN:
-she thinks she is on amlodipine for this, and OP cardiology list supports amlodipine 5 mg PO daily. However, she is on midodrine here so will await med list she reports she is having brought in.
-BP stable
HLD:
-atorvastatin held- also suspect due to elevated LFT's
Recent UTI:
-received ABX
-management per primary
Data Reviewed
-
EKG: Tracing Personally Visualized and interpreted (SB 50 BPM 1st degree AVB)
Ultrasound: Report Reviewed by me (abdominal u/s: No gallstones or bile duct dilatation. Mild biliary sludge noted. Sonographic features suggesting mild fatty infiltration of liver. Subtle coarse increased echotexture of the liver, in keeping with
prior MRI findings of elevated liver iron concentration)
Medical Tests (Nuc Med, Echo etc): Report Reviewed by me (echo 06/30/24; LV ejection fraction is 60-65%. No regional wall motion abnormalities are seen. Normal right ventricular size and function. No significant valvular disease. )
Labs: Labs Reviewed by me
Old Records: Reviewed (Dr. Gann 05/28/25 visit)
[2025-10-04 09:46] LABS: Glycohemoglobin (HgbA1c) 5.9 % (4.0-5.9)
[2025-10-04 10:14] LABS: Ferritin 747.0 ng/ml (11.1-264.0)
--- NOTE | 2025-10-04 11:01 | W.PN.HOSP.TC ---
Today's Communication/Plan
-
see A/P
Assessment / Plan
Assessment / Plan
HPI: 74 yo F PMH RA, ESRD on HD (TTS), Afib on Eliquis, HTN, DM, HLD, CAD, COPD; p/w subacute intermittent epigastric pain for > 2 months.
She c/o unable to eat due to severe pain post prandial and occasional vomiting. She was referred to the ED by her PCP
She was here 3 days [employer], and had CT scan that suggested biliary sludge/stones but otherwise was unremarkable.
UA was suggestive of UTI, and subsequent UCX grew Klebsiella aerogenes, and pt was given a dose of fosfomycin at that ER visit
CT AP:
Mild air in the bladder. This can be seen with recent instrumentation. If there is no such history, infection should be considered. New
Mild gallbladder sludge versus numerous tiny gallstones.
Bilateral too small to characterize hypodense renal lesions likely benign cysts. Stable. Simple right renal cysts. Enlarged.
Diverticulosis. Stable
Small fat-containing umbilical hernia. No evidence of incarceration nor strangulation. Stable
Abd US:
No gallstones or bile duct dilatation. Mild biliary sludge noted. Sonographic features suggesting mild fatty infiltration of liver.
Subtle coarse increased echotexture of the liver, in keeping with prior MRI findings of elevated liver iron concentration.
A/P:
# Subacute post prandial epigastric pain
# transaminitis
# suspect acute kamar with imaging showing biliary sludge
GS consulted, recc lap kamar
appreciate Card
cont to hold [employer] Eliquis
# Hypokalemia
# Chronic hypokalemia
replete
Check mag level
# h/o Atrial arrhythmias / Persistent AF with periods of AT
# Essential Hypertension
Pending med recc
Cont [employer] amiodarone, diltiazem and Toprol XL
[employer] Eliquis on hold pre op
# ESRD on HD TuThSa
# Rt UE AVF
Renal diet
still makes urine
Renal consult
# IDDM
Decrease [employer] Lantus to 5 units while NPO ([employer] 20 units HS)
insulin SS
# Dyslipidemia
Hold atorvastatin for now
Trend LFT
Other PMH:
# RA
# L kidney mass seen on CT in 2022
# Obesity, BMI 28
# Sleep apnea
# Anxiety/depression
DVT ppx: [employer] Eliquis on hold
Full code
DW RN
DW GS
DW Card
DW at bedside
total time 51 min
Anticipated Discharge: > 48 hours
Subjective/Interval History
-
Date of Service: October 04, 2025
Objective Data
-
Labs:
Laboratory Results
10/04/25
05:25
WBC 4.9
Hgb 12.9
Hct 37.2
Plt Count 150
Sodium 135
Potassium 2.9 L
Chloride 97 L
Carbon Dioxide 33 H
BUN 23 H
Creatinine 4.5 H*
Glucose 83
Calcium 10.0
Total Bilirubin 0.8
AST 126 H
ALT 131 H
Alkaline Phosphatase 55
Vital Signs:
Vital Signs
Temp Pulse Resp BP Pulse Ox
36.7 C 53 18 121/60 97
10/04/25 07:47 10/04/25 07:47 10/04/25 07:47 10/04/25 07:47 10/04/25 07:47
Review of Systems
-
History Source: Patient
All other systems: Reviewed and negative
Abdomen/GI: Reports Abdominal Pain (chronic epigastric abd pain)
Physical Exam
-
General: Well Developed, Well Nourished, No Apparent Distress, Comfortable and Conversant
HEENT: Normocephalic and Atraumatic
Respiratory: Clear to Auscultation and Non Labored Respirations; Negative Accessory Resp Muscle Use
GI: Soft, Nontender and Nondistended
Musculoskeletal: No Clubbing, No Cyanosis and No Edema
Neuro: Awake, Alert and Oriented
Psych: Calm and Intact Judgement/Insight
Data Reviewed
-
Total Time Spent with Patient (in minutes): 42
CT Scan: Report Reviewed by me
Ultrasound: Report Reviewed by me
Labs: Labs Reviewed by me
--- NOTE | 2025-10-04 11:33 | W.CON.NEPH ---
Consultation
-
Date/Time Consultation Requested: October 03, 2025 at 11 PM
Date/Time Consultation Performed: October 04, 2025 at 11 AM
Requesting Provider: Luther Powell
Performing Provider: Dr. Madsen
Reason for Consultation: ESRD
Medical History
-
Chief Complaint: ESRD
History of Present Illness:
Ms. Syed is a 74YOF with PMH of ESRD on HD TThS at [facility] through right UE AVF on lasix, paroxismal Afib (on eliquis, Amio), CAD, DLD (on atorvastatin), DM on Insulin, HTN on Diltiazem, COPD, pHTN, gout, RA, JOS, obesity, PAD who
presents to the hospital with abdominal pain. Abdominal ultrasound revealed sludge in the gallbladder no evidence of acute cholecystitis though recurrent postprandial abdominal pain. Plan for a laparoscopic cholecystectomy
Renal consultation for end-stage renal disease management. Also found to have a potassium of 2.9.
Past Medical History
Gastroparesis secondary to Ozempic,
ESRD on HD TTHS,
orthostatic hypotension,
diabetes,
paroxysmal atrial fibrillation on Eliquis,
CAD,
hypertension,
COPD, pulmonary hypertension,
gout,
rheumatoid arthritis,
obstructive sleep apnea,
obesity,
hyperlipidemia,
peripheral arterial disease
Past Medical History: Other
Past Surgical History: Gynecological (hysterectomy), Urological (bladder lift) and Other (right UE AVF)
Social History
Tobacco: Non-Smoker
Alcohol: None
Drug: None
Family History
No kidney disease. Mother at 75, complications of hypertension and CAD with CABG. Father had hypertension.
Family History: Not Pertinent
Allergies / Home Medications
Allergy/AdvReac Type Severity Reaction Status Date / Time
adhesive Allergy Rash, Verified 09/29/25 17:07
itching
Sulfa (Sulfonamide Allergy nausea and Verified 09/29/25 17:07
Antibiotics) vomiting
�Medication �Instructions �Recorded �Confirmed �Type
atorvastatin 40 mg tablet 40 mg PO HS High cholesterol 04/25/21 06/30/24 History
cilostazol 100 mg tablet 100 mg PO BID Blood clot 04/25/21 06/30/24 History
prevention/tx
fluoxetine 20 mg capsule 20 mg PO DAILY anxiety/depression 04/05/22 06/30/24 History
gabapentin 100 mg capsule 100 mg PO TID Diabetic Neuropathy 04/05/22 06/30/24 History
cholecalciferol (vitamin D3) 50 50 mcg PO DAILY Supplement 07/19/22 06/30/24 History
mcg (2,000 unit) capsule (Vitamin
D3)
amiodarone 200 mg tablet 200 mg PO DAILY Arrhythmia 08/31/23 06/30/24 History
furosemide 80 mg tablet 80 mg PO SUMOWEFR Fluid 02/27/24 06/30/24 History
Retention/Swelling
insulin glargine 100 unit/mL (3 40 unit SC HS Diabetes 05/19/24 06/30/24 History
mL) subcutaneous pen (Lantus
Solostar U-100 Insulin)
potassium chloride 20 mEq 20 meq PO DAILY Electrolyte 05/19/24 06/30/24 History
tablet,extended release Repletion
vitamin B complex-vitamin C-folic 1 tab PO DAILY Supplement 05/19/24 06/30/24 History
acid 0.8 mg tablet (Nephro
Vitamins)
apixaban 5 mg tablet (Eliquis) 5 mg PO BID #60 tabs 07/03/24 Rx
diltiazem HCl 180 mg 180 mg PO BID #60 caps 07/03/24 Rx
capsule,extended release 24 hr
metoprolol succinate 25 mg 25 mg PO DAILY #30 tabs 07/03/24 Rx
tablet,extended release 24 hr
midodrine 2.5 mg tablet 2.5 mg PO BID #60 tabs 09/30/25 Rx
Review of Systems
-
Abdominal pain
All other systems: Negative unless noted
Physical Exam
Vital Signs
Vital Signs
Temp Pulse Resp BP Pulse Ox
98.6 F 50 18 127/57 99
10/04/25 11:18 10/04/25 11:18 10/04/25 11:18 10/04/25 11:18 10/04/25 11:18
Lab Results
WBC 4.9 10^3/uL (4.8-10.8) 10/04/25 05:25
RBC 4.17 10^6/uL (4.20-5.40) L 10/04/25 05:25
Hgb 12.9 g/dL (12.0-16.0) 10/04/25 05:25
Hct 37.2 % (37.0-47.0) 10/04/25 05:25
Plt Count 150 10^3/uL (130-400) 10/04/25 05:25
Sodium 135 mmol/L (135-145) 10/04/25 05:25
Potassium 2.9 mmol/L (3.5-5.1) L 10/04/25 05:25
Chloride 97 mmol/L (98-107) L 10/04/25 05:25
Carbon Dioxide 33 mmol/L (22-30) H 10/04/25 05:25
BUN 23 mg/dl (7-17) H 10/04/25 05:25
Creatinine 4.5 mg/dL (0.6-1.0) H* 10/04/25 05:25
eGFR 9.85 10/04/25 05:25
Glucose 83 mg/dl (70-99) 10/04/25 05:25
Calcium 10.0 mg/dl (8.4-10.2) 10/04/25 05:25
Albumin 3.4 g/dl (3.5-5.0) L 10/04/25 05:25
Physical Exam
General no acute distress
HEENT no cephalic atraumatic extraocular muscle intact no scleral icterus no JVD neck supple
lungs clear to auscultation bilateral
heart regular S1-S2 positive
abdomen tender right upper quadrant without rebound , positive guarding
extremities no edema pulses present bilateral
Neurologically nonfocal alert and oriented x 3
Skin no lesions no abrasions no petechiae
Psych normal affect no bizarre behavior
Data Reviewed
-
CT Scan: Image Personally Visualized and interpreted
Ultrasound: Image Personally Visualized and interpreted
Assessment/Plan
-
Ms. Syed is a 74YOF with PMH of ESRD on HD TThS at [facility] through right UE AVF on lasix, paroxismal Afib (on eliquis, Amio), CAD, DLD (on atorvastatin), DM on Insulin, HTN on Diltiazem, COPD, pHTN, gout, RA, JOS, obesity, PAD who
presents to the hospital with abdominal pain. Diagnosed with acute cholecystitis
Renal consultation for end-stage renal disease management. Also found to have a potassium of 2.9
Assessment:
Abdominal pain
Afib,
ESRD on HD TTS
Abdominal pain
right UE AVF
IDDM type 2 with nephropathy, neuropathy
HLD
Essential HTN
Fatty liver
RA
Hx of L kidney mass seen on CT in 2022
Obesity
pHTN
RA
Sleep apnea
GERD
Anxiety/depression
DLD
Plan:
Continue dialysis TTS
Hold Lasix in the setting of potassium of 2.9= repleted
No contraindication for contrast or gadolinium
No acute need for dialysis today
Dialysis ordered for tomorrow, 10/05
Patient has been under her listed dry weight of 80 kg and apparently outpatient doing very minimal ultrafiltration as patient is oliguric/nonoliguric
--- NOTE | 2025-10-04 11:45 | W.SUR.PREOP ---
Pre-Operative Surgical Note
-
I have examined this patient prior to the performance of the scheduled procedure.
The patient's condition is unchanged from the time of the current History and
Physical and the patient is able to undergo the scheduled procedure.
[2025-10-04] MEDS: KCL 40 MEQ PO (12:03)
[2025-10-04 12:06] LABS: Glucose - Point of Care 96 mg/dl (70-99)
--- NOTE | 2025-10-04 15:18 | CM ---
CM met with pt bedside
She resides with her spouse and two grandsons (26 and 14 y/o) in a 2SH with 3 [address] full flight to 2nd floor
Pt and spouse have custody of their grandchildren
Pt notes she requires supervision with ambulation and personal care tasks due to falls risks, she mostly utilizes a SPC through home and community
Has a WW, WC and commode and shower chair for use as needed
Has VN hx, provider known and no preferred provider,denies SNF hx
Pt currently attends [facility]pt HD at [facility] TTS 0600 chair time, spouse transports
Pt notes finances are tight but they are covering bills
PCP- Marielle Sheppard
Rx- GEOVANNI Galaviz
Pt planned for jesse galvin today
CM will follow for dc planning
Discharge Disposition- home, follow for possible VN needs post op
[facility] Fax- [phone]
[2025-10-04] MEDS: NEURONTIN PO (16:21)
[2025-10-04 16:49] LABS: Glucose - Point of Care 77 mg/dl (70-99)
--- NOTE | 2025-10-04 18:32 | W.IMMPOSTOP ---
Addendum entered and electronically signed by Barrington Sanford MD 10/04/25 18:42:
Okay to resume therapeutic anticoagulation on 10/06/2025.
Patient cleared for dialysis tomorrow.
Original Note:
Surgical Immed Post Op Note
-
Primary Surgeon: Barrington Sanford MD
Assisting Surgeon: None
Pre-op Diagnosis: Biliary colic, hemochromatosis
Post-op Diagnosis: Same
Procedure Performed:
1. Laparoscopic cholecystectomy
2. Liver biopsy
Anesthesia Type: General
Specimen / Cultures:
1. Gallbladder and contents
2. Liver biopsy
Estimated Blood Loss: 11 cc
Complications: None
Operative Findings: Fairly normal-appearing gallbladder some mild inflammation in the triangle. Critical view of safety obtained prior to a cholangiogram which demonstrated normal biliary anatomy and no distal filling defects. The liver looked
abnormal on gross inspection consistent with hemochromatosis versus fatty liver disease. A area representative sample was taken from the segment 5. Floseal was placed over the operative field to ensure hemostasis still minimal blood loss was encountered
POST OP PLAN:
Imaging: None
Labs: Routine AM
Diet: Advance to Regular as tolerated
Analgesia: Tylenol 650mg q6 Laurent, Dilaudid 0.5mg q2h PRN
Neuro/vascular checks: Per unit protocol
AC/AP: Hold Therapeutic AC, Ok for DVT PPx
Activity: Ad Rabia
Wound/Incisions/Drains: Routine
Abx: No role for further antibiotics
Dispo: RNF
--- NOTE | 2025-10-04 18:37 | OR.RPT ---
Operative Report
Operative Report
Patient Name: Natalia Syed
: 1950
Date of Operation: 10/04/2025
Preoperative Diagnosis: Biliary colic, hemochromatosis
Postoperative Diagnosis: Same
Procedure(s):
Laparoscopic Cholecystectomy with Cholangiogram
And liver biopsy
Surgeon(s):
Dr. Sanford
Drop Wirer(s):
CORA Vicente
Anesthesia: General
Estimated Blood Loss: 11 cc
Urine Output: None
Drains/Lines/Implants: None
Specimens:
1. Gallbladder and contents
HPI/Surgical Indications:
This is a 74-year-old female who presents with postprandial right upper quadrant pain over the past 2 months resulting in significant unintentional weight loss. Exam, labs and imaging are consistent with biliary colic. Her last dose of Eliquis was
confirmed to be over 24 hours ago. Risks/Benefits/Alternatives were discussed at length, and the patient consented to proceed with surgery For removal of her gallbladder as well as a liver biopsy.
Operative Findings: Fairly normal-appearing gallbladder some mild inflammation in the triangle. Critical view of safety obtained prior to a cholangiogram which demonstrated normal biliary anatomy and no distal filling defects. The liver looked
abnormal on gross inspection consistent with hemochromatosis versus fatty liver disease. A payroll representative sample was taken from the segment 5. Floseal was placed over the operative field to ensure hemostasis still minimal blood loss was encountered
Procedure Description:
The patient was brought to the Operating Room and placed in the supine position with one arm tucked. Following uneventful induction of general endotracheal anesthesia, an orogastric tube was placed. The abdomen was prepped and draped in the usual
sterile fashion. A timeout was performed confirming the procedure, consent, and that IV antibiotics were infused and sequential compression devices were confirmed to be on. The abdomen was entered using a left subcostal Veress technique which
required a single pass followed by a 5 mm right upper quadrant Optiview trocar. Pneumoperitoneum to 15 mmHg pressure was obtained without difficulty and we confirmed that no injury had occurred during our entry. The patient was positioned in
reverse Trendelenberg and rotated with the right side up slightly. Two 5 mm trocars were then placed along the right subcostal margin, followed by a 12 mm port in the epigastrium. A locking grasping forceps was placed on the fundus of the
gallbladder where it was then retracted cephalad and to the right. Using appropriate grasping instruments, the peritoneum overlying the triangle of Calot was incised and extended superiorly on both the anterior and posterior gallbladder ledezma. The
lower third of the gallbladder was dissected off the cystic plate. The cystic triangle was dissected until 2 and only 2 structures were seen entering the gallbladder, thus a critical view of safety was achieved. The cystic artery was clipped with 5
mm titanium clips and divided. The cystic duct was clipped high on the gallbladder. A ductotomy was made and a cholangiocatheter on an Burgess clamp was inserted into the cystic duct. A C-arm was draped and brought into the field. An intra-operative
cholangiogram was performed and was noted to have:
No filling defects in the biliary tree
No significant biliary dilation
Brisk flow of contrast into the duodenum
Normal biliary anatomy
The catheter was then removed and the cystic duct was controlled with a clip followed by 0 PDS Endoloop. After ensuring both the artery and duct were divided, the gallbladder was freed from the liver using electrocautery. There was some spillage
of bile from our ductotomy, but no spillage of stones. The gallbladder bed was inspected and excellent hemostasis was obtained. The gallbladder was extracted through the 12 mm trocar site using an endocatch bag without dilating the port site.
Using scissors, a payroll representative sample of segment 5 of the liver was obtained as on gross inspection it appeared abnormal consistent with fatty liver disease or hemochromatosis as seen on preoperative imaging. The abdomen was again irrigated and
excellent hemostasis was assured. Though there was minimal blood loss and no active bleeding, given her need to be on therapeutic anticoagulation Floseal was administered over the operative field particularly over the liver biopsy site. All
remaining trocars were then removed and the pneumoperitoneum was evacuated. The 12 mm trocar site was closed using 0 Maxon suture. All trocar sites were closed at the skin level using 4-0 Monocryl followed by Dermabond. Overall, the patient
tolerated the procedure well and was taken to the Recovery Room postoperatively in stable condition.
I was the attending physician and performed the procedure with assistance of the SHED WORKERS SUPERVISOR above. They were required due to the complexity of the procedure. During the procedure they assisted with port placement, gallbladder retraction, holding camera
and skin closure. I was present for all portions of the case.
Barrington Sanford MD
[2025-10-04 18:55] LABS: Glucose - Point of Care 98 mg/dl (70-99)
[2025-10-04] MEDS: SUBLIMAZE 50 MCG IV ×2 (19:03→19:14)
[2025-10-04] MEDS: ZOFRAN 4 MG IV (19:07)
[2025-10-04 21:53] LABS: Glucose - Point of Care 117 mg/dl (70-99)
[2025-10-04] MEDS: LANTUS 0.05 UNITS SC (21:59)
[2025-10-05] VITALS (8 sets, daily range): BP systolic 91–134; BP diastolic 47–60; PULSE 45–58; O2SAT 97; BMI 27.8
[2025-10-05] MEDS: DILAUDID 0.25 MG IV ×5 (00:28→22:22)
--- NOTE | 2025-10-05 02:31 | W.PN.UPDATE ---
Update Note
Progress Note Update
-Patient hit the back of her head on the metal pipe while she is trying to set on the toilet seat. Witnessed by the nursing staff.
-On assessment patient is alert and oriented x3 denies pain, blurred vision, headache, or any other symptoms. No bruises, hematoma noted during the exam. No neuro changes noted.
-Patient on Eliquis at home but currently on hold.
-Patient is refusing head CT, will start neuro check. Plan discussed with the nursing staff and to report any neuro changes.
--- NOTE | 2025-10-05 02:42 | PTCARENOTE ---
Patient assisted to bathroom with rolling walker and RN. RN assisted patient in bathroom. Patient sat down hard on toilet seat and hit back of head on metal piping behind toilet. Patient reports no pain and states 'I'm fine'. Back of pt's head
assessed-- no bump, redness, or swelling noted. NOVELTY PRINTING MACHINE OPERATOR notified. NOVELTY PRINTING MACHINE OPERATOR came to floor and evaluated patient. Patient refusing scans. Neurological checks ordered. Patient reports no pain and neurological check normal.
[2025-10-05 06:18] LABS: Hematocrit 39.3 % (37.0-47.0); Hemoglobin 13.3 g/dL (12.0-16.0); Mean Corp Hgb Conc. 33.8 g/dL (33.0-37.0); Mean Corpuscular Volume 91.4 fL (81.0-99.0); Platelet Count 156 10^3/uL (130-400); Red Cell Dist. Width 13.8 % (11.5-14.5)
[2025-10-05 07:21] LABS: Blood Urea Nitrogen 34 mg/dl (7-17); Calcium 9.9 mg/dl (8.4-10.2); Carbon Dioxide 28 mmol/L (22-30); Chloride 97 mmol/L (98-107); Estimated Creatinine Clearance 10 ml/min; Glucose 123 mg/dl (70-99); Magnesium 2.0 mg/dl (1.6-2.3); Potassium 3.7 mmol/L (3.5-5.1); Sodium 134 mmol/L (135-145); eGFR 8.28
[2025-10-05 07:31] LABS: Glucose - Point of Care 127 mg/dl (70-99)
[2025-10-05] MEDS: NOVOLOG FLEXPEN-LOW RESISTANCE SC ×2 (07:31→11:58)
[2025-10-05] MEDS: PROTONIX 40 MG PO (07:32)
[2025-10-05] MEDS: NEPHROCAP 1 CAPSULE PO (07:32)
[2025-10-05] MEDS: VITAMIN D3 (cholecalciferol) 50 MCG PO (07:33)
[2025-10-05] MEDS: KCL 20 MEQ PO (07:33)
[2025-10-05] MEDS: NEURONTIN 100 MG PO ×3 (07:33→22:08)
[2025-10-05] MEDS: WELLBUTRIN XL (24 hour extended release) 150 MG PO (07:47)
[2025-10-05] MEDS: PROZAC 20 MG PO (07:50)
--- NOTE | 2025-10-05 08:14 | W.PN.GI.CBS2 ---
Today's Communication / Plan
-
Postop care per surgery
Trend LFTs acute rise today may be related to edema postop, IOC negative
Follow-up as outpatient for endoscopy and colonoscopy and gastric emptying scan
Will sign off and will be available as needed
Assessment / Plan
-
Pt is a 74yo with multiple medical problems including Afib on Eliquis, PAD on Pletal, neuropathy, CAD, COPD, GERD, HTN, hyperlipidemia, NIDDM, ESRD on HD, anxiety/depression,RA, fatty liver, left renal mass, obesity, pulm HTN, sleep apnea presents
with upper abdominal pain x [address] with biliary sludge and US with no stone or duct dilation and noted with coursing echo texture with similar finding on prior MRI with elevated iron concentration and Urine with Klebsiella UTI with
Fosfomycin use. On admission noted with K 3.3, BUN 19 creat 3.8, bili 1.1, AST 148, ALT 131, Alk phos 57 lipase 214. hepatitis panel 2023 neg with hep B immunity. Pt also with hx anemia with prior Cologuard +. She was sent up for EGD/colon but
[facility] was out of network and Pt did not proceed to otherwise complete.
In review with patient She had RUQ pain. It is associated with dry heaves and nausea. She describes as dull. Pain in intermittent and worse during meal where she has difficulty taking solids. Pain in improved with fasting. She also admits
to wt loss. Her weight was 275 over 1 year ago. She took Mounjaro and Ozempic but has been off for over 1 year. She also started HD but continued to loose wt now down to 160 range. She otherwise denies odynophagia, dysphagia, GERD, diarrhea,
constipation, blood or black in stools.
recent imaging
10/03/25- US abdomen limited No gallstones or bile duct dilatation. Mild biliary sludge noted. Sonographic features suggesting mild fatty infiltration of liver.Subtle coarse increased echotexture of the liver, in keeping with prior MRI findings of
elevated liver iron concentration.
09/29/25- CT a/p with IV and oral Mild air in the bladder. This can be seen with recent instrumentation. If there is no such history, infection should be considered. New
Mild gallbladder sludge versus numerous tiny gallstones. More pronounced on the current study.Bilateral too small to characterize hypodense renal lesions likely benign cysts. Stable. Simple right renal cysts. Enlarged.
Diverticulosis. Stable Small fat-containing umbilical hernia. No evidence of incarceration nor strangulation. Stable
04/16/24 MR Abdomen W/o & W Contrast Paradoxical signal again of the hepatic parenchyma on opposed phase sequence, seen with elevated liver iron concentration.No bile duct dilatation.
09/02/23- EGD Ahmad - Normal esophagus. Small hiatal hernia - Normal stomach and duodenum - A small amount of food (residue) in the stomach and duodenum.
-RUQ pain - worse post prandial
-biliary sludge per imaging
-increased transaminase -- prior hepatitis panel with hep B immunity otherwise neg
-prior MRI with concern for increased iron concentration
-Hx + Cologuard without follow up colonoscopy in 2023
-recent UTI with treatment
-wt loss
-Afib on Eliquis
- PAD on Pletal
-hypokalemia
-hx anemia with current stable hbg
other med problems:
neuropathy, CAD, COPD, GERD, HTN, hyperlipidemia, NIDDM, ESRD on HD, anxiety/depression,RA, fatty liver, left renal mass, obesity, pulm HTN, sleep apnea
PLAN:
etiology of RUQ pain related to biliary etiology, gastroparesis with hx NIDDM, ischemic process vs other-- pt also with UTI + 09/29
Status post cholecystectomy 10/04/2025 with IOC, IOC negative for CBD stone
If symptoms of nausea or vomiting recur then will need gastric emptying scan as outpatient
Encouraged her to eat small frequent low-fat low and residue meals
Pt will need eventual EGD/colon (overdue with hx + Cologuard) encouraged her to follow-up as soon as possible after DC
I think symptoms less likely for mesenteric angina she was on Eliquis prior to admission which is currently on hold
She had rise in AST and ALT today if continues to rise will need an MRCP but given negative IOC yesterday will hold off
trend LFT's
elevated ferritin level will need OP hemochromatosis testing, had liver biopsy IntraOp yesterday with Dr. Ambrocio
Subjective
Subjective
Date of Service: October 05, 2025
Currently in dialysis at bedside
Tolerating diet
Abdominal pain has improved status post cholecystectomy 10/04/[address] Ambrocio
Objective
Data Reviewed
Laboratory Data:
Laboratory Results
10/05/25 05:51
10/05/25 05:51
Laboratory Results
Phosphorus 3.4 mg/dl (2.5-4.5) 10/04/25 05:25
Magnesium 2.0 mg/dl (1.6-2.3) 10/05/25 05:51
Total Bilirubin 0.8 mg/dl (0.2-1.3) 10/04/25 05:25
AST 126 U/L (14-36) H 10/04/25 05:25
ALT 131 U/L (0-35) H 10/04/25 05:25
Alkaline Phosphatase 55 U/L (38-126) 10/04/25 05:25
Lipase 214 U/L (23-300) 10/03/25 18:42
Vital Signs and I&O:
Vital Signs
Temp Pulse Resp BP Pulse Ox
97.8 F 48 16 113/51 95
10/05/25 07:43 10/05/25 07:43 10/05/25 07:43 10/05/25 07:43 10/05/25 07:43
Physical Exam
Physical Exam
Cardiology: Normal Sinus Rhythm
Pulmonary: Clear
GI: Soft, Non Distended, Non Tender (Minimal tenderness at incision site) and Normal Bowel Sounds
[2025-10-05 08:16] LABS: ALT (SGPT) 273 U/L (0-35); AST (SGOT) 517 U/L (14-36); Albumin 3.6 g/dl (3.5-5.0); Alkaline Phosphatase 90 U/L (38-126); Total Protein 6.1 g/dl (6.3-8.2)
--- NOTE | 2025-10-05 08:41 | W.PN.GS2 ---
Addendum entered and electronically signed by Barrington Sanford MD 10/06/25 07:28:
Patient to follow up with [facility] in 2-3 weeks
Addendum entered and electronically signed by Barrington Sanford MD 10/05/25 08:45:
No role for antibiotics
Okay to restart Eliquis 10/06/2025 at usual dose and time.
Original Note:
Today's Communication / Plan
-
Dispo per primary
Assessment / Plan
-
This is a 74-year-old female with postprandial right upper quadrant pain now postoperative day 1 from a laparoscopic cholecystectomy and liver biopsy for pathologic appearing liver on gross inspection. Doing well, expected postoperative course.
Patient currently undergoing dialysis
With mild rise in LFTs likely related to surgery and liver biopsy. Bilirubin remains normal.
Okay for regular diet as tolerated
Patient to follow-up with OB in 2 to 3 weeks.
Discharge instructions updated.
Cleared from a surgery perspective for discharge.
Subjective Data
-
Date of Service: October 05, 2025
Interval Events:
No acute events overnight. Witnessed head trauma appears to have no sequela of this. Slept well. Pain Controlled. Denies Nausea/Vomiting, +bowel function. Tolerating diet without postprandial pain.
Objective Data
-
Intake and Output
10/04/25 10/05/25 10/06/25
06:59 06:59 06:59
Other:
Number of approximated MODERATE 3
amounts of urine
Vital Signs
Temp Pulse Resp BP Pulse Ox
97.8 F 48 16 113/51 95
10/05/25 07:43 10/05/25 07:43 10/05/25 07:43 10/05/25 07:43 10/05/25 07:43
Lab Results
10/05/25 05:51
10/05/25 05:51
Calcium 9.9 mg/dl (8.4-10.2) 10/05/25 05:51
Phosphorus 3.4 mg/dl (2.5-4.5) 10/04/25 05:25
Magnesium 2.0 mg/dl (1.6-2.3) 10/05/25 05:51
Total Bilirubin 0.8 mg/dl (0.2-1.3) 10/05/25 05:51
Direct Bilirubin 0.5 mg/dl (0.0-0.4) H 10/05/25 05:51
AST 517 U/L (14-36) H* 10/05/25 05:51
ALT 273 U/L (0-35) H 10/05/25 05:51
Alkaline Phosphatase 90 U/L (38-126) 10/05/25 05:51
Total Protein 6.1 g/dl (6.3-8.2) L 10/05/25 05:51
Albumin 3.6 g/dl (3.5-5.0) 10/05/25 05:51
Physical Exam
-
GENERAL/NEURO: Awake, Alert, no distress
CHEST: Unlabored breathing on RA
ABDOMEN: Soft, appropriately tender, Non-Distended, incisions clean dry and intact
Patient has a nicolas catheter: No
Patient has a central line: No
--- NOTE | 2025-10-05 10:19 | W.PN.NEPH.HD ---
Assessment
-
Pt seen on HD. no complaints. VSS, access ok
Progress Note - Hemodialysis
-
Date of Service: October 05, 2025
Duration: 15 minutes and 3 hours
Potassium Bath: 4
Calcium Bath: 2.5
Opti-Dialyzer: 160
Ultrafiltration: Other (1kg)
Blood Flow: 400
Dialysate Flow: 600
Heparin: 0
EPO: 0
--- NOTE | 2025-10-05 10:58 | W.PN.HOSP.TC ---
Today's Communication/Plan
-
see A/P
Assessment / Plan
Assessment / Plan
HPI: 74 yo F PMH RA, ESRD on HD (TTS), Afib on Eliquis, HTN, DM, HLD, CAD, COPD; p/w subacute intermittent epigastric pain for > 2 months.
She c/o unable to eat due to severe pain post prandial and occasional vomiting. She was referred to the ED by her PCP
She was here 3 days CABLE INSTALLER, and had CT scan that suggested biliary sludge/stones but otherwise was unremarkable.
UA was suggestive of UTI, and subsequent UCX grew Klebsiella aerogenes, and pt was given a dose of fosfomycin at that ER visit
CT AP:
Mild air in the bladder. This can be seen with recent instrumentation. If there is no such history, infection should be considered. New
Mild gallbladder sludge versus numerous tiny gallstones.
Bilateral too small to characterize hypodense renal lesions likely benign cysts. Stable. Simple right renal cysts. Enlarged.
Diverticulosis. Stable
Small fat-containing umbilical hernia. No evidence of incarceration nor strangulation. Stable
Abd US:
No gallstones or bile duct dilatation. Mild biliary sludge noted. Sonographic features suggesting mild fatty infiltration of liver.
Subtle coarse increased echotexture of the liver, in keeping with prior MRI findings of elevated liver iron concentration.
A/P:
# Subacute post prandial epigastric pain
# transaminitis
# suspect acute cholecystitis with imaging showing biliary sludge
s/p Laparoscopic Cholecystectomy with Cholangiogram 10/04
Follow LFT, increased today could be related to edema postop, cont to trend LFT
Okay to restart Eliquis 10/06/2025 at usual dose and time per GS
# Hypokalemia
# Chronic hypokalemia
repleted
Mag WNL
# h/o Atrial arrhythmias / Persistent AF with periods of AT
# Essential Hypertension
resumed home meds
restart Eliquis 10/06/2025 at usual dose and time per GS
# ESRD on HD TuThSa
# Rt UE AVF
Renal diet
still makes urine
Renal on board for HD need
# IDDM
Adjust CABLE INSTALLER Lantus to 10 units HS (CABLE INSTALLER 40 units HS)
cover with insulin SS
# Dyslipidemia
Hold atorvastatin for now
Trend LFT
Other PMH:
# RA
# L kidney mass seen on CT in 2022
# Obesity, BMI 28
# Sleep apnea
# Anxiety/depression
DVT ppx: CABLE INSTALLER Eliquis to resume 10/06
Full code
DW RN
Anticipated Discharge: 24 - 48 hours
Subjective/Interval History
-
Date of Service: October 05, 2025
Objective Data
-
Labs:
Laboratory Results
10/05/25
05:51
WBC 7.5
Hgb 13.3
Hct 39.3
Plt Count 156
Sodium 134 L
Potassium 3.7 D
Chloride 97 L
Carbon Dioxide 28
BUN 34 H
Creatinine 5.2 H*
Glucose 123 H
Calcium 9.9
Total Bilirubin 0.8
AST 517 H*
ALT 273 H
Alkaline Phosphatase 90
Vital Signs:
Vital Signs
Temp Pulse Resp BP Pulse Ox
36.6 C 48 16 113/51 95
10/05/25 07:43 10/05/25 07:43 10/05/25 07:43 10/05/25 07:43 10/05/25 07:43
Review of Systems
-
History Source: Patient
All other systems: Reviewed and negative
Abdomen/GI: Reports Abdominal Pain (mild)
Physical Exam
-
General: Well Developed, Well Nourished, No Apparent Distress, Comfortable and Conversant
HEENT: Normocephalic and Atraumatic
Respiratory: Clear to Auscultation and Non Labored Respirations; Negative Accessory Resp Muscle Use
GI: Soft, Nontender and Nondistended
Musculoskeletal: No Clubbing, No Cyanosis and No Edema
Neuro: Awake, Alert and Oriented
Psych: Calm and Intact Judgement/Insight
Data Reviewed
-
Total Time Spent with Patient (in minutes): 42
CT Scan: Report Reviewed by me
Ultrasound: Report Reviewed by me
Labs: Labs Reviewed by me
[2025-10-05 11:54] LABS: Glucose - Point of Care 97 mg/dl (70-99)
[2025-10-05 16:21] LABS: Glucose - Point of Care 258 mg/dl (70-99)
[2025-10-05] MEDS: NOVOLOG FLEXPEN-LOW RESISTANCE 3 UNITS SC (16:21)
[2025-10-05 16:59] LABS: Glucose - Point of Care 120 mg/dl (70-99)
[2025-10-05 21:45] LABS: Glucose - Point of Care 138 mg/dl (70-99)
[2025-10-05] MEDS: LIPITOR 40 MG PO (22:08)
[2025-10-05] MEDS: LANTUS 0.1 UNITS SC (22:08)
[2025-10-06] VITALS (7 sets, daily range): BP systolic 100–126; BP diastolic 46–62; PULSE 45; O2SAT 95; BMI 28.4
[2025-10-06 07:39] LABS: Hematocrit 36.0 % (37.0-47.0); Hemoglobin 12.3 g/dL (12.0-16.0); Mean Corp Hgb Conc. 34.2 g/dL (33.0-37.0); Mean Corpuscular Volume 92.1 fL (81.0-99.0); Platelet Count 142 10^3/uL (130-400); Red Cell Dist. Width 14.3 % (11.5-14.5)
[2025-10-06 08:07] LABS: ALT (SGPT) 278 U/L (0-35); AST (SGOT) 325 U/L (14-36); Albumin 3.2 g/dl (3.5-5.0); Alkaline Phosphatase 84 U/L (38-126); Blood Urea Nitrogen 26 mg/dl (7-17); Calcium 9.9 mg/dl (8.4-10.2); Carbon Dioxide 32 mmol/L (22-30); Chloride 99 mmol/L (98-107); Estimated Creatinine Clearance 11 ml/min; Glucose 102 mg/dl (70-99); Magnesium 2.1 mg/dl (1.6-2.3); Potassium 3.8 mmol/L (3.5-5.1); Sodium 135 mmol/L (135-145); Total Protein 5.6 g/dl (6.3-8.2); eGFR 10.12
[2025-10-06 08:42] LABS: Glucose - Point of Care 100 mg/dl (70-99)
[2025-10-06] MEDS: NOVOLOG FLEXPEN-LOW RESISTANCE SC ×2 (08:59→18:02)
[2025-10-06] MEDS: PROZAC 20 MG PO (09:01)
[2025-10-06] MEDS: PROTONIX 40 MG PO (09:03)
[2025-10-06] MEDS: ELIQUIS 2.5 MG PO ×2 (09:03→20:19)
[2025-10-06] MEDS: NEURONTIN 100 MG PO ×3 (09:03→22:36)
[2025-10-06] MEDS: VITAMIN D3 (cholecalciferol) 50 MCG PO (09:03)
[2025-10-06] MEDS: WELLBUTRIN XL (24 hour extended release) 150 MG PO (09:03)
[2025-10-06] MEDS: NEPHROCAP 1 CAPSULE PO (09:03)
[2025-10-06] MEDS: KCL 20 MEQ PO (09:03)
[2025-10-06] MEDS: ROXICODONE 5 MG PO ×3 (09:27→22:39)
--- NOTE | 2025-10-06 10:42 | W.PN.GS2 ---
Today's Communication / Plan
-
Dispo planning
Assessment / Plan
-
This is a 74-year-old female with postprandial right upper quadrant pain now postoperative day 2 from a laparoscopic cholecystectomy and liver biopsy for pathologic appearing liver on gross inspection. Doing well, expected postoperative course.
LFTs appear to be plateauing, expected to downtrend over time. Bilirubin remains normal. Follow-up biopsy results
Okay for regular diet as tolerated
Patient to follow-up with me in 2 to 3 weeks.
Okay to resume anticoagulation
Discharge instructions updated.
General surgery will sign off for now, please call with any questions or concerns.
Dispo per primary, no need for antibiotics on discharge.
Time Spent
Total Time Spent with Patient (in minutes): 20
Subjective Data
-
Date of Service: October 06, 2025
Interval Events:
No acute events overnight. Asymptomatic bradycardia. Slept well. Pain Controlled. Denies Nausea/Vomiting, +bowel function. Tolerating diet.
Objective Data
-
Intake and Output
10/05/25 10/06/25 10/07/25
06:59 06:59 06:59
Intake Total 1550 / 1550
Balance 1550 / 1550
Intake:
Oral fluids 1550 / 1550
Other:
Number of approximated MODERATE 3 3
amounts of urine
Vital Signs
Temp Pulse Resp BP Pulse Ox
98.3 F 40 20 126/49 96
10/06/25 07:00 10/06/25 09:11 10/06/25 07:00 10/06/25 09:11 10/06/25 07:00
Lab Results
10/06/25 07:03
10/06/25 07:03
Calcium 9.9 mg/dl (8.4-10.2) 10/06/25 07:03
Phosphorus 3.4 mg/dl (2.5-4.5) 10/04/25 05:25
Magnesium 2.1 mg/dl (1.6-2.3) 10/06/25 07:03
Total Bilirubin 0.6 mg/dl (0.2-1.3) 10/06/25 07:03
Direct Bilirubin 0.2 mg/dl (0.0-0.4) 10/06/25 07:03
AST 325 U/L (14-36) H 10/06/25 07:03
ALT 278 U/L (0-35) H 10/06/25 07:03
Alkaline Phosphatase 84 U/L (38-126) 10/06/25 07:03
Total Protein 5.6 g/dl (6.3-8.2) L 10/06/25 07:03
Albumin 3.2 g/dl (3.5-5.0) L 10/06/25 07:03
Physical Exam
-
GENERAL/NEURO: Awake, Alert, no distress
CHEST: Unlabored breathing on RA
ABDOMEN: Soft, Non-Tender, Non-Distended, incisions clean dry and intact.
Patient has a nicolas catheter: No
Patient has a central line: No
--- NOTE | 2025-10-06 10:58 | W.PN.HOSP.TC ---
Today's Communication/Plan
-
see A/P
Assessment / Plan
Assessment / Plan
HPI: 74 yo F PMH RA, ESRD on HD (TTS), Afib on Eliquis, HTN, DM, HLD, CAD, COPD; p/w subacute intermittent epigastric pain for > 2 months.
She c/o unable to eat due to severe pain post prandial and occasional vomiting. She was referred to the ED by her PCP
She was here 3 days STRADDLE BUGGY OPERATOR, and had CT scan that suggested biliary sludge/stones but otherwise was unremarkable.
UA was suggestive of UTI, and subsequent UCX grew Klebsiella aerogenes, and pt was given a dose of fosfomycin at that ER visit
CT AP:
Mild air in the bladder. This can be seen with recent instrumentation. If there is no such history, infection should be considered. New
Mild gallbladder sludge versus numerous tiny gallstones.
Bilateral too small to characterize hypodense renal lesions likely benign cysts. Stable. Simple right renal cysts. Enlarged.
Diverticulosis. Stable
Small fat-containing umbilical hernia. No evidence of incarceration nor strangulation. Stable
Abd US:
No gallstones or bile duct dilatation. Mild biliary sludge noted. Sonographic features suggesting mild fatty infiltration of liver.
Subtle coarse increased echotexture of the liver, in keeping with prior MRI findings of elevated liver iron concentration.
A/P:
# Subacute post prandial epigastric pain
# transaminitis, improving
# suspect acute cholecystitis with imaging showing biliary sludge
s/p Laparoscopic Cholecystectomy with Cholangiogram 10/04
Follow LFT, was increased could be related to edema postop, cont to trend LFT, now improving
restarted Eliquis 10/06/2025
pain control with oxycodone (avoid Tylenol for now in setting of
# Hypokalemia
# Chronic hypokalemia
repleted
Mag WNL
# h/o Atrial arrhythmias / Persistent AF with periods of AT
# Essential Hypertension
resumed home meds
restart Eliquis 10/06/2025 at usual dose and time per GS
Noted bradycardia in the 40's, reconsulted card to address amiodarone
# ESRD on HD TuThSa
# Rt UE AVF
Renal diet
still makes urine
Renal on board for HD need
# IDDM
Cont STRADDLE BUGGY OPERATOR Lantus at 10 units HS (STRADDLE BUGGY OPERATOR 40 units HS)
cover with insulin SS
# Dyslipidemia
Hold atorvastatin for now
Trend LFT
Other PMH:
# RA
# L kidney mass seen on CT in 2022
# Obesity, BMI 28
# Sleep apnea
# Anxiety/depression
DVT ppx: STRADDLE BUGGY OPERATOR Eliquis to resume 10/06
Full code
DW RN
DW CM
Anticipated Discharge: Within 24 hours
Subjective/Interval History
-
Date of Service: October 06, 2025
Objective Data
-
Labs:
Laboratory Results
10/06/25
07:03
WBC 8.0
Hgb 12.3
Hct 36.0 L
Plt Count 142
Sodium 135
Potassium 3.8
Chloride 99
Carbon Dioxide 32 H
BUN 26 H
Creatinine 4.4 H*
Glucose 102 H
Calcium 9.9
Total Bilirubin 0.6
AST 325 H
ALT 278 H
Alkaline Phosphatase 84
Vital Signs:
Vital Signs
Temp Pulse Resp BP Pulse Ox
36.8 C 40 20 126/49 96
10/06/25 07:00 10/06/25 09:11 10/06/25 07:00 10/06/25 09:11 10/06/25 07:00
I&O
10/05/25 10/06/25 10/07/25
06:59 06:59 06:59
Intake Total 1550 / 1550
Balance 1550 / 1550
Review of Systems
-
History Source: Patient
All other systems: Reviewed and negative
Abdomen/GI: Reports Abdominal Pain (mild)
Physical Exam
-
General: Well Developed, Well Nourished, No Apparent Distress, Comfortable and Conversant
HEENT: Normocephalic and Atraumatic
Respiratory: Clear to Auscultation and Non Labored Respirations; Negative Accessory Resp Muscle Use
GI: Soft, Nontender and Nondistended
Musculoskeletal: No Clubbing, No Cyanosis and No Edema
Neuro: Awake, Alert and Oriented
Psych: Calm and Intact Judgement/Insight
Data Reviewed
-
Total Time Spent with Patient (in minutes): 42
CT Scan: Report Reviewed by me
Ultrasound: Report Reviewed by me
Labs: Labs Reviewed by me
--- NOTE | 2025-10-06 11:07 | W.PN.CD ---
Addendum entered and electronically signed by Ceferino Espinal MD 10/06/25 16:59:
I reviewed and agree with the note by VICKI and it accurately reflects our care.
I saw and evaluated the patient, and I provided the substantive portion of the medical decision making. My assessment and plan is below:
74-year-old female with paroxysmal atrial fibrillation on amiodarone and low-dose Eliquis who presented with cholecystitis and underwent cholecystectomy and liver biopsy. Cardiology is consulted for sinus bradycardia. Beta-blockers and calcium
channel blockers have been stopped. Despite this she has heart rate in the 40s and sometimes 30s. Telemetry reveals sinus bradycardia with no long pauses. She complains of lightheadedness/dizziness but this has been ongoing for 2 years.
Physical exam: Bradycardic, no murmur/rub/gallops
Sinus bradycardia: Asymptomatic. No role for pacemaker at this time. Stop amiodarone. She will need to follow-up with her outpatient it service technician to figure out A-fib plan going forward. May ultimately need PPM.
Addendum entered and electronically signed by VICKI Angulo 10/06/25 12:14:
also added on TSH
Original Note:
Today's Communication / Plan
-
-would stop amiodarone at this time with bradycardia, elevated LFT's, but she will need to follow closely with OP it service technician since hx AFIB with RVR per chart. There was consideration for ablation in the past. She is not symptomatic with
bradycardia. Eliquis has been resumed.
-repeating EKG now that K+ is replaced- see below
Impression / Plan
-
Abdominal pain:
-GI and surgery on the case
-now s/p laparoscopic cholecystectomy with cholangiogram and liver biopsy 10/04/25, Dr. Sanford
-post-op pain management per surgery team
Hypokalemia:
-replaced and resolved
-QTC prolonged on initial EKG (in patient on amio); repeat EKG now with K+ normalized
ESRD on HD:
-nephro on the case
PAF:
-stable in SR. On amiodarone as OP. Held here for now- suspect due to abnormal liver tests. Was going to be started today, but HR was noted to be slow, as low as 39 BPM on monitor. Currently in 40's. All sinus. She denies any
light-headedness/dizziness. OP notes reviewed and she has history of AFIB with RVR with CV. There was discussion for ablation, but she did not have that done. She needs to remain off amiodarone at this time with HR as low as it is. Additionally, she
has elevated LFT's that are being looked into. No long pauses or advanced HB.
-She had accelerated junctional rhythm at her last cardiology OV 05/28/25 in 60's. She did receive a dose of BB/CCB two days ago, but stopped when med rec was done. Follow telemetry.
-per OP cardiology note, she is on low dose Eliquis 2.5 mg PO BID (due to bleeding issues with HD)- now resumed post-op
HTN:
-BP stable
-on amlodipine as OP
HLD:
-atorvastatin has been held with LFT's, but primary team now resumed it
Recent UTI:
-received ABX
-management per primary
Elevated LFT's:
-w/u and management per primary/GI
Physical Exam
Vital Signs/Labs
Vital Signs
Temp Pulse Resp BP Pulse Ox
98.3 F 40 20 126/49 96
10/06/25 07:00 10/06/25 09:11 10/06/25 07:00 10/06/25 09:11 10/06/25 07:00
10/05/25 10/06/25 10/07/25
06:59 06:59 06:59
Actual Weight 162 lb 2 oz 165 lb 7 oz
10/06/25 07:03
10/06/25 07:03
Magnesium 2.1 mg/dl (1.6-2.3) 10/06/25 07:03
Physical Exam
Constitutional: No acute distress
EENT: Anicteric
Cardiovascular: Rhythm & rate is regular (bradycardia)
Respiratory: Respiratory effort normal and Lungs clear to auscul.
Neuro/Psych: AO x 3
Data Reviewed
-
Date of Service: October 06, 2025
EKG: Ordered by me and Other (SB on telemetry)
Labs: Labs Reviewed by me
Old Records: Reviewed (primary it service technician)
--- NOTE | 2025-10-06 11:45 | W.PN.NEPH.PH ---
Today's Communication / Plan
-
Next dialysis will be planned for Saturday
Assessment/Plan
-
Ms. Syed is a 74YOF with PMH of ESRD on HD TThS at [facility] through right UE AVF on lasix, paroxismal Afib (on eliquis, Amio), CAD, DLD (on atorvastatin), DM on Insulin, HTN on Diltiazem, COPD, pHTN, gout, RA, JOS, obesity, PAD who
presents to the hospital with abdominal pain. Diagnosed with acute cholecystitis
Renal consultation for end-stage renal disease management. Also found to have a potassium of 2.9
Assessment:
Abdominal pain
Afib,
ESRD on HD TTS
Abdominal pain
right UE AVF
IDDM type 2 with nephropathy, neuropathy
HLD
Essential HTN
Fatty liver
RA
Hx of L kidney mass seen on CT in 2022
Obesity
pHTN
RA
Sleep apnea
GERD
Anxiety/depression
DLD
Plan:
Continue dialysis TTS
No contraindication for contrast or gadolinium
No acute need for dialysis today
Next dialysis will be on Saturday as holiday schedule will alter typical TTS schedule
Patient has been under her listed dry weight of 80 kg and apparently outpatient doing very minimal ultrafiltration as patient is oliguric/nonoliguric
-
-
Date of Service: October 06, 2025
CC / HPI / ROS
-
Chief Complaint:
ESRD
History of Present Illness:
ESRD Saturday
Hemodynamically stable
Notedly bradycardic
Review of Systems:
Subjectively non oliguric
no fevers
weights up
Labs
-
Labs:
WBC 8.0 10^3/uL (4.8-10.8) 10/06/25 07:03
RBC 3.91 10^6/uL (4.20-5.40) L 10/06/25 07:03
Hgb 12.3 g/dL (12.0-16.0) 10/06/25 07:03
Hct 36.0 % (37.0-47.0) L 10/06/25 07:03
Plt Count 142 10^3/uL (130-400) 10/06/25 07:03
Sodium 135 mmol/L (135-145) 10/06/25 07:03
Potassium 3.8 mmol/L (3.5-5.1) 10/06/25 07:03
Chloride 99 mmol/L (98-107) 10/06/25 07:03
Carbon Dioxide 32 mmol/L (22-30) H 10/06/25 07:03
BUN 26 mg/dl (7-17) H 10/06/25 07:03
Creatinine 4.4 mg/dL (0.6-1.0) H* 10/06/25 07:03
eGFR 10.12 10/06/25 07:03
Glucose 102 mg/dl (70-99) H 10/06/25 07:03
Calcium 9.9 mg/dl (8.4-10.2) 10/06/25 07:03
Phosphorus 3.4 mg/dl (2.5-4.5) 10/04/25 05:25
Albumin 3.2 g/dl (3.5-5.0) L 10/06/25 07:03
Physical Exam
-
Vital Signs:
Vital Signs
Temp Pulse Resp BP Pulse Ox
98.3 F 40 20 126/49 96
10/06/25 07:00 10/06/25 09:11 10/06/25 07:00 10/06/25 09:11 10/06/25 07:00
Cardiovascular:: Regular rate and rhythm (Bradycardic)
Respiratory:: Bilateral: CTA
Lung Excursion:: Normal
Abdomen:: Nontender and Soft
Bowel Sounds:: Normal
Extremity Edema:: None: Bilateral:
Other Findings::
AV fistula
[2025-10-06 12:29] LABS: Glucose - Point of Care 204 mg/dl (70-99)
--- NOTE | 2025-10-06 12:33 | CM ---
CM reviewed pt with attending
Watching LFTs, possible dc tomorrow
VN recs by therapy- bedside meeting with pt to revuew planning
Referral made to [facility] via [facility] per pt request
If dc tomorrow, her spouse will transport home
IMM verbally reviewed, copy provided
VN order requested
Will need flowsheets faxed to [facility] on dc
Discharge Disposition- [facility] with [facility] (referral pending), spouse transport
[facility] Fax- [phone]
[2025-10-06] MEDS: NOVOLOG FLEXPEN-LOW RESISTANCE 2 UNITS SC (12:59)
[2025-10-06 16:45] LABS: Glucose - Point of Care 86 mg/dl (70-99)
--- NOTE | 2025-10-06 17:47 | PTCARENOTE ---
Patient reporting double vision; new as of today. notified and obtained order for head CT.
[2025-10-06] MEDS: DILAUDID 0.25 MG IV (20:23)
[2025-10-06] MEDS: LIPITOR 40 MG PO (22:36)
[2025-10-06] MEDS: LANTUS 0.1 UNITS SC (22:38)
[2025-10-06 22:43] LABS: Glucose - Point of Care 112 mg/dl (70-99)
[2025-10-07] VITALS (7 sets, daily range): BP systolic 102–151; BP diastolic 43–59; BMI 29.1
[2025-10-07 06:37] LABS: Hematocrit 35.0 % (37.0-47.0); Hemoglobin 11.8 g/dL (12.0-16.0); Mean Corp Hgb Conc. 33.7 g/dL (33.0-37.0); Mean Corpuscular Volume 91.9 fL (81.0-99.0); Platelet Count 120 10^3/uL (130-400); Red Cell Dist. Width 14.1 % (11.5-14.5)
[2025-10-07 07:02] LABS: ALT (SGPT) 220 U/L (0-35); AST (SGOT) 178 U/L (14-36); Albumin 3.1 g/dl (3.5-5.0); Alkaline Phosphatase 76 U/L (38-126); Blood Urea Nitrogen 36 mg/dl (7-17); Calcium 9.8 mg/dl (8.4-10.2); Carbon Dioxide 31 mmol/L (22-30); Chloride 98 mmol/L (98-107); Estimated Creatinine Clearance 10 ml/min; Glucose 89 mg/dl (70-99); Magnesium 2.0 mg/dl (1.6-2.3); Potassium 3.6 mmol/L (3.5-5.1); Sodium 133 mmol/L (135-145); Total Protein 5.7 g/dl (6.3-8.2); eGFR 8.28
[2025-10-07 08:15] LABS: Glucose - Point of Care 88 mg/dl (70-99)
[2025-10-07] MEDS: ELIQUIS 2.5 MG PO ×2 (08:17→19:42)
[2025-10-07] MEDS: NEURONTIN 100 MG PO ×3 (08:17→22:26)
[2025-10-07] MEDS: NOVOLOG FLEXPEN-LOW RESISTANCE SC ×3 (08:17→17:24)
[2025-10-07] MEDS: NEPHROCAP 1 CAPSULE PO (08:17)
[2025-10-07] MEDS: KCL 20 MEQ PO (08:17)
[2025-10-07] MEDS: VITAMIN D3 (cholecalciferol) 50 MCG PO (08:17)
[2025-10-07] MEDS: PROZAC 20 MG PO (08:18)
[2025-10-07] MEDS: WELLBUTRIN XL (24 hour extended release) 150 MG PO (08:18)
[2025-10-07] MEDS: ROXICODONE 5 MG PO ×3 (08:18→22:28)
[2025-10-07] MEDS: PROTONIX 40 MG PO (08:18)
--- NOTE | 2025-10-07 08:23 | W.PN.NEPH.PH ---
Today's Communication / Plan
-
HD tomorrow
Assessment/Plan
-
Ms. Syed is a 74YOF with PMH of ESRD on HD TThS at [facility] through right UE AVF on lasix, paroxismal Afib (on eliquis, Amio), CAD, DLD (on atorvastatin), DM on Insulin, HTN on Diltiazem, COPD, pHTN, gout, RA, JOS, obesity, PAD who
presents to the hospital with abdominal pain. Diagnosed with acute cholecystitis
Renal consultation for end-stage renal disease management. Also found to have a potassium of 2.9
Assessment:
Abdominal pain
Afib,
ESRD on HD TTS
Abdominal pain
right UE AVF
IDDM type 2 with nephropathy, neuropathy
HLD
Essential HTN
Fatty liver
RA
Hx of L kidney mass seen on CT in 2022
Obesity
pHTN
RA
Sleep apnea
GERD
Anxiety/depression
DLD
Plan:
Continue dialysis TTS, but HD tomorrow for holiday schedule
Patient has been under her listed dry weight of 80 kg and apparently outpatient doing very minimal ultrafiltration as patient is oliguric/nonoliguric
-
-
Date of Service: October 07, 2025
CC / HPI / ROS
-
Chief Complaint:
ESRD
History of Present Illness:
ESRD Saturday
Hemodynamically stable
Notedly bradycardic
Review of Systems:
Subjectively non oliguric
no fevers
Labs
-
Labs:
WBC 6.5 10^3/uL (4.8-10.8) 10/07/25 06:12
RBC 3.81 10^6/uL (4.20-5.40) L 10/07/25 06:12
Hgb 11.8 g/dL (12.0-16.0) L 10/07/25 06:12
Hct 35.0 % (37.0-47.0) L 10/07/25 06:12
Plt Count 120 10^3/uL (130-400) L 10/07/25 06:12
Sodium 133 mmol/L (135-145) L 10/07/25 06:12
Potassium 3.6 mmol/L (3.5-5.1) 10/07/25 06:12
Chloride 98 mmol/L (98-107) 10/07/25 06:12
Carbon Dioxide 31 mmol/L (22-30) H 10/07/25 06:12
BUN 36 mg/dl (7-17) H 10/07/25 06:12
Creatinine 5.2 mg/dL (0.6-1.0) H* 10/07/25 06:12
eGFR 8.28 10/07/25 06:12
Glucose 89 mg/dl (70-99) 10/07/25 06:12
Calcium 9.8 mg/dl (8.4-10.2) 10/07/25 06:12
Phosphorus 3.4 mg/dl (2.5-4.5) 10/04/25 05:25
Albumin 3.1 g/dl (3.5-5.0) L 10/07/25 06:12
Physical Exam
-
Vital Signs:
Vital Signs
Temp Pulse Resp BP Pulse Ox
98.0 F 53 18 118/58 94
10/07/25 03:29 10/07/25 03:29 10/07/25 03:29 10/07/25 03:29 10/07/25 03:29
Cardiovascular:: Regular rate and rhythm
Respiratory:: Bilateral: Coarse
Lung Excursion:: Normal
Abdomen:: Nontender and Soft
Bowel Sounds:: Normal
Extremity Edema:: None: Bilateral:
--- NOTE | 2025-10-07 10:52 | W.PN.UPDATE ---
Update Note
Progress Note Update
Reviewed telemetry. Bradycardia seems to be slowly improving. Heart rates more in the 40s to low 50s now as opposed to 30s to 40s yesterday. Her symptoms are longstanding so I doubt related to acute bradycardia. Continue to hold amiodarone and
AV evita blocking agents.
We will follow along peripherally. Please call with questions.
--- NOTE | 2025-10-07 12:31 | W.PN.HOSP.TC ---
Today's Communication/Plan
-
see AP
Assessment / Plan
Assessment / Plan
HPI: 74 yo F PMH RA, ESRD on HD (TTS), Afib on Eliquis, HTN, DM, HLD, CAD, COPD; p/w subacute intermittent epigastric pain for > 2 months.
She c/o unable to eat due to severe pain post prandial and occasional vomiting. She was referred to the ED by her PCP
She was here 3 days FORESTRY TECHNICIAN, and had CT scan that suggested biliary sludge/stones but otherwise was unremarkable.
UA was suggestive of UTI, and subsequent UCX grew Klebsiella aerogenes, and pt was given a dose of fosfomycin at that ER visit
CT AP:
Mild air in the bladder. This can be seen with recent instrumentation. If there is no such history, infection should be considered. New
Mild gallbladder sludge versus numerous tiny gallstones.
Bilateral too small to characterize hypodense renal lesions likely benign cysts. Stable. Simple right renal cysts. Enlarged.
Diverticulosis. Stable
Small fat-containing umbilical hernia. No evidence of incarceration nor strangulation. Stable
Abd US:
No gallstones or bile duct dilatation. Mild biliary sludge noted. Sonographic features suggesting mild fatty infiltration of liver.
Subtle coarse increased echotexture of the liver, in keeping with prior MRI findings of elevated liver iron concentration.
A/P:
# Subacute post prandial epigastric pain
# transaminitis, improving
# suspect acute cholecystitis with imaging showing biliary sludge
s/p Laparoscopic Cholecystectomy with Cholangiogram 10/04
Follow LFT, was increased could be related to edema postop, now trending down
restarted Eliquis 10/06/2025
pain control with oxycodone (avoid Tylenol for now in setting of
# Hypokalemia
repleted
Mag WNL
# h/o Atrial arrhythmias / Persistent AF with periods of AT
# Essential Hypertension
# Now bradycardia
restarted Eliquis 10/06/2025
Amiodarone stopped due to bradycardia with HR in the 40's
# Non-specific neurologic symptoms of dizziness, per patient dizziness has been intermittent, ?symptomatic bradycardia
# new double vision that started 10/06
CT head 10/06 unrevealing
Check MRI brain
# ESRD on HD TuThSa
# Rt UE AVF
Renal diet
still makes urine
Renal on board for HD need
# IDDM
Cont FORESTRY TECHNICIAN Lantus at 10 units HS (FORESTRY TECHNICIAN 40 units HS)
cover with insulin SS
# Dyslipidemia
Hold atorvastatin for now
Trend LFT, improving
Other PMH:
# RA
# L kidney mass seen on CT in 2022
# Obesity, BMI 28
# Sleep apnea
# Anxiety/depression
DVT ppx: FORESTRY TECHNICIAN Eliquis to resume 10/06
Full code
Anticipated Discharge: 24 - 48 hours
Subjective/Interval History
-
Date of Service: October 07, 2025
Objective Data
-
Labs:
Laboratory Results
10/07/25
06:12
WBC 6.5
Hgb 11.8 L
Hct 35.0 L
Plt Count 120 L
Sodium 133 L
Potassium 3.6
Chloride 98
Carbon Dioxide 31 H
BUN 36 H
Creatinine 5.2 H*
Glucose 89
Calcium 9.8
Total Bilirubin 0.7
AST 178 H
ALT 220 H
Alkaline Phosphatase 76
Vital Signs:
Vital Signs
Temp Pulse Resp BP Pulse Ox
36.8 C 52 20 105/43 93
10/07/25 07:00 10/07/25 07:00 10/07/25 07:00 10/07/25 07:00 10/07/25 07:00
I&O
10/06/25 10/07/25 10/08/25
06:59 06:59 06:59
Intake Total 1550 / 1550 1800 / 1800
Balance 1550 / 1550 1800 / 1800
[2025-10-07 12:35] LABS: Glucose - Point of Care 95 mg/dl (70-99)
[2025-10-07 17:18] LABS: Glucose - Point of Care 97 mg/dl (70-99)
[2025-10-07 22:16] LABS: Glucose - Point of Care 115 mg/dl (70-99)
[2025-10-07] MEDS: LIPITOR 40 MG PO (22:27)
[2025-10-07] MEDS: LANTUS 0.1 UNITS SC (22:27)
[2025-10-08 03:11] VITALS: BP 121/45
[2025-10-08 06:00] VITALS: BMI 29.3
[2025-10-08 06:50] LABS: Hematocrit 32.9 % (37.0-47.0); Hemoglobin 11.0 g/dL (12.0-16.0); Mean Corp Hgb Conc. 33.4 g/dL (33.0-37.0); Mean Corpuscular Volume 92.9 fL (81.0-99.0); Platelet Count 104 10^3/uL (130-400); Red Cell Dist. Width 13.8 % (11.5-14.5)
[2025-10-08 07:00] VITALS: BP 114/54
[2025-10-08 07:42] LABS: ALT (SGPT) 178 U/L (0-35); AST (SGOT) 133 U/L (14-36); Albumin 2.9 g/dl (3.5-5.0); Alkaline Phosphatase 63 U/L (38-126); Blood Urea Nitrogen 39 mg/dl (7-17); Calcium 9.5 mg/dl (8.4-10.2); Carbon Dioxide 30 mmol/L (22-30); Chloride 99 mmol/L (98-107); Estimated Creatinine Clearance 11 ml/min; Glucose 103 mg/dl (70-99); Magnesium 1.9 mg/dl (1.6-2.3); Potassium 3.7 mmol/L (3.5-5.1); Sodium 132 mmol/L (135-145); Total Protein 5.4 g/dl (6.3-8.2); eGFR 9.35
[2025-10-08 07:46] LABS: Glucose - Point of Care 86 mg/dl (70-99)
[2025-10-08] MEDS: FLEXBUMIN 25% FOR HEMODIALYSIS 12.5 GRAMS IV ×2 (08:20→09:42)
[2025-10-08] MEDS: MANNITOL 25% 12.5 GRAMS IV ×2 (08:25→09:40)
[2025-10-08] MEDS: NOVOLOG FLEXPEN-LOW RESISTANCE SC ×2 (09:10→12:34)
--- NOTE | 2025-10-08 10:09 | W.PN.NEPH.HD ---
Assessment
-
Pt seen on HD. no complaints. VSS, access ok
still with double vision. no field losses, for MRI
Progress Note - Hemodialysis
-
Date of Service: October 08, 2025
Duration: 15 minutes and 3 hours
Potassium Bath: 4
Calcium Bath: 2.5
Opti-Dialyzer: 160
Ultrafiltration: Other (1kg)
Blood Flow: 350
Dialysate Flow: 600
Heparin: 0
EPO: 0
--- NOTE | 2025-10-08 10:25 | W.PN.HOSP.TC ---
Today's Communication/Plan
-
Neuro CS for double vision
Pending MRI brain
Assessment / Plan
Assessment / Plan
HPI: 74 yo F PMH RA, ESRD on HD (TTS), Afib on Eliquis, HTN, DM, HLD, CAD, COPD; p/w subacute intermittent epigastric pain for > 2 months.
She c/o unable to eat due to severe pain post prandial and occasional vomiting. She was referred to the ED by her PCP
She was here 3 days POST CLOSING SPECIALIST, and had CT scan that suggested biliary sludge/stones but otherwise was unremarkable.
UA was suggestive of UTI, and subsequent UCX grew Klebsiella aerogenes, and pt was given a dose of fosfomycin at that ER visit
CT AP:
Mild air in the bladder. This can be seen with recent instrumentation. If there is no such history, infection should be considered. New
Mild gallbladder sludge versus numerous tiny gallstones.
Bilateral too small to characterize hypodense renal lesions likely benign cysts. Stable. Simple right renal cysts. Enlarged.
Diverticulosis. Stable
Small fat-containing umbilical hernia. No evidence of incarceration nor strangulation. Stable
Abd US:
No gallstones or bile duct dilatation. Mild biliary sludge noted. Sonographic features suggesting mild fatty infiltration of liver.
Subtle coarse increased echotexture of the liver, in keeping with prior MRI findings of elevated liver iron concentration.
A/P:
# Subacute post prandial epigastric pain
# transaminitis, improving
# suspect acute cholecystitis with imaging showing biliary sludge
s/p Laparoscopic Cholecystectomy with Cholangiogram 10/04
Follow LFT, was increased could be related to edema postop, now trending down
restarted Eliquis 10/06/2025
pain control with oxycodone (avoid Tylenol for now in setting of
# Hypokalemia
repleted
Mag WNL
# h/o Atrial arrhythmias / Persistent AF with periods of AT
# Essential Hypertension
# Now bradycardia
restarted Eliquis 10/06/2025
Amiodarone stopped due to bradycardia with HR in the 40's
# Non-specific neurologic symptoms of dizziness, per patient dizziness has been intermittent, ?symptomatic bradycardia
# new double vision that started 10/06, persistent
CT head 10/06 unrevealing
Pending MRI brain
Neuro CS
# ESRD on HD TuThSa
# Rt UE AVF
Renal diet
still makes urine
Renal on board for HD need
# IDDM
Cont POST CLOSING SPECIALIST Lantus at 10 units HS (POST CLOSING SPECIALIST 40 units HS)
cover with insulin SS
# Dyslipidemia
Hold atorvastatin for now
Trend LFT, improving
Other PMH:
# RA
# L kidney mass seen on CT in 2022
# Obesity, BMI 28
# Sleep apnea
# Anxiety/depression
DVT ppx: POST CLOSING SPECIALIST Eliquis to resume 10/06
Full code
Anticipated Discharge: 24 - 48 hours
Subjective/Interval History
-
Date of Service: October 08, 2025
Objective Data
-
Labs:
Laboratory Results
10/08/25
06:28
WBC 6.4
Hgb 11.0 L
Hct 32.9 L
Plt Count 104 L
Sodium 132 L
Potassium 3.7
Chloride 99
Carbon Dioxide 30
BUN 39 H
Creatinine 4.7 H*
Glucose 103 H
Calcium 9.5
Total Bilirubin 0.8
AST 133 H
ALT 178 H
Alkaline Phosphatase 63
Vital Signs:
Vital Signs
Temp Pulse Resp BP Pulse Ox
36.6 C 63 20 114/54 96
10/08/25 07:00 10/08/25 07:00 10/08/25 07:00 10/08/25 07:00 10/08/25 07:00
I&O
10/07/25 10/08/25 10/09/25
06:59 06:59 06:59
Intake Total 1800 / 1800 2279
Balance 1800 / 1800 2279
Review of Systems
-
History Source: Patient
All other systems: Reviewed and negative
Abdomen/GI: Denies Abdominal Pain
Neuro: Reports Other (double vision)
Physical Exam
-
General: Well Developed, Well Nourished, No Apparent Distress, Comfortable and Conversant
HEENT: Normocephalic, Atraumatic, No Ptosis and PERRLA
Respiratory: Clear to Auscultation and Non Labored Respirations; Negative Accessory Resp Muscle Use
GI: Soft, Nontender and Nondistended
Musculoskeletal: No Clubbing, No Cyanosis and No Edema
Neuro: Awake, Alert and Oriented
Psych: Calm and Intact Judgement/Insight
Data Reviewed
-
Total Time Spent with Patient (in minutes): 42
CT Scan: Report Reviewed by me
Ultrasound: Report Reviewed by me
Labs: Labs Reviewed by me
--- NOTE | 2025-10-08 10:33 | CON.NEURO4 ---
Consultation - Neurology 4
-
CONSULTING PHYSICIAN: Dr. Jayesh Goodman
REFERRING PHYSICIAN: Dr. Deja Alvarado
DICTATED BY: Dr. Jayesh Goodman
DATE/TIME OF REQUEST: 10/08/2025
DATE/TIME OF CONSULTATION: 10/08/2025
Reason for Consultation: Double vision
ASSESSMENT AND PLAN:
The patient was seen and examined today. The patient is a 74-year-old female with a past medical history of atrial fibrillation who is on Eliquis, hypertension, diabetes, CAD, COPD and ESRD on HD, who complains of double vision that started about 2
days ago after surgery, however she denies any double vision at this time. She says that the double vision is noticed by her usually when she is working on her computer. The patient denies dysphagia.
. CT head does not show acute intracranial abnormality.
.Recommend to get MRI of the brain without contrast.
will follow.
History of Present Illness:
The patient was seen and examined today. The patient is a 74-year-old female with a past medical history of atrial fibrillation who is on Eliquis, hypertension, diabetes, CAD, COPD and ESRD on HD, who complains of double vision that started about 2
days ago after surgery, however she denies any double vision at this time. She says that the double vision is noticed by her usually when she is working on her computer. The patient denies dysphagia.
Past Medical History:
Atrial fibrillation who is on Eliquis, hypertension, diabetes, CAD, COPD and ESRD on HD.
Review of Systems:
The 10 point review systems were negative aside from as given the above history of present illness.
Neurologic Examination:
Alert and oriented x 3
Speech is clear
The cranial nerves II to XII are grossly intact
The visual marvin are grossly full
The patient has antigravity strength in bilateral upper and lower extremities
The sensations are grossly intact bilaterally
The cerebellar examination does not show ataxia.
Vital Signs and Labs
-
Vital Signs and Labs:
Vital Signs
Temp Pulse Resp BP Pulse Ox
36.6 C 63 20 114/54 96
10/08/25 07:00 10/08/25 07:00 10/08/25 07:00 10/08/25 07:00 10/08/25 07:00
Lab Results
10/08/25 06:28
10/08/25 06:28
Sodium 132 mmol/L (135-145) L 10/08/25 06:28
Potassium 3.7 mmol/L (3.5-5.1) 10/08/25 06:28
BUN 39 mg/dl (7-17) H 10/08/25 06:28
Glucose 103 mg/dl (70-99) H 10/08/25 06:28
Calcium 9.5 mg/dl (8.4-10.2) 10/08/25 06:28
Phosphorus 3.4 mg/dl (2.5-4.5) 10/04/25 05:25
Medications
-
Active Medications
Generic Name Dose Route Start Last Admin
Trade Name Freq PRN Reason Stop Dose Admin
Apixaban 2.5 mg 10/06/25 08:00 10/07/25 19:42
Apixaban (Eliquis) 2.5 Mg Tablet PO 11/03/25 07:59 2.5 mg
BID JR Administration
Atorvastatin Calcium 40 mg 10/05/25 22:00 10/07/25 22:27
Atorvastatin (Lipitor) 40 Mg Tablet PO 11/02/25 21:59 40 mg
HS JR Administration
Bisacodyl 10 mg 10/04/25 00:25
Bisacodyl 10 Mg Rectal Suppository RECTAL 11/01/25 00:24
[id number] PRN
constipation
Bupropion HCl 150 mg 10/05/25 08:00 10/07/25 08:18
Bupropion (24hr) Extended Release 150 Mg Tablet PO 11/02/25 07:59 150 mg
DAILY RJ Administration
Cholecalciferol 50 mcg 10/04/25 08:00 10/07/25 08:17
Cholecalciferol (Vitamin D3) 50 Mcg Tablet (2,000 Units) PO 11/01/25 07:59 50 mcg
DAILY JR Administration
Dextrose 12.5 grams 10/04/25 00:25
Dextrose 50% (0.5 Grams/Ml) 50 Ml Syringe IV 11/01/25 00:24
[id number] PRN
hypoglycemia
Protocol
Fluoxetine HCl 20 mg 10/05/25 08:00 10/07/25 08:18
Fluoxetine 20 Mg Capsule PO 11/02/25 07:59 20 mg
DAILY JR Administration
Gabapentin 100 mg 10/04/25 08:00 10/07/25 22:26
Gabapentin 100 Mg Capsule PO 11/01/25 07:59 100 mg
TID JR Administration
Glucagon 1 mg 10/04/25 00:25
Glucagon 1 Mg Vial IM 11/01/25 00:24
PRN PRN
hypoglycemia
Protocol
Hydromorphone HCl 0.25 mg 10/05/25 06:12 10/06/25 20:23
Hydromorphone 0.25 Mg/0.5 Ml Syringe IV 10/19/25 06:11 0.25 mg
Q4HPRN PRN Administration
mod-severe pain
Insulin Glargine 10 units/ 0.1 mls @ 0 mls/hr 10/05/25 11:14 10/07/25 22:27
Device SC 11/01/25 21:59 0.1 mls
HS JR Administration
As Directed
Insulin Aspart 0 units 10/04/25 07:30 10/08/25 09:10
Insulin Aspart Low Resistance 300 Units/3 Ml Pen.Injctr SC 11/01/25 07:29 Not Given
AC JR
Protocol
Oxycodone HCl 5 mg 10/06/25 08:41 10/07/25 22:28
Oxycodone 5 Mg Regular Release Tablet PO 10/20/25 08:40 5 mg
Q4HPRN PRN Administration
mod pain
Pantoprazole Sodium 40 mg 10/04/25 08:00 10/07/25 08:18
Pantoprazole 40 Mg Delayed Release Tablet PO 11/01/25 07:59 40 mg
DAILY JR Administration
Polyethylene Glycol 17 grams 10/04/25 00:25
Polyethylene Glycol Powder 17 Grams Packet PO 11/01/25 00:24
DAILYPRN PRN
constipation
Potassium Chloride 20 meq 10/04/25 08:00 10/07/25 08:17
Potassium Chloride 20 Meq Extended Release Tablet PO 11/01/25 07:59 20 meq
DAILY JR Administration
Senna/Docusate Sodium 1 tablet 10/04/25 00:25
Docusate W/Senna (Sofía-Colace) Tablet PO 11/01/25 00:24
BIDPRN PRN
constipation
Sodium Chloride 0 flush 10/04/25 13:00
Sodium Chloride 0.9% (Flush) Syringe IV 11/01/25 12:59
PER PROTOCOL JR
Sodium Chloride 10 ml 10/08/25 08:00
Sodium Chloride (4 Meq/Ml) 30 Ml Vial *For Hemodialysis* IV 10/08/25 23:59
HD-Q1HPRN PRN
cramps
Vitamin B Complex/Vit C/Folic Acid 1 capsule 10/04/25 08:00 10/07/25 08:17
Renal Cap (Nephrocap) Capsule PO 11/01/25 07:59 1 capsule
DAILY JR Administration
Home Medications
�Medication �Instructions �Recorded
atorvastatin 40 mg tablet 40 mg PO HS High cholesterol 04/25/21
cilostazol 100 mg tablet 100 mg PO BID Blood clot 04/25/21
prevention/tx
fluoxetine 20 mg capsule 20 mg PO DAILY anxiety/depression 04/05/22
amiodarone 200 mg tablet 200 mg PO DAILY Arrhythmia 08/31/23
insulin glargine 100 unit/mL (3 40 unit SC DAILY Diabetes 05/19/24
mL) subcutaneous pen (Lantus
Solostar U-100 Insulin)
potassium chloride 20 mEq 20 meq PO DAILY Electrolyte 05/19/24
tablet,extended release Repletion
amlodipine 5 mg tablet 5 mg PO DAILY Blood Pressure 10/04/25
apixaban 2.5 mg tablet (Eliquis) 2.5 mg PO BID Blood Clot 10/04/25
Prevention/Tx
bupropion HCl 150 mg 24 hr tablet, 150 mg PO DAILY Depression 10/04/25
extended release
omeprazole 20 mg tablet,delayed 20 mg PO DAILY Gastrointestinal 10/04/25
release Issue
[2025-10-08 11:00] VITALS: BP 104/64
--- NOTE | 2025-10-08 11:28 | CM ---
chart reviewed and attempted to talk with patient at bedside
HD in progress at this time
Neuro consult in process
Awaiting for MRI of brain?
Will follow up for dcp needs
[2025-10-08] MEDS: NEURONTIN PO (11:54)
[2025-10-08] MEDS: PROZAC 20 MG PO (11:54)
[2025-10-08] MEDS: ELIQUIS 2.5 MG PO ×2 (11:54→20:10)
[2025-10-08] MEDS: VITAMIN D3 (cholecalciferol) 50 MCG PO (11:54)
[2025-10-08] MEDS: WELLBUTRIN XL (24 hour extended release) 150 MG PO (11:55)
[2025-10-08] MEDS: KCL 20 MEQ PO (11:55)
[2025-10-08] MEDS: NEPHROCAP 1 CAPSULE PO (11:55)
[2025-10-08] MEDS: PROTONIX 40 MG PO (11:56)
[2025-10-08 12:01] LABS: Glucose - Point of Care 75 mg/dl (70-99)
[2025-10-08 12:07] LABS: Hepatitis B Surface Antigen Negative (Negative)
[2025-10-08 16:21] VITALS: BP 111/57
[2025-10-08] MEDS: NEURONTIN 100 MG PO ×2 (16:25→21:09)
[2025-10-08 16:34] LABS: Glucose - Point of Care 176 mg/dl (70-99)
[2025-10-08] MEDS: NOVOLOG FLEXPEN-LOW RESISTANCE 1 UNITS SC (17:31)
[2025-10-08 19:39] VITALS: BP 104/48
[2025-10-08] MEDS: FLUSH (NSS) 1 FLUSH IV (20:11)
[2025-10-08 21:01] LABS: Glucose - Point of Care 106 mg/dl (70-99)
[2025-10-08] MEDS: LIPITOR 40 MG PO (21:08)
[2025-10-08] MEDS: LANTUS 0.1 UNITS SC (21:09)
[2025-10-08 23:12] VITALS: BP 108/58
[2025-10-09 03:04] VITALS: BP 108/56
[2025-10-09 06:00] VITALS: BMI 29.4
[2025-10-09 07:00] VITALS: BP 123/54
[2025-10-09 07:38] LABS: ALT (SGPT) 161 U/L (0-35); AST (SGOT) 142 U/L (14-36); Albumin 3.0 g/dl (3.5-5.0); Alkaline Phosphatase 60 U/L (38-126); Blood Urea Nitrogen 19 mg/dl (7-17); Calcium 9.3 mg/dl (8.4-10.2); Carbon Dioxide 31 mmol/L (22-30); Chloride 100 mmol/L (98-107); Estimated Creatinine Clearance 18 ml/min; Glucose 81 mg/dl (70-99); Magnesium 1.7 mg/dl (1.6-2.3); Potassium 3.4 mmol/L (3.5-5.1); Sodium 132 mmol/L (135-145); Total Protein 5.3 g/dl (6.3-8.2); eGFR 17.40
[2025-10-09 07:50] LABS: Hematocrit 30.9 % (37.0-47.0); Hemoglobin 10.8 g/dL (12.0-16.0); Mean Corp Hgb Conc. 35.0 g/dL (33.0-37.0); Mean Corpuscular Volume 90.6 fL (81.0-99.0); Platelet Count 108 10^3/uL (130-400); Red Cell Dist. Width 13.7 % (11.5-14.5)
[2025-10-09 08:10] LABS: Glucose - Point of Care 91 mg/dl (70-99)
[2025-10-09] MEDS: PROTONIX 40 MG PO (09:44)
[2025-10-09] MEDS: NEPHROCAP 1 CAPSULE PO (09:44)
[2025-10-09] MEDS: WELLBUTRIN XL (24 hour extended release) 150 MG PO (09:44)
[2025-10-09] MEDS: NEURONTIN 100 MG PO ×3 (09:44→22:20)
[2025-10-09] MEDS: VITAMIN D3 (cholecalciferol) 50 MCG PO (09:44)
[2025-10-09] MEDS: KCL 20 MEQ PO (09:44)
[2025-10-09] MEDS: PROZAC 20 MG PO (09:44)
[2025-10-09] MEDS: ELIQUIS 2.5 MG PO ×2 (09:44→19:47)
[2025-10-09] MEDS: NOVOLOG FLEXPEN-LOW RESISTANCE SC ×2 (09:45→11:52)
[2025-10-09 11:00] VITALS: BP 114/56
--- NOTE | 2025-10-09 11:16 | W.PN.NEPH.PH ---
Today's Communication / Plan
-
HD tomorrow
Assessment/Plan
-
Ms. Syed is a 74YOF with PMH of ESRD on HD TThS at [facility] through right UE AVF on lasix, paroxismal Afib (on eliquis, Amio), CAD, DLD (on atorvastatin), DM on Insulin, HTN on Diltiazem, COPD, pHTN, gout, RA, JOS, obesity, PAD who
presents to the hospital with abdominal pain. Diagnosed with acute cholecystitis
Renal consultation for end-stage renal disease management. Also found to have a potassium of 2.9
Assessment:
Abdominal pain
Afib,
ESRD on HD TTS
Abdominal pain
right UE AVF
IDDM type 2 with nephropathy, neuropathy
HLD
Essential HTN
Fatty liver
RA
Hx of L kidney mass seen on CT in 2022
Obesity
pHTN
RA
Sleep apnea
GERD
Anxiety/depression
DLD
Plan:
Continue dialysis TTS, but HD tomorrow for holiday schedule
Patient has been under her listed dry weight of 80 kg and apparently outpatient doing very minimal ultrafiltration as patient is oliguric/nonoliguric
await MRI
-
-
Date of Service: October 09, 2025
CC / HPI / ROS
-
Chief Complaint:
ESRD
History of Present Illness:
ESRD Saturday
Hemodynamically stable
tolerated HD yesterday
still double vision, but only on right periphery
Review of Systems:
Subjectively non oliguric
no fevers
Labs
-
Labs:
WBC 4.6 10^3/uL (4.8-10.8) L 10/09/25 06:23
RBC 3.41 10^6/uL (4.20-5.40) L 10/09/25 06:23
Hgb 10.8 g/dL (12.0-16.0) L 10/09/25 06:23
Hct 30.9 % (37.0-47.0) L 10/09/25 06:23
Plt Count 108 10^3/uL (130-400) L 10/09/25 06:23
Sodium 132 mmol/L (135-145) L 10/09/25 06:23
Potassium 3.4 mmol/L (3.5-5.1) L 10/09/25 06:23
Chloride 100 mmol/L (98-107) 10/09/25 06:23
Carbon Dioxide 31 mmol/L (22-30) H 10/09/25 06:23
BUN 19 mg/dl (7-17) H 10/09/25 06:23
Creatinine 2.8 mg/dL (0.6-1.0) H 10/09/25 06:23
eGFR 17.40 10/09/25 06:23
Glucose 81 mg/dl (70-99) 10/09/25 06:23
Calcium 9.3 mg/dl (8.4-10.2) 10/09/25 06:23
Phosphorus 3.4 mg/dl (2.5-4.5) 10/04/25 05:25
Albumin 3.0 g/dl (3.5-5.0) L 10/09/25 06:23
Physical Exam
-
Vital Signs:
Vital Signs
Temp Pulse Resp BP Pulse Ox
97.9 F 49 20 123/54 98
10/09/25 07:00 10/09/25 07:00 10/09/25 07:00 10/09/25 07:00 10/09/25 07:00
Cardiovascular:: Regular rate and rhythm
Respiratory:: Bilateral: Coarse
Lung Excursion:: Normal
Abdomen:: Nontender and Soft
Bowel Sounds:: Normal
Extremity Edema:: None: Bilateral:
--- NOTE | 2025-10-09 11:23 | W.PN.HOSP.TC ---
Today's Communication/Plan
-
see A/P
Assessment / Plan
Assessment / Plan
HPI: 74 yo F PMH RA, ESRD on HD (TTS), Afib on Eliquis, HTN, DM, HLD, CAD, COPD; p/w subacute intermittent epigastric pain for > 2 months.
She c/o unable to eat due to severe pain post prandial and occasional vomiting. She was referred to the ED by her PCP
She was here 3 days SHOULDER PUNCHER, and had CT scan that suggested biliary sludge/stones but otherwise was unremarkable.
UA was suggestive of UTI, and subsequent UCX grew Klebsiella aerogenes, and pt was given a dose of fosfomycin at that ER visit
CT AP:
Mild air in the bladder. This can be seen with recent instrumentation. If there is no such history, infection should be considered. New
Mild gallbladder sludge versus numerous tiny gallstones.
Bilateral too small to characterize hypodense renal lesions likely benign cysts. Stable. Simple right renal cysts. Enlarged.
Diverticulosis. Stable
Small fat-containing umbilical hernia. No evidence of incarceration nor strangulation. Stable
Abd US:
No gallstones or bile duct dilatation. Mild biliary sludge noted. Sonographic features suggesting mild fatty infiltration of liver.
Subtle coarse increased echotexture of the liver, in keeping with prior MRI findings of elevated liver iron concentration.
A/P:
# Subacute post prandial epigastric pain
# transaminitis, improving
# suspect acute cholecystitis with imaging showing biliary sludge
s/p Laparoscopic Cholecystectomy with Cholangiogram 10/04
Follow LFT, was increased could be related to edema postop, now trending down
restarted Eliquis 10/06/2025
pain control with oxycodone (avoid Tylenol for now in setting of elevated LFT)
# Hypokalemia
repleted
Mag WNL
# h/o Atrial arrhythmias / Persistent AF with periods of AT
# Essential Hypertension
# Now bradycardia
restarted Eliquis 10/06/2025
Amiodarone stopped due to bradycardia with HR in the 40's
# Non-specific neurologic symptoms of dizziness, per patient dizziness has been intermittent, due to ?symptomatic bradycardia
# new double vision that started 10/06, persistent
CT head 10/06 unrevealing
Pending MRI brain
Neuro on board
# Leg weakness, unclear cause, ?due to hypokalemia vs others such as clinical deconditioning
TSH WNL at 0.51
Neuro on board, defer further eval to Neuro
# ESRD on HD TuThSa
# Rt UE AVF
Renal diet
still makes urine
Renal on board for HD need
# IDDM
Cont SHOULDER PUNCHER Lantus at 10 units HS (SHOULDER PUNCHER 40 units HS)
cover with insulin SS
# Dyslipidemia
Hold atorvastatin for now
Trend LFT, improving
Other PMH:
# RA
# L kidney mass seen on CT in 2022
# Obesity, BMI 28
# Sleep apnea
# Anxiety/depression
DVT ppx: SHOULDER PUNCHER Eliquis resumed 10/06
Full code
DW and at bedside
DW Neuro
total time 51 min
Anticipated Discharge: 24 - 48 hours
Subjective/Interval History
-
Date of Service: October 09, 2025
Objective Data
-
Labs:
Laboratory Results
10/09/25
06:23
WBC 4.6 L
Hgb 10.8 L
Hct 30.9 L
Plt Count 108 L
Sodium 132 L
Potassium 3.4 L
Chloride 100
Carbon Dioxide 31 H
BUN 19 H
Creatinine 2.8 H
Glucose 81
Calcium 9.3
Total Bilirubin 0.9
AST 142 H
ALT 161 H
Alkaline Phosphatase 60
Vital Signs:
Vital Signs
Temp Pulse Resp BP Pulse Ox
36.6 C 49 20 123/54 98
10/09/25 07:00 10/09/25 07:00 10/09/25 07:00 10/09/25 07:00 10/09/25 07:00
I&O
10/08/25 10/09/25 10/10/25
06:59 06:59 06:59
Intake Total 2280 / 2280 960 / 960
Balance 2280 / 2280 960 / 960
[2025-10-09 11:42] LABS: Glucose - Point of Care 108 mg/dl (70-99)
[2025-10-09] MEDS: KCL 40 MEQ PO (11:54)
[2025-10-09 15:00] VITALS: BP 113/63
--- NOTE | 2025-10-09 15:25 | W.PN.NEURO.1 ---
Today's Communication / Plan
-
ASSESSMENT AND PLAN:
The patient does not appear to have double vision at this time and she says that the double vision is noticed by her only when she is working on her computer. She does complain of some difficulty looking towards the right side of the screen of the
computer. Regarding the lower extremity weakness, she says that her weakness started after a fall about 6 months ago, in which she hit her head. The weakness is very mild and she says that it is difficult for her to stand and balance herself while
standing. The problem is standing and balancing herself while standing could also be the result of peripheral neuropathy caused by longstanding history of diabetes mellitus. The use of Eliquis for atrial fibrillation may need to be evaluated in
light of risk of falls, after discussion with the patient.
. 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
. She needs an ophthalmology consult for formal visual field examination.
. Recommend MRI of the cervical spine without contrast.
I had a detailed discussion with the patient and her regarding the assessment and the management plan, and they verbalized understanding of our discussion.
Subjective/Objective
Subjective Data
Date of Service: October 09, 2025
The patient was seen and examined today. The patient is a 74-year-old female with a past medical history of atrial fibrillation who is on Eliquis, hypertension, diabetes, CAD, COPD and ESRD on HD, who complains of double vision that started about 2
days ago after surgery, however she denies any double vision at this time. She says that the double vision is noticed by her usually when she is working on her computer. The patient denies dysphagia. She also complains of mild leg weakness which
according to her started after she had a fall about 6 months ago in which she hit her head.
. On neurologic examination today, she is alert and oriented x 3, speech is clear, visual marvin are grossly full to confrontation bilaterally and she does not have any limb ataxia. The motor strength in upper extremities is grossly 5/5
bilaterally and the strength is grossly 5-/5 in lower extremities bilaterally. She denies seeing diplopia at this time and says that she only has trouble looking towards the right side of the screen when she is working on her laptop.
. CT head does not show acute intracranial abnormality.
ASSESSMENT AND PLAN:
The patient does not appear to have double vision at this time and she says that the double vision is noticed by her only when she is working on her computer. She does complain of some difficulty looking towards the right side of the screen of the
computer. Regarding the lower extremity weakness, she says that her weakness started after a fall about 6 months ago, in which she hit her head. The weakness is very mild and she says that it is difficult for her to stand and balance herself while
standing. The problem is standing and balancing herself while standing could also be the result of peripheral neuropathy caused by longstanding history of diabetes mellitus. The use of Eliquis for atrial fibrillation may need to be evaluated in
light of risk of falls, after discussion with the patient.
. 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
. She needs an ophthalmology consult for formal visual field examination.
Recommend MRI of the cervical spine without contrast.
I had a detailed discussion with the patient and her regarding the assessment and the management plan, and they verbalized understanding of our discussion.
Objective Data
Vital Signs
Temp Pulse Resp BP Pulse Ox
36.8 C 48 20 114/56 98
10/09/25 11:00 10/09/25 11:00 10/09/25 11:00 10/09/25 11:00 10/09/25 11:00
Lab Results
10/09/25 06:23
10/09/25 06:23
Sodium 132 mmol/L (135-145) L 10/09/25 06:23
Potassium 3.4 mmol/L (3.5-5.1) L 10/09/25 06:23
BUN 19 mg/dl (7-17) H 10/09/25 06:23
Glucose 81 mg/dl (70-99) 10/09/25 06:23
Calcium 9.3 mg/dl (8.4-10.2) 10/09/25 06:23
Phosphorus 3.4 mg/dl (2.5-4.5) 10/04/25 05:25
Patient Allergies
adhesive Allergy (Verified 09/29/25 17:07)
Rash, itching
Sulfa (Sulfonamide Antibiotics) Allergy (Verified 09/29/25 17:07)
nausea and vomiting
Medications
-
Active Medications
Generic Name Dose Route Start Last Admin
Trade Name Freq PRN Reason Stop Dose Admin
Albumin Human 12.5 grams 10/10/25 08:00
Albumin 12.5 Grams/50 Ml Bag *For Hemodialysis* IV 10/10/25 09:01
HD-Q1H JR
Apixaban 2.5 mg 10/06/25 08:00 10/09/25 09:44
Apixaban (Eliquis) 2.5 Mg Tablet PO 11/03/25 07:59 2.5 mg
BID JR Administration
Atorvastatin Calcium 40 mg 10/05/25 22:00 10/08/25 21:08
Atorvastatin (Lipitor) 40 Mg Tablet PO 11/02/25 21:59 40 mg
On Hold: 10/09/25 11:39 HS JR Administration
Bisacodyl 10 mg 10/04/25 00:25
Bisacodyl 10 Mg Rectal Suppository RECTAL 11/01/25 00:24
[id number] PRN
constipation
Bupropion HCl 150 mg 10/05/25 08:00 10/09/25 09:44
Bupropion (24hr) Extended Release 150 Mg Tablet PO 11/02/25 07:59 150 mg
DAILY JR Administration
Cholecalciferol 50 mcg 10/04/25 08:00 10/09/25 09:44
Cholecalciferol (Vitamin D3) 50 Mcg Tablet (2,000 Units) PO 11/01/25 07:59 50 mcg
DAILY JR Administration
Dextrose 12.5 grams 10/04/25 00:25
Dextrose 50% (0.5 Grams/Ml) 50 Ml Syringe IV 11/01/25 00:24
[id number] PRN
hypoglycemia
Protocol
Fluoxetine HCl 20 mg 10/05/25 08:00 10/09/25 09:44
Fluoxetine 20 Mg Capsule PO 11/02/25 07:59 20 mg
DAILY JR Administration
Gabapentin 100 mg 10/04/25 08:00 10/09/25 16:04
Gabapentin 100 Mg Capsule PO 11/01/25 07:59 100 mg
TID JR Administration
Glucagon 1 mg 10/04/25 00:25
Glucagon 1 Mg Vial IM 11/01/25 00:24
PRN PRN
hypoglycemia
Protocol
Hydromorphone HCl 0.25 mg 10/05/25 06:12 10/06/25 20:23
Hydromorphone 0.25 Mg/0.5 Ml Syringe IV 10/19/25 06:11 0.25 mg
Q4HPRN PRN Administration
mod-severe pain
Insulin Glargine 10 units/ 0.1 mls @ 0 mls/hr 10/05/25 11:14 10/08/25 21:09
Device SC 11/01/25 21:59 0.1 mls
HS JR Administration
As Directed
Insulin Aspart 0 units 10/04/25 07:30 10/09/25 17:03
Insulin Aspart Low Resistance 300 Units/3 Ml Pen.Injctr SC 11/01/25 07:29 1 units
AC JR Administration
Protocol
Mannitol 12.5 grams 10/10/25 08:00
Mannitol 25% (12.5 Grams/50 Ml) Vial IV 10/10/25 09:01
HD-Q1H JR
Ondansetron HCl 4 mg 10/09/25 17:11 10/09/25 17:21
Ondansetron 4 Mg/2 Ml Vial IV 11/06/25 17:10 4 mg
Q6HPRN PRN Administration
NAUSEA/VOMITING
Oxycodone HCl 5 mg 10/06/25 08:41 10/07/25 22:28
Oxycodone 5 Mg Regular Release Tablet PO 10/20/25 08:40 5 mg
Q4HPRN PRN Administration
mod pain
Pantoprazole Sodium 40 mg 10/04/25 08:00 10/09/25 09:44
Pantoprazole 40 Mg Delayed Release Tablet PO 11/01/25 07:59 40 mg
DAILY JR Administration
Polyethylene Glycol 17 grams 10/04/25 00:25
Polyethylene Glycol Powder 17 Grams Packet PO 11/01/25 00:24
DAILYPRN PRN
constipation
Potassium Chloride 20 meq 10/04/25 08:00 10/09/25 09:44
Potassium Chloride 20 Meq Extended Release Tablet PO 11/01/25 07:59 20 meq
DAILY JR Administration
Senna/Docusate Sodium 1 tablet 10/04/25 00:25 10/09/25 17:09
Docusate W/Senna (Sofía-Colace) Tablet PO 11/01/25 00:24 1 tablet
BIDPRN PRN Administration
constipation
Sodium Chloride 0 flush 10/04/25 13:00 10/08/25 20:11
Sodium Chloride 0.9% (Flush) Syringe IV 11/01/25 12:59 1 flush
PER PROTOCOL JR Administration
Sodium Chloride 10 ml 10/10/25 08:00
Sodium Chloride (4 Meq/Ml) 30 Ml Vial *For Hemodialysis* IV 10/10/25 23:59
HD-Q1HPRN PRN
cramps
Vitamin B Complex/Vit C/Folic Acid 1 capsule 10/04/25 08:00 10/09/25 09:44
Renal Cap (Nephrocap) Capsule PO 11/01/25 07:59 1 capsule
DAILY JR Administration
Home Medications
�Medication �Instructions �Recorded
atorvastatin 40 mg tablet 40 mg PO HS High cholesterol 04/25/21
cilostazol 100 mg tablet 100 mg PO BID Blood clot 04/25/21
prevention/tx
fluoxetine 20 mg capsule 20 mg PO DAILY anxiety/depression 04/05/22
amiodarone 200 mg tablet 200 mg PO DAILY Arrhythmia 08/31/23
insulin glargine 100 unit/mL (3 40 unit SC DAILY Diabetes 05/19/24
mL) subcutaneous pen (Lantus
Solostar U-100 Insulin)
potassium chloride 20 mEq 20 meq PO DAILY Electrolyte 05/19/24
tablet,extended release Repletion
amlodipine 5 mg tablet 5 mg PO DAILY Blood Pressure 10/04/25
apixaban 2.5 mg tablet (Eliquis) 2.5 mg PO BID Blood Clot 10/04/25
Prevention/Tx
bupropion HCl 150 mg 24 hr tablet, 150 mg PO DAILY Depression 10/04/25
extended release
omeprazole 20 mg tablet,delayed 20 mg PO DAILY Gastrointestinal 10/04/25
release Issue
[2025-10-09 16:57] LABS: Glucose - Point of Care 184 mg/dl (70-99)
[2025-10-09] MEDS: NOVOLOG FLEXPEN-LOW RESISTANCE 1 UNITS SC (17:03)
[2025-10-09] MEDS: SENOKOT-S 1 TABLET PO (17:09)
[2025-10-09] MEDS: ZOFRAN 4 MG IV (17:21)
[2025-10-09 19:18] VITALS: BP 121/64
[2025-10-09] MEDS: LANTUS 0.1 UNITS SC (22:19)
[2025-10-09 22:21] LABS: Glucose - Point of Care 184 mg/dl (70-99)
[2025-10-09 23:27] VITALS: BP 119/59
[2025-10-10 03:32] VITALS: BP 123/59
[2025-10-10 06:00] VITALS: BMI 29.1
[2025-10-10 07:00] VITALS: BP 113/45
[2025-10-10 07:45] LABS: ALT (SGPT) 176 U/L (0-35); AST (SGOT) 165 U/L (14-36); Albumin 3.1 g/dl (3.5-5.0); Alkaline Phosphatase 60 U/L (38-126); Blood Urea Nitrogen 28 mg/dl (7-17); Calcium 9.8 mg/dl (8.4-10.2); Carbon Dioxide 31 mmol/L (22-30); Chloride 99 mmol/L (98-107); Estimated Creatinine Clearance 16 ml/min; Glucose 98 mg/dl (70-99); Potassium 4.2 mmol/L (3.5-5.1); Sodium 134 mmol/L (135-145); Total Protein 5.5 g/dl (6.3-8.2); eGFR 15.40
[2025-10-10 07:49] LABS: Hematocrit 33.4 % (37.0-47.0); Hemoglobin 11.4 g/dL (12.0-16.0); Mean Corp Hgb Conc. 34.1 g/dL (33.0-37.0); Mean Corpuscular Volume 92.0 fL (81.0-99.0); Platelet Count 146 10^3/uL (130-400); Red Cell Dist. Width 14.0 % (11.5-14.5)
[2025-10-10 08:19] LABS: Glucose - Point of Care 109 mg/dl (70-99)
[2025-10-10] MEDS: NOVOLOG FLEXPEN-LOW RESISTANCE SC ×3 (08:25→17:00)
[2025-10-10] MEDS: ELIQUIS 2.5 MG PO ×2 (08:26→19:47)
[2025-10-10] MEDS: PROTONIX 40 MG PO (08:26)
--- NOTE | 2025-10-10 10:17 | CM ---
Addendum entered by Aster Olmedo 10/10/25 15:13:
just called to say the information he received earlier today that made him change his mind was not in regards to [facility]. He requested that the process to discharge to [facility] SNF move forward.
Addendum entered by Aster Olmedo 10/10/25 14:49:
called CM to report that he changed his mind about going to [facility]
CM will follow up on other referrals tomorrow
Addendum entered by Aster Olmedo 10/10/25 13:52:
Met with at bedside
IMM benefit explained; form signed @ 1350
Addendum entered by Aster Olmedo 10/10/25 13:30:
[facility] accepted SNF referral and can accept patient tomorrow if patient is stable for discharge and AUTH is approved
Spoke with via phone; he is agreeable with discharge plan
Sent a request to PT/OT to assess patient in morning
Plan: Discharge to [facility] SNF and onsite HD services
Original Note:
Spoke with patient's via phone to discuss discharge plan; he is agreeable to SNF w/ onsite HD support
Referrals sent via [facility] to [facility], [facility], and [facility]
Plan: Discharge to SNF pending bed availability and Auth approval
--- NOTE | 2025-10-10 10:22 | W.PN.NEPH.HD ---
Assessment
-
Pt seen on HD. no complaints. VSS, access ok
Progress Note - Hemodialysis
-
Date of Service: October 10, 2025
Duration: 15 minutes and 3 hours
Potassium Bath: 4
Calcium Bath: 2.5
Opti-Dialyzer: 160
Ultrafiltration: Other (1kg)
Blood Flow: 400
Dialysate Flow: 600
Heparin: 0
EPO: 0
--- NOTE | 2025-10-10 10:51 | W.PN.HOSP.TC ---
Today's Communication/Plan
-
see A/P
Assessment / Plan
Assessment / Plan
HPI: 74 yo F PMH RA, ESRD on HD (TTS), Afib on Eliquis, HTN, DM, HLD, CAD, COPD; p/w subacute intermittent epigastric pain for > 2 months.
She c/o unable to eat due to severe pain post prandial and occasional vomiting. She was referred to the ED by her PCP
She was here 3 days AEROSPACE ENGINEER, and had CT scan that suggested biliary sludge/stones but otherwise was unremarkable.
UA was suggestive of UTI, and subsequent UCX grew Klebsiella aerogenes, and pt was given a dose of fosfomycin at that ER visit
CT AP:
Mild air in the bladder. This can be seen with recent instrumentation. If there is no such history, infection should be considered. New
Mild gallbladder sludge versus numerous tiny gallstones.
Bilateral too small to characterize hypodense renal lesions likely benign cysts. Stable. Simple right renal cysts. Enlarged.
Diverticulosis. Stable
Small fat-containing umbilical hernia. No evidence of incarceration nor strangulation. Stable
Abd US:
No gallstones or bile duct dilatation. Mild biliary sludge noted. Sonographic features suggesting mild fatty infiltration of liver.
Subtle coarse increased echotexture of the liver, in keeping with prior MRI findings of elevated liver iron concentration.
A/P:
# Subacute post prandial epigastric pain
# transaminitis, improving
# suspect acute cholecystitis with imaging showing biliary sludge
s/p Laparoscopic Cholecystectomy with Cholangiogram 10/04
Follow LFT, was increased could be related to edema postop, now trending down and plateauing
restarted Eliquis 10/06/2025
pain control with oxycodone (avoid Tylenol for now in setting of elevated LFT)
# Hypokalemia
repleted
Mag WNL
# h/o Atrial arrhythmias / Persistent AF with periods of AT
# Essential Hypertension
# Now bradycardia
restarted Eliquis 10/06/2025
Amiodarone stopped due to bradycardia with HR in the 40's
# Non-specific neurologic symptoms of dizziness, per patient dizziness has been intermittent, due to ?symptomatic bradycardia
# new double vision that started 10/06 (occurs when pt uses her computer)
CT head 10/06 unrevealing. MRI brain also no evidence for acute infarct.
Neuro on board , recc MRI cervical spine in setting of leg weakness
# Chronic leg weakness, unclear cause, ?due to hypokalemia vs others such as clinical deconditioning
TSH WNL at 0.51
Neuro on board, recc MRI cervical spine in setting of leg weakness
# ESRD on HD TuThSa
# Rt UE AVF
Renal diet
still makes urine
Renal on board for HD need
# IDDM
Cont AEROSPACE ENGINEER Lantus at 10 units HS (AEROSPACE ENGINEER 40 units HS)
cover with insulin SS
# Dyslipidemia
Hold atorvastatin for now
Trend LFT, improving
Other PMH:
# RA
# L kidney mass seen on CT in 2022
# Obesity, BMI 28
# Sleep apnea
# Anxiety/depression
DVT ppx: AEROSPACE ENGINEER Eliquis resumed 10/06
Full code
Dispo: SNF
DW Neuro
Anticipated Discharge: 24 - 48 hours
Subjective/Interval History
-
Date of Service: October 10, 2025
Objective Data
-
Labs:
Laboratory Results
10/10/25
06:27
WBC 4.6 L
Hgb 11.4 L
Hct 33.4 L
Plt Count 146 D
Sodium 134 L
Potassium 4.2
Chloride 99
Carbon Dioxide 31 H
BUN 28 H
Creatinine 3.1 H
Glucose 98
Calcium 9.8
Total Bilirubin 0.8
AST 165 H
ALT 176 H
Alkaline Phosphatase 60
Vital Signs:
Vital Signs
Temp Pulse Resp BP Pulse Ox
36.9 C 43 18 113/45 99
10/10/25 07:00 10/10/25 07:00 10/10/25 07:00 10/10/25 07:00 10/10/25 07:00
I&O
10/09/25 10/10/25 10/11/25
06:59 06:59 06:59
Intake Total 960 / 960 960 / 960
Balance 960 / 960 960 / 960
Review of Systems
-
History Source: Patient
All other systems: Reviewed and negative
Abdomen/GI: Denies Abdominal Pain
Neuro: Reports Other (double vision)
Physical Exam
-
General: Well Developed, Well Nourished, No Apparent Distress, Comfortable and Conversant
HEENT: Normocephalic, Atraumatic, No Ptosis and PERRLA
Respiratory: Clear to Auscultation and Non Labored Respirations; Negative Accessory Resp Muscle Use
GI: Soft, Nontender and Nondistended
Musculoskeletal: No Clubbing, No Cyanosis and No Edema
Neuro: Awake, Alert and Oriented
Psych: Calm and Intact Judgement/Insight
Data Reviewed
-
Total Time Spent with Patient (in minutes): 42
CT Scan: Report Reviewed by me
Ultrasound: Report Reviewed by me
MRI: Report Reviewed by me and Discussed with Patient
Labs: Labs Reviewed by me
[2025-10-10 11:00] VITALS: BP 132/51
[2025-10-10] MEDS: NEPHROCAP 1 CAPSULE PO (11:57)
[2025-10-10] MEDS: WELLBUTRIN XL (24 hour extended release) 150 MG PO (11:58)
[2025-10-10] MEDS: KCL 20 MEQ PO (11:58)
[2025-10-10] MEDS: VITAMIN D3 (cholecalciferol) 50 MCG PO (11:58)
[2025-10-10] MEDS: NEURONTIN 100 MG PO ×3 (11:58→21:49)
[2025-10-10] MEDS: PROZAC 20 MG PO (11:58)
[2025-10-10 12:31] LABS: Glucose - Point of Care 88 mg/dl (70-99)
[2025-10-10 15:00] VITALS: BP 102/52
--- NOTE | 2025-10-10 15:59 | W.PN.NEURO.1 ---
Today's Communication / Plan
-
. 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
. MRI of the cervical spine without contrast shows straightening of cervical spine that suggests cervical muscle spasm and there is no definite cord compression seen. The patient has disc bulges at C5-6 and C6-7 levels (Official MRI report is
pending).
Continue current medications. The patient is on Eliquis for atrial fibrillation and she would need fall precautions, and due to history of difficulty in standing and ambulating, the decision to continue with Eliquis has to be made after discussion
with the patient and the family.
The official report of the MRI of the cervical spine is awaited, and if it does not show any significant finding, then the patient can be followed in the neurology clinic for EMG/NCS to rule out neuropathy.
Subjective/Objective
Subjective Data
Date of Service: October 10, 2025
The patient was seen and examined today. The patient was also present at the bedside. I had a detailed discussion with both the patient and her regarding assessment and the management plan, and they verbalized understanding of our
discussion.
Today, the patient says that she does not have double vision and she says that she used to have double vision while working on the computer, but she says that she is getting better and the double vision is not as prominent now as before. And she
also says that the strength in her legs is almost back to normal. She does not have any weakness of arms. Her speech is clear.
The patient had difficulty in standing up which is likely due to deconditioning while being in the hospital.
She has been accepted in a rehab facility as per her and she will go there after discharge from the hospital.
The problem is with standing and balancing herself, could also be the result of peripheral neuropathy caused by longstanding history of diabetes mellitus.
. 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
. MRI of the cervical spine without contrast shows straightening of cervical spine that suggests cervical muscle spasm and there is no definite cord compression seen. The patient has disc bulges at C5-6 and C6-7 levels (Official MRI report is
pending).
Continue current medications. The patient is on Eliquis for atrial fibrillation and she would need fall precautions, and due to history of difficulty in standing and ambulating, the decision to continue with Eliquis has to be made after discussion
with the patient and the family.
The official report of the MRI of the cervical spine is awaited, and if it does not show any significant finding, then the patient can be followed in the neurology clinic for EMG/NCS to rule out neuropathy.
Objective Data
Vital Signs
Temp Pulse Resp BP Pulse Ox
37.3 C 51 20 102/52 96
10/10/25 15:00 10/10/25 15:00 10/10/25 15:00 10/10/25 15:00 10/10/25 15:00
Lab Results
10/10/25 06:27
10/10/25 06:27
Sodium 134 mmol/L (135-145) L 10/10/25 06:27
Potassium 4.2 mmol/L (3.5-5.1) 10/10/25 06:27
BUN 28 mg/dl (7-17) H 10/10/25 06:27
Glucose 98 mg/dl (70-99) 10/10/25 06:27
Calcium 9.8 mg/dl (8.4-10.2) 10/10/25 06:27
Phosphorus 3.4 mg/dl (2.5-4.5) 10/04/25 05:25
Patient Allergies
adhesive Allergy (Verified 09/29/25 17:07)
Rash, itching
Sulfa (Sulfonamide Antibiotics) Allergy (Verified 09/29/25 17:07)
nausea and vomiting
Medications
-
Active Medications
Generic Name Dose Route Start Last Admin
Trade Name Freq PRN Reason Stop Dose Admin
Apixaban 2.5 mg 10/06/25 08:00 10/10/25 08:26
Apixaban (Eliquis) 2.5 Mg Tablet PO 11/03/25 07:59 2.5 mg
BID JR Administration
Atorvastatin Calcium 40 mg 10/05/25 22:00 10/08/25 21:08
Atorvastatin (Lipitor) 40 Mg Tablet PO 11/02/25 21:59 40 mg
On Hold: 10/09/25 11:39 HS JR Administration
Bisacodyl 10 mg 10/04/25 00:25
Bisacodyl 10 Mg Rectal Suppository RECTAL 11/01/25 00:24
[id number] PRN
constipation
Bupropion HCl 150 mg 10/05/25 08:00 10/10/25 11:58
Bupropion (24hr) Extended Release 150 Mg Tablet PO 11/02/25 07:59 150 mg
DAILY JR Administration
Cholecalciferol 50 mcg 10/04/25 08:00 10/10/25 11:58
Cholecalciferol (Vitamin D3) 50 Mcg Tablet (2,000 Units) PO 11/01/25 07:59 50 mcg
DAILY JR Administration
Dextrose 12.5 grams 10/04/25 00:25
Dextrose 50% (0.5 Grams/Ml) 50 Ml Syringe IV 11/01/25 00:24
[id number] PRN
hypoglycemia
Protocol
Fluoxetine HCl 20 mg 10/05/25 08:00 10/10/25 11:58
Fluoxetine 20 Mg Capsule PO 11/02/25 07:59 20 mg
DAILY JR Administration
Gabapentin 100 mg 10/04/25 08:00 10/10/25 16:29
Gabapentin 100 Mg Capsule PO 11/01/25 07:59 100 mg
TID JR Administration
Glucagon 1 mg 10/04/25 00:25
Glucagon 1 Mg Vial IM 11/01/25 00:24
PRN PRN
hypoglycemia
Protocol
Hydromorphone HCl 0.25 mg 10/05/25 06:12 10/06/25 20:23
Hydromorphone 0.25 Mg/0.5 Ml Syringe IV 10/19/25 06:11 0.25 mg
Q4HPRN PRN Administration
mod-severe pain
Insulin Glargine 10 units/ 0.1 mls @ 0 mls/hr 10/05/25 11:14 10/09/25 22:19
Device SC 11/01/25 21:59 0.1 mls
HS JR Administration
As Directed
Insulin Aspart 0 units 10/04/25 07:30 10/10/25 17:00
Insulin Aspart Low Resistance 300 Units/3 Ml Pen.Injctr SC 11/01/25 07:29 Not Given
AC JR
Protocol
Ondansetron HCl 4 mg 10/09/25 17:11 10/09/25 17:21
Ondansetron 4 Mg/2 Ml Vial IV 11/06/25 17:10 4 mg
Q6HPRN PRN Administration
NAUSEA/VOMITING
Oxycodone HCl 5 mg 10/06/25 08:41 10/07/25 22:28
Oxycodone 5 Mg Regular Release Tablet PO 10/20/25 08:40 5 mg
Q4HPRN PRN Administration
mod pain
Pantoprazole Sodium 40 mg 10/04/25 08:00 10/10/25 08:26
Pantoprazole 40 Mg Delayed Release Tablet PO 11/01/25 07:59 40 mg
DAILY JR Administration
Polyethylene Glycol 17 grams 10/04/25 00:25
Polyethylene Glycol Powder 17 Grams Packet PO 11/01/25 00:24
DAILYPRN PRN
constipation
Potassium Chloride 20 meq 10/04/25 08:00 10/10/25 11:58
Potassium Chloride 20 Meq Extended Release Tablet PO 11/01/25 07:59 20 meq
DAILY JR Administration
Senna/Docusate Sodium 1 tablet 10/04/25 00:10/09/25 17:09
Docusate W/Senna (Sofía-Colace) Tablet PO 11/01/25 00:24 1 tablet
BIDPRN PRN Administration
constipation
Sodium Chloride 0 flush 10/04/25 13:00 10/08/25 20:11
Sodium Chloride 0.9% (Flush) Syringe IV 11/01/25 12:59 1 flush
PER PROTOCOL JR Administration
Sodium Chloride 10 ml 10/10/25 08:00
Sodium Chloride (4 Meq/Ml) 30 Ml Vial *For Hemodialysis* IV 10/10/25 23:59
HD-Q1HPRN PRN
cramps
Vitamin B Complex/Vit C/Folic Acid 1 capsule 10/04/25 08:00 10/10/25 11:57
Renal Cap (Nephrocap) Capsule PO 11/01/25 07:59 1 capsule
DAILY JR Administration
Home Medications
�Medication �Instructions �Recorded
atorvastatin 40 mg tablet 40 mg PO HS High cholesterol 04/25/21
cilostazol 100 mg tablet 100 mg PO BID Blood clot 04/25/21
prevention/tx
fluoxetine 20 mg capsule 20 mg PO DAILY anxiety/depression 04/05/22
amiodarone 200 mg tablet 200 mg PO DAILY Arrhythmia 08/31/23
insulin glargine 100 unit/mL (3 40 unit SC DAILY Diabetes 05/19/24
mL) subcutaneous pen (Lantus
Solostar U-100 Insulin)
potassium chloride 20 mEq 20 meq PO DAILY Electrolyte 05/19/24
tablet,extended release Repletion
amlodipine 5 mg tablet 5 mg PO DAILY Blood Pressure 10/04/25
apixaban 2.5 mg tablet (Eliquis) 2.5 mg PO BID Blood Clot 10/04/25
Prevention/Tx
bupropion HCl 150 mg 24 hr tablet, 150 mg PO DAILY Depression 10/04/25
extended release
omeprazole 20 mg tablet,delayed 20 mg PO DAILY Gastrointestinal 10/04/25
release Issue
[2025-10-10 17:26] LABS: Glucose - Point of Care 97 mg/dl (70-99)
[2025-10-10 19:00] VITALS: BP 108/55
[2025-10-10 21:42] LABS: Glucose - Point of Care 145 mg/dl (70-99)
[2025-10-10] MEDS: LANTUS 0.1 UNITS SC (21:50)
[2025-10-10 23:00] VITALS: BP 99/41
[2025-10-11 03:00] VITALS: BP 112/52
[2025-10-11 06:00] VITALS: BMI 28.8
[2025-10-11 07:33] LABS: Glucose - Point of Care 125 mg/dl (70-99)
[2025-10-11 07:34] VITALS: BP 117/50
[2025-10-11] MEDS: NOVOLOG FLEXPEN-LOW RESISTANCE SC ×2 (08:04→12:21)
[2025-10-11 09:00] LABS: Hematocrit 34.0 % (37.0-47.0); Hemoglobin 11.6 g/dL (12.0-16.0); Mean Corp Hgb Conc. 34.1 g/dL (33.0-37.0); Mean Corpuscular Volume 91.9 fL (81.0-99.0); Platelet Count 170 10^3/uL (130-400); Red Cell Dist. Width 14.1 % (11.5-14.5)
[2025-10-11] MEDS: NEURONTIN 100 MG PO ×2 (09:28→16:42)
[2025-10-11] MEDS: WELLBUTRIN XL (24 hour extended release) 150 MG PO (09:29)
[2025-10-11] MEDS: KCL 20 MEQ PO (09:29)
[2025-10-11] MEDS: NEPHROCAP 1 CAPSULE PO (09:29)
[2025-10-11] MEDS: ELIQUIS 2.5 MG PO (09:29)
[2025-10-11] MEDS: PROZAC 20 MG PO (09:30)
[2025-10-11] MEDS: VITAMIN D3 (cholecalciferol) 50 MCG PO (09:30)
[2025-10-11] MEDS: PROTONIX 40 MG PO (09:30)
[2025-10-11 09:37] LABS: ALT (SGPT) 169 U/L (0-35); AST (SGOT) 146 U/L (14-36); Albumin 3.1 g/dl (3.5-5.0); Alkaline Phosphatase 66 U/L (38-126); Blood Urea Nitrogen 20 mg/dl (7-17); Calcium 9.7 mg/dl (8.4-10.2); Carbon Dioxide 34 mmol/L (22-30); Chloride 99 mmol/L (98-107); Estimated Creatinine Clearance 19 ml/min; Glucose 147 mg/dl (70-99); Potassium 3.8 mmol/L (3.5-5.1); Sodium 135 mmol/L (135-145); Total Protein 5.6 g/dl (6.3-8.2); eGFR 18.18
[2025-10-11 11:28] VITALS: BP 113/48
[2025-10-11 12:14] LABS: Glucose - Point of Care 115 mg/dl (70-99)
--- NOTE | 2025-10-11 12:53 | W.PN.NEPH.HD ---
Assessment
-
pt seen during HD
vitals stable
no wt gains so no UF
she is originally [facility] but noted she will be transferring to [facility] with MWF schedule
AVF functions fine
Progress Note - Hemodialysis
-
Date of Service: October 11, 2025
Duration: 3 hours
Potassium Bath: 3
Calcium Bath: 2.5
Opti-Dialyzer: 160
Ultrafiltration: Other (0.5)
Blood Flow: 400
Dialysate Flow: 600
Heparin: no
EPO: no
--- NOTE | 2025-10-11 14:26 | CM ---
Addendum entered by Sharon Mireles 10/11/25 16:42:
IBC approval received
Bedside update to pt and spouse
Pt does not meet medical necessity for BLS
Spouse declined WC van- he will transport
Update to SNF admissions who confrimed acceptance this evening
update to attending
Discharge Disposition- [facility] with HD
Phone- [phone] Fax- [phone]
Please include 10/11 HD flowsheet with dc paperwork
Original Note:
CM reviewed pt with attending- medical ready for dc
CM confirmed SNF bed with admissions/[facility]
Provided update HD clinicals and liaison confirmed HD acceptance
SNF will provide HD MWF
Bedside update to pt and she is in agreement with plan
Call with [facility] to initiate auth
Auth pending and awaiting medical technologist microbiology determination
Update to pt and attending
If auth is denied, plan for home with [facility]N (likely [facility]) and spousal support and [facility] outpt HD
SNF pending auth# [id number]
Discharge Disposition- [facility] with HD, auth pending
--- NOTE | 2025-10-11 15:17 | W.PN.HOSP.TC ---
Today's Communication/Plan
-
Assessment / Plan
Assessment / Plan
General: No Apparent Distress, Comfortable and Conversant
HEENT: NormoCephalic, Moist mucous membranes, Atraumatic
Respiratory: Clear and Non Labored Respirations
Cardiac: S1/S2 and Regular Rhythm; No Rub or Gallop
GI: Soft, Non Tender, Non Distended and Normal Bowel Sounds
Musculoskeletal: No Edema, no deformity
: NO [place]
Neuro: Awake, Alert, Nonfocal/grossly intact
Psych: Calm and cooperative
HPI: 74 yo F PMH RA, ESRD on HD (TTS), Afib on Eliquis, HTN, DM, HLD, CAD, COPD; p/w subacute intermittent epigastric pain for > 2 months.
She c/o unable to eat due to severe pain post prandial and occasional vomiting. She was referred to the ED by her PCP
She was here 3 days MAINSTREAMING FACILITATOR, and had CT scan that suggested biliary sludge/stones but otherwise was unremarkable.
UA was suggestive of UTI, and subsequent UCX grew Klebsiella aerogenes, and pt was given a dose of fosfomycin at that ER visit
CT AP:
Mild air in the bladder. This can be seen with recent instrumentation. If there is no such history, infection should be considered. New
Mild gallbladder sludge versus numerous tiny gallstones.
Bilateral too small to characterize hypodense renal lesions likely benign cysts. Stable. Simple right renal cysts. Enlarged.
Diverticulosis. Stable
Small fat-containing umbilical hernia. No evidence of incarceration nor strangulation. Stable
Abd US:
No gallstones or bile duct dilatation. Mild biliary sludge noted. Sonographic features suggesting mild fatty infiltration of liver.
Subtle coarse increased echotexture of the liver, in keeping with prior MRI findings of elevated liver iron concentration.
A/P:
# Subacute post prandial epigastric pain
# transaminitis, elevated but stable
# suspect acute cholecystitis with imaging showing biliary sludge
s/p Laparoscopic Cholecystectomy with Cholangiogram 11/24
Follow LFT, was increased could be related to edema postop, now plateaued and stable
restarted Eliquis 10/06/2025
pain control with oxycodone (avoid Tylenol for now in setting of elevated LFT)
# Hypokalemia
Mild, managed with dialysis
Mag WNL
# h/o Atrial arrhythmias / Persistent AF with periods of AT
# Essential Hypertension
# Now bradycardia
restarted Eliquis 10/06/2025
Amiodarone stopped due to bradycardia with HR in the 40's
# Non-specific neurologic symptoms of dizziness, per patient dizziness has been intermittent, possibly due to symptomatic bradycardia
# new double vision that started 10/06 (occurs when pt uses her computer), not resolved
CT head 10/06 unrevealing. MRI brain also no evidence for acute infarct.
Neuro on board , recc MRI cervical spine in setting of leg weakness, MRI shows no acute findings
# Chronic leg weakness, unclear cause, ?due to hypokalemia vs others such as clinical deconditioning
TSH WNL at 0.51
Neuro on board, MRI C-spine shows no acute findings, neurology recommending no further inpatient workup but do recommend following up in the neurology clinic for EMG
Medically stable for discharge to SNF
# ESRD on HD TuThSa
# Rt UE AVF
Renal diet
still makes urine
Renal on board for HD need
# IDDM
Cont MAINSTREAMING FACILITATOR Lantus at 10 units HS (MAINSTREAMING FACILITATOR 40 units HS)
cover with insulin SS
# Dyslipidemia
Hold atorvastatin for now
Trend LFT, improving
Other PMH:
# RA
# L kidney mass seen on CT in 2022
# Obesity, BMI 28
# Sleep apnea
# Anxiety/depression
DVT ppx: MAINSTREAMING FACILITATOR Eliquis resumed 10/06
Full code
Dispo: SNF
Anticipated Discharge: 24 - 48 hours
Subjective/Interval History
-
Date of Service: October 11, 2025
Patient was seen and examined at bedside this morning. No acute events overnight. Awaiting SNF placement.
Objective Data
-
Labs:
Laboratory Results
10/11/25
08:19
WBC 3.9 L
Hgb 11.6 L
Hct 34.0 L
Plt Count 170
Sodium 135
Potassium 3.8
Chloride 99
Carbon Dioxide 34 H
BUN 20 H
Creatinine 2.7 H
Glucose 147 H
Calcium 9.7
Total Bilirubin 0.8
AST 146 H
ALT 169 H
Alkaline Phosphatase 66
Vital Signs:
Vital Signs
Temp Pulse Resp BP Pulse Ox
97.9 F 48 16 113/48 99
10/11/25 11:28 10/11/25 11:28 10/11/25 11:28 10/11/25 11:28 10/11/25 11:28
I&O
10/10/25 10/11/25 10/12/25
06:59 06:59 06:59
Intake Total 960 / 960 1260 / 1260
Balance 960 / 960 1260 / 1260
Review of Systems
-
History Source: Patient
All other systems: Reviewed and negative
Physical Exam
-
General: No Apparent Distress
[2025-10-11 16:17] VITALS: BP 112/62
--- NOTE | 2025-10-11 16:41 | W.DCSUMMARY ---
Discharge Summary
Discharge Data
Date of Admission: 10/04/25
Date of Discharge: 10/11/25
Total time spent discharging patient (in min): 52
-
Pending Results: No
Hospital Course
Ms. Syed is a 74-year-old female with a medical history of rheumatoid arthritis, ESRD (HD TTS), A-fib (on Eliquis), hypertension, IDDM, CAD, and COPD who presented with epigastric pain. Her pain had been intermittent for approximately 2 months,
often postprandial, and occasionally associated with vomiting. Ultrasound imaging showed biliary sludge. Labs revealed transaminitis. She underwent laparoscopic cholecystectomy with cholangiogram on 10/04/2025. Her abdominal pain resolved
postoperatively. Her home atorvastatin is being held for now until her transaminitis resolves. She will need to follow-up with a access rn for further evaluation and management of fatty infiltration of liver noted on imaging. She
developed dizziness and double vision on 10/06. She says the dizziness had been intermittent prior to this hospitalization. Her amiodarone was stopped during this hospitalization due to noted bradycardia with heart rate in the 40s. Her heart rate
and symptoms of dizziness and double vision have since resolved. Her amiodarone will be discontinued indefinitely. MRI brain showed no acute intracranial abnormalities. She was evaluated by neurology who recommended MRI of her cervical spine
considering she also has chronic leg weakness with unclear etiology. Her MRI cervical spine showed degenerative disc disease greatest at C5-C6 with no clear cord compression or deformation. Neurology recommendations are for outpatient follow-up in
the neurology clinic for EMG. She was evaluated by physical and Occupational Therapy who recommended [facility] facility for ongoing rehab after hospital discharge. She was medically stable at time of hospital discharge.
Discharge Plan
-
Patient Disposition: Correction/SNF
Discharge Diagnosis/Procedures: Subacute post prandial epigastric pain, suspect acute cholecystitis with imaging showing biliary sludge;
s/p Laparoscopic Cholecystectomy with Cholangiogram 10/04/2025;
Sinus bradycardia;
Non-specific neurologic symptoms of dizziness (possibly due to symptomatic bradycardia);
New double vision that started when patient uses her computer
Condition: Fair
Diet: As tolerated and Diabetic, Carb Controlled
Activity: As tolerated
Driving Restrictions: Not until seen by your Dr
Activity Restrictions/Additional Instructions:
Instructions following Laparoscopic Cholecystectomy
Please call [phone] if you have any questions or concerns after your surgery.
Wound Care:
Your incisions are covered with skin glue which will come off on its own in 5-10 days.
It is ok to shower the day after your surgery. Do not scrub the incisions, let soap and water wash over them and pat dry.
� Bruising around your incisions is normal.
� Using ice packs will help minimize this swelling.
� No swimming or soaking incisions for 1 week.
� Your stitches will dissolve and do not need to be removed.
Urinary retention:
If you are unable to urinate 6-8 hours after your surgery, please call [phone] to discuss further management.
Activity:
No heavy lifting more than 15 pounds for the next 3 weeks, then you may gradually lift heavier objects as tolerated by discomfort. Otherwise activity as tolerated by your comfort level.
Pain Management:
� You may take 650 milligrams of Tylenol (Max 3 grams per day) every 6 hours.
� You may use an ice pack to your incision as needed.
� If you still have pain not controlled by these measures, take your prescription pain medication as prescribed.
Medications:
You may resume your home medications.
You may resume your Eliquis on 10/06/2025 at your usual dosing time.
Bowel Medications:
Prescription pain medication can make you constipated. If you take this medication, also take colace 100 mg twice daily (this is over the counter). If this is not sufficient, you may take Miralax (polyethylene glycol) to help move your bowels.
Diet:
After your procedure, there are no dietary restrictions. However, you may notice some loose stools with fatty meals for up to 4 weeks after surgery. If this is the case, please adjust to a low fat diet as needed.
Driving restrictions:
No driving if you are taking prescription pain medication or if you think your normal reaction time and attentiveness has been slowed by your surgery.
Things to Look out for:
Worsening Abdominal pain, fever, jaundice, redness or drainage from incision
Call Doctor for:
Please call if you notice worsening redness or drainage from incision(s) lasting longer than 5 days after your surgery, any foul-smelling drainage from the incision, pain not controlled by pain medications, persistent nausea and vomiting, or for any
fevers greater than 101.3 F. The number for questions/concerns is [phone]
Follow-up:
A follow-up appointment will be scheduled with your surgeon in 3-4 weeks. Please call prior to your appointment if you have any questions or concerns. [phone]
Referrals:
Leoncio Salcedo MD [Active, Gastroenterology]
Referral Note: Follow up with Dr. Salcedo in 6-8 weeks. Will need to review for EGD/colonoscopy. Please check if office accept insurance. If not in network see GI provider within insurance network.
Marielle Sheppard MD [Family Provider, Family Practice] - in less than 1 week
Barrington Sanford MD [Active, Surgical]
Additional Discharge Medication Instructions: Follow-up with ophthalmology if your double vision persists.
Stop amiodarone due to sinus bradycardia
Prescriptions:
New
gabapentin 100 mg Capsule
100 mg PO TID Qty: 90 0RF
Renal Caps 1 mg Capsule
1 cap PO DAILY Qty: 30 0RF
cholecalciferol (vitamin D3) 50 mcg (2,000 unit) Tablet
50 mcg PO DAILY Qty: 30 0RF
Continued
atorvastatin 40 MG tablet
40 mg PO HS
fluoxetine 20 MG capsule
20 mg PO DAILY
Eliquis 2.5 mg Tablet
2.5 mg PO BID
omeprazole 20 mg Tablet,Delayed Release (Dr/Ec)
20 mg PO DAILY
bupropion HCl 150 mg Tablet Extended Release 24 Hr
150 mg PO DAILY
Changed
insulin glargine [Lantus Solostar U-100 Insulin] 100 unit/mL (3 mL) Insulin Pen
10 unit SC DAILY Qty: 0 0RF
Held
cilostazol 100 MG tablet
100 mg PO BID
Hold Instructions: Follow-up with prescribing physician regarding potentially restarting this medication
amlodipine 5 mg Tablet
5 mg PO DAILY
Hold Instructions: Follow-up with your prescribing physician regarding potentially restarting this medication for blood pressure
Discontinued
amiodarone 200 mg tablet
200 mg PO DAILY
potassium chloride 20 mEq Tablet Extended Release
20 meq PO DAILY
Discharge Orders:
Discharge Patient (As Directed); Ordered 10/11/25
Ordered By: Elio Conner
Discharge Date and Time
Print Language: PUERTO RICAN
== END 2025-10-11 17:30 | DRG 417 ==
LOC: 2 NORTH 11:00
PROVIDERS: Internal Medicine; Physician Assistant; Specialist; ADMITTING PHYSICIAN Internal Medicine; ATTENDING PHYSICIAN Internal Medicine; CONSULT PHYSICIAN Internal Medicine Cardiovascular Disease; CONSULT PHYSICIAN Internal Medicine Gastroenterology; CONSULT PHYSICIAN Psychiatry & Neurology Neurology; EMERGENCY PHYSICIAN Emergency Medicine; FAMILY PHYSICIAN Family Medicine; OTHER PHYSICIAN Internal Medicine Nephrology; OTHER PHYSICIAN Surgery
PROC: BF131ZZ Fluoroscopy of Gallbladder and Bile Ducts using Low Osmolar Contrast (ICD-10-PCS; 2025-10-04)
PROC: 0FB14ZX Excision of Right Lobe Liver, Percutaneous Endoscopic Approach, Diagnostic (ICD-10-PCS; 2025-10-04)
PROC: 0FT44ZZ Resection of Gallbladder, Percutaneous Endoscopic Approach (ICD-10-PCS; 2025-10-04)
PROC: 5A1D70Z Performance of Urinary Filtration, Intermittent, Less than 6 Hours Per Day (ICD-10-PCS; 2025-10-05)
DX: K80.00 Calculus of gallbladder with acute cholecystitis without obstruction (principal); N18.6 End stage renal disease; I13.2 Hypertensive heart and chronic kidney disease with heart failure and with stage 5 chronic kidney disease, or end stage renal disease; I48.19 Other persistent atrial fibrillation; N39.0 Urinary tract infection, site not specified; J44.89 Other specified chronic obstructive pulmonary disease; E78.00 Pure hypercholesterolemia, unspecified; I25.10 Atherosclerotic heart disease of native coronary artery without angina pectoris; E11.22 Type 2 diabetes mellitus with diabetic chronic kidney disease; E11.43 Type 2 diabetes mellitus with diabetic autonomic (poly)neuropathy; F32.A Depression, unspecified; G25.81 Restless legs syndrome; G47.33 Obstructive sleep apnea (adult) (pediatric); M10.9 Gout, unspecified; M06.9 Rheumatoid arthritis, unspecified; L30.9 Dermatitis, unspecified; K76.0 Fatty (change of) liver, not elsewhere classified; I27.20 Pulmonary hypertension, unspecified; K21.9 Gastro-esophageal reflux disease without esophagitis; K42.9 Umbilical hernia without obstruction or gangrene; E87.6 Hypokalemia; E11.51 Type 2 diabetes mellitus with diabetic peripheral angiopathy without gangrene; I95.1 Orthostatic hypotension; N28.89 Other specified disorders of kidney and ureter; N28.1 Cyst of kidney, acquired; F41.9 Anxiety disorder, unspecified; E66.9 Obesity, unspecified; K44.9 Diaphragmatic hernia without obstruction or gangrene; K31.84 Gastroparesis; M50.322 Other cervical disc degeneration at C5-C6 level; H53.2 Diplopia; R00.1 Bradycardia, unspecified; R42 Dizziness and giddiness; T46.2X5A Adverse effect of other antidysrhythmic drugs, initial encounter; S09.8XXA Other specified injuries of head, initial encounter; W22.09XA Striking against other stationary object, initial encounter; Y93.89 Activity, other specified; Y92.231 Patient bathroom in hospital as the place of occurrence of the external cause; I25.2 Old myocardial infarction; Z99.2 Dependence on renal dialysis; Z87.440 Personal history of urinary (tract) infections; Z90.710 Acquired absence of both cervix and uterus; Z79.01 Long term (current) use of anticoagulants; Z79.899 Other long term (current) drug therapy; Z79.4 Long term (current) use of insulin; Z88.2 Allergy status to sulfonamides; Z91.048 Other nonmedicinal substance allergy status; Z80.8 Family history of malignant neoplasm of other organs or systems; Z82.49 Family history of ischemic heart disease and other diseases of the circulatory system; Z68.28 Body mass index [BMI] 28.0-28.9, adult; Z86.73 Personal history of transient ischemic attack (TIA), and cerebral infarction without residual deficits; Z79.02 Long term (current) use of antithrombotics/antiplatelets
CPT/HCPCS: 70450; 70551; 72141; 74300; 76000; 76705; 80053; 82248; 82728; 82962; 83036; 83690; 83735; 84100; 84443; 85025; 85027; 86706; 86850; 86900; 86901; 87070; 87340; 88304; 88307; 88313; 93005; 96374; 97116; 97163; 97167; 97530; 97535; 99285; G0257; P9047

== ENCOUNTER 2025-10-28 14:38 | Inpatient (IN) | payer OTHER, SELFPAY ==
[2025-10-27 19:05] VITALS: BP 123/57
[2025-10-27 19:41] VITALS: BP 127/71
[2025-10-27 20:00] VITALS: BP 141/62
[2025-10-27 20:12] LABS: Hematocrit 31.7 % (37.0-47.0); Hemoglobin 11.0 g/dL (12.0-16.0); Mean Corp Hgb Conc. 34.7 g/dL (33.0-37.0); Mean Corpuscular Volume 89.3 fL (81.0-99.0); Nucleated Red Blood Cells % 0 %; Platelet Count 215 10^3/uL (130-400); Red Cell Dist. Width 15.2 % (11.5-14.5)
[2025-10-27 20:33] LABS: ALT (SGPT) 112 U/L (0-35); AST (SGOT) 111 U/L (14-36); Albumin 3.5 g/dl (3.5-5.0); Alkaline Phosphatase 71 U/L (38-126); Blood Urea Nitrogen 26 mg/dl (7-17); Calcium 9.7 mg/dl (8.4-10.2); Carbon Dioxide 26 mmol/L (22-30); Chloride 98 mmol/L (98-107); Glucose 155 mg/dl (70-99); Potassium 3.0 mmol/L (3.5-5.1); Sodium 132 mmol/L (135-145); Total Protein 6.0 g/dl (6.3-8.2); eGFR 15.40
[2025-10-27 21:00] VITALS: BP 127/63
--- NOTE | 2025-10-27 21:02 | ED.GENMED ---
History of Present Illness
<Gail Robles PA-C - Last Filed: 10/27/25 21:16>
General
Chief Complaint: Trauma Significant Mechanism
Time Seen by Provider: 10/27/25 19:30
History of Present Illness
History of Present Illness:
Natalia is a 72-year-old female with past medical history of A-fib on Eliquis who was recently discharged from rehab after hospital stay [facility] who reports tripping and falling down a flight of stairs this afternoon. Questionable loss of
consciousness after the fact. Patient denies any LOC but family believe there might have been. Says that she has been feeling weak and needing to use a cane for ambulation since returning home from rehab. Complains of right arm pain. No other
complaints. Denies any headache, nausea, vomiting.
Past History
<Gail Robles PA-C - Last Filed: 10/27/25 21:16>
Past History
ED Past Medical History: Arrthythmia (Atrial fib), Asthma, CHF, COPD, GERD, HTN, Hypercholesterolemia, IDDM, SC, Renal failure (Dialysis - Saturday), Psychiatric (Depression) and Other (Neuropathy, sleep apnea, rheumatoid arthritis, gout,
restless leg, Diverticulitis, UTI, Cellulitis, Hernia, Eczema, )
ED Past Surgical History: Gynecological (Hysterectomy), Orthopedic (Carpal tunnel, Left shoulder, Left wrist, ), Urological (Bladder lift X3, Cyst removed left kidney) and Other (Deviated septum)
Social History
Tobacco: Non-smoker
Alcohol: None
Drug: None
Personal:
Living: with family
Employment: Retired
Family History
Family History: CAD
Phy Exam
<Gail Robles PA-C - Last Filed: 10/27/25 21:16>
General Physical Exam
General Presentation: well appearing and no apparent distress
General Skin: warm and dry
General Habitus: normal
General Mental: alert
General Hydration: appears well hydrated
ENT Exam
ENT Exam: EOMI, pharynx normal, neck supple and normocephalic
Eye Exam
Eye Exam: PERRL, cornea clear and conjunctiva normal
Cardiovascular Exam
Cardiovascular Exam: regular rate/rhythm, no edema, no murmur and normal peripheral pulses
Pulmonary Exam
Pulmonary Exam: lungs clear, no respiratory distress, no rales, no crackles, no rhonchi, no stridor, no wheezing and no cough
Gastrointestinal Exam
Gastrointestinal Exam: normal bowel sounds, non tender, soft, no organomegaly, no pulsatile mass and non distended
Neurological Exam
Neurological Exam: alert, oriented x3, no motor deficits and speech normal
Musculoskeletal Exam
Musculoskeletal Exam: full ROM, no edema and other (Right wrist swollen)
Skin Exam
Skin Exam: normal color, warm/dry, no rash and no petechia
Psychiatric Exam
Psychiatric Exam: normal mood/affect
Course
<Gail Robles PA-C - Last Filed: 10/27/25 21:16>
Orders/Labs/Results
Orders:
Orders
10/27/25 19:08
CT Cervical Spine W/o Iv Contr Urgent
Comment:
Reason For Exam: trauma
CT Head W/o Iv Contrast Urgent
Comment:
Reason For Exam: trauma
CR Wrist - Right Min 3 Views Urgent
Comment:
Reason For Exam: trauma
10/27/25 19:42
EKG [Electrocardiogram (*1)] Urgent
Reason for Study: Fatigue / Weakness
10/27/25 19:43
EKG- Treatment ONCE
10/27/25 19:51
Complete Blood Count/With Diff Urgent
Comprehensive Metabolic Panel Urgent
10/27/25 20:57
Splints/Slings/Crut- Treatment ONCE
Location: Right
Type of Splint: Sugar Ton
Oxycodone/Acetaminophen [Percocet 5/325] 1 tablet PO NOW STA
Abnormal Lab Results
10/27/25
19:51
RBC 3.55 L 10^6/uL
(4.20-5.40)
Hgb 11.0 L g/dL
(12.0-16.0)
Hct 31.7 L %
(37.0-47.0)
RDW 15.2 H %
(11.5-14.5)
Absolute Lymphs (auto) 0.6 L 10^3/uL
(1.2-3.4)
Immature Gran % 0.6 H %
(0-0.5)
Neutrophils % 81.9 H %
(42.2-75.2)
Lymphocytes % 8.3 L %
(20.5-51.1)
Sodium 132 L mmol/L
(135-145)
Potassium 3.0 L mmol/L
(3.5-5.1)
BUN 26 H mg/dl
(7-17)
Creatinine 3.1 H mg/dL
(0.6-1.0)
Glucose 155 H mg/dl
(70-99)
AST 111 H U/L
(14-36)
ALT 112 H U/L
(0-35)
Total Protein 6.0 L g/dl
(6.3-8.2)
10/27/25 19:51
10/27/25 19:51
Vital Signs
Initial and Last Documented VS:
Initial Vital Signs
Temp Pulse Resp BP Pulse Ox
98.5 F 71 18 123/57 99
10/27/25 19:05 10/27/25 19:05 10/27/25 19:05 10/27/25 19:05 10/27/25 19:05
Last Documented Vital Signs
Temp Pulse Resp BP Pulse Ox
36.9 C 71 19 127/63 97
10/27/25 19:05 10/27/25 21:00 10/27/25 21:00 10/27/25 21:00 10/27/25 21:05
<Elizabeth Calderon, - Last Filed: 10/27/25 21:16>
Orders/Labs/Results
Orders:
Orders
10/27/25 19:08
CT Cervical Spine W/o Iv Contr Urgent
Comment:
Reason For Exam: trauma
CT Head W/o Iv Contrast Urgent
Comment:
Reason For Exam: trauma
CR Wrist - Right Min 3 Views Urgent
Comment:
Reason For Exam: trauma
10/27/25 19:42
EKG [Electrocardiogram (*1)] Urgent
Reason for Study: Fatigue / Weakness
10/27/25 19:43
EKG- Treatment ONCE
10/27/25 19:51
Complete Blood Count/With Diff Urgent
Comprehensive Metabolic Panel Urgent
10/27/25 20:57
Splints/Slings/Crut- Treatment ONCE
Location: Right
Type of Splint: Sugar Ton
Oxycodone/Acetaminophen [Percocet 5/325] 1 tablet PO NOW STA
Abnormal Lab Results
10/27/25
19:51
RBC 3.55 L 10^6/uL
(4.20-5.40)
Hgb 11.0 L g/dL
(12.0-16.0)
Hct 31.7 L %
(37.0-47.0)
RDW 15.2 H %
(11.5-14.5)
Absolute Lymphs (auto) 0.6 L 10^3/uL
(1.2-3.4)
Immature Gran % 0.6 H %
(0-0.5)
Neutrophils % 81.9 H %
(42.2-75.2)
Lymphocytes % 8.3 L %
(20.5-51.1)
Sodium 132 L mmol/L
(135-145)
Potassium 3.0 L mmol/L
(3.5-5.1)
BUN 26 H mg/dl
(7-17)
Creatinine 3.1 H mg/dL
(0.6-1.0)
Glucose 155 H mg/dl
(70-99)
AST 111 H U/L
(14-36)
ALT 112 H U/L
(0-35)
Total Protein 6.0 L g/dl
(6.3-8.2)
10/27/25 19:51
10/27/25 19:51
Vital Signs
Initial and Last Documented VS:
Initial Vital Signs
Temp Pulse Resp BP Pulse Ox
98.5 F 71 18 123/57 99
10/27/25 19:05 10/27/25 19:05 10/27/25 19:05 10/27/25 19:05 10/27/25 19:05
Last Documented Vital Signs
Temp Pulse Resp BP Pulse Ox
36.9 C 71 19 127/63 97
10/27/25 19:05 10/27/25 21:00 10/27/25 21:00 10/27/25 21:00 10/27/25 21:05
<Gail Robles PA-C - Last Filed: 10/27/25 21:16>
MDM/Problems Addressed
Differential Diagnosis Includes:
Hemodynamically stable with no signs of external trauma on physical exam. Given mechanism and patient on anticoagulation CT head and cervical spine completed no acute traumatic injuries identified. Right wrist x-ray shows impacted right radial
fracture. Will place patient in sugar-tong splint.
Discussed findings with patient and her who had concerns about her returning home as she is unable to ambulate at her baseline. Given Percocet for pain in the emergency department.
<Gail Robles PA-C - Last Filed: 10/27/25 21:16>
*Pulse Oximetry
SaO2: 97
Oxygen Mode of Delivery: Room air
Patient hypoxic: no
*Critical Care Note
Total Time (30-74mins, 75-104mins- exclusive of procedures): Not Applicable
ED Attending Note
<Gail Robles PA-C - Last Filed: 10/27/25 21:16>
-
Portions of this chart may have been created with voice recognition software.� Occasional wrong word or��sound alike� substitutions may have occurred due to the inherent limitations of voice recognition software.
<Elizabeth Calderon DO - Last Filed: 10/27/25 21:16>
ED Attending Note
Patient seen and examined by attending physician: Yes
I performed the substantive portion of visit, reviewed & personally made and approve the management plan that is documented in note by myself or MARIZA.: Yes
I performed a history and physical exam of patient and discussed management with resident, I reviewed resident's note and agree with documented findings and plan of care.: Yes
ED Attending Note:
74-year-old female brought to the ER by family for evaluation after she reports that she fell down a full flight of steps. Patient states that she tumbled down. She reports pain in her right wrist only. She denies headache but was noticed by her
son to be disoriented for a few minutes after impact. Pt is on chcf anticoagulation with eliquis. VS reviewed, pt is awake and alert, head NCAT, mmm, no pain on palpation of cervical, thoracic or lumbar spine, no evidence of brusing on torso,
abd and soft and nontender, GCS is 15, R wrist with swelling and pain on palpation with limited active ROM, 2 + radial pulses present with brisk cap refill to the digits. I discussed with patient and present bedside no evidence for trauma
seen on CT head and cervical spine. I discussed with him presence of wrist fracture and treatment of same. Has been is very concerned due to 's gait dysfunction at home-she has been very unsteady on her feet and he does not believe she is safe
to be discharged. Will discuss with the hospitalist for admission for PT evaluation as patient would likely benefit from going to rehab for further care.
Discharge Plan
Departure
Patient Disposition: Admit
Date of Disposition: 10/27/25
Time of Disposition: 21:00
Presentation/result/management discussed w/ accepting MD/DO: Hospitalist
Discharge Problem:
Fracture of right wrist, Fall, Ambulatory dysfunction
Prescriptions:
No Action
fluoxetine 20 MG capsule
20 mg PO DAILY
Eliquis 2.5 mg Tablet
2.5 mg PO BID
omeprazole 20 mg Tablet,Delayed Release (Dr/Ec)
20 mg PO DAILY
bupropion HCl 150 mg Tablet Extended Release 24 Hr
150 mg PO DAILY
gabapentin 100 mg Capsule
100 mg PO TID Qty: 90 0RF
Renal Caps 1 mg Capsule
1 cap PO DAILY Qty: 30 0RF
cholecalciferol (vitamin D3) 50 mcg (2,000 unit) Tablet
50 mcg PO DAILY Qty: 30 0RF
atorvastatin [Lipitor] 40 mg Tablet
40 mg PO QPM
cilostazol 100 mg Tablet
100 mg PO BID
amlodipine [Norvasc] 5 mg Tablet
5 mg PO DAILY
nystatin 100,000 unit/gram Powder
1 applic TOPICAL BID
insulin glargine-yfgn 100 unit/mL Solution
5 unit SC DAILY
Referrals:
Marielle Sheppard MD [Family Provider, Family Practice]
Interventions
Interventions:
*General Assessment Last Done: 10/27/25 19:05
*Neglect/Abuse Screening Last Done: 10/27/25 19:50
*ED COVID-19 Vaccine History Last Done: 10/27/25 19:50
*ED Influenza Vaccine History Last Done: 10/27/25 19:50
[facility] Fall Risk Assessment Tool Last Done: 10/27/25 19:38
*Risk Screen - Suicide (C-SSRS) Last Done: 10/27/25 19:05
ED-Musculoskeletal Assessment Last Done: 10/27/25 19:37
ED- Neurological Assessment Last Done: 10/27/25 19:37
ED-Skin Assessment Last Done: 10/27/25 19:37
Discharge Date and Time
Print Language: OCCITAN
[2025-10-27] MEDS: PERCOCET 5/325 1 TABLET PO (21:11)
--- NOTE | 2025-10-27 21:23 | HPS.HSE ---
Family Physician
-
Family Physician: Marielle Sheppard
Chief Complaint
-
tripping and falling down a flight of stairs this afternoon sustained right arm pain.
History of Present Illness
HPI�
74F
Significant PMHX: RA, ESRD on HD( TTS) , Afib on Eliquis, HTN, DM, HLD, CAD, COPD
- was recently discharged from SNF after hospital stay [facility]
- reports tripping and falling down a flight of stairs this afternoon
- Questionable loss of consciousness after the fact. ( Patient denies any LOC but family believe there might have been-
- she has been feeling weak and needing to use a cane for ambulation since returning home from rehab.
- acute right arm pain s/p fall
Medical History
Past Medical History
Past Medical History: Reports Arrhythmia (A Fib on Eliquis ), COPD, GERD, HTN, Hypercholesterolemia, IDDM, Renal Failure (ESRD on HD ( TTS) ), Psychiatric (Anxiety/depression ) and Other
Additional Past Medical History:
Fatty liver
RA
Hx of L kidney mass seen on CT in 2022
Obesity
pHTN
RA
Sleep apnea
DLD
Past Surgical History: Reports None
Social History
Tobacco: Non-smoker
Alcohol: None
Family History
Family History: Not pertinent
Allergies / Home Medications
Allergies reflects when Allergies were last updated in [facility].
Home Medications with original date entered in [facility]
Allergy/Medication List:
Allergies
Allergy/AdvReac Type Severity Reaction Status Date / Time
adhesive Allergy Rash, Verified 06/10/24 18:13
itching
Sulfa (Sulfonamide Allergy nausea and Verified 06/10/24 18:13
Antibiotics) vomiting
Home Medications
atorvastatin 40 mg tablet 40 mg PO HS High cholesterol 04/25/21
cilostazol 100 mg tablet 100 mg PO BID Blood clot prevention/tx 04/25/21
fluoxetine 20 mg capsule 20 mg PO DAILY anxiety/depression 04/05/22
gabapentin 100 mg capsule 100 mg PO TID Diabetic Neuropathy 04/05/22
apixaban 2.5 mg tablet (Eliquis) 2.5 mg PO BID Blood clot prevention/tx #60 tabs 04/16/22
cholecalciferol (vitamin D3) 50 mcg (2,000 unit) capsule (Vitamin D3) 50 mcg PO DAILY Supplement 07/19/22
amiodarone 200 mg tablet 200 mg PO DAILY Arrhythmia 08/31/23
furosemide 80 mg tablet 80 mg PO SUMOWEFR Fluid Retention/Swelling 02/27/24
insulin glargine 100 unit/mL (3 mL) subcutaneous pen (Lantus Solostar U-100 Insulin) 40 unit SC HS 05/19/24
potassium chloride 20 mEq tablet,extended release 20 meq PO DAILY 05/19/24
vitamin B complex-vitamin C-folic acid 0.8 mg tablet (Nephro Vitamins) 1 tab PO DAILY 05/19/24
diltiazem HCl 120 mg capsule,extended release 24 hr, controlled 120 mg PO QHS #30 caps 06/05/24
Review of Systems
-
Constitutional: Reports No Symptoms
EENT: Reports No Symptoms
Respiratory: Reports No Symptoms
Cardiac: Reports No Symptoms
Abdomen/GI: Reports No Symptoms
: Reports No Symptoms
Musculoskeletal: Reports See HPI ( right arm pain )
Skin: Reports No Symptoms
Neurological: Reports No Symptoms
Endocrine: Reports No Symptoms
Hematologic/Lymphatic: Reports No Symptoms
Psych: Reports No Symptoms
Physical Exam
Vital Signs
Vital Signs
Temp Pulse Resp BP Pulse Ox
98.5 F 71 19 127/63 97
10/27/25 19:05 10/27/25 21:00 10/27/25 21:00 10/27/25 21:00 10/27/25 21:05
Physical Exam
General: No Apparent Distress and Other (Frequently smacking lips )
HEENT: Anicteric and Moist mucous membranes
Respiratory: Clear; No Wheezes, Rales or Rhonchi
Cardiac: S1/S2 and Irregular Rhythm
GI: Soft, Non Tender and Non Distended
Musculoskeletal: No Edema and Other (R arm AVF , Rt wrist fracture. )
Skin: Warm
Neuro: Awake, Alert, Oriented and AO x 3
Psych: Calm
Laboratory Results
-
10/27/25 19:51
10/27/25 19:51
Laboratory Results
Total Bilirubin 0.7 mg/dl (0.2-1.3) 10/27/25 19:51
AST 111 U/L (14-36) H 10/27/25 19:51
ALT 112 U/L (0-35) H 10/27/25 19:51
Alkaline Phosphatase 71 U/L (38-126) 10/27/25 19:51
Data Reviewed
-
Diagnostic Radiology: Report Reviewed by me
CT Scan: Report Reviewed by me
Medical Tests (Nuc Med, Echo, EKG etc): Report Reviewed by me
Lab Data: Labs Reviewed by me
Old Records: Reviewed
Impression/Plan
-
Vital Signs
Temp Pulse Resp BP Pulse Ox
98.5 F 71 19 127/63 97
10/27/25 19:05 10/27/25 21:00 10/27/25 21:00 10/27/25 21:00 10/27/25 21:05
Labs
10/11/25 10/27/25
08:19 19:51
WBC 7.2
Hgb 11.6 L 11.0 L
Plt Count 215
Sodium 132 L
Potassium 3.8 3.0 L
Carbon Dioxide 34 H 26
BUN 26 H
Creatinine 2.7 H 3.1 H
eGFR 18.18 15.40
AST 146 H 111 H
ALT 169 H 112 H
Rt wrist X
There is a minimally displaced and impacted comminuted distal radial fracture.
Likely sequelae of prior distal ulnar fracture.
HCT
No acute intracranial abnormality noted.
CT Cervical Spine W/o Iv Contr
- No acute osseous abnormality.
- Multilevel degenerative changes with moderate degenerative changes of C5-C6.
-1.5 cm hypodense nodule within the right hemithyroid. There is additional 1.4 cm nodule extending inferiorly from the posterior aspect of the right hemithyroid for which an exophytic nodule or parathyroid adenoma or possible. Recommend dedicated
nonemergent thyroid ultrasound for further evaluation.
Last hospitalist admission: 10/04/25 - 10/11/25
DC DX:
- Subacute post prandial epigastric pain, suspect acute cholecystitis with imaging showing biliary sludge;
- s/p Laparoscopic Cholecystectomy with Cholangiogram 10/04/2025;
- Sinus bradycardia;
- Non-specific neurologic symptoms of dizziness (possibly due to symptomatic bradycardia);
- New double vision that started when patient uses her computer
ASSESSMENT & PLAN
Rt wrist - ninimally displaced and impacted comminuted distal radial Fx
s/p Fall at Home
Lt hand dominant
- NEG HCT
- Fx set protocol ( PRN analgesia , PRN antiemetics etc)
- PT/OT
- OP Ortho FU upon DC
HX ESRD on HD TuThSa
has Rt UE AVF
- Renal diet
- still makes urine
- Renal consult for HD tomorrow
HX chest tightness with HD - currently CP free
- LHC in 2020 with normal coronaries
- PET myocardial perfusion in May 2024 at [facility]: cannot r/o apical ischemia
06/30/24 TTE : LVEF 60-65%. No regional WMAL. Normal RV size and function. No significant valvular disease.
HX Atrial arrhythmias / Persistent AF with periods of AT
- Prior list include amiodarone, diltiazem and Toprol XL
- on SERVICE LINE LAYER Eliquis 5mg bid
Essential Hypertension
- acceptable BP on above regimen
Chronic hypokalemia
- Potassium PRN
IR T2DM nephropathy
- cont home insulin
- insulin SS, DM diet
Dyslipidemia
Stable abn LFTs
- on atorvastatin
- Trend LFts
Known HX
RA
HX L kidney mass seen on CT in 2022
Obesity
Sleep apnea
Anxiety/depression
DLD
DVT Px: chr Eliquis
Full code
OBS MS
[2025-10-27 22:00] VITALS: BP 131/60
[2025-10-27 22:12] VITALS: BMI 29.7
[2025-10-27 23:00] VITALS: BP 102/53
[2025-10-27] MEDS: TYLENOL 650 MG PO (23:04)
[2025-10-27] MEDS: NEURONTIN 100 MG PO (23:04)
[2025-10-27] MEDS: SENOKOT 17.2 MG PO (23:04)
[2025-10-27] MEDS: COLACE 100 MG PO (23:04)
[2025-10-27] MEDS: DILAUDID 0.25 MG IV (23:07)
[2025-10-27 23:13] VITALS: BMI 29.7
[2025-10-28] MEDS: TYLENOL PO (04:15)
[2025-10-28] MEDS: DILAUDID 0.25 MG IV (05:46)
[2025-10-28 08:11] VITALS: BP 117/57
--- NOTE | 2025-10-28 08:19 | W.PN.HOSP.TC ---
Today's Communication/Plan
-
Upgrade to inpatient.
Social service consult for discharge plan
Assessment / Plan
Assessment / Plan
Impression:
The patient is a 74-year-old female with a significant past medical history of rheumatoid arthritis, end-stage renal disease on hemodialysis (TTS), atrial fibrillation on Eliquis, hypertension, diabetes mellitus, hyperlipidemia, coronary artery
disease, and COPD. She was recently [facility] following a hospital stay at [place]. This afternoon(day of admission), she reports tripping and falling down a flight of stairs, resulting in acute right arm pain.
There is a questionable loss of consciousness after the fall; the patient denies any LOC, but family members believe there may have been. Since returning home from rehab, she has been feeling weak and requiring a cane for ambulation.
Discussed with orthopedic, follow-up as outpatient, nonweightbearing right upper extremity.
Assessment/plan:
Right Wrist Fracture
Minimally displaced and impacted comminuted distal radial fracture (Rt wrist X-ray).
Likely sequelae of prior distal ulnar fracture.
Status post fall at home; patient is left-hand dominant.
Head CT: No acute intracranial abnormality.
Plan: Fracture set protocol (PRN analgesia, PRN antiemetics), PT/OT, outpatient orthopedic follow-up upon discharge.
Discussed with orthopedic on-call Dr. Rodriguez, follow-up as outpatient, maintain cast, nonweightbearing right upper extremity.
Orthostatic hypotension.
Noted with ambulation with physical therapy.
Patient will be upgraded to full social service consult discharge plan continue to monitor, consider midodrine
End-Stage Renal Disease on Hemodialysis (TTS)
Right upper extremity AV fistula present.
Labs: Creatinine 3.1 H, BUN 26 H, eGFR 15.4.
Sodium 132 L.
Plan: Renal diet, renal consult for HD, monitor urine output (patient still makes urine).
Hypokalemia
Labs: Potassium 3.0 L.
Plan: Potassium replacement PRN.
History of Chest Tightness During HD
Currently chest pain-free.
Prior workup: [facility] 2020 normal coronaries; PET myocardial perfusion May 2024annot rule out apical ischemia; TTE 06/30/24: LVEF 60�65%, normal RV size/function, no significant valvular disease.
Plan: Continue monitoring; no acute intervention needed.
Atrial Fibrillation / Atrial Tachyarrhythmias
On Eliquis 5 mg BID.
Prior meds include amiodarone, diltiazem, Toprol XL.
Plan: Continue anticoagulation, monitor rhythm.
Essential Hypertension
Vitals: BP 127/63 (acceptable on current regimen).
Plan: Continue home antihypertensive regimen.
Patient is orthostatic hypotensive, will monitor and upgrade to inpatient.
Type 2 Diabetes Mellitus with Nephropathy
Plan: Continue home insulin, sliding scale insulin, diabetic diet.
Dyslipidemia with Stable Abnormal LFTs
Labs: AST 111 H, ALT 112 H.
On atorvastatin.
Plan: Continue statin, trend LFTs.
Other Chronic Conditions
Rheumatoid arthritis, obesity, sleep apnea, anxiety/depression, dyslipidemia, history of left kidney mass (CT 2022).
Plan: Continue home management.
Incidental Thyroid Nodules
CT cervical spine: 1.5 cm hypodense nodule in right hemithyroid and additional 1.4 cm nodule extending inferiorly (possible exophytic nodule or parathyroid adenoma).
Plan: Recommend dedicated non-emergent thyroid ultrasound for further evaluation.
Prophylaxis & Status
DVT prophylaxis: Chronic Eliquis.
Code status: Full code.
Disposition: Observation, medical-surgical unit.
Diet: DM
Disposition: Upgrade to inpatient.
Social service consult for discharge plan
Total time spent on today's encounter was 65 minutes which included time spent in counseling the patient/family regarding diagnosis and treatment plan as listed above, goals of care, and symptom management. Case was discussed with nursing staff,
specialists, and care coordinators/case management. All labs and imaging personally reviewed by me. Remainder the time spent in detailed review of previous records, lab data, imaging, and other medical provider documentation.
Anticipated Discharge: > 48 hours
Subjective/Interval History
-
Date of Service: October 28, 2025
Patient seen and examined at bedside, pain of right wrist pain, but otherwise denies any chest pain or shortness of breath, no abdominal pain, no nausea, no vomiting, no diarrhea or constipation.
Objective Data
-
Labs:
Laboratory Results
10/27/25
19:51
Sodium 132 L
Potassium 3.0 L
Chloride 98
Carbon Dioxide 26
BUN 26 H
Creatinine 3.1 H
Glucose 155 H
Calcium 9.7
Total Bilirubin 0.7
AST 111 H
ALT 112 H
Alkaline Phosphatase 71
Vital Signs:
Vital Signs
Temp Pulse Resp BP Pulse Ox
98.6 F 63 18 117/57 98
10/28/25 08:11 10/28/25 08:11 10/28/25 08:11 10/28/25 08:11 10/28/25 08:11
Physical Exam
-
General: Well Developed, Well Nourished, No Apparent Distress and Comfortable
HEENT: Normocephalic, Atraumatic, Moist Mucous Membranes, No Ptosis, PERRLA and Nose Appears Normal
Respiratory: Clear to Auscultation and Non Labored Respirations
Cardiac: Regular Rhythm and S1/S2
Breast: Deferred by me
GI: Soft, Nontender, Nondistended and Normal Bowel Sounds
Genito-urinary: No Costovertebral Tender
Musculoskeletal: No Cyanosis and Other (Right wrist cast and tender)
Skin: Warm
Neuro: Awake, Alert, Oriented, AO x 3 and No Motor Deficits
Psych: Calm
Data Reviewed
-
Diagnostic Radiology: Image personally visualized and interpreted and Report Reviewed by me
CT Scan: Image personally visualized and interpreted and Report Reviewed by me
Ultrasound: Image personally visualized and interpreted and Report Reviewed by me
MRI: Image personally visualized and interpreted and Report Reviewed by me
Medical Tests (Nuc Med, Echo etc): Image personally visualized and interpreted and Report Reviewed by me
Labs: Labs Reviewed by me
Old Records: Reviewed
[2025-10-28 08:29] LABS: Glucose - Point of Care 140 mg/dl (70-99)
[2025-10-28] MEDS: TYLENOL 650 MG PO ×5 (08:35→23:42)
[2025-10-28] MEDS: COLACE 100 MG PO ×2 (08:35→19:46)
[2025-10-28] MEDS: PROTONIX 40 MG PO (08:36)
[2025-10-28] MEDS: KCL 40 MEQ PO (08:36)
[2025-10-28] MEDS: ROXICODONE 5 MG PO (08:36)
--- NOTE | 2025-10-28 08:48 | VNURNOTE ---
Chart reviewed. Patient is current with [facility]. Will continue to follow hospital course and DC plans.
[2025-10-28] MEDS: ELIQUIS 2.5 MG PO ×2 (09:26→19:47)
[2025-10-28] MEDS: SENOKOT 17.2 MG PO ×2 (09:26→19:47)
[2025-10-28] MEDS: PROZAC 20 MG PO (09:26)
[2025-10-28] MEDS: NEURONTIN 100 MG PO ×3 (09:26→21:15)
[2025-10-28] MEDS: LANTUS 0.05 UNITS SC (09:26)
[2025-10-28] MEDS: WELLBUTRIN XL (24 hour extended release) 150 MG PO (09:26)
[2025-10-28] MEDS: NORVASC PO (10:12)
--- NOTE | 2025-10-28 11:49 | W.CON.NEPH ---
Consultation
-
Date/Time Consultation Requested: 10/27/2025 at 2100
Date/Time Consultation Performed: 10/28/2025 at 9 AM
Requesting Provider: Luther Powell
Performing Provider: Dr. Madsen
Reason for Consultation: ESRD
Medical History
-
Chief Complaint: ESRD
History of Present Illness:
Ms. Syed is a 74YOF with PMH of ESRD on HD TThS at [facility] through right UE AVF on lasix, paroxismal Afib (on eliquis, Amio), CAD, DLD (on atorvastatin), DM on Insulin, HTN on Diltiazem, COPD, pHTN, gout, RA, JOS, obesity, PAD who
presents to the hospital status post fall at home down her steps with a right wrist fracture.
Was recently here for acute cholecystitis though recurrent postprandial abdominal pain. Status post laparoscopic cholecystectomy
Renal consultation for end-stage renal disease management.
Past Medical History
Gastroparesis secondary to Ozempic,
ESRD on HD TTHS,
orthostatic hypotension,
diabetes,
paroxysmal atrial fibrillation on Eliquis,
CAD,
hypertension,
COPD, pulmonary hypertension,
gout,
rheumatoid arthritis,
obstructive sleep apnea,
obesity,
hyperlipidemia,
peripheral arterial disease
Past Medical History: Other
Past Surgical History: Gynecological (hysterectomy), Urological (bladder lift) and Other (right UE AVF)
Social History
Tobacco: Non-Smoker
Alcohol: None
Drug: None
Family History
No kidney disease. Mother at 75, complications of hypertension and CAD with CABG. Father had hypertension.
Family History: Not Pertinent
Allergies / Home Medications
Allergy/AdvReac Type Severity Reaction Status Date / Time
adhesive Allergy Rash, Verified 09/29/25 17:07
itching
Sulfa (Sulfonamide Allergy nausea and Verified 09/29/25 17:07
Antibiotics) vomiting
�Medication �Instructions �Recorded �Confirmed �Type
fluoxetine 20 mg capsule 20 mg PO DAILY anxiety/depression 04/05/22 10/27/25 History
apixaban 2.5 mg tablet (Eliquis) 2.5 mg PO BID Blood Clot 10/04/25 10/27/25 History
Prevention/Tx
bupropion HCl 150 mg 24 hr tablet, 150 mg PO DAILY Depression 10/04/25 10/27/25 History
extended release
omeprazole 20 mg tablet,delayed 20 mg PO DAILY Gastrointestinal 10/04/25 10/27/25 History
release Issue
cholecalciferol (vitamin D3) 50 50 mcg PO DAILY #30 tabs 10/11/25 10/27/25 Rx
mcg (2,000 unit) tablet
gabapentin 100 mg capsule 100 mg PO TID #90 caps 10/11/25 10/27/25 Rx
vitamin B complex and vitamin C 1 cap PO DAILY #30 caps 10/11/25 10/27/25 Rx
no.20-folic acid 1 mg capsule
(Renal Caps)
amlodipine 5 mg tablet (Norvasc) 5 mg PO DAILY 10/27/25 10/27/25 History
atorvastatin 40 mg tablet (Lipitor) 40 mg PO QPM High Cholesterol 10/27/25 10/27/25 History
cilostazol 100 mg tablet 100 mg PO BID 10/27/25 10/27/25 History
insulin glargine-yfgn 100 unit/mL 5 unit SC DAILY Diabetes 10/27/25 10/27/25 History
subcutaneous solution
nystatin 100,000 unit/gram topical 1 applic topical BID under b/l 10/27/25 10/27/25 History
powder breasts
Review of Systems
-
No chest pain or shortness of breath
All other systems: Negative unless noted
Physical Exam
Vital Signs
Vital Signs
Temp Pulse Resp BP Pulse Ox
98.6 F 63 18 117/57 98
10/28/25 08:11 10/28/25 08:11 10/28/25 08:11 10/28/25 08:11 10/28/25 08:11
Lab Results
WBC 7.2 10^3/uL (4.8-10.8) 10/27/25 19:51
RBC 3.55 10^6/uL (4.20-5.40) L 10/27/25 19:51
Hgb 11.0 g/dL (12.0-16.0) L 10/27/25 19:51
Hct 31.7 % (37.0-47.0) L 10/27/25 19:51
Plt Count 215 10^3/uL (130-400) 10/27/25 19:51
Sodium 132 mmol/L (135-145) L 10/27/25 19:51
Potassium 3.0 mmol/L (3.5-5.1) L 10/27/25 19:51
Chloride 98 mmol/L (98-107) 10/27/25 19:51
Carbon Dioxide 26 mmol/L (22-30) 10/27/25 19:51
BUN 26 mg/dl (7-17) H 10/27/25 19:51
Creatinine 3.1 mg/dL (0.6-1.0) H 10/27/25 19:51
eGFR 15.40 10/27/25 19:51
Glucose 155 mg/dl (70-99) H 10/27/25 19:51
Calcium 9.7 mg/dl (8.4-10.2) 10/27/25 19:51
Albumin 3.5 g/dl (3.5-5.0) 10/27/25 19:51
Physical Exam
General no acute distress
HEENT no cephalic atraumatic extraocular muscle intact no scleral icterus no JVD neck supple
lungs clear to auscultation bilateral
heart regular S1-S2 positive
abdomen soft nontender positive bowel sounds
extremities no edema pulses present bilateral/right arm Luis bandage
Neurologically nonfocal alert and oriented x 3
Skin no lesions no abrasions no petechiae
Psych normal affect no bizarre behavior
Data Reviewed
-
CT Scan: Image Personally Visualized and interpreted
Assessment/Plan
-
Ms. Syed is a 74YOF with PMH of ESRD on HD TThS at [facility] through right UE AVF on lasix, paroxismal Afib (on eliquis, Amio), CAD, DLD (on atorvastatin), DM on Insulin, HTN on Diltiazem, COPD, pHTN, gout, RA, JOS, obesity, PAD who
presents to the hospital status post fall and right wrist fracture
Assessment:
Afib,
ESRD on HD TTS
Abdominal pain
right UE AVF
IDDM type 2 with nephropathy, neuropathy
HLD
Essential HTN
Fatty liver
RA
Hx of L kidney mass seen on CT in 2022
Obesity
pHTN
RA
Sleep apnea
GERD
Anxiety/depression
DLD
Plan:
Continue dialysis TTS
Previous dry weight of 80 kg from last admission
Will get orders from dialysis unit to see if that has been adjusted
She is currently 78.5 kg
Dialysis today
[2025-10-28 11:55] VITALS: BP 119/56
[2025-10-28 12:10] LABS: Glucose - Point of Care 100 mg/dl (70-99)
[2025-10-28 12:45] VITALS: BP 135/64; BP 86/60; PULSE 67; PULSE 85
[2025-10-28] MEDS: NOVOLOG FLEXPEN-LOW RESISTANCE SC ×2 (12:45→17:37)
[2025-10-28 13:36] VITALS: BMI 29.7
[2025-10-28] MEDS: MANNITOL 25% 12.5 GRAMS IV (14:35)
[2025-10-28 14:37] VITALS: BMI 29.7
[2025-10-28] MEDS: FLEXBUMIN 25% FOR HEMODIALYSIS 12.5 GRAMS IV (14:38)
[2025-10-28 15:00] VITALS: BP 126/59
--- NOTE | 2025-10-28 15:16 | CM ---
Chart reviewed and cyanide case hardener met with patient and patient lives with with her spouse in a 2 story home with 2 steps to enter, patient lives with spouse and 2 grandchildren, patient requests assist with adl's spouse assists patient in home, and
patient uses cane, w/c, walker with ambulation, patient has a shower chair, Patient with ESRD and is on HD Saturday. Patient is current with [facility]. Patient was recently discharge from [facility] does not want to return to
[facility], maybe interested in [facility] and spouse transport to [facility], however not sure patient can get in and out of car in current condition.
PCP: Marielle Sheppard
Pharmacy: [facility] in [place].
--- NOTE | 2025-10-28 15:43 | W.PN.NEPH.HD ---
Progress Note - Hemodialysis
-
Date of Service: October 28, 2025
Duration: 3 hours
Potassium Bath: 3
Calcium Bath: 2.5
Opti-Dialyzer: 160
Ultrafiltration: Other (0.5)
Blood Flow: 400
Dialysate Flow: 600
Heparin: no
EPO: no
[2025-10-28] MEDS: LIPITOR 40 MG PO (17:23)
[2025-10-28 17:38] LABS: Glucose - Point of Care 80 mg/dl (70-99)
[2025-10-28 18:14] VITALS: BP 134/64
[2025-10-28 21:38] LABS: Glucose - Point of Care 90 mg/dl (70-99)
[2025-10-28 23:00] VITALS: BP 124/57
[2025-10-29] VITALS (7 sets, daily range): BP systolic 107–147; BP diastolic 44–85; PULSE 63–78; O2SAT 98; BMI 28.1
[2025-10-29] MEDS: TYLENOL PO (03:21)
[2025-10-29 07:53] LABS: Glucose - Point of Care 136 mg/dl (70-99)
[2025-10-29] MEDS: NOVOLOG FLEXPEN-LOW RESISTANCE SC ×2 (08:37→12:44)
[2025-10-29] MEDS: COLACE 100 MG PO ×2 (08:56→21:03)
[2025-10-29] MEDS: PROTONIX 40 MG PO (08:56)
[2025-10-29] MEDS: WELLBUTRIN XL (24 hour extended release) 150 MG PO (08:56)
[2025-10-29] MEDS: SENOKOT 17.2 MG PO ×2 (08:56→21:03)
[2025-10-29] MEDS: TYLENOL 650 MG PO ×4 (08:56→21:03)
[2025-10-29] MEDS: NEURONTIN 100 MG PO ×3 (08:56→21:03)
[2025-10-29] MEDS: ELIQUIS 2.5 MG PO ×2 (08:56→21:03)
[2025-10-29] MEDS: NORVASC 5 MG PO (08:56)
[2025-10-29] MEDS: PROZAC 20 MG PO (08:56)
[2025-10-29] MEDS: LANTUS 0.05 UNITS SC (08:57)
[2025-10-29 09:00] LABS: Hematocrit 24.6 % (37.0-47.0); Hemoglobin 8.5 g/dL (12.0-16.0); Mean Corp Hgb Conc. 34.6 g/dL (33.0-37.0); Mean Corpuscular Volume 90.1 fL (81.0-99.0); Platelet Count 161 10^3/uL (130-400); Red Cell Dist. Width 15.3 % (11.5-14.5)
[2025-10-29 09:11] LABS: Blood Urea Nitrogen 11 mg/dl (7-17); Calcium 9.1 mg/dl (8.4-10.2); Carbon Dioxide 30 mmol/L (22-30); Chloride 97 mmol/L (98-107); Estimated Creatinine Clearance 26 ml/min; Glucose 75 mg/dl (70-99); Potassium 2.8 mmol/L (3.5-5.1); Sodium 132 mmol/L (135-145); eGFR 27.71
--- NOTE | 2025-10-29 10:57 | W.PN.NEPH.PH ---
Today's Communication / Plan
-
HD tomorrow
Assessment/Plan
-
Ms. Syed is a 74YOF with PMH of ESRD on HD TThS at [facility] through right UE AVF on lasix, paroxismal Afib (on eliquis, Amio), CAD, DLD (on atorvastatin), DM on Insulin, HTN on Diltiazem, COPD, pHTN, gout, RA, JOS, obesity, PAD who
presents to the hospital status post fall and right wrist fracture
Assessment:
Afib,
ESRD on HD TTS
Abdominal pain
right UE AVF
IDDM type 2 with nephropathy, neuropathy
HLD
Essential HTN
Fatty liver
RA
Hx of L kidney mass seen on CT in 2022
Obesity
pHTN
RA
Sleep apnea
GERD
Anxiety/depression
DLD
Plan:
Continue dialysis TTS
Previous dry weight of 80 kg from last admission
dc planning/rehab
-
-
Date of Service: October 29, 2025
CC / HPI / ROS
-
Chief Complaint:
ESRD
History of Present Illness:
tolerated HD yesterday
BP stable
wrist fracture wrapped
Review of Systems:
no CP/SOB
Labs
-
Labs:
WBC 4.5 10^3/uL (4.8-10.8) L 10/29/25 07:04
RBC 2.73 10^6/uL (4.20-5.40) L 10/29/25 07:04
Hgb 8.5 g/dL (12.0-16.0) L D 10/29/25 07:04
Hct 24.6 % (37.0-47.0) L 10/29/25 07:04
Plt Count 161 10^3/uL (130-400) D 10/29/25 07:04
Sodium 132 mmol/L (135-145) L 10/29/25 07:04
Potassium 2.8 mmol/L (3.5-5.1) L 10/29/25 07:04
Chloride 97 mmol/L (98-107) L 10/29/25 07:04
Carbon Dioxide 30 mmol/L (22-30) 10/29/25 07:04
BUN 11 mg/dl (7-17) 10/29/25 07:04
Creatinine 1.9 mg/dL (0.6-1.0) H 10/29/25 07:04
eGFR 27.71 10/29/25 07:04
Glucose 75 mg/dl (70-99) 10/29/25 07:04
Calcium 9.1 mg/dl (8.4-10.2) 10/29/25 07:04
Albumin 3.5 g/dl (3.5-5.0) 10/27/25 19:51
Physical Exam
-
Vital Signs:
Vital Signs
Temp Pulse Resp BP Pulse Ox
98.6 F 74 14 118/78 98
10/29/25 07:00 10/29/25 08:56 10/29/25 07:00 10/29/25 09:52 10/29/25 07:00
Cardiovascular:: Regular rate and rhythm
Respiratory:: Bilateral: CTA
Lung Excursion:: Normal
Abdomen:: Nontender and Soft
Bowel Sounds:: Normal
Extremity Edema:: None: Bilateral:
[2025-10-29 12:36] LABS: Glucose - Point of Care 129 mg/dl (70-99)
--- NOTE | 2025-10-29 12:43 | PTCARENOTE ---
Assumed care of pt from previous nurse. Pt denies pain. Pt rue non weight bearing, must be reminded to maintain. Pt call myles is within reach, pt rings belen. bed alarm in place, will cont to monitor.
--- NOTE | 2025-10-29 12:50 | W.PN.HOSP.TC ---
Today's Communication/Plan
-
Added midodrine.
Compression stocking.
Replace potassium
fish and game club manager consult for SNF
Assessment / Plan
Assessment / Plan
Impression:
The patient is a 74-year-old female with a significant past medical history of rheumatoid arthritis, end-stage renal disease on hemodialysis (TTS), atrial fibrillation on Eliquis, hypertension, diabetes mellitus, hyperlipidemia, coronary artery
disease, and COPD. She was recently discharged from a care home facility following a hospital stay at [place]. This afternoon(day of admission), she reports tripping and falling down a flight of stairs, resulting in acute right arm pain.
There is a questionable loss of consciousness after the fall; the patient denies any LOC, but family members believe there may have been. Since returning home from rehab, she has been feeling weak and requiring a cane for ambulation.
Discussed with orthopedic, follow-up as outpatient, nonweightbearing right upper extremity.
Patient positive orthostatic when working with physical therapy.
Added midodrine.
Potassium continue to be low and replaced
Assessment/plan:
Right Wrist Fracture
Minimally displaced and impacted comminuted distal radial fracture (Rt wrist X-ray).
Likely sequelae of prior distal ulnar fracture.
Status post fall at home; patient is left-hand dominant.
Head CT: No acute intracranial abnormality.
Plan: Fracture set protocol (PRN analgesia, PRN antiemetics), PT/OT, outpatient orthopedic follow-up upon discharge.
Discussed with orthopedic on-call Dr. Rodriguez, follow-up as outpatient, maintain cast, nonweightbearing right upper extremity.
Orthostatic hypotension.
Noted with ambulation with physical therapy.
Patient will be upgraded to full social service consult discharge plan continue to monitor,
Added midodrine (patient used to be on midodrine at home)
End-Stage Renal Disease on Hemodialysis (TTS)
Right upper extremity AV fistula present.
Labs: Creatinine 3.1 H, BUN 26 H, eGFR 15.4.
Sodium 132 L.
Plan: Renal diet, renal consult for HD, monitor urine output (patient still makes urine).
Hypokalemia
Labs: Potassium 3.0 L.
Plan: Potassium replacement PRN.
10/29
Potassium low again at 2.8.
Ordered IV rider
History of Chest Tightness During HD
Currently chest pain-free.
Prior workup: [facility] 2020 normal coronaries; PET myocardial perfusion May 2024�cannot rule out apical ischemia; TTE 06/30/24: LVEF 60�65%, normal RV size/function, no significant valvular disease.
Plan: Continue monitoring; no acute intervention needed.
Atrial Fibrillation / Atrial Tachyarrhythmias
On Eliquis 5 mg BID.
Prior meds include amiodarone, diltiazem, Toprol XL.
Plan: Continue anticoagulation, monitor rhythm.
Essential Hypertension
Vitals: BP 127/63 (acceptable on current regimen).
Plan: Continue home antihypertensive regimen.
Patient is orthostatic hypotensive, will monitor and upgrade to inpatient.
Added midodrine
Type 2 Diabetes Mellitus with Nephropathy
Plan: Continue home insulin, sliding scale insulin, diabetic diet.
Dyslipidemia with Stable Abnormal LFTs
Labs: AST 111 H, ALT 112 H.
On atorvastatin.
Plan: Continue statin, trend LFTs.
Other Chronic Conditions
Rheumatoid arthritis, obesity, sleep apnea, anxiety/depression, dyslipidemia, history of left kidney mass (CT 2022).
Plan: Continue home management.
Incidental Thyroid Nodules
CT cervical spine: 1.5 cm hypodense nodule in right hemithyroid and additional 1.4 cm nodule extending inferiorly (possible exophytic nodule or parathyroid adenoma).
Plan: Recommend dedicated non-emergent thyroid ultrasound for further evaluation.
Prophylaxis & Status
DVT prophylaxis: Chronic Eliquis.
Code status: Full code.
Disposition: Observation, medical-surgical unit.
Diet: DM
Disposition: Added midodrine.
Compression stocking.
Replace potassium
fish and game club manager consult for SNF
Total time spent on today's encounter was 55 minutes which included time spent in counseling the patient/family regarding diagnosis and treatment plan as listed above, goals of care, and symptom management. Case was discussed with nursing staff,
specialists, and care coordinators/case management. All labs and imaging personally reviewed by me. Remainder the time spent in detailed review of previous records, lab data, imaging, and other medical provider documentation.
Part of this note was created using voice recognition system. Occasional wrong word or �sound alike� substitutions may have inadvertently occurred due to the inherent limitations of voice recognition software. If noted kindly bring it to my
attention for correction.
Anticipated Discharge: Within 24 hours
Subjective/Interval History
-
Date of Service: October 29, 2025
Patient seen and examined at bedside, denies any chest pain or shortness of breath, no abdominal pain, no nausea, no vomiting, no diarrhea or constipation.
Right wrist pain is tolerable but still orthostatic, added midodrine.
Also potassium is 2.8, will replete
Objective Data
-
Labs:
Laboratory Results
10/29/25
07:04
WBC 4.5 L
Hgb 8.5 L D
Hct 24.6 L
Plt Count 161 D
Sodium 132 L
Potassium 2.8 L
Chloride 97 L
Carbon Dioxide 30
BUN 11
Creatinine 1.9 H
Glucose 75
Calcium 9.1
Vital Signs:
Vital Signs
Temp Pulse Resp BP Pulse Ox
98.6 F 74 14 118/78 98
10/29/25 07:00 10/29/25 08:56 10/29/25 07:00 10/29/25 09:52 10/29/25 08:00
I&O
10/28/25 10/29/25 10/30/25
06:59 06:59 06:59
Intake Total 240 / 240
Balance 240 / 240
Physical Exam
-
General: Well Developed, Well Nourished, No Apparent Distress and Comfortable
HEENT: Normocephalic, Atraumatic, Moist Mucous Membranes, No Ptosis, PERRLA and Nose Appears Normal
Respiratory: Clear to Auscultation and Non Labored Respirations
Cardiac: Regular Rhythm and S1/S2
Breast: Deferred by me
GI: Soft, Nontender, Nondistended and Normal Bowel Sounds
Genito-urinary: No Costovertebral Tender
Musculoskeletal: No Cyanosis and Other (Right wrist cast and tender)
Skin: Warm
Neuro: Awake, Alert, Oriented, AO x 3 and No Motor Deficits
Psych: Calm
[2025-10-29] MEDS: KCL 270 MEQ IV (14:30)
--- NOTE | 2025-10-29 15:53 | CM ---
Chart reviewed. Discussed w/ hospitalist, patient agreeable to SNF recommendation.
Met w/ patient and spouse bedside, confirmed plan to SNF at d/c. Patient will need SNF w/ HD on site, provided list. Patient and spouse identified [facility] and [facility]. Referrals entered in [facility].
Patient will need insurance auth
Plan: SNF w/ HD
[2025-10-29 16:19] LABS: Glucose - Point of Care 178 mg/dl (70-99)
[2025-10-29] MEDS: NOVOLOG FLEXPEN-LOW RESISTANCE 1 UNITS SC (18:36)
[2025-10-29] MEDS: LIPITOR 40 MG PO (18:39)
[2025-10-29 21:32] LABS: Glucose - Point of Care 131 mg/dl (70-99)
[2025-10-30] VITALS (7 sets, daily range): BP systolic 88–128; BP diastolic 51–68; PULSE 54–111; O2SAT 97; BMI 28.2
[2025-10-30] MEDS: TYLENOL PO ×3 (00:18→07:45)
[2025-10-30 06:11] LABS: Hematocrit 24.9 % (37.0-47.0); Hemoglobin 8.5 g/dL (12.0-16.0); Mean Corp Hgb Conc. 34.1 g/dL (33.0-37.0); Mean Corpuscular Volume 90.2 fL (81.0-99.0); Platelet Count 158 10^3/uL (130-400); Red Cell Dist. Width 15.3 % (11.5-14.5)
[2025-10-30 06:40] LABS: Blood Urea Nitrogen 23 mg/dl (7-17); Calcium 9.5 mg/dl (8.4-10.2); Carbon Dioxide 27 mmol/L (22-30); Chloride 102 mmol/L (98-107); Estimated Creatinine Clearance 19 ml/min; Glucose 92 mg/dl (70-99); Potassium 3.2 mmol/L (3.5-5.1); Sodium 134 mmol/L (135-145); eGFR 19.02
[2025-10-30] MEDS: NOVOLOG FLEXPEN-LOW RESISTANCE SC ×3 (07:40→16:57)
[2025-10-30 07:41] LABS: Glucose - Point of Care 102 mg/dl (70-99)
[2025-10-30] MEDS: SENOKOT 17.2 MG PO ×2 (07:44→20:17)
[2025-10-30] MEDS: NEURONTIN 100 MG PO ×3 (07:44→20:19)
[2025-10-30] MEDS: PROTONIX 40 MG PO (07:44)
[2025-10-30] MEDS: PROZAC 20 MG PO (07:44)
[2025-10-30] MEDS: ELIQUIS 2.5 MG PO ×2 (07:44→20:17)
[2025-10-30] MEDS: COLACE 100 MG PO ×2 (07:45→20:17)
[2025-10-30] MEDS: LANTUS 0.05 UNITS SC (07:45)
[2025-10-30] MEDS: RETACRIT 6000 UNITS IV (09:05)
--- NOTE | 2025-10-30 10:56 | W.PN.HOSP.TC ---
Today's Communication/Plan
-
see plan
Assessment / Plan
Assessment / Plan
Admission summary: The patient is a 74-year-old female with a significant past medical history of rheumatoid arthritis, end-stage renal disease on hemodialysis (TTS), atrial fibrillation on Eliquis, hypertension, diabetes mellitus, hyperlipidemia,
coronary artery disease, and COPD. She was recently discharged from a fpc facility following a hospital stay at [place]. This afternoon(day of admission), she reports tripping and falling down a flight of stairs, resulting in acute
right arm pain. There is a questionable loss of consciousness after the fall; the patient denies any LOC, but family members believe there may have been. Since returning home from rehab, she has been feeling weak and requiring a cane for ambulation.
Discussed with orthopedic, follow-up as outpatient, nonweightbearing right upper extremity. Patient positive orthostatic when working with physical therapy.
Gen: NAD, AAOx3.
Eyes: EOMI, PERRLA, no scleral icterus.
Neck: supple.
CV: RRR, +S1/S2, no m/r/g.
Resp: CTAB, no rales, wheezes, or rhonchi.
Abd: +BS, soft, NT, ND
Skin: No rashes.
Neuro: CN 2-12 intact, non-focal.
Psych: Normal mood and affect.
CT brain: No acute intracranial abnormality noted.
CT C-spine: No acute osseous abnormality. Multilevel degenerative changes with moderate degenerative changes of C5-C6. 1.5 cm hypodense nodule within the right hemithyroid. There is additional 1.4 cm nodule extending inferiorly from the posterior
aspect of the right hemithyroid for which an exophytic nodule or parathyroid adenoma or possible. Recommend dedicated nonemergent thyroid ultrasound for further evaluation.
R wrist fx: There is a minimally displaced and impacted comminuted distal radial fracture. Likely sequelae of prior distal ulnar fracture.
Right Wrist Fracture:
-Minimally displaced and impacted comminuted distal radial fracture (Rt wrist X-ray) due to mechanical fall
-As per discussion with orthopedics (Dr. Cheng) by prior physician, RODY CROCKER, outpt ortho f/u
Other problems:
Orthostatic hypotension: now improved after initiation of midodrine
ESRD: cont HD TTS, of note h/o chest tightness during HD at times
Hypokalemia: K being corrected today on HD, check Mg, check K in AM
Chronic afib: cont Eliquis
Essential HTN: cont Norvasc but, pending BP trend over next 24 hours, may stop as also with orthostatic hypotension on Midodrine
DM2 with diabetic nephropathy: cont Lantus/SSI/accucheck/diabetic diet
HLD: cont statin
Chronic transaminitis, stable
Rheumatoid arthritis
JOS
Anxiety/depression: cont Wellbutrin/Prozac
Incidental Thyroid Nodules: Needs dedicated non-emergent thyroid ultrasound for further evaluation.
FULL/Eliquis
Anticipated Discharge: Within 24 hours
Subjective/Interval History
-
Date of Service: October 30, 2025
Reports chest tightness with HD. No other complaints.
Objective Data
-
Labs:
Laboratory Results
10/30/25
05:44
WBC 4.4 L
Hgb 8.5 L
Hct 24.9 L
Plt Count 158
Sodium 134 L
Potassium 3.2 L
Chloride 102
Carbon Dioxide 27
BUN 23 H
Creatinine 2.6 H
Glucose 92
Calcium 9.5
Vital Signs:
Vital Signs
Temp Pulse Resp BP Pulse Ox
98.2 F 62 18 126/54 97
10/30/25 07:20 10/30/25 07:20 10/30/25 07:20 10/30/25 07:50 10/30/25 08:00
I&O
10/29/25 10/30/25 10/31/25
06:59 06:59 06:59
Intake Total 240 / 240 420 / 420
Balance 240 / 240 420 / 420
--- NOTE | 2025-10-30 11:15 | W.PN.NEPH.HD ---
Assessment
-
Pt seen on HD. no complaints. VSS, access ok
Progress Note - Hemodialysis
-
Date of Service: October 30, 2025
Duration: 30 minutes and 3 hours
Potassium Bath: 4
Calcium Bath: 2.5
Opti-Dialyzer: 160
Ultrafiltration: Other (1kg)
Blood Flow: 400
Dialysate Flow: 600
Heparin: 0
EPO: 6000 units
[2025-10-30 11:32] LABS: Glucose - Point of Care 78 mg/dl (70-99)
[2025-10-30 12:04] LABS: Magnesium 1.8 mg/dl (1.6-2.3)
[2025-10-30] MEDS: NORVASC 5 MG PO (12:15)
[2025-10-30] MEDS: WELLBUTRIN XL (24 hour extended release) 150 MG PO (12:16)
[2025-10-30] MEDS: TYLENOL 650 MG PO ×4 (12:16→23:59)
[2025-10-30] MEDS: ZOFRAN 4 MG IV (15:44)
[2025-10-30 16:32] LABS: Glucose - Point of Care 103 mg/dl (70-99)
[2025-10-30] MEDS: LIPITOR 40 MG PO (17:35)
[2025-10-30 21:51] LABS: Glucose - Point of Care 75 mg/dl (70-99)
--- NOTE | 2025-10-30 23:30 | PTCARENOTE ---
Orthostatic BPs completed by PCT @ 2300. Laying 107/51 HR 54, Sitting 112/58 HR 56, standing 88/51 HR 65. Patient denied feeling dizzy, but PCT noticed her swaying a bit when standing. Informed [employer] verbally. [employer] advised that she not get OOB
unassisted. Bed alarm in place. Will continue +1 assist w/ activity.
[2025-10-31] VITALS (7 sets, daily range): BP systolic 96–124; BP diastolic 43–65; PULSE 52–69; BMI 27.5
[2025-10-31 00:03] LABS: Glucose - Point of Care 81 mg/dl (70-99)
--- NOTE | 2025-10-31 03:35 | PTCARENOTE ---
Fingerstick glucose HS was 75. Provided patient w/ juice and went up to 81 at [place]. Left additional juice at bedside. Rechecked at 0330 fingerstick glucose was 100.
[2025-10-31 03:37] LABS: Glucose - Point of Care 100 mg/dl (70-99)
[2025-10-31] MEDS: TYLENOL 650 MG PO ×6 (03:46→23:38)
[2025-10-31 07:23] LABS: Hematocrit 25.6 % (37.0-47.0); Hemoglobin 8.8 g/dL (12.0-16.0); Mean Corp Hgb Conc. 34.4 g/dL (33.0-37.0); Mean Corpuscular Volume 90.8 fL (81.0-99.0); Nucleated Red Blood Cells % 0 %; Platelet Count 187 10^3/uL (130-400); Red Cell Dist. Width 15.5 % (11.5-14.5)
[2025-10-31 08:09] LABS: Glucose - Point of Care 109 mg/dl (70-99)
[2025-10-31 08:12] LABS: Blood Urea Nitrogen 12 mg/dl (7-17); Calcium 9.3 mg/dl (8.4-10.2); Carbon Dioxide 31 mmol/L (22-30); Chloride 100 mmol/L (98-107); Estimated Creatinine Clearance 22 ml/min; Glucose 88 mg/dl (70-99); Potassium 3.1 mmol/L (3.5-5.1); Sodium 135 mmol/L (135-145); eGFR 22.03
--- NOTE | 2025-10-31 08:42 | W.PN.HOSP.TC ---
Today's Communication/Plan
-
see plan
Assessment / Plan
Assessment / Plan
Admission summary: The patient is a 74-year-old female with a significant past medical history of rheumatoid arthritis, end-stage renal disease on hemodialysis (TTS), atrial fibrillation on Eliquis, hypertension, diabetes mellitus, hyperlipidemia,
coronary artery disease, and COPD. She was recently discharged from a group home facility following a hospital stay at [place]. This afternoon(day of admission), she reports tripping and falling down a flight of stairs, resulting in acute
right arm pain. There is a questionable loss of consciousness after the fall; the patient denies any LOC, but family members believe there may have been. Since returning home from rehab, she has been feeling weak and requiring a cane for ambulation.
Discussed with orthopedic, follow-up as outpatient, nonweightbearing right upper extremity. Patient positive orthostatic when working with physical therapy.
Gen: NAD, AAOx3.
Eyes: EOMI, PERRLA, no scleral icterus.
Neck: supple.
CV: remains RRR, +S1/S2, no m/r/g.
Resp: CTAB anteriorly, no rales, wheezes, or rhonchi.
Abd: remains +BS, soft, NT, ND
Skin: No rashes.
Neuro: CN 2-12 intact, non-focal.
Psych: Normal mood and affect.
CT brain: No acute intracranial abnormality noted.
CT C-spine: No acute osseous abnormality. Multilevel degenerative changes with moderate degenerative changes of C5-C6. 1.5 cm hypodense nodule within the right hemithyroid. There is additional 1.4 cm nodule extending inferiorly from the posterior
aspect of the right hemithyroid for which an exophytic nodule or parathyroid adenoma or possible. Recommend dedicated nonemergent thyroid ultrasound for further evaluation.
R wrist fx: There is a minimally displaced and impacted comminuted distal radial fracture. Likely sequelae of prior distal ulnar fracture.
Right Wrist Fracture:
-Minimally displaced and impacted comminuted distal radial fracture (Rt wrist X-ray) due to mechanical fall
-As per discussion with orthopedics (Dr. Cheng) by prior physician, RODY CROCKER, outpt ortho f/u
Other problems:
Orthostatic hypotension: now improved after initiation of midodrine
ESRD: cont HD TTS, of note h/o chest tightness during HD at times
Hypokalemia: Mg normal, based on K trend start KDur 40meq daily
Chronic afib: cont Eliquis
Essential HTN: stop Norvasc based on BP trend as well orthostatic hypotension on Midodrine
DM2 with diabetic nephropathy: cont Lantus/SSI/accucheck/diabetic diet
HLD: cont statin
Chronic transaminitis, stable
Rheumatoid arthritis
JOS
Anxiety/depression: cont Wellbutrin/Prozac
Incidental Thyroid Nodules: Needs dedicated non-emergent thyroid ultrasound for further evaluation.
FULL/Eliquis
Dispo: d/c tomorrow pending K and BP trend
Anticipated Discharge: Within 24 hours
Subjective/Interval History
-
Date of Service: October 31, 2025
Objective Data
-
Labs:
Laboratory Results
10/31/25
06:51
WBC 4.1 L
Hgb 8.8 L
Hct 25.6 L
Plt Count 187
Sodium 135
Potassium 3.1 L
Chloride 100
Carbon Dioxide 31 H
BUN 12
Creatinine 2.3 H
Glucose 88
Calcium 9.3
Vital Signs:
Vital Signs
Temp Pulse Resp BP Pulse Ox
97.5 F 68 16 107/60 97
10/31/25 07:44 10/31/25 07:44 10/31/25 07:44 10/31/25 07:44 10/31/25 07:44
I&O
10/30/25 10/31/25 11/01/25
06:59 06:59 06:59
Intake Total 420 / 420 730 / 730
Balance 420 / 420 730 / 730
[2025-10-31] MEDS: LANTUS 0.05 UNITS SC (08:45)
[2025-10-31] MEDS: COLACE PO ×2 (08:45→19:41)
[2025-10-31] MEDS: NOVOLOG FLEXPEN-LOW RESISTANCE SC ×3 (08:45→16:56)
[2025-10-31] MEDS: NEURONTIN 100 MG PO ×3 (08:46→19:39)
[2025-10-31] MEDS: NORVASC PO (08:46)
[2025-10-31] MEDS: PROZAC 20 MG PO (08:46)
[2025-10-31] MEDS: PROTONIX 40 MG PO (08:46)
[2025-10-31] MEDS: ELIQUIS 2.5 MG PO ×2 (08:47→19:38)
[2025-10-31] MEDS: SENOKOT PO ×2 (08:47→19:41)
[2025-10-31] MEDS: WELLBUTRIN XL (24 hour extended release) 150 MG PO (08:47)
[2025-10-31] MEDS: KCL 40 MEQ PO (09:56)
[2025-10-31 12:13] LABS: Glucose - Point of Care 91 mg/dl (70-99)
--- NOTE | 2025-10-31 12:17 | PTCARENOTE ---
Pt's called in nurse to tell me she is having chest tightness and feeling flush. Upon coming into the room the pt says she is not having those symptom, but has in the past intermittently. Her symptoms seem to align w/ when she first gets up
or works w/ PT. Pt's VSS, 97.7, HR 70 regular HR, 123/65, 99% on RA. I instructed pt to report theses symptoms as they are occurring.
--- NOTE | 2025-10-31 12:41 | W.PN.NEPH.PH ---
Today's Communication / Plan
-
HD tomorrow
Assessment/Plan
-
Ms. Syed is a 74YOF with PMH of ESRD on HD TThS at [facility] through right UE AVF on lasix, paroxismal Afib (on eliquis, Amio), CAD, DLD (on atorvastatin), DM on Insulin, HTN on Diltiazem, COPD, pHTN, gout, RA, JOS, obesity, PAD who
presents to the hospital status post fall and right wrist fracture
Assessment:
Afib,
ESRD on HD TTS
Abdominal pain
right UE AVF
IDDM type 2 with nephropathy, neuropathy
HLD
Essential HTN
Fatty liver
RA
Hx of L kidney mass seen on CT in 2022
Obesity
pHTN
RA
Sleep apnea
GERD
Anxiety/depression
DLD
Plan:
Continue dialysis TTS but HD tomorrow given holiday schedule this week
Previous dry weight of 80 kg from last admission
dc planning/rehab
-
-
Date of Service: October 31, 2025
CC / HPI / ROS
-
Chief Complaint:
ESRD
History of Present Illness:
tolerated HD yesterday
BP stable
wrist fracture wrapped
Review of Systems:
no CP/SOB
Labs
-
Labs:
WBC 4.1 10^3/uL (4.8-10.8) L 10/31/25 06:51
RBC 2.82 10^6/uL (4.20-5.40) L 10/31/25 06:51
Hgb 8.8 g/dL (12.0-16.0) L 10/31/25 06:51
Hct 25.6 % (37.0-47.0) L 10/31/25 06:51
Plt Count 187 10^3/uL (130-400) 10/31/25 06:51
Sodium 135 mmol/L (135-145) 10/31/25 06:51
Potassium 3.1 mmol/L (3.5-5.1) L 10/31/25 06:51
Chloride 100 mmol/L (98-107) 10/31/25 06:51
Carbon Dioxide 31 mmol/L (22-30) H 10/31/25 06:51
BUN 12 mg/dl (7-17) 10/31/25 06:51
Creatinine 2.3 mg/dL (0.6-1.0) H 10/31/25 06:51
eGFR 22.03 10/31/25 06:51
Glucose 88 mg/dl (70-99) 10/31/25 06:51
Calcium 9.3 mg/dl (8.4-10.2) 10/31/25 06:51
Albumin 3.5 g/dl (3.5-5.0) 10/27/25 19:51
Physical Exam
-
Vital Signs:
Vital Signs
Temp Pulse Resp BP Pulse Ox
97.8 F 70 16 123/65 99
10/31/25 12:16 10/31/25 12:16 10/31/25 12:16 10/31/25 12:16 10/31/25 12:16
Cardiovascular:: Regular rate and rhythm
Respiratory:: Bilateral: CTA
Lung Excursion:: Normal
Abdomen:: Nontender and Soft
Bowel Sounds:: Normal
Extremity Edema:: None: Bilateral:
[2025-10-31 16:29] LABS: Glucose - Point of Care 121 mg/dl (70-99)
[2025-10-31] MEDS: LIPITOR 40 MG PO (17:30)
[2025-10-31 20:17] LABS: Glucose - Point of Care 160 mg/dl (70-99)
[2025-11-01] MEDS: TYLENOL 650 MG PO ×4 (04:20→19:45)
[2025-11-01 06:00] VITALS: BMI 27.6
[2025-11-01 07:00] VITALS: BP 108/69; BP 121/57; BP 136/61; PULSE 54; PULSE 63; PULSE 72
[2025-11-01] MEDS: PROZAC 20 MG PO (07:29)
[2025-11-01] MEDS: ELIQUIS 2.5 MG PO (07:29)
[2025-11-01] MEDS: KCL 40 MEQ PO (07:29)
[2025-11-01] MEDS: WELLBUTRIN XL (24 hour extended release) 150 MG PO (07:29)
[2025-11-01] MEDS: PROTONIX 40 MG PO (07:29)
[2025-11-01] MEDS: NEURONTIN 100 MG PO ×3 (07:29→21:26)
[2025-11-01] MEDS: TYLENOL PO (07:30)
[2025-11-01] MEDS: COLACE PO ×2 (07:36→19:51)
[2025-11-01] MEDS: SENOKOT PO ×2 (07:36→19:51)
[2025-11-01 08:16] LABS: Glucose - Point of Care 100 mg/dl (70-99)
[2025-11-01] MEDS: LANTUS 0.05 UNITS SC (08:26)
[2025-11-01] MEDS: NOVOLOG FLEXPEN-LOW RESISTANCE SC ×3 (08:26→16:48)
--- NOTE | 2025-11-01 08:44 | W.PN.HOSP.TC ---
Addendum entered and electronically signed by Dayo Guo MD 11/01/25 11:18:
Hyponatremia
Orthostatic Hypotension only
Original Note:
Today's Communication/Plan
-
see plan
Assessment / Plan
Assessment / Plan
Admission summary: The patient is a 74-year-old female with a significant past medical history of rheumatoid arthritis, end-stage renal disease on hemodialysis (TTS), atrial fibrillation on Eliquis, hypertension, diabetes mellitus, hyperlipidemia,
coronary artery disease, and COPD. She was recently [facility] from a correction facility following a hospital stay at [place]. This afternoon(day of admission), she reports tripping and falling down a flight of stairs, resulting in acute
right arm pain. There is a questionable loss of consciousness after the fall; the patient denies any LOC, but family members believe there may have been. Since returning home from rehab, she has been feeling weak and requiring a cane for ambulation.
Discussed with orthopedic, follow-up as outpatient, nonweightbearing right upper extremity. Patient positive orthostatic when working with physical therapy.
Gen: NAD, AAOx3.
Eyes: EOMI, PERRLA, no scleral icterus.
Neck: supple.
CV: continues to remain RRR, +S1/S2, no m/r/g.
Resp: remains CTAB anteriorly, no rales, wheezes, or rhonchi.
Abd: continues to remain +BS, soft, NT, ND
Skin: No rashes.
Neuro: CN 2-12 intact, non-focal.
Psych: Normal mood and affect.
CT brain: No acute intracranial abnormality noted.
CT C-spine: No acute osseous abnormality. Multilevel degenerative changes with moderate degenerative changes of C5-C6. 1.5 cm hypodense nodule within the right hemithyroid. There is additional 1.4 cm nodule extending inferiorly from the posterior
aspect of the right hemithyroid for which an exophytic nodule or parathyroid adenoma or possible. Recommend dedicated nonemergent thyroid ultrasound for further evaluation.
R wrist fx: There is a minimally displaced and impacted comminuted distal radial fracture. Likely sequelae of prior distal ulnar fracture.
Right Wrist Fracture:
-Minimally displaced and impacted comminuted distal radial fracture (Rt wrist X-ray) due to mechanical fall
-As per discussion with orthopedics (Dr. Cheng) by prior physician, RODY CROCKER, outpt ortho f/u
Other problems:
Orthostatic hypotension: increase Midodrine to 5mg PO TID
ESRD: cont HD TTS, of note h/o chest tightness during HD at times
Hypokalemia: Mg normal, based on K trend started on KDur 40meq daily
Chronic afib: cont Eliquis
Essential HTN: Norvasc stopped based on BP trend as well orthostatic hypotension on Midodrine
DM2 with diabetic nephropathy: cont Lantus/SSI/accucheck/diabetic diet
HLD: cont statin
Chronic transaminitis, stable
Rheumatoid arthritis
JOS
Anxiety/depression: cont Wellbutrin/Prozac
Incidental Thyroid Nodules: Needs dedicated non-emergent thyroid ultrasound for further evaluation.
FULL/Eliquis
Dispo: d/c after HD today
Anticipated Discharge: Today
Subjective/Interval History
-
Date of Service: November 01, 2025
d/o dizziness with standing
Objective Data
-
Labs:
Laboratory Results
11/01/25
07:00
Hgb Pending
Hct Pending
Sodium Pending
Potassium Pending
Chloride Pending
Carbon Dioxide Pending
Vital Signs:
Vital Signs
Temp Pulse Resp BP Pulse Ox
97.9 F 55 18 109/43 96
10/31/25 23:05 10/31/25 23:05 10/31/25 23:05 10/31/25 23:05 10/31/25 23:05
I&O
10/31/25 11/01/25 11/02/25
06:59 06:59 06:59
Intake Total 730 / 730 1140 / 1140
Balance 730 / 730 1140 / 1140
--- NOTE | 2025-11-01 10:26 | PN.CDI ---
CDI
- -
CDI:
Physician Documentation Request
Admit Date: 10/28/25 14:38
Dear Doctor Brant,
Please review the following and provide your response in the progress notes.
Clinical Indicators:
Pt admitted with Right Wrist Fracture Minimally displaced and impacted comminuted distal radial fracture
Documented per progress note 10/29-10/31,' Added midodrine. Compression stocking....Orthostatic hypotension.Noted with ambulation with physical therapy.Patient will be upgraded to full social service consult discharge plan continue to monitor,
Added midodrine ...Type 2 Diabetes Mellitus with Nephropathy...'
Please provide the suspected etiology of the documented orthostatic hypotension:
Neurogenic Orthostatic Hypotension
Orthostatic Hypotension only
Other ( please specify)
Use of terms such as suspected, likely, concern for, or probable (associated with a specific diagnosis that is being evaluated, monitored, or treated as if it exists) are acceptable and can be coded in the inpatient setting, when documented at the
time of discharge.
Thank you,
Sunshine Francis RN
CDI Specialist
[place] [facility]
Please use your independent medical judgment in providing your response.
--- NOTE | 2025-11-01 10:31 | PN.CDI ---
CDI
- -
CDI:
Physician Documentation Request
Admit Date: 10/28/25 14:38
Dear Doctor Brant ,
Please review the following and provide your response in the progress notes.
Clinical Indicators:
Pt admitted with Right Wrist Fracture Minimally displaced and impacted comminuted distal radial fracture/ESRD on HD
Sodium levels are as below
Laboratory Tests
10/27/25 10/29/25 10/30/25
19:51 07:04 05:44
Sodium 132 L 132 L 134 L
Based on the above, could you clarify in the progress notes, the appropriate diagnosis, if significant, that supports the above abnormalities and additional evaluation, monitoring and/or treatment rendered:
Hyponatremia
Abnormal lab value
Other ( please specify)
Use of terms such as suspected, likely, concern for, or probable (associated with a specific diagnosis that is being evaluated, monitored, or treated as if it exists) are acceptable and can be coded in the inpatient setting, when documented at the
time of discharge.
Thank you,
Sunshine Francis RN
CDI Specialist
[place] [employer]
Please use your independent medical judgment in providing your response.
[2025-11-01 12:13] LABS: Glucose - Point of Care 123 mg/dl (70-99)
[2025-11-01 13:26] LABS: Hematocrit 26.9 % (37.0-47.0); Hemoglobin 9.1 g/dL (12.0-16.0)
[2025-11-01] MEDS: FLEXBUMIN 25% FOR HEMODIALYSIS 12.5 GRAMS IV (13:30)
--- NOTE | 2025-11-01 13:32 | W.PN.NEPH.HD ---
Assessment
-
Tolerating dialysis next treatment Saturday off schedule for the holidays regular schedule outpatient TTS
Progress Note - Hemodialysis
-
Date of Service: November 01, 2025
Duration: 30 minutes and 3 hours
Potassium Bath: 4
Calcium Bath: 2.5
Opti-Dialyzer: 160
Ultrafiltration: Other (1kg)
Blood Flow: 400
Dialysate Flow: 600
Heparin: 0
EPO: 6000 units
[2025-11-01] MEDS: MANNITOL 25% 12.5 GRAMS IV (13:38)
[2025-11-01] MEDS: RETACRIT 6000 UNITS IV (13:38)
[2025-11-01 13:57] LABS: Carbon Dioxide 27 mmol/L (22-30); Chloride 103 mmol/L (98-107); Potassium 4.0 mmol/L (3.5-5.1); Sodium 134 mmol/L (135-145)
--- NOTE | 2025-11-01 14:11 | CM ---
Chart reviewed. HD today
Spoke w/ Lis/[facility], have available chair for HD. Requesting HD packet (flow sheets, nephro notes, Hep B) to be sent. Flow sheets faxed over, other asking clinicals sent in [facility] for review
Will await confirmation of acceptance once dialysis clinicals are reviewed by [place] team
Plan: Hopeful d/c to [facility] once they accept
[2025-11-01 15:00] VITALS: BP 131/68
[2025-11-01 16:46] LABS: Glucose - Point of Care 43 mg/dl (70-99)
[2025-11-01] MEDS: LIPITOR 40 MG PO (16:49)
[2025-11-01 17:09] LABS: Glucose - Point of Care 49 mg/dl (70-99)
[2025-11-01 17:36] LABS: Glucose - Point of Care 78 mg/dl (70-99)
[2025-11-01 19:00] VITALS: BP 108/48; BP 90/52; BP 92/41; PULSE 56; PULSE 62; PULSE 68
[2025-11-01 19:28] LABS: Glucose - Point of Care 146 mg/dl (70-99)
[2025-11-01] MEDS: ELIQUIS 5 MG PO (19:45)
[2025-11-01 21:33] LABS: Glucose - Point of Care 84 mg/dl (70-99)
[2025-11-01 23:36] VITALS: BP 108/50
[2025-11-02] MEDS: TYLENOL PO (00:15)
[2025-11-02 03:00] VITALS: BP 110/47; BP 112/53; BP 119/58; PULSE 52; PULSE 56; PULSE 58
[2025-11-02] MEDS: TYLENOL 650 MG PO ×6 (04:06→23:15)
[2025-11-02 04:10] LABS: Glucose - Point of Care 82 mg/dl (70-99)
[2025-11-02 04:59] VITALS: BMI 27.5
[2025-11-02 07:58] LABS: Glucose - Point of Care 107 mg/dl (70-99)
[2025-11-02 08:07] VITALS: BP 122/62
[2025-11-02] MEDS: KCL 40 MEQ PO (08:30)
[2025-11-02] MEDS: ELIQUIS 5 MG PO ×2 (08:30→19:36)
[2025-11-02] MEDS: PROTONIX 40 MG PO (08:31)
[2025-11-02] MEDS: WELLBUTRIN XL (24 hour extended release) 150 MG PO (08:31)
[2025-11-02] MEDS: NEURONTIN 100 MG PO ×3 (08:31→22:09)
[2025-11-02] MEDS: PROZAC 20 MG PO (08:31)
[2025-11-02] MEDS: NOVOLOG FLEXPEN-LOW RESISTANCE SC ×3 (08:32→17:56)
[2025-11-02] MEDS: LANTUS 0.05 UNITS SC (08:33)
[2025-11-02] MEDS: COLACE PO ×2 (08:34→19:36)
[2025-11-02] MEDS: SENOKOT PO ×2 (08:34→19:36)
--- NOTE | 2025-11-02 10:00 | W.PN.HOSP.TC ---
Today's Communication/Plan
-
see bold
Assessment / Plan
Assessment / Plan
Admission summary: The patient is a 74-year-old female with a significant past medical history of rheumatoid arthritis, end-stage renal disease on hemodialysis (TTS), atrial fibrillation on Eliquis, hypertension, diabetes mellitus, hyperlipidemia,
coronary artery disease, and COPD. She was recently discharged from a correction facility following a hospital stay at [place]. This afternoon(day of admission), she reports tripping and falling down a flight of stairs, resulting in acute
right arm pain. There is a questionable loss of consciousness after the fall; the patient denies any LOC, but family members believe there may have been. Since returning home from rehab, she has been feeling weak and requiring a cane for ambulation.
Discussed with orthopedic, follow-up as outpatient, nonweightbearing right upper extremity. Patient positive orthostatic when working with physical therapy.
Gen: NAD, AAOx3.
Eyes: EOMI, PERRLA, no scleral icterus.
Neck: supple.
CV: RRR, +S1/S2, no m/r/g.
Resp: continues to remain CTAB anteriorly, no rales, wheezes, or rhonchi.
Abd: +BS, soft, NT, ND
Skin: No rashes.
Neuro: CN 2-12 intact, non-focal.
Psych: Normal mood and affect.
CT brain: No acute intracranial abnormality noted.
CT C-spine: No acute osseous abnormality. Multilevel degenerative changes with moderate degenerative changes of C5-C6. 1.5 cm hypodense nodule within the right hemithyroid. There is additional 1.4 cm nodule extending inferiorly from the posterior
aspect of the right hemithyroid for which an exophytic nodule or parathyroid adenoma or possible. Recommend dedicated nonemergent thyroid ultrasound for further evaluation.
R wrist fx: There is a minimally displaced and impacted comminuted distal radial fracture. Likely sequelae of prior distal ulnar fracture.
Right Wrist Fracture:
-Minimally displaced and impacted comminuted distal radial fracture (Rt wrist X-ray) due to mechanical fall
-As per discussion with orthopedics (Dr. Cheng) by prior physician, RODY CROCKER, outpt ortho f/u
Other problems:
Orthostatic hypotension: cont Midodrine 5mg PO TID
ESRD: cont HD TTS, of note h/o chest tightness during HD at times
Hypokalemia: Mg normal, based on K trend started on KDur 40meq daily, decrease to 20meq daily
Chronic afib: cont Eliquis
Essential HTN: Norvasc stopped based on BP trend as well orthostatic hypotension on Midodrine
DM2 with diabetic nephropathy: cont Lantus/SSI/accucheck/diabetic diet
HLD: cont statin
Chronic transaminitis, stable
Rheumatoid arthritis
JOS
Anxiety/depression: cont Wellbutrin/Prozac
Incidental Thyroid Nodules: Needs dedicated non-emergent thyroid ultrasound for further evaluation.
FULL/Eliquis
Remains medically cleared for discharge since 11/01/25, case management aware.
Anticipated Discharge: Today
Subjective/Interval History
-
Date of Service: November 02, 2025
Patient reports nausea and abdominal pain which she gets the day after she has dialysis.
Objective Data
-
Vital Signs:
Vital Signs
Temp Pulse Resp BP Pulse Ox
98.6 F 58 16 122/62 99
11/02/25 08:07 11/02/25 08:07 11/02/25 08:07 11/02/25 08:07 11/02/25 08:07
I&O
11/01/25 11/02/25 11/03/25
06:59 06:59 06:59
Intake Total 1140 / 1140 850 / 850
Balance 1140 / 1140 850 / 850
[2025-11-02 11:54] LABS: Glucose - Point of Care 116 mg/dl (70-99)
--- NOTE | 2025-11-02 12:03 | CM ---
Addendum entered by Neno Anand 11/02/25 16:03:
Per Lis, HD approved.
Received call from [employer]. Auth approved beginning today, NRD 11/08. Auth ref# [id number]
Updated patient bedside, agreeable to d/c to [facility] tomorrow. Patient will update her spouse
Plan: D/c to [facility] tomorrow
Original Note:
Spoke w/ Lis/[facility], confirmed receipt of all HD clinicals and stated she sent them to her HD team for approval
Lis stated CM can obtain auth in the meantime
CM called [employer] to initiate auth, spoke w/ Elio. Per Elio, auth request sent to physician to review
Plan: [facility] SNF once HD and auth approved
--- NOTE | 2025-11-02 12:05 | W.PN.NEPH.PH ---
Today's Communication / Plan
-
Dialysis tomorrow
Assessment/Plan
-
Ms. Syed is a 74YOF with PMH of ESRD on HD TThS at [facility] through right UE AVF on lasix, paroxismal Afib (on eliquis, Amio), CAD, DLD (on atorvastatin), DM on Insulin, HTN on Diltiazem, COPD, pHTN, gout, RA, JOS, obesity, PAD who
presents to the hospital status post fall and right wrist fracture
Assessment:
Afib,
ESRD on HD TTS
Abdominal pain
right UE AVF
IDDM type 2 with nephropathy, neuropathy
HLD
Essential HTN
Fatty liver
RA
Hx of L kidney mass seen on CT in 2022
Obesity
pHTN
RA
Sleep apnea
GERD
Anxiety/depression
DLD
Plan:
Continue dialysis TTS but with holiday schedule will do dialysis on Saturday tomorrow if patient still
Previous dry weight of 80 kg from last admission
dc planning/rehab
-
-
Date of Service: November 02, 2025
CC / HPI / ROS
-
Chief Complaint:
ESRD
History of Present Illness:
tolerated HD yesterday
BP stable
wrist fracture wrapped
Review of Systems:
no CP/SOB
Labs
-
Labs:
WBC 4.1 10^3/uL (4.8-10.8) L 10/31/25 06:51
RBC 2.82 10^6/uL (4.20-5.40) L 10/31/25 06:51
Hgb 9.1 g/dL (12.0-16.0) L 11/01/25 12:48
Hct 26.9 % (37.0-47.0) L 11/01/25 12:48
Plt Count 187 10^3/uL (130-400) 10/31/25 06:51
Sodium 134 mmol/L (135-145) L 11/01/25 12:48
Potassium 4.0 mmol/L (3.5-5.1) D 11/01/25 12:48
Chloride 103 mmol/L (98-107) 11/01/25 12:48
Carbon Dioxide 27 mmol/L (22-30) 11/01/25 12:48
BUN 12 mg/dl (7-17) 10/31/25 06:51
Creatinine 2.3 mg/dL (0.6-1.0) H 10/31/25 06:51
eGFR 22.03 10/31/25 06:51
Glucose 88 mg/dl (70-99) 10/31/25 06:51
Calcium 9.3 mg/dl (8.4-10.2) 10/31/25 06:51
Albumin 3.5 g/dl (3.5-5.0) 10/27/25 19:51
Physical Exam
-
Vital Signs:
Vital Signs
Temp Pulse Resp BP Pulse Ox
98.6 F 58 16 122/62 99
11/02/25 08:07 11/02/25 08:07 11/02/25 08:07 11/02/25 08:07 11/02/25 08:07
Cardiovascular:: Regular rate and rhythm
Respiratory:: Bilateral: CTA
Lung Excursion:: Normal
Abdomen:: Nontender and Soft
Bowel Sounds:: Normal
Extremity Edema:: None: Bilateral:
[2025-11-02 15:45] VITALS: BP 116/55
[2025-11-02] MEDS: LIPITOR 40 MG PO (17:13)
[2025-11-02 17:40] LABS: Glucose - Point of Care 83 mg/dl (70-99)
[2025-11-02 19:30] VITALS: BP 109/56; BP 119/54; BP 132/62; PULSE 53; PULSE 56; PULSE 64
[2025-11-02 20:47] LABS: Glucose - Point of Care 173 mg/dl (70-99)
[2025-11-02 23:46] VITALS: BP 130/60
[2025-11-03] MEDS: TYLENOL PO (04:30)
[2025-11-03 06:00] VITALS: BMI 27.4
[2025-11-03 07:50] VITALS: BP 133/56
[2025-11-03 07:54] LABS: Glucose - Point of Care 97 mg/dl (70-99)
--- NOTE | 2025-11-03 08:10 | W.PN.HOSP.TC ---
Addendum entered and electronically signed by Dayo Guo MD 11/03/25 10:27:
Total time spent on d/c = 32 min. This included today's physical exam, progress note, review of laboratory and diagnostic data, preparation of discharge documents and prescriptions, and discussions about the pt's hospital course and discharge plan
with the patient and other medical field representative involved in the patient's care.
Original Note:
Today's Communication/Plan
-
see plan
Assessment / Plan
Assessment / Plan
Admission summary: The patient is a 74-year-old female with a significant past medical history of rheumatoid arthritis, end-stage renal disease on hemodialysis (TTS), atrial fibrillation on Eliquis, hypertension, diabetes mellitus, hyperlipidemia,
coronary artery disease, and COPD. She was recently discharged from a care home facility following a hospital stay at [facility]. This afternoon(day of admission), she reports tripping and falling down a flight of stairs, resulting in acute
right arm pain. There is a questionable loss of consciousness after the fall; the patient denies any LOC, but family members believe there may have been. Since returning home from rehab, she has been feeling weak and requiring a cane for ambulation.
Discussed with orthopedic, follow-up as outpatient, nonweightbearing right upper extremity. Patient positive orthostatic when working with physical therapy.
Gen: NAD, AAOx3.
Eyes: EOMI, PERRLA, no scleral icterus.
Neck: supple.
CV: remains RRR, +S1/S2, no m/r/g.
Resp: CTAB anteriorly, no rales, wheezes, or rhonchi.
Abd: remains +BS, soft, NT, ND
Skin: No rashes.
Neuro: CN 2-12 intact, non-focal.
Psych: Normal mood and affect.
CT brain: No acute intracranial abnormality noted.
CT C-spine: No acute osseous abnormality. Multilevel degenerative changes with moderate degenerative changes of C5-C6. 1.5 cm hypodense nodule within the right hemithyroid. There is additional 1.4 cm nodule extending inferiorly from the posterior
aspect of the right hemithyroid for which an exophytic nodule or parathyroid adenoma or possible. Recommend dedicated nonemergent thyroid ultrasound for further evaluation.
R wrist fx: There is a minimally displaced and impacted comminuted distal radial fracture. Likely sequelae of prior distal ulnar fracture.
Right Wrist Fracture:
-Minimally displaced and impacted comminuted distal radial fracture (Rt wrist X-ray) due to mechanical fall
-As per discussion with orthopedics (Dr. Cheng) by prior physician, RODY CROCKER, outpt ortho f/u
Other problems:
Orthostatic hypotension: cont Midodrine 5mg PO TID
ESRD: cont HD TTS, of note h/o chest tightness during HD at times
Hypokalemia: Mg normal, based on K trend started on KDur
Chronic afib: cont Eliquis
Essential HTN: Norvasc stopped based on BP trend as well orthostatic hypotension on Midodrine
DM2 with diabetic nephropathy: cont Lantus/SSI/accucheck/diabetic diet
HLD: cont statin
Chronic transaminitis, stable
Rheumatoid arthritis
JOS
Anxiety/depression: cont Wellbutrin/Prozac
Incidental Thyroid Nodules: Needs dedicated non-emergent thyroid ultrasound for further evaluation.
FULL/Eliquis
Remains medically cleared for discharge since 11/01/25, case management aware.
Anticipated Discharge: Today
Subjective/Interval History
-
Date of Service: November 03, 2025
No new complaints.
Objective Data
-
Labs:
Laboratory Results
11/03/25 11/03/25
07:58 07:59
Hgb Pending
Hct Pending
Sodium Pending
Potassium Pending
Chloride Pending
Carbon Dioxide Pending
BUN Pending
Creatinine Pending
Glucose Pending
Calcium Pending
Vital Signs:
Vital Signs
Temp Pulse Resp BP Pulse Ox
98.5 F 51 16 130/60 98
11/02/25 23:46 11/02/25 23:46 11/02/25 23:46 11/02/25 23:46 11/02/25 23:46
I&O
11/02/25 11/03/25 11/04/25
06:59 06:59 06:59
Intake Total 850 / 850 500 / 500
Balance 850 / 850 500 / 500
[2025-11-03 08:29] LABS: Hematocrit 29.4 % (37.0-47.0); Hemoglobin 10.0 g/dL (12.0-16.0)
[2025-11-03] MEDS: COLACE PO (08:29)
[2025-11-03] MEDS: NOVOLOG FLEXPEN-LOW RESISTANCE SC ×2 (08:29→12:02)
[2025-11-03] MEDS: PROTONIX 40 MG PO (08:32)
[2025-11-03] MEDS: WELLBUTRIN XL (24 hour extended release) 150 MG PO (08:33)
[2025-11-03] MEDS: SENOKOT PO (08:33)
[2025-11-03] MEDS: PROZAC 20 MG PO (08:33)
[2025-11-03] MEDS: NEURONTIN 100 MG PO (08:33)
[2025-11-03] MEDS: KCL 20 MEQ PO (08:33)
[2025-11-03] MEDS: TYLENOL 650 MG PO ×2 (08:34→12:09)
[2025-11-03] MEDS: LANTUS 0.05 UNITS SC (08:35)
[2025-11-03 08:50] LABS: Blood Urea Nitrogen 24 mg/dl (7-17); Calcium 9.9 mg/dl (8.4-10.2); Carbon Dioxide 27 mmol/L (22-30); Chloride 102 mmol/L (98-107); Estimated Creatinine Clearance 17 ml/min; Glucose 100 mg/dl (70-99); Potassium 3.9 mmol/L (3.5-5.1); Sodium 134 mmol/L (135-145); eGFR 16.68
[2025-11-03] MEDS: RETACRIT 10000 UNITS IV (09:13)
--- NOTE | 2025-11-03 10:00 | W.PN.NEPH.HD ---
Assessment
-
pt seen during HD
vitals stable
high k bath for hypokalemia
going to rehab at [facility]
AVF function fine
d/w pt
Progress Note - Hemodialysis
-
Date of Service: November 03, 2025
Duration: 30 minutes and 3 hours
Potassium Bath: 4
Calcium Bath: 2.5
Opti-Dialyzer: 160
Ultrafiltration: Other (1kg)
Blood Flow: 400
Dialysate Flow: 600
Heparin: no
EPO: [id number]
--- NOTE | 2025-11-03 10:26 | CM ---
Plan to discharge to [facility] after HD
Met w/ patient bedside, currently receiving HD. IMM verbally reviewed, copy provided, copy on chart
Ambulance transport arranged for 2 pm
[facility]
Report: [phone]

Plan: D/c to [facility] today
[2025-11-03 11:08] VITALS: BP 96/61
[2025-11-03 11:29] LABS: Glucose - Point of Care 84 mg/dl (70-99)
[2025-11-03] MEDS: ELIQUIS 5 MG PO (12:08)
--- NOTE | 2025-11-03 12:56 | W.DCSUMMARY ---
Discharge Summary
Discharge Data
Date of Admission: 10/28/25
Date of Discharge: 11/03/25
-
Pending Results: No
Hospital Course
Primary diagnoses:
Minimally displaced and impacted comminuted distal radial fracture due to mechanical fall
Orthostatic hypotension
Secondary diagnoses:
End-stage renal disease on hemodialysis Saturday//Saturday (of note h/o chest tightness during HD at times which has been worked up in the past)
Hypokalemia
Coronary artery disease
Chronic obstructive pulmonary disease
Chronic atrial fibrillation
Essential hypertension
Type 2 diabetes mellitus with diabetic nephropathy
Hyperlipidemia
Chronic transaminitis
Rheumatoid arthritis
Obstructive sleep apnea
Anxiety
Depression
Consults:
Nephrology
Imaging:
CT brain: No acute intracranial abnormality noted.
CT C-spine: No acute osseous abnormality. Multilevel degenerative changes with moderate degenerative changes of C5-C6. 1.5 cm hypodense nodule within the right hemithyroid. There is additional 1.4 cm nodule extending inferiorly from the posterior
aspect of the right hemithyroid for which an exophytic nodule or parathyroid adenoma or possible. Recommend dedicated nonemergent thyroid ultrasound for further evaluation.
R wrist fx: There is a minimally displaced and impacted comminuted distal radial fracture. Likely sequelae of prior distal ulnar fracture.
Hospital course: 74-year-old female who presented after tripping and falling down a flight of stairs, resulting in acute right arm pain. Imaging above. On admission the case was discussed with orthopedics and they recommended follow-up as
outpatient, nonweightbearing right upper extremity. The patient had patient positive orthostatic vital signs when working with physical therapy. She was initiated on midodrine with improvement in her orthostatic hypotension. She was discharged in
medically stable condition
Discharge Plan
-
Patient Disposition: Care Home/SNF
Discharge Diagnosis/Procedures: Minimally displaced and impacted comminuted distal radial fracture due to mechanical fall
Condition: Good
Diet: Diabetic, Carb Controlled and Other diet
Additional Diets: renal
Activity: As tolerated
Additional Activity: NWB RUE
Driving Restrictions: As prior to admission
Blood Work: BMP in 3 days, prescription from PCP
Referrals:
Liz Cheng I., DO [[facility]] - in one to two weeks
Marielle Sheppard MD [Family Provider, [facility]] - in less than 1 week
Prescriptions:
New
acetaminophen 325 mg Tablet
650 mg PO Q4HWA Qty: 0 0RF
midodrine 5 mg Tablet
5 mg PO TID@0800,1300,1800 Qty: 1 0RF
potassium chloride [Klor-Con M20] 20 mEq Tablet,Er Particles/Crystals
20 meq PO DAILY Qty: 0 0RF
Eliquis 5 mg Tablet
5 mg PO BID Qty: 1 0RF
Continued
fluoxetine 20 MG capsule
20 mg PO DAILY
omeprazole 20 mg Tablet,Delayed Release (Dr/Ec)
20 mg PO DAILY
bupropion HCl 150 mg Tablet Extended Release 24 Hr
150 mg PO DAILY
gabapentin 100 mg Capsule
100 mg PO TID Qty: 90 0RF
Renal Caps 1 mg Capsule
1 cap PO DAILY Qty: 30 0RF
cholecalciferol (vitamin D3) 50 mcg (2,000 unit) Tablet
50 mcg PO DAILY Qty: 30 0RF
atorvastatin [Lipitor] 40 mg Tablet
40 mg PO QPM
cilostazol 100 mg Tablet
100 mg PO BID
amlodipine [Norvasc] 5 mg Tablet
5 mg PO DAILY
nystatin 100,000 unit/gram Powder
1 applic TOPICAL BID
insulin glargine-yfgn 100 unit/mL Solution
5 unit SC DAILY
Discontinued
Eliquis 2.5 mg Tablet
2.5 mg PO BID
Discharge Orders:
Discharge Patient (As Directed); Ordered 11/03/25
Ordered By: Dayo Guo
Discharge Date and Time
Print Language: BELARUSIAN
== END 2025-11-03 15:01 | DRG 562 ==
LOC: 4 WEST ACU 14:38
PROVIDERS: General Practice; Internal Medicine; Nurse Practitioner Family; Specialist; ADMITTING PHYSICIAN Internal Medicine; ATTENDING PHYSICIAN Internal Medicine; EMERGENCY PHYSICIAN Emergency Medicine; FAMILY PHYSICIAN Family Medicine; OTHER PHYSICIAN Internal Medicine Nephrology
PROC: 5A1D70Z Performance of Urinary Filtration, Intermittent, Less than 6 Hours Per Day (ICD-10-PCS; 2025-10-28)
DX: S52.352A Displaced comminuted fracture of shaft of radius, left arm, initial encounter for closed fracture (principal); N18.6 End stage renal disease; I48.19 Other persistent atrial fibrillation; I13.2 Hypertensive heart and chronic kidney disease with heart failure and with stage 5 chronic kidney disease, or end stage renal disease; E87.1 Hypo-osmolality and hyponatremia; Z79.01 Long term (current) use of anticoagulants; E11.22 Type 2 diabetes mellitus with diabetic chronic kidney disease; E11.43 Type 2 diabetes mellitus with diabetic autonomic (poly)neuropathy; E11.51 Type 2 diabetes mellitus with diabetic peripheral angiopathy without gangrene; Z79.4 Long term (current) use of insulin; E87.6 Hypokalemia; I95.1 Orthostatic hypotension; W10.9XXA Fall (on) (from) unspecified stairs and steps, initial encounter; M06.9 Rheumatoid arthritis, unspecified; F41.9 Anxiety disorder, unspecified; F32.A Depression, unspecified; G47.33 Obstructive sleep apnea (adult) (pediatric); I25.10 Atherosclerotic heart disease of native coronary artery without angina pectoris; Z79.02 Long term (current) use of antithrombotics/antiplatelets; Z79.899 Other long term (current) drug therapy; Z99.2 Dependence on renal dialysis
CPT/HCPCS: 70450; 72125; 73110; 80048; 80051; 80053; 82962; 83735; 85014; 85018; 85025; 85027; 93005; 97116; 97163; 97167; 97530; G0257; P9047; Q5106